=== PATIENT | female | born 1935 | race Caucasian/White ===

== ENCOUNTER 2017-04-21 08:55 | Outpatient (CLI) | payer MEDICARE, SELFPAY ==
[2017-04-21] VITALS (10 sets, daily range): BP systolic 121–143; BP diastolic 57–78; PULSE 90–104; RESP 16–18; TEMP 36.5–37.7; O2SAT 92–100; BMI 34.7
--- NOTE | 2017-04-21 11:13 | NURSING ---
Blood has been tranfusing for 15min at [facility]. pt denies s&s of adverse reactions, this nurse does not see any, will continue to monitor. Increased to 100ml.hr for now.
--- NOTE | 2017-04-21 12:46 | NURSING ---
Pt has been requesting pain medication since approximately 1100, pt has no order for pain medication. According to [facility] papers that were faxed here pt has an order for [place] 5/325 po Q4hrs. No written orders for this came with pt. This nurse paged Dr. Josh Garcia who is patient account liaison for Dr. Zayas to get an order for this.
[2017-04-21] MEDS: 0.9% NaCl Peripheral Flush Adult/Peds IV (13:49)
[2017-04-21] MEDS: Furosemide 20 MG/2 ML VIAL IV (13:49)
[2017-04-21] MEDS: HYDROcodone Bitartrate/Apap 5/325 Tablet PO (14:30)
--- NOTE | 2017-04-21 17:32 | NURSING ---
REPORT CALLED TO IR[facility]IL[facility]
== END 2017-04-21 17:50 ==
LOC: MEDOUTP 08:56 → MS2 08:58
PROVIDERS: Family Provider Family Medicine; PCP Family Medicine; Visit Provider Family Medicine
DX: D64.9 Anemia, unspecified (principal)
CPT/HCPCS: 36415; 36430; 86850; 86900; 86920; 86922; J7040; P9016; A4216; J1940

== ENCOUNTER 2019-08-25 15:50 | Observation (INO) | payer MEDICARE, SELFPAY ==
[2017-04-21 11:08] VITALS: BMI 34.7
[2019-08-25] VITALS (7 sets, daily range): BP systolic 121–147; BP diastolic 66–78; PULSE 68–74; RESP 14–18; TEMP 36.4–37.1; O2SAT 95–97; BMI 32.0; BMI 32.5
--- NOTE | 2019-08-25 16:26 | CT_ITS ---
STUDY: CT BRAIN WITHOUT CONTRAST REASON FOR EXAM: Female, 84 years old. VERTIGO, WEAKNESS RADIATION DOSAGE (If Supplied By Facility): CTDIvol = ( 44.99 ) mGy, DLP = ( 762.36 ) mGycm TECHNIQUE: Transaxial CT imaging of the brain was performed without administration of intravenous contrast material. Individualized dose optimization techniques were used for this CT. COMPARISON: No relevant priors. FINDINGS: Normal soft tissue structures. Normal calvarium. There is mild cerebral atrophy with widening of the extra-axial spaces and ventricular dilatation. There are areas of decreased attenuation within the white matter tracts of the supratentorial brain, consistent with microvascular disease changes. Normal basal ganglia and thalami. Normal brainstem. Normal cerebellum. There is no intracranial hemorrhage. There are no findings of an acute ischemic infarction. There are atherosclerotic calcifications. Normal visualized paranasal sinuses. CT/Brain/Head without Contrast IMPRESSION: Chronic involutional changes of the brain. Electronically Signed: Robert Darnell MD at 17:41 EDT , Service support ,
--- NOTE | 2019-08-25 16:26 | EKG12_ITS ---
Test Reason : DIZZINESS Blood Pressure : / mmHG Vent. Rate : 066 BPM Atrial Rate : 066 BPM P-R Int : 154 ms QRS Dur : 084 ms QT Int : 450 ms P-R-T Axes : 035 030 037 degrees QTc Int : 471 ms Normal sinus rhythm Nonspecific T wave abnormality Prolonged QT Abnormal ECG Confirmed by JOSE LUIS NICHOLS, GABE ([id number]), editor farm journal LESTER MARROQUIN ([id number]) on 08/27/2019 9:14:44 AM Referred By: Confirmed By:GABE AMAYA MD
--- NOTE | 2019-08-25 16:29 | ED.DCSUM_ITS ---
- ER Visit Summary Date of Service: 08/25/19 Chief Complaint: Vertigo History of Present Illness: The patient is a 84 F presenting with vertigo. She states this started yesterday. Her symptoms worsen when she stands or turns her head. She denies nausea or vomiting. She fell 4 days ago. She states she b umped her head but did not lose consciousness. She is not on anticoagulants. She complains of unsteady gait when she tries to ambulate. She denies change in vision or speech. Denies numbness or weakness. She has shortness of breath which is no worse than usual. Denies chest pain. Denies fever or cough. Denies other complaints. Physical Examination: Vitals are stable. Patient is afebrile. Alert no acute distress. HEENT exam is unremarkable. Neck is supple. Lungs are clear and equal bilaterally. Heart is regular rate and rhythm. Abdomen is soft nontender nondistended. Extremities are unremarkable. Skin is warm and dry. No focal neurologic deficit. NIH 0 Remainder of exam is unremarkable. Emergency Department Course and Treatment: EKG is sinus rate of 66 with no acute ischemic changes. CBC, chemistries unremarkable other than sodium 131. Troponin is negative. Urinalysis unremarkable. She was given IV fluids. CT head shows chronic changes. Chest x-ray shows cardiac enlargement. No focal infiltrate. Discussed with hospitalist for observation. Disposition: Observation Impression: Vertigo This note was generated with [employer] dictation software. It may contain incorrect words, spelling, and punctuation that were not noted in review of the chart prior to signing ED Disposition - Plan for ED Patient: Referrals: Chapo Morfin MD [Primary Care Provider] -
--- NOTE | 2019-08-25 16:49 | RAD_ITS ---
STUDY: X-RAY CHEST REASON FOR EXAM: Female, 84 years old. POSITIONAL DIZZINESS TECHNIQUE: Single AP portable view of the chest. COMPARISON: May 23, 2012 FINDINGS: There are monitoring devices. There are interstitial fibrotic changes of the lungs. There is no demonstrated pleural abnormality. There is moderate cardiac enlargement. There is stable right hilar enlargement . There is atherosclerotic calcification of the aortic arch with tortuosity. Normal visualized thoracic spine. Normal visualized ribs, clavicles, and shoulders. There is no demonstrated abnormality of the visualized soft tissue structures of the upper abdomen. RAD/Chest 1 View (Portable) IMPRESSION: Cardiac enlargement. No focal infiltrate. Electronically Signed: Robert Darnell MD at 18:00 EDT , Service support ,
[2019-08-25 16:53] LABS: Absolute Neutrophil Count 5.2 X10^3/uL (2.0-7.7); Basophil# 0.04 X10^3/uL; Basophil% 0.5 % (0-1); Eosinophil# 0.14 X10^3/uL; Eosinophils% 1.9 % (0-5); Hematocrit 39.4 % (37-47); Hemoglobin 12.9 g/dL (12.0-15.0); Lymphocyte % 19.9 % (19-41); Mean Corp Hgb Conc 32.7 g/dL (32-36); Mean Corpuscular Hgb 29.4 pg (27.0-32.0); Mean Corpuscular Volume 89.7 fL (81-99); Mean Platelet Vol. 10.2 fl (6.2-12.0); Monocyte# 0.66 X10^3/uL; Monocyte% 8.8 % (0-10); NRBC Flagged by Analyzer 0 % (0-5); Neutrophil # 5.15 X10^3/uL (2.7-7.7); Neutrophil % 68.5 % (47-70); Platelet Count 328 K/mm3 (150-450); RBC Distribution Width SD 42.8 fl (35.1-43.9); Red Blood Count 4.39 M/mm3 (4.2-5.4); White Blood Count 7.5 K/mm3 (4.4-11.0)
[2019-08-25 16:54] LABS: Anion Gap 7 (5-15); BUN 12 mg/dL (7-18); BUN/Creat Ratio 15.9 RATIO (10-20); Calcium,Total 8.8 mg/dL (8.5-10.1); Chloride 94 mmol/L (98-107); Creatinine, Serum 0.76 mg/dL (0.55-1.02); EST Glomerular Filtration Rate 78 mL/min (>60); Est Glom Filt Rate - Afr Amer 94 mL/min (>60); Glucose 91 mg/dL (74-106); Potassium 3.7 mmol/L (3.5-5.1); Sodium Level 131 mmol/L (136-145)
[2019-08-25 17:29] LABS: Bacteria 0 SEEN /hpf (None Seen); Mucous, Urine 0 SEEN /hpf (<or=2+); Red Blood Cells-Urine 0 SEEN /hpf (0-5); White Blood Cells 0 SEEN /hpf (0-5)
[2019-08-25 17:43] LABS: Color, Urine Yellow (Yellow); Glucose, Dipstick Normal (Normal); Ketone-Dipstick Negative (Negative); Leukocyte Esterase-Dipstick Negative /ul (Negative); Nitrite-Dipstick Negative (Negative); Occult Blood-Urine Negative /ul (Negative); Protein-Dipstick Negative (Negative); Specific Gravity, Urine 1.005 (1.002-1.030); Urine Bilirubin Dipstick Negative (Negative); Urine Clarity Clear (Clear); Urine Urobilinogen Normal (Normal)
[2019-08-25 17:49] LABS: Squamous Epithelial Cells - UA 0-5 SEEN /hpf (5-10)
--- NOTE | 2019-08-25 18:08 | HP.PCM_ITS ---
History of Present Illness Date of Admission: 08/25/19 Chief Complaint: Dizziness and vertigo The patient is a 84 year old F with a past medical history as outlined was admitted through the ED on 08/25/2019 with a complaint of dizziness and vertigo. Symptoms have been going on for 1 day and gradually worsened. She said it was worsened by movement of her head. She denied any headache, blurred vision, any upper respiratory symptoms, any ringing in the ears, any nausea vomiting or diarrhea. She is never had such symptoms before. Review of symptoms otherwise negative. Vitals were essentially unremarkable with temperature being 97.5, blood pressure 124/66, pulse rate of 72 respiratory of 17. She was saturating at 96% on room air. Chemistry showed sodium of 131 and chloride of 94. Initial troponin was negative and creatinine is 0.76. CBC was unremarkable. ET of the brain showed only chronic involutional changes of the brain. Chest x-ray showed cardiac enlargement with no focal infiltrate and no acute cardiopulmonary process. She has been admitted to be managed for acute vertigo likely due to BPPV but rule out a stroke. [] Past Medical History Allergies fenofibrate Allergy (Verified 08/25/19 15:52) Unknown lisinopril Allergy (Verified 08/25/19 15:52) Unknown perfume Allergy (Verified 08/25/19 15:52) Unknown Sulfa (Sulfonamide Antibiotics) Allergy (Verified 08/25/19 15:52) Unknown zolpidem Allergy (Verified 08/25/19 15:52) Unknown cholecalciferol (vitamin D3) Adverse Reaction (Verified 08/25/19 15:52) Upset Stomach meloxicam Adverse Reaction (Verified 08/25/19 15:52) Unknown Home Medications: Ambulatory Orders Medication Instructions Recorded Acetaminophen [Tylenol Extra 500 mg PO Q4H PRN PRN 08/25/19 Strength] Hydrochlorothiazide 12.5 mg PO DAILY 08/25/19 Loperamide [Imodium] 2 mg PO DAILY PRN PRN 08/25/19 Omeprazole 40 mg PO DAILY 08/25/19 Surgical History: - - hip surgery in the past Psychiatric History: No pertinent psych hx INFORMATION SYSTEMS CONSULTANT 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 Denies: Chest Pain, Heaviness, Orthopnea, Palpitations Respiratory: Denies: Cough, Shortness of Breath, Shortness of breath at rest, Shortness of breath upon exertion, Sputum production Gastrointestinal: Denies: Abdominal Pain, Nausea, Vomiting Genitourinary: Denies: Dysuria Musculoskeletal: Denies: Joint Pain, Joint Tenderness Skin: Denies: Rash, Wounds Neurological: Denies: Numbness, Tingling, Focal weakness Psychiatric: Denies: Anxiety, Depression, Homicidal Ideations, Suicidal Ideations Hematologic/ Lymphatic: Denies: Easy Bruising, Easy Bleeding VTE Information - Inpt Only VTE Present on Admission: No VTE Pharm Prophylaxis ordered?: Yes - Physical Exam Vitals/I&O's: Vital Signs Temp Pulse Resp BP Pulse Ox 98.7 F 68 14 121/78 H 96 08/25/19 15:51 08/25/19 17:55 08/25/19 17:55 08/25/19 17:55 08/25/19 17:55 Oxygen Delivery Method Room Air Weight: 175 lb Body Mass Index (BMI) 32.0 General: Alert, Oriented x3, Cooperative, No apparent distress HEENT: Atraumatic, PERRLA, EOMI, Normocephalic Oral: Moist Mucosa Neck: Supple, No JVD, Negative Carotid Bruits Lungs: Clear to auscultation, Normal air movement, No rhonchi, No wheeze, No rales Cardiovascular: Regular rate, Regular Rhythm, Normal S1, Normal S2, No murmurs Abdomen: Bowel Sounds Present, Soft, Non Tender, Non-Distended, No Hepato- splenomegaly Extremities: No clubbing, No cyanosis, No edema, Capillary Refill Less than 3 Seconds Skin: No rashes, No breakdown Musculoskeletal: No Tenderness to Palpation of Joints or Extremities Lymphatic: No Cervical, Supraclavicular, or Inguinal Adenopathy Neurological: Cranial nerves II-XII grossly intact, Neuro grossly intact, Motor Exam 5/5 strength throughout, - - no nystagmus Psych/Mental Status: Normal Affect, Appropriate, Alert and oriented to time, place, person, mood and affect Laboratory Results 08/25/19 16:15: WBC 7.5, RBC 4.39, Hgb 12.9, Hct 39.4, MCV 89.7, MCH 29.4, MCHC 32.7, RDW Std Deviation 42.8, RDW Coeff of Lynsey 13.0, Plt Count 328, MPV 10.2, Immature Gran % (Auto) 0.400, Neut % (Auto) 68.5, Lymph % (Auto) 19.9, [place] % (Auto) 8.8, Eos % (Auto) 1.9, Baso % (Auto) 0.5, Absolute Neuts (auto) 5.2, Absolute Lymphs (auto) 1.50, Nucleated RBC % 0 08/25/19 16:15: Sodium 131 L, Potassium 3.7, Chloride 94 L, Carbon Dioxide 30.0, Anion Gap 7, BUN 12, Creatinine 0.76, Estim Creat Clear Calc 34.30, Est GFR (MDRD) Af Amer 94, Est GFR (MDRD) Non-Af 78, BUN/Creatinine Ratio 15.9, Glucose 91, Calcium 8.8, Troponin I < 0.015 08/25/19 17:20: Urine Color Yellow, Urine Clarity Clear, Urine pH 6.0, Ur Specific [place] 1.005, Urine Protein Negative, Urine Glucose (UA) Normal, Urine Ketones Negative, Urine Occult Blood Negative, Urine Nitrite Negative, Urine Deuce irubin Negative, Urine Urobilinogen Normal, Ur Leukocyte Esterase Negative, Urine RBC 0 SEEN, Urine WBC 0 SEEN, Ur Squamous Epith Cells 0-5 SEEN, Urine Bacteria 0 SEEN, Urine Mucus 0 SEEN Diagnostic Data Brain CT 08/25/19 16:26 IMPRESSION: Chronic involutional changes of the brain. Electronically Signed: Robert Darnell MD at 17:41 EDT , Service support , Chest X-Ray 08/25/19 16:49 IMPRESSION: Cardiac enlargement. No focal infiltrate. Electronically Signed: Robert Darnell MD at 18:00 EDT , Service support , Assessment/Plan 84-year-old admitted with a complaint of dizziness and vertigo. 1. Vertigo * Main differential is BPPV as patient states it gets worse with movement of her head. However in light of her advanced age and no previous history of vertigo, I think it is reasonable to rule out a stroke with an MRI. * Admit to PCU with telemetry. * Fall precautions. * PT/OT consult * hydrate gently with IVF * get MRI of the brain and MRA of the head and neck * if negative, will benefit from vestibular therapy * 2.Hypertension: On hydrochlorothiazide. Controlled. 3.GERD: On omeprazole 40 mg daily. DVT prophylaxis: SCDs CODE STATUS: Full code * Patient counseled extensively about different types of CODE STATUS including full code, DNR CCA and DNR CCA. Patient elects to be full code. Total elgh-ko-mdcn time 16 minutes. OBSV E&M: 45773 Initial observation care L2 Procedures: 79954 Advncd Care Plan 30 Min
[2019-08-26 00:55] VITALS: BP 131/74; PULSE 67; RESP 16; TEMP 36.7; O2SAT 98
[2019-08-26 03:00] VITALS: PULSE 66
[2019-08-26 03:30] VITALS: BP 145/62; PULSE 71; RESP 16; TEMP 36.7; O2SAT 95
[2019-08-26 05:00] VITALS: BMI 32.5
--- NOTE | 2019-08-26 05:55 | MRI_ITS ---
STUDY: MRA NECK WITH AND WITHOUT CONTRAST REASON FOR EXAM: Female, 84 years old. VERTIGO, increasing dizziness worse on Sunday, resolved now TECHNIQUE: 3-D rzbq-vz-mrrabf (TOF) imaging was performed in an 1.5 T MRI scanner. iv doatarem 16cc was administered for the contrast enhanced images. COMPARISON: None. FINDINGS: RIGHT CAROTID ARTERIES: Normal right common carotid artery (CCA). Normal right common carotid bulb. Normal origin of the right internal carotid (ICA) artery without a hemodynamically significant stenosis. Normal visualized cervical portion of the right internal carotid artery. Normal origin of the right external carotid artery (ECA). LEFT CAROTID ARTERIES: Normal left common carotid artery (CCA). Normal left common carotid bulb. Normal origin of the left internal carotid (ICA) artery without a hemodynamically significant stenosis. Normal visualized cervical portion of the left internal carotid artery. Normal origin of the left external carotid artery (ECA). VERTEBRAL ARTERIES: Normal antegrade flow within the bilateral vertebral artery without a hemodynamically significant stenosis. MRI/MRA Neck WITH and W/O Contrast IMPRESSION: Normal bilateral cervical carotid and vertebral arteries. Electronically Signed: Mitchell Juarez, at 12:46 EDT Tel , Service support ,
--- NOTE | 2019-08-26 05:55 | MRI_ITS ---
STUDY: MRI BRAIN WITHOUT CONTRAST REASON FOR EXAM: Female, 84 years old. VERTIGO, increasing dizziness worse on Sunday, resolved now TECHNIQUE: Standardized multiplanar fat and water weighted pulse sequences were obtained. COMPARISON: CT 08/25/2019 FINDINGS: There is moderate cerebral atrophy with widening of the extra-axial spaces and ventricular dilatation. There are a limited number of small white matter hyperintensities, distributed throughout the deep white matter tracts of the cerebral hemispheres, consistent with mild chronic white matter ischemic changes. There is no evidence for recent intracranial ischemia or other cause of cytotoxic edema on diffusion weighted imaging (DWI). Normal T2* images of the brain without demonstrated susceptibility artifact. There is no demonstrated hemosiderin stain. Normal bilateral basal ganglia. Normal thalami. There is no extra-axial fluid accumulation. Normal flow voids within the major intracranial circulation suggesting patency by spin echo criteria. Normal sella turcica, pituitary gland, infundibular stalk, optic chiasm and hypothalamus. Normal tectal plate and pineal gland. Normal midbrain, josephine and medulla. Normal cerebellum. Normal basal cisterns. Normal bilateral temporal bones. Normal bilateral internal auditory canals. There are bilateral ocular lens implants with otherwise normal intraorbital contents. Normal visualized paranasal sinuses. Normal calvarium and skull base. Normal visualized soft tissue structures. Normal visualized upper cervical spine. MRI/Brain without Contrast IMPRESSION: Involutional changes of the brain, as described above. No acute infarct. Electronically Signed: Mendez Garcia MD at 9:34 EDT Tel , Service support ,
--- NOTE | 2019-08-26 05:55 | MRI_ITS ---
STUDY: MRA OF THE HEAD WITHOUT CONTRAST REASON FOR EXAM: Female, 84 years old. VERTIGO, increasing dizziness worse on Sunday, resolved now TECHNIQUE: 3-D oydp-xj-ipcjqf (TOF) imaging was performed with MIPs. The study was performed unenhanced. COMPARISON: None. FINDINGS: Normal bilateral petrous carotid arteries. Normal right cavernous carotid artery with a normal supraclinoid bifurcation. Normal left cavernous carotid artery with a normal supraclinoid bifurcation. Normal right A1 segments of the anterior cerebral artery. There is non-visualization of the left A1 segment of the anterior cerebral arteries consistent with either aplastic development or an occlusion. Normal intact anterior communicating artery (ACOM). Normal bilateral A2 segments of the anterior cerebral arteries. There is moderate focal narrowing of the proximal right M1 segment. Normal right M2 segment of the middle cerebral arteries, with a normal M1 bifurcation. Normal left M1 and M2 segments of the middle cerebral arteries, with a normal M1 bifurcation. There is non-visualization of the right posterior communicating artery (PCOM). Normal left posterior communicating artery (PCOM). Normal bilateral vertebral arteries. Normal basilar artery with a normal basilar bifurcation. The visualized bilateral superior cerebellar (SCA) arteries are normal. Normal bilateral P1, P2 and visualized P3 segments of the posterior cerebral arteries. There is no demonstrated aneurysm of the [place] of [place]. There is no major vessel occlusion or hemodynamically significant stenosis. There is no demonstrated abnormality of the visualized brain. MRI/MRA Head ONLY without Contrast IMPRESSION: Moderate focal narrowing of the proximal right M1 segment. There is nonvisualization of the left A1 segment which may be due to aplastic development or an occlusion. Electronically Signed: Mitchell Juarez, at 13:15 EDT Tel , Service support ,
[2019-08-26 06:05] LABS: Absolute Lymphocyte Count 1.32 X10^3/uL (0.83-4.51); Absolute Neutrophil Count 5.5 X10^3/uL (2.0-7.7); Basophil# 0.04 X10^3/uL; Basophil% 0.5 % (0-1); Eosinophils% 2.6 % (0-5); Hematocrit 37.5 % (37-47); Hemoglobin 12.3 g/dL (12.0-15.0); Lymphocyte # 1.32 X10^3/ul (4.0); Lymphocyte % 16.8 % (19-41); Mean Corp Hgb Conc 32.8 g/dL (32-36); Mean Corpuscular Hgb 29.1 pg (27.0-32.0); Mean Corpuscular Volume 88.7 fL (81-99); Mean Platelet Vol. 9.5 fl (6.2-12.0); Monocyte# 0.75 X10^3/uL; Monocyte% 9.6 % (0-10); NRBC Flagged by Analyzer 0 % (0-5); Neutrophil % 70.1 % (47-70); Platelet Count 290 K/mm3 (150-450); RBC Distribution Width CV 12.9 % (11.6-14.6); RBC Distribution Width SD 41.6 fl (35.1-43.9); Red Blood Count 4.23 M/mm3 (4.2-5.4); White Blood Count 7.8 K/mm3 (4.4-11.0)
[2019-08-26 06:28] LABS: Anion Gap 4 (5-15); BUN 10 mg/dL (7-18); Calcium,Total 8.9 mg/dL (8.5-10.1); Chloride 98 mmol/L (98-107); Creatinine, Serum 0.77 mg/dL (0.55-1.02); EST Glomerular Filtration Rate 76 mL/min (>60); Est Glom Filt Rate - Afr Amer 92 mL/min (>60); Glucose 94 mg/dL (74-106); Potassium 3.5 mmol/L (3.5-5.1); Sodium Level 132 mmol/L (136-145)
[2019-08-26 07:25] VITALS: PULSE 71
[2019-08-26 09:30] VITALS: BP 133/62; PULSE 68; RESP 18; TEMP 37.1; O2SAT 96
[2019-08-26] MEDS: Enoxaparin 40 MG/0.4 ML Syringe SC (10:18)
[2019-08-26] MEDS: hydroCHLOROthiazide 12.5mg 12.5 MG PO (10:18)
[2019-08-26] MEDS: Pantoprazole Sodium 40 MG Tablet PO (10:19)
[2019-08-26 11:35] VITALS: PULSE 68
[2019-08-26 11:53] VITALS: BMI 32.5
--- NOTE | 2019-08-26 13:25 | DCINST_ITS ---
You will use the following diet at home:: No restrictions Your food should be the consistency of: Regular Your liquids should be the consistency of: Regular/Thin Discharge Activity: Return to Normal Activity Weight Bearing Status: Full weight bearing Allergies/Adverse Reactions: Allergies fenofibrate Allergy (Verified 08/25/19 15:52) Unknown lisinopril Allergy (Verified 08/25/19 15:52) Unknown perfume Allergy (Verified 08/25/19 15:52) Unknown Sulfa (Sulfonamide Antibiotics) Allergy (Verified 08/25/19 15:52) Unknown zolpidem Allergy (Verified 08/25/19 15:52) Unknown cholecalciferol (vitamin D3) Adverse Reaction (Verified 08/25/19 15:52) Upset Stomach meloxicam Adverse Reaction (Verified 08/25/19 15:52) Unknown Medications to take at Discharge Acetaminophen [Tylenol] 500 mg PO Q4H PRN PRN 08/25/19 Hydrochlorothiazide 12.5 mg PO DAILY 08/25/19 Loperamide [Imodium] 2 mg PO DAILY PRN PRN 08/25/19 Omeprazole 40 mg PO DAILY 08/25/19 Primary Care Physician: Chapo Morfin MD [Primary Care Provider] - Please follow up with your Primary Care Physician in: in 1-2 weeks Test Results: Test results from this visit will be discussed in further detail at your follow- up appointment, if applicable.
--- NOTE | 2019-08-26 19:56 | PCM.DC.SUM ---
Discharge Date and Diagnosis Date of Admission: 08/25/19 Date of Discharge: 08/26/19 - Primary Discharge Diagnosis Acute Problems: #1 benign vertigo-acute #2 essential hypertension #3 GERD Hospital Course and Treatment Operations: None Procedures: None Summary of Care Provided: The patient is a 84 year old F was seen in the emergency room at [facility] with chief complaint of dizziness x24 hours, she stated it worsened when she turned her head suddenly. Work-up in the emergency room included an EKG which showed no acute ischemic changes, CBC and chemistries were unremarkable other than sodium of 131. Patient was given IV fluids, CT of the brain showed chronic changes, chest x-ray showed cardiac enlargement. Patient was placed in observation status on PCU, she underwent an MRI of the brain which showed no evidence of acute stroke, she had an MRA of the head and neck which showed no evidence of severe occlusion.. Patient symptoms resolved during her hospitalization with no treatment. On 08/26/2019, patient was seen and examined: On examination she appeared in good health and spirits, she does not appear to be in any distress. Vital signs as documented. Skin warm and dry and without overt rashes. Neck without JVD, thyroid appears normal, trachea is midline, neck is supple. Lungs clear, normal air movement was noted. Heart exam notable for regular rhythm, normal sounds and absence of murmurs, rubs or gallops. Abdomen unremarkable and without evidence of organomegaly, masses, or abdominal aortic enlargement, bowel sounds are present in all 4 quadrants, no abdominal tenderness was noted. Extremities nonedematous, no cyanosis was noted, no clubbing was noted. Neuro: Cranial nerves II through XII are grossly intact, no focal motor deficits were noted, sensation to light touch and pinprick is intact, motor exam 5/5 throughout. Psych: Patient is alert and oriented x3, she does not appear anxious or depressed, she does not appear agitated. Patient was discharged in stable condition on 08/26/2019. - Physical Exam Vitals/I&O's: Vital Signs Temp Pulse Resp BP Pulse Ox 98.8 F 68 18 133/62 H 96 08/26/19 09:30 08/26/19 11:35 08/26/19 09:30 08/26/19 09:30 08/26/19 09:30 Oxygen Delivery Method Room Air Weight: 80.6 kg Body Mass Index (BMI) 32.5 Intake and Output for Last 24 Hours 08/24/19 08/25/19 08/26/19 23:59 23:59 23:59 Intake Total 500 / 620 520 / 520 Balance 500 / 620 520 / 520 Laboratory Results 08/26/19 05:55: WBC 7.8, RBC 4.23, Hgb 12.3, Hct 37.5, MCV 88.7, MCH 29.1, MCHC 32.8, RDW Std Deviation 41.6, RDW Coeff of Lynsey 12.9, Plt Count 290, MPV 9.5, Immature Gran % (Auto) 0.400, Neut % (Auto) 70.1 H, Lymph % (Auto) 16.8 L, [place] % (Auto) 9.6, Eos % (Auto) 2.6, Baso % (Auto) 0.5, Absolute Neuts (auto) 5.5, Absolute Lymphs (auto) 1.32, Nucleated RBC % 0 08/26/19 05:55: Sodium 132 L, Potassium 3.5, Chloride 98, Carbon Dioxide 30.0, Anion Gap 4 L, BUN 10, Creatinine 0.77, Estim Creat Clear Calc 34.30, Est GFR (MDRD) Af Amer 92, Est GFR (MDRD) Non-Af 76, BUN/Creatinine Ratio 13.0, Glucose 94, Calcium 8.9 Discharge Activity: Return to Normal Activity Weight Bearing Status: Full weight bearing Home Medications: Medications to take at Discharge Acetaminophen [Tylenol] 500 mg PO Q4H PRN PRN 08/25/19 Hydrochlorothiazide 12.5 mg PO DAILY 08/25/19 Loperamide [Imodium] 2 mg PO DAILY PRN PRN 08/25/19 Omeprazole 40 mg PO DAILY 08/25/19 Diazepam [Valium] 2 mg PO TID PRN PRN #20 tab 08/26/19 Following Prescrptions Were Given to Patient: Diazepam [Valium] 2 mg PO TID PRN PRN #20 tab PRN Reason: Dizziness Prescription Printed Primary Care Physician: Chapo Morfin MD [Primary Care Provider] - Please follow up with your Primary Care Physician in: in 1-2 weeks Disposition: Home Minutes spent on discharge:: 31 Patient Condition:: Stable Medical Necessity - Tobacco Use Smoking Status: Never smoker Tobacco Use: Non-smoker Meaningful Use Info Meaningful Use Diagnoses (Choose all that apply): None applicable OBSV E&M: 38579 Observation care discharge
== END 2019-08-26 13:25 | disposition home or self-care (01) ==
LOC: ED 17:34 → PCU 18:28
PROVIDERS: Admitting Provider Student in an Organized Health Care Education/Training Program; Emergency Provider Emergency Medicine; PCP Family Medicine; Visit Provider Internal Medicine
DX: R42 Dizziness and giddiness (principal); I10 Essential (primary) hypertension; K21.9 Gastro-esophageal reflux disease without esophagitis; Z79.899 Other long term (current) drug therapy; Z91.81 History of falling; R94.31 Abnormal electrocardiogram [ECG] [EKG]
CPT/HCPCS: 36415; 70450; 70544; 70549; 70551; 71045; 80048; 81001; 84484; 85025; 93005; 96360; 96372; 97162; 97166; 99218; 99285; A9575; J7040; A4216; G0378

== ENCOUNTER 2020-04-16 13:02 | Outpatient (RCR) | payer MEDICARE, SELFPAY | END 2020-04-16 23:59 | LOC: IMMUN 13:02 | PROVIDERS: PCP Family Medicine; Visit Provider Family Medicine | DX: Z23 Encounter for immunization (principal) | CPT/HCPCS: 0011A; 0012A; 91301 ==

== ENCOUNTER 2020-06-23 17:07 | Inpatient (IN) | payer MEDICARE, SELFPAY ==
[2020-06-23 17:08] VITALS: BP 154/84; PULSE 63; RESP 18; TEMP 35.8; O2SAT 92; BMI 32.0
--- NOTE | 2020-06-23 17:36 | CT_ITS ---
INDICATION: Diffuse abdominal pain EXAMINATION: CT Abdomen And Pelvis W/ Contrast Injection TECHNIQUE: Helically acquired images were obtained of the abdomen and pelvis after IV contrast. A radiation dose optimization technique was used for this scan. IV Contrast dosage and agent: 100 cc of [id number] Oral contrast: None. COMPARISON: None. FINDINGS: Visualized lung bases: Bibasilar atelectasis. Liver: Unremarkable Gallbladder: Few small intraluminal stones seen. Spleen: Unremarkable Pancreas: Mild fatty atrophic changes. Adrenal Glands: Unremarkable Kidneys: Scattered too small to characterize subcentimeter hypodensities bilaterally. GI Tract: Scattered diverticula throughout the colon without evidence of inflammation. Multiple dilated loops of fluid-filled small bowel measuring up to 3 cm in diameter. There is a potential transition point in the mid to distal ileum (image 80, series 2). Vasculature: Severe aortoiliac atherosclerotic calcifications. Lymphadenopathy: None Peritoneum: No ascites. Bladder: Unremarkable Reproductive organs: Unremarkable Bones/Soft tissues: Mild scattered degenerative changes of the visualized spine. Grade [address] on L5. CT/Abdomen/Pelvis W IV Cont ONLY IMPRESSION: Small bowel obstruction with possible transition point in the mid to distal ileum. Cholelithiasis. Diverticulosis. Electronically Signed: King Lau MD at 19:39 EDT Tel , Service support ,
--- NOTE | 2020-06-23 17:44 | ED.VIS.GEN ---
History of Present Illness Chief Complaint: Abd Pain Informant: Patient Narrative: Patient is an 84-year-old female who presents to the emergency department for diffuse abdominal pain. This has been present over the past 10 days. Has been progressive getting worse. She currently rates the pain as a 10 out of 10. She denies ever experiencing this before in the past. She did get nauseous and vomit a few days apart. She states she is having normal bowel movements without any blood or black tarry stools. She denies any urinary symptoms. No previous abdominal surgeries. She denies any chest pain or shortness of breath. No fevers or chills. She states that eating seems to make her symptoms worse. Whenever she wakes up in the morning her symptoms are not bad. Whenever she vomits this seems to help. Past Medical History - Allergies and Home Meds Allergies/Adverse Reactions: Allergies fenofibrate Allergy (Verified 06/23/20 17:10) Unknown lisinopril Allergy (Verified 06/23/20 17:10) Unknown perfume Allergy (Verified 06/23/20 17:10) Unknown Sulfa (Sulfonamide Antibiotics) Allergy (Verified 06/23/20 17:10) Unknown zolpidem Allergy (Verified 06/23/20 17:10) Unknown cholecalciferol (vitamin D3) Adverse Reaction (Verified 06/23/20 17:10) Upset Stomach meloxicam Adverse Reaction (Verified 06/23/20 17:10) Unknown Prior records reviewed: Yes Past Medical History: - - Hypertension, IBS Surgical History: - - hip surgery in the past Smoking Status: Never smoker - Family History Maternal Family History: Reports: No pertinent history Paternal Family History: Reports: No pertinent history Review of Systems All systems negative except as indicated General: Denies: Chills, Fever, Sweats Eyes: Denies: Visual changes - bilaterally, Diplopia ENT: Denies: Rhinorrhea, Sore throat Cardiovascular: Denies: Chest pain, Palpitations Respiratory: Denies: Dyspnea, Cough, Dyspnea on exertion Gastrointestinal: Reports: Abdominal pain, Nausea, Vomiting. Denies: Diarrhea, Melena, Hematochezia Genitourinary: Denies: Dysuria, Hematuria, Frequency Musculoskeletal: Denies: Back pain, Extremity Pain Skin: Denies: Rash, Wounds Neurological: Denies: Headache, Weakness, Numbness Physical Exam Vital Signs/Narrative: Vital Signs Temp Pulse Resp BP Pulse Ox 06/23/20 17:08 96.5 F L 63 18 154/84 H 92 Inital Vital Signs reviewed: Yes General: Well nourished, Well developed, No Acute Distress Head: Normocephalic, Atraumatic Eyes: Perrl, EOMI ENT: Moist mucous membranes, No rhinorrhea Neck: Supple, Nontender Cardiovascular: Regular rate, Regular rhythm, No murmurs Respiratory: No distress, CTA bilaterally, Chest nontender Abdomen: Soft, Nondistended, Normal bowel sounds, Tender - Diffuse, no one spot hurts worse than another.. Negative for: Guarding, Rebound tenderness, Gutierrez's sign Back: Nontender, Normal Inspection Extremities: Nontender, No edema Skin: Normal color, No rash Neurological: Alert, Oriented x3, Cranial nerves II-XII grossly intact, Normal Strength, Normal Sensation Psychological: Normal affect, Normal Mood Diagnostic/Tx/Re-eval - Medical Decision Making Patient presents to the ED for diffuse abdominal pain for the past 10 days. Upon arrival to the ED vital signs within normal limits. She is diffusely tender. No peritoneal signs on physical exam. Patient given morphine for symptomatic treatment and will check basic lab work and CT scan of the abdomen/pelvis. Patient CT scan does show evidence of small bowel obstruction. She is feeling better after dose of morphine. She does have a mild elevation of her white blood cell count. Patient will require hospitalization for further evaluation and management of this. She is agreeable to staying in the hospital at this time. She has been stable throughout ED stay. ED Disposition - Plan for ED Patient: Disposition: Acute Care Hospital [facility] Diagnosis: Small bowel obstruction, Abdominal pain
[2020-06-23] MEDS: Morphine 4 MG/ML Syringe IV (17:48)
[2020-06-23 18:01] LABS: Absolute Lymphocyte Count 1.09 X10^3/uL (0.83-4.51); Absolute Neutrophil Count 10.2 X10^3/uL (2.0-7.7); Basophil# 0.03 X10^3/uL; Basophil% 0.2 % (0-1); Eosinophil# 0.05 X10^3/uL; Eosinophils% 0.4 % (0-5); Hematocrit 42.5 % (37-47); Hemoglobin 13.9 g/dL (12.0-15.0); Lymphocyte # 1.09 X10^3/ul (4.0); Lymphocyte % 8.9 % (19-41); Mean Corp Hgb Conc 32.7 g/dL (32-36); Mean Corpuscular Hgb 28.4 pg (27.0-32.0); Mean Corpuscular Volume 86.7 fL (81-99); Mean Platelet Vol. 9.9 fl (6.2-12.0); Monocyte# 0.88 X10^3/uL; Monocyte% 7.2 % (0-10); NRBC Flagged by Analyzer 0 % (0-5); Neutrophil # 10.16 X10^3/uL (2.7-7.7); Neutrophil % 82.9 % (47-70); Platelet Count 360 K/mm3 (150-450); RBC Distribution Width CV 13.3 % (11.6-14.6); RBC Distribution Width SD 42.2 fl (35.1-43.9); White Blood Count 12.3 K/mm3 (4.4-11.0)
[2020-06-23 18:24] LABS: ALB/GLOB Ratio 1.1 RATIO (0.9-2.4); AST(SGOT) 13 U/L (15-37); Alanine Aminotransfer ALT/SGPT 11 U/L (13-56); Alkaline Phosphatase 94 U/L (45-117); Anion Gap 5 (5-15); BUN 19 mg/dL (7-18); BUN/Creat Ratio 15.7 RATIO (10-20); Calcium,Total 9.2 mg/dL (8.5-10.1); Chloride 94 mmol/L (98-107); Creatinine, Serum 1.21 mg/dL (0.55-1.02); EST Glomerular Filtration Rate 45 mL/min (>60); Est Glom Filt Rate - Afr Amer 55 mL/min (>60); Estimated Creatinine Clearance 28.35 ml/min; Globulin 3.8 g/dL (2.2-4.2); Glucose 108 mg/dL (74-106); Lipase 82 U/L (73-393); Potassium 3.5 mmol/L (3.5-5.1); Protein, Total 7.8 g/dL (6.4-8.2); Sodium Level 132 mmol/L (136-145)
[2020-06-23 18:31] LABS: Lactic Acid 1.2 mmol/L (0.4-1.9)
[2020-06-23 20:02] LABS: Glucose, Dipstick Normal (Normal); Ketone-Dipstick Negative (Negative); Leukocyte Esterase-Dipstick 25 /ul (Negative); Nitrite-Dipstick Negative (Negative); Occult Blood-Urine 10 /ul (Negative); Protein-Dipstick 15 mg/dl (Negative); Specific Gravity, Urine 1.015 (1.002-1.030); Urine Bilirubin Dipstick Negative (Negative); Urine Urobilinogen Normal (Normal)
[2020-06-23 20:03] LABS: Color, Urine Yellow (Yellow); Urine Clarity Clear (Clear)
[2020-06-23 20:48] VITALS: BP 135/72; PULSE 69; RESP 18; TEMP 36.7; O2SAT 95
[2020-06-23 21:08] VITALS: RESP 18
--- NOTE | 2020-06-23 21:19 | PCM.HP.STD ---
Problem List (1) Acute kidney injury Status: Acute (2) Small bowel obstruction Status: Acute (3) Hypertension Status: Chronic (4) Aortic root enlargement Status: Chronic (5) Irritable bowel syndrome Status: Chronic History of Present Illness Date of Admission: 06/23/20 Chief Complaint: Abdominal pain. The patient is a 84 year old F with past medical history as mentioned above presented to the emergency room because of abdominal pain. Her symptoms started almost 2 weeks ago with gradually onset abdominal pain, vague generalized abdominal pain, initially was intermittent, burning pain, has been progressive and over the last 3 to 5 days, has been more severe and more constant, associated with vomiting and without aggravating or relieving factors. She attributed this pain initially to potassium pills that she was taking for low potassium. She continued to have this pain and it just has been getting worse. She mentioned that she had irritable syndrome and she had normal usual bowel movement today. Currently, she denied nausea or vomiting. She denied fever or chills. She denied urinary symptoms. In the emergency department, her vital signs were stable, afebrile. Routine blood work revealed mild leukocytosis, sodium of 132, BUN is 19, creatinine is 1.21. LFT was unremarkable. Lipase was normal. UA was unremarkable. CT scan abdomen and pelvis with IV contrast revealed small bowel obstruction with possible transition point in the middle to distal ileum. She is being admitted for small bowel obstruction and acute kidney injury. Past Medical History Past Medical History (Chronic Problems): Chronic Problems Hypertension (Chronic) Aortic root enlargement (Chronic) Irritable bowel syndrome (Chronic) Allergies fenofibrate Allergy (Verified 06/23/20 17:10) Unknown lisinopril Allergy (Verified 06/23/20 17:10) Unknown perfume Allergy (Verified 06/23/20 17:10) Unknown Sulfa (Sulfonamide Antibiotics) Allergy (Verified 06/23/20 17:10) Unknown zolpidem Allergy (Verified 06/23/20 17:10) Unknown cholecalciferol (vitamin D3) Adverse Reaction (Verified 06/23/20 17:10) Upset Stomach meloxicam Adverse Reaction (Verified 06/23/20 17:10) Unknown Home Medications: Ambulatory Orders Medication Instructions Recorded Hydrochlorothiazide 12.5 mg PO DAILY 08/25/19 Loperamide [Imodium] 2 mg PO DAILY PRN PRN 08/25/19 Omeprazole 40 mg PO DAILY 08/25/19 [place]-3 Fatty Acids/Fish Oil [Fish 1 each PO DAILY 06/23/20 Oil 1,000 mg Capsule] Surgical History: no surgical history, - Psychiatric History: 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 Denies: Chills, Fever, Weakness, Fatigue Eyes: Denies: Blurred vision, Double vision, Drainage, Redness HEENT: Denies: Difficulty Hearing, Ear Pain, Eye Pain, Nasal Congestion, Sore Throat Cardiovascular: Denies: Chest Pain, Chest Pressure, Edema, Heaviness, Light Headedness, Palpitations, Syncope Respiratory: Denies: Cough, Hemoptysis, Pleuritic Pain, Shortness of Breath, Sputum production, Wheezing Gastrointestinal: Reports: Abdominal Pain, Nausea, Vomiting. Denies: Constipation, Diarrhea Genitourinary: Denies: Dysuria, Frequency, Hematuria Musculoskeletal: Denies: Arm Pain, Back Pain, Foot Pain Skin: Denies: Dryness, Rash Neurological: Denies: Balance problems, Double vision, Change in Speech, Slurred speech, Confusion, Focal weakness, Headaches, Incoordination Psychiatric: Denies: Anxiety, Depression Endocrine: Denies: Change in Body Habitus, Polydipsia, Polyuria VTE Information - Inpt Only VTE Present on Admission: No VTE Mechan Device Prophylaxis: None VTE Pharm Prophylaxis ordered?: Yes - Physical Exam Vitals/I&O's: Vital Signs Temp Pulse Resp BP Pulse Ox 98.1 F 69 18 135/72 H 95 06/23/20 20:48 06/23/20 20:48 06/23/20 21:08 06/23/20 20:48 06/23/20 20:48 Oxygen Delivery Method Room Air Weight: 175 lb Body Mass Index (BMI) 32.0 General: Alert, Oriented x3, Cooperative, No apparent distress HEENT: Atraumatic, PERRLA, EOMI, Normocephalic Oral: Moist Mucosa, No Gingival or Mucosal Lesions/ Ulcerations Neck: Supple, No JVD, Negative Carotid Bruits, Trachea Midline, Thyroid Normal Size and Texture Lungs: Clear to auscultation, Normal air movement, No rhonchi, No wheeze, No rales, Diminished Cardiovascular: Regular rate, Regular Rhythm, Normal S1, Normal S2, PMI Normal Abdomen: Soft, Non-Distended, No Hepato-splenomegaly, Hypoactive Bowel Sounds, Tender Extremities: No clubbing, No cyanosis, Edema Skin: No rashes, No breakdown Lymphatic: No Cervical, Supraclavicular, or Inguinal Adenopathy Neurological: Cranial nerves II-XII grossly intact, Motor Exam 5/5 strength throughout Psych/Mental Status: Normal Affect, Appropriate, Alert and oriented to time, place, person, mood and affect Laboratory Results 06/23/20 17:40: WBC 12.3 H, RBC 4.90, Hgb 13.9, Hct 42.5, MCV 86.7, MCH 28.4, MCHC 32.7, RDW Std Deviation 42.2, RDW Coeff of Lynsey 13.3, Plt Count 360, MPV 9.9, Immature Gran % (Auto) 0.400, Neut % (Auto) 82.9 H, Lymph % (Auto) 8.9 L, [place] % (Auto) 7.2, Eos % (Auto) 0.4, Baso % (Auto) 0.2, Absolute Neuts (auto) 10.2 H, Absolute Lymphs (auto) 1.09, Nucleated RBC % 0 06/23/20 17:40: Sodium 132 L, Potassium 3.5, Chloride 94 L, Carbon Dioxide 33.0 H, Anion Gap 5, BUN 19 H, Creatinine 1.21 H, Estim Creat Clear Calc 28.35, Est GFR (MDRD) Af Amer 55 L, Est GFR (MDRD) Non-Af 45 L, BUN/Creatinine Ratio 15.7, Glucose 108 H, Calcium 9.2, Total Bilirubin 0.60, AST 13 L, ALT 11 L, Alkaline Phosphatase 94, Total Protein 7.8, Albumin 4.0, Globulin 3.8, Albumin/Globulin Ratio 1.1, Lipase 82 06/23/20 17:40: Lactic Acid 1.2 06/23/20 19:10: Urine Color Yellow, Urine Clarity Clear, Urine pH 8.0, Ur Specific [place] 1.015, Urine Protein 15 H, Urine Glucose (UA) Normal, Urine Ketones Negative, Urine Occult Blood 10 H, Urine Nitrite Negative, Urine Bilirubin Negative, Urine Urobilinogen Normal, Ur Leukocyte Esterase 25 H, Urine RBC Cancelled, Urine WBC Cancelled, Ur Squamous Epith Cells Cancelled, Ur Transition Epith Cell Cancelled, Ur Renal Epithelial Cell Cancelled, Calcium Oxalate Crystal Cancelled, Uric Acid Crystals Cancelled, Triple Phos Crystals Cancelled, Other Crystals Cancelled, Amorphous Sediment Cancelled, Urine Bacteria Cancelled, Hyaline Casts Cancelled, Fine Granular Casts Cancelled, Coarse Granular Casts Cancelled, Waxy Casts Cancelled, RBC Casts Cancelled, WBC Casts Cancelled, Urine Mucus Cancelled, Urine Trichomonas Cancelled, Urine Yeast Cancelled Clinical Impression(s) from Imaging Studies Abdomen/Pelvis CT 06/23/20 17:36 IMPRESSION: Small bowel obstruction with possible transition point in the mid to distal ileum. Cholelithiasis. Diverticulosis. Electronically Signed: King Lau MD at 19:39 EDT Tel , Service support , Current Medications Morphine Sulfate (Morphine 2 Mg/Ml Syringe) 2 mg IV X1 ONE Stop: 06/23/20 21:19 Assessment/Plan All Active Problems Acute kidney injury (Acute) Small bowel obstruction (Acute) This is an 84 years old female patient presented to the emergency room because of abdominal pain for 2 weeks duration, found to have findings consistent with small bowel obstruction and also found to have acute kidney injury. #1 acute small bowel obstruction: CT scan abdomen and pelvis reviewed. Patient denied any history of abdominal surgeries. Currently, she has no nausea or vomiting. She had bowel movement today. Plan: Admit to MedSurg floor, keep on clear liquids, IV fluids, IV Zofran as needed, Tylenol as needed, IV morphine as needed, KUB tomorrow morning, general surgery consult, repeat CBC and BMP tomorrow morning, PT OT evaluation and treatment. #2 acute kidney injury/mild hyponatremia: Creatinine was 0.77 mg/dL 9 months ago, admission creatinine is 1.21, BUN is also elevated at 19. Sodium is 132, likely due to hypovolemic hyponatremia. Plan: IV fluids, input output chart, repeat BMP tomorrow morning. #3 hypertension: Blood pressure stable, hold HCTZ, monitor. #4 irritable bowel syndrome: Stable, she has regular bowel movement today. #5 history of aortic root enlargement: This is according to the patient and she is supposed to go for stress test later this month. She denied any chest pain or shortness of breath. #6 DVT prophylaxis: Subcu Lovenox. This note was generated with Sphere 3d dictation software. It may contain incorrect words, spelling, and punctuation that were not noted in checking the note before signing. Inpatient E&M: 16446 Init Hosp L2
[2020-06-23] MEDS: Morphine 2 MG/ML Syringe IV (21:24)
[2020-06-23 21:48] VITALS: BP 117/60; PULSE 67; RESP 18; TEMP 36.8; O2SAT 94
[2020-06-23 21:52] VITALS: BMI 30.5
[2020-06-23 21:56] VITALS: BMI 30.5
[2020-06-23] MEDS: 0.9% Normal Saline 1,000 ML 76 ML IV (22:42)
[2020-06-23] MEDS: Famotidine 200 MG/20 ML MDV 20 MG in 0.9% Normal Saline (Pres. free 8 ML 300 MG IV (23:41)
[2020-06-24] VITALS (16 sets, daily range): BP systolic 124–173; BP diastolic 52–98; PULSE 66–98; RESP 16–20; TEMP 36.2–36.8; O2SAT 91–97; BMI 30.5
[2020-06-24] MEDS: Morphine 2 MG/ML Syringe IV ×3 (04:04→21:01)
[2020-06-24 06:48] LABS: Absolute Lymphocyte Count 1.35 X10^3/uL (0.83-4.51); Absolute Neutrophil Count 4.8 X10^3/uL (2.0-7.7); Basophil# 0.03 X10^3/uL; Basophil% 0.4 % (0-1); Eosinophil# 0.13 X10^3/uL; Eosinophils% 1.8 % (0-5); Hematocrit 39.2 % (37-47); Hemoglobin 12.4 g/dL (12.0-15.0); Lymphocyte # 1.35 X10^3/ul (4.0); Lymphocyte % 18.8 % (19-41); Mean Corp Hgb Conc 31.6 g/dL (32-36); Mean Corpuscular Hgb 28.4 pg (27.0-32.0); Mean Corpuscular Volume 89.9 fL (81-99); Mean Platelet Vol. 9.6 fl (6.2-12.0); Monocyte# 0.87 X10^3/uL; Monocyte% 12.1 % (0-10); NRBC Flagged by Analyzer 0 % (0-5); Neutrophil % 66.6 % (47-70); Platelet Count 327 K/mm3 (150-450); RBC Distribution Width CV 13.6 % (11.6-14.6); Red Blood Count 4.36 M/mm3 (4.2-5.4); White Blood Count 7.2 K/mm3 (4.4-11.0)
[2020-06-24 07:14] LABS: Anion Gap 3 (5-15); BUN 15 mg/dL (7-18); Calcium,Total 8.8 mg/dL (8.5-10.1); Chloride 95 mmol/L (98-107); EST Glomerular Filtration Rate 56 mL/min (>60); Est Glom Filt Rate - Afr Amer 68 mL/min (>60); Estimated Creatinine Clearance 33.71 ml/min; Glucose 94 mg/dL (74-106); Potassium 3.2 mmol/L (3.5-5.1); Sodium Level 133 mmol/L (136-145)
--- NOTE | 2020-06-24 07:21 | EKG12_ITS ---
Test Reason : Blood Pressure : / mmHG Vent. Rate : 070 BPM Atrial Rate : 070 BPM P-R Int : 166 ms QRS Dur : 080 ms QT Int : 436 ms P-R-T Axes : 021 069 073 degrees QTc Int : 470 ms Sinus rhythm with Premature atrial complexes Nonspecific T wave abnormality Prolonged QT Poor R wave progression Abnormal ECG Confirmed by MIKIE NICHOLS, GÓMEZ ([id number]), purchase request editor JANUARY LEMON ([id number]) on 07/01/2020 11:30:38 AM Referred By: BELLA Confirmed By:GÓMEZ DELUNA MD
[2020-06-24] MEDS: 0.9% Saline Lock 10 ML Syringe IV ×2 (07:37→09:12)
--- NOTE | 2020-06-24 08:30 | RAD_ITS ---
STUDY: X-RAY - ABDOMEN/PELVIS REASON FOR EXAM: Female, 85 years old. Small bowel obstruction TECHNIQUE: Single AP view of the abdomen / pelvis. COMPARISON: CT abdomen and pelvis 06/23/2020 FINDINGS: Normal visualized lung bases. There is an NG tube terminating in the distal stomach. Mildly dilated small bowel loops in the left abdomen. There is no demonstrated free abdominal air. The visualized liver, spleen and kidneys are grossly normal in size and morphology. Normal soft tissue structures. Mild dextrocurvature of the lumbar spine. RAD/Abdomen Single View IMPRESSION: Mildly dilated small bowel loops in the left abdomen. Electronically Signed: Mitchell Juarez MD at 12:47 EDT Tel , Service support ,
[2020-06-24] MEDS: Famotidine 200 MG/20 ML MDV 20 MG in 0.9% Normal Saline (Pres. free 8 ML 100 MG IV (09:15)
--- NOTE | 2020-06-24 10:02 | CON.PCM_ITS ---
Problem List (1) Small bowel obstruction Status: Acute Reason for Consult Date of Consultation: 06/24/20 History of Present Illness: The patient is a 85 year old F who presented to the emergency room with a 5-day history of abdominal pain. She reports the pain is been constant for last 5 days. She says that she has had nausea and vomiting and still has abdominal pain this morning. She said she had normal bowel yesterday but before that had not had a bowel movement 5 days. The patient reports never having abdominal surgery. She has never had a bowel obstruction in the past. She denies any fevers or chills. Past Medical History Past Medical History (Chronic Problems): Chronic Problems Hypertension (Chronic) Aortic root enlargement (Chronic) Irritable bowel syndrome (Chronic) Allergies fenofibrate Allergy (Verified 06/23/20 17:10) Unknown lisinopril Allergy (Verified 06/23/20 17:10) Unknown perfume Allergy (Verified 06/23/20 17:10) Unknown Sulfa (Sulfonamide Antibiotics) Allergy (Verified 06/23/20 17:10) Unknown zolpidem Allergy (Verified 06/23/20 17:10) Unknown cholecalciferol (vitamin D3) Adverse Reaction (Verified 06/23/20 17:10) Upset Stomach meloxicam Adverse Reaction (Verified 06/23/20 17:10) Unknown Home Medications: Ambulatory Orders Medication Instructions Recorded Hydrochlorothiazide 12.5 mg PO DAILY 08/25/19 Loperamide [Imodium] 2 mg PO DAILY PRN PRN 08/25/19 Omeprazole 40 mg PO DAILY 08/25/19 [place]-3 Fatty Acids/Fish Oil [Fish 1 each PO DAILY 06/23/20 Oil 1,000 mg Capsule] Potassium Chloride Oral Tablet 20 meq PO DAILY 06/23/20 [K-Dur] Surgical History: no surgical history, - Psychiatric History: No 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 Denies: Hematemesis, Hematochezia Genitourinary: Denies: Dysuria Skin: Denies: Jaundice Psychiatric: Denies: Anxiety, Depression Hematologic/ Lymphatic: Denies: Anemia Patient Problems: Active and Suspected Problems Abdominal pain (Acute) Acute kidney injury (Acute) Small bowel obstruction (Acute) - Physical Exam Vitals/I&O's: Vital Signs Temp Pulse Resp BP Pulse Ox 97.8 F 66 18 127/52 H 96 06/24/20 03:57 06/24/20 03:57 06/24/20 03:57 06/24/20 03:57 06/24/20 07:42 Oxygen Delivery Method Room Air Weight: 169 lb 8.568 oz Body Mass Index (BMI) 30.5 Intake and Output for Last 24 Hours 06/22/20 06/23/20 06/24/20 23:59 23:59 23:59 Intake Total 687.67 / 687.67 Output Total 200 / 200 Balance 487.67 / 487.67 General: Alert, Oriented x3 Neck: No JVD Lungs: Normal air movement Cardiovascular: Regular rate, Regular Rhythm Abdomen: Soft, Distended, Tender - Tender especially in the left side of the abdomen Skin: No rashes Musculoskeletal: No Muscle Wasting Neurological: Cranial nerves II-XII grossly intact Psych/Mental Status: Normal Affect Microbiology Past 72 Hours 06/24/20 08:00 Mucosa - Nose SARS-CoV-2 Antigen (Rapid) - Final Laboratory Results 06/23/20 17:40: WBC 12.3 H, RBC 4.90, Hgb 13.9, Hct 42.5, MCV 86.7, MCH 28.4, MCHC 32.7, RDW Std Deviation 42.2, RDW Coeff of Lynsey 13.3, Plt Count 360, MPV 9.9, Immature Gran % (Auto) 0.400, Neut % (Auto) 82.9 H, Lymph % (Auto) 8.9 L, [place] % (Auto) 7.2, Eos % (Auto) 0.4, Baso % (Auto) 0.2, Absolute Neuts (auto) 10.2 H, Absolute Lymphs (auto) 1.09, Nucleated RBC % 0 06/23/20 17:40: Sodium 132 L, Potassium 3.5, Chloride 94 L, Carbon Dioxide 33.0 H, Anion Gap 5, BUN 19 H, Creatinine 1.21 H, Estim Creat Clear Calc 28.35, Est GFR (MDRD) Af Amer 55 L, Est GFR (MDRD) Non-Af 45 L, BUN/Creatinine Ratio 15.7, Glucose 108 H, Calcium 9.2, Total Bilirubin 0.60, AST 13 L, ALT 11 L, Alkaline Phosphatase 94, Total Protein 7.8, Albumin 4.0, Globulin 3.8, Albumin/Globulin Ratio 1.1, Lipase 82 06/23/20 17:40: Lactic Acid 1.2 06/23/20 19:10: Urine Color Yellow, Urine Clarity Clear, Urine pH 8.0, Ur Specific [place] 1.015, Urine Protein 15 H, Urine Glucose (UA) Normal, Urine Ketones Negative, Urine Occult Blood 10 H, Urine Nitrite Negative, Urine Bilirubin Negative, Urine Urobilinogen Normal, Ur Leukocyte Esterase 25 H, Urine RBC Cancelled, Urine WBC Cancelled, Ur Squamous Epith Cells Cancelled, Ur Transition Epith Cell Cancelled, Ur Renal Epithelial Cell Cancelled, Calcium Oxalate Crystal Cancelled, Uric Acid Crystals Cancelled, Triple Phos Crystals Cancelled, Other Crystals Cancelled, Amorphous Sediment Cancelled, Urine Bacteria Cancelled, Hyaline Casts Cancelled, Fine Granular Casts Cancelled, Coarse Granular Casts Cancelled, Waxy Casts Cancelled, RBC Casts Cancelled, WBC Casts Cancelled, Urine Mucus Cancelled, Urine Trichomonas Cancelled, Urine Yeast Cancelled 06/24/20 06:40: WBC 7.2, RBC 4.36, Hgb 12.4, Hct 39.2, MCV 89.9, MCH 28.4, MCHC 31.6 L, RDW Std Deviation 45.0 H, RDW Coeff of Lynsey 13.6, Plt Count 327, MPV 9.6, Immature Gran % (Auto) 0.300, Neut % (Auto) 66.6, Lymph % (Auto) 18.8 L, [place] % (Auto) 12.1 H, Eos % (Auto) 1.8, Baso % (Auto) 0.4, Absolute Neuts (auto) 4.8, Absolute Lymphs (auto) 1.35, Nucleated RBC % 0 06/24/20 06:40: Sodium 133 L, Potassium 3.2 L, Chloride 95 L, Carbon Dioxide 35.0 H, Anion Gap 3 L, BUN 15, Creatinine 1.00, Estim Creat Clear Calc 33.71, Est GFR (MDRD) Af Amer 68, Est GFR (MDRD) Non-Af 56 L, BUN/Creatinine Ratio 15.0, Glucose 94, Calcium 8.8 Clinical Impression(s) from Imaging Studies Abdomen/Pelvis CT 06/23/20 17:36 IMPRESSION: Small bowel obstruction with possible transition point in the mid to distal ileum. Cholelithiasis. Diverticulosis. Electronically Signed: King Lau MD at 19:39 EDT Tel , Service support , Current Medications Acetaminophen (Acetaminophen 325 Mg Tablet) 650 mg PO Q6H PRN PRN PRN Reason: Pain Score 1-10/Temp > 100.7 F Enoxaparin Sodium (Enoxaparin 30 Mg/0.3 Ml Syringe) 30 mg SC DAILY [facility] Sodium Chloride () 1,000 mls @ 76 mls/hr IV .[id number] AILYN Last Infusion: 06/24/20 09:12 Dose: 76 mls/hr Documented by: Famotidine 20 mg/ Sodium (Chloride) 10 mls @ 300 mls/hr IV Q12 AILYN Last Infusion: 06/24/20 09:18 Dose: Infused Documented by: Morphine Sulfate (Morphine 2 Mg/Ml Syringe) 2 mg IV Q3H PRN PRN PRN Reason: Pain Score 6-10 Last Admin: 06/24/20 07:07 Dose: 2 mg Documented by: Ondansetron HCl (Ondansetron 4 Mg/2 Ml Vial) 4 mg IV Q8H PRN PRN PRN Reason: NAUSEA/VOMITING Sodium Chloride (0.9% Saline Lock 10 Ml Syringe) 10 - 40 ml IV UD PRN PRN Reason: SALINE FLUSH Last Admin: 06/24/20 09:12 Dose: 10 ml Documented by: Assessment/Plan All Active Problems Abdominal pain (Acute) Acute kidney injury (Acute) Small bowel obstruction (Acute) 85-year-old female small bowel obstruction 1. The patient is a 5-day history of abdominal pain which is not getting any better. The patient reports that she did have nausea and vomiting. The patient reports that she is not passing much gas and her normal bowel movement yesterday was the first in 5 days. I reviewed the patient's CT scan and have reveals a dilated small bowel with a transition point in the ileum. The transition point appears to be in the pelvis. I discussed NG placement with the patient as well as laparoscopy. The patient agreed to both. I discussed the risks of laparoscopy including but not limited to bleeding, infection, injury to other bowel or the need for bowel resection. I also discussed the risks of converting to open surgery. The patient understands the risks and is when to proceed. I also discussed the option of conservative treatment but the patient reports no improvement in the last [address] does reveal fecalization of the small bowel just proximal to the obstruction as I believe that surgery is warranted. Romain Huddleston MD Pager: [facility] [address] [place] [address], [address] [place] [address] Office:
--- NOTE | 2020-06-24 11:10 | CASEMGMT ---
YOVANI GARAY Assessment: Face to Face with pt for initial transition planning/care coordination assessment. RN TANISHA introduced self and role at [facility], pt voices understanding and consents to assessment. Pt is A/O x4 and answers all questions appropriately at this time. Pt lying in bed in no distress. Care providers, pharmacy, and demographics verified/updated. Admitting Dx: SBO, EDI PCP: Shelbie Specialists:Pt denies having any specialists Preferred Pharmacy: [facility] Insurance: [place] [facility] [employer] Prescription Benefit: yes LW/HPOA: Pt denies having a LW/POA and denies needing any info regarding. LNOK: Son, Chandana Flood and sister Manisha Drake Living Arrangements: Pt lives in a mobile home with her son at this time with 4 steps to enter with a rail. Pt reports being I in ADL's and denies concerns at home. Transportation: Pt drives self and denies issues with transportation. DME/HHC/SNF: Pt has a cane, walker, grab bars in the bathroom. She has previously had HHC but is unsure of the agency. She has stayed at [facility]. Pt states no concerns with going home at time of dc. She would be open to having therapy at dc if it is recommended. Pt to have surgery today. She states she is not sure what she will need. Pt states no further concerns/needs. CM to follow. Advised pt to ask CM if any further question/concerns/needs arise, voices understanding. Pt Goal: Home Plan: TBD, Home with HHC if recommended.
--- NOTE | 2020-06-24 11:22 | PN_ITS ---
<Brooke Carballo APPEALS AND GENERALIST CLERK - Last Filed: 06/24/20 11:33> Patient Problems: Active and Suspected Problems Abdominal pain (Acute) Acute kidney injury (Acute) Small bowel obstruction (Acute) Subjective: Patient seen and examined. States abdominal pain is improved however has tenderness to palpation. Not passing flatus, no bowel movement. NG placed this morning. No current nausea, vomiting. Plan for laparoscopy this afternoon. - Physical Exam Vitals/I&O's: Vital Signs Temp Pulse Resp BP Pulse Ox 98.1 F 75 18 127/65 H 94 06/24/20 10:01 06/24/20 10:01 06/24/20 10:01 06/24/20 10:01 06/24/20 10:01 Oxygen Flow Rate (L/min) 2 Oxygen Delivery Method Nasal Cannula Weight: 169 lb 8.568 oz Body Mass Index (BMI) 30.5 Intake and Output for Last 24 Hours 06/22/20 06/23/20 06/24/20 23:59 23:59 23:59 Intake Total 687.67 / 687.67 Output Total 200 / 200 Balance 487.67 / 487.67 General: Alert, Oriented x3, Cooperative HEENT: Atraumatic, PERRLA, EOMI, Normocephalic, - - NG in place Oral: Dry Mucosa Neck: Supple, No JVD, Negative Carotid Bruits Lungs: Clear to auscultation, Normal air movement Cardiovascular: Regular rate, No murmurs Abdomen: Soft, Non-Distended, Hypoactive Bowel Sounds, Tender Extremities: No clubbing, No cyanosis, No edema, Capillary Refill Less than 3 Seconds Skin: No rashes, No breakdown Musculoskeletal: No Tenderness to Palpation of Joints or Extremities Neurological: Cranial nerves II-XII grossly intact, Neuro grossly intact Psych/Mental Status: Normal Affect, Appropriate Microbiology Past 72 Hours 06/24/20 08:00 Mucosa - Nose SARS-CoV-2 Antigen (Rapid) - Final Laboratory Results 06/23/20 17:40: WBC 12.3 H, RBC 4.90, Hgb 13.9, Hct 42.5, MCV 86.7, MCH 28.4, MCHC 32.7, RDW Std Deviation 42.2, RDW Coeff of Lynsey 13.3, Plt Count 360, MPV 9.9, Immature Gran % (Auto) 0.400, Neut % (Auto) 82.9 H, Lymph % (Auto) 8.9 L, [place] % (Auto) 7.2, Eos % (Auto) 0.4, Baso % (Auto) 0.2, Absolute Neuts (auto) 10.2 H, Absolute Lymphs (auto) 1.09, Nucleated RBC % 0 06/23/20 17:40: Sodium 132 L, Potassium 3.5, Chloride 94 L, Carbon Dioxide 33.0 H, Anion Gap 5, BUN 19 H, Creatinine 1.21 H, Estim Creat Clear Calc 28.35, Est GFR (MDRD) Af Amer 55 L, Est GFR (MDRD) Non-Af 45 L, BUN/Creatinine Ratio 15.7, Glucose 108 H, Calcium 9.2, Total Bilirubin 0.60, AST 13 L, ALT 11 L, Alkaline Phosphatase 94, Total Protein 7.8, Albumin 4.0, Globulin 3.8, Albumin/Globulin Ratio 1.1, Lipase 82 06/23/20 17:40: Lactic Acid 1.2 06/23/20 19:10: Urine Color Yellow, Urine Clarity Clear, Urine pH 8.0, Ur Specific Dawn 1.015, Urine Protein 15 H, Urine Glucose (UA) Normal, Urine Ketones Negative, Urine Occult Blood 10 H, Urine Nitrite Negative, Urine Bilirubin Negative, Urine Urobilinogen Normal, Ur Leukocyte Esterase 25 H, Urine RBC Cancelled, Urine WBC Cancelled, Ur Squamous Epith Cells Cancelled, Ur Transition Epith Cell Cancelled, Ur Renal Epithelial Cell Cancelled, Calcium Oxalate Crystal Cancelled, Uric Acid Crystals Cancelled, Triple Phos Crystals Cancelled, Other Crystals Cancelled, Amorphous Sediment Cancelled, Urine Bacteria Cancelled, Hyaline Casts Cancelled, Fine Granular Casts Cancelled, Coarse Granular Casts Cancelled, Waxy Casts Cancelled, RBC Casts Cancelled, WBC Casts Cancelled, Urine Mucus Cancelled, Urine Trichomonas Cancelled, Urine Yeast Cancelled 06/24/20 06:40: WBC 7.2, RBC 4.36, Hgb 12.4, Hct 39.2, MCV 89.9, MCH 28.4, MCHC 31.6 L, RDW Std Deviation 45.0 H, RDW Coeff of Lynsey 13.6, Plt Count 327, MPV 9.6, Immature Gran % (Auto) 0.300, Neut % (Auto) 66.6, Lymph % (Auto) 18.8 L, [place] % (Auto) 12.1 H, Eos % (Auto) 1.8, Baso % (Auto) 0.4, Absolute Neuts (auto) 4.8, Absolute Lymphs (auto) 1.35, Nucleated RBC % 0 06/24/20 06:40: Sodium 133 L, Potassium 3.2 L, Chloride 95 L, Carbon Dioxide 35.0 H, Anion Gap 3 L, BUN 15, Creatinine 1.00, Estim Creat Clear Calc 33.71, Est GFR (MDRD) Af Amer 68, Est GFR (MDRD) Non-Af 56 L, BUN/Creatinine Ratio 15.0, Glucose 94, Calcium 8.8 Current Medications Acetaminophen (Acetaminophen 325 Mg Tablet) 650 mg PO Q6H PRN PRN PRN Reason: Pain Score 1-10/Temp > 100.7 F Enoxaparin Sodium (Enoxaparin 30 Mg/0.3 Ml Syringe) 30 mg SC DAILY [facility] Sodium Chloride () 1,000 mls @ 76 mls/hr IV .[id number] [facility] Last Infusion: 06/24/20 09:12 Dose: 76 mls/hr Documented by: Famotidine 20 mg/ Sodium (Chloride) 10 mls @ 300 mls/hr IV Q12 [facility] Last Infusion: 06/24/20 09:18 Dose: Infused Documented by: Morphine Sulfate (Morphine 2 Mg/Ml Syringe) 2 mg IV Q3H PRN PRN PRN Reason: Pain Score 6-10 Last Admin: 06/24/20 07:07 Dose: 2 mg Documented by: Ondansetron HCl (Ondansetron 4 Mg/2 Ml Vial) 4 mg IV Q8H PRN PRN PRN Reason: NAUSEA/VOMITING Sodium Chloride (0.9% Saline Lock 10 Ml Syringe) 10 - 40 ml IV UD PRN PRN Reason: SALINE FLUSH Last Admin: 06/24/20 09:12 Dose: 10 ml Documented by: Medical Necessity - Tobacco Use Smoking Status: Never smoker Assessment/Plan All Active Problems Abdominal pain (Acute) Acute kidney injury (Acute) Small bowel obstruction (Acute) 1. Acute small bowel obstruction- Dr. Huddleston, general surgery following. NG in place. NPO. Plan for laproscopy this afternoon. 2. Acute kidney injury-resolved with IV fluids. 3. Mild hypokalemia-replace per protocol. Trend BMP. 4. Hypertension-stable, HCTZ on hold. 5. IBS-stable. 6. History of aortic root enlargement- following as outpatient. DVT prophylaxis-Lovenox subcu This patient was seen by PHUONG EstevezC under the supervision of Dr. Mcdonough. <Misael Mcdonough - Last Filed: 06/24/20 15:00> Objective: Patient has mild nausea and vomiting mainly gastric content. Admitted with abdominal pain for about 2 weeks. Abdominal pain was progressively getting worse. After admission abdominal pain is better. She states she moved bowels yesterday. CT abdomen showed a small bowel obstruction with possible transition point in the middle of distal ileum. Physical exam General: Alert, Oriented x3, Cooperative HEENT: Atraumatic, PERRLA, EOMI, Normocephalic Oral: No Gingival or Mucosal Lesions/ Ulcerations Neck: Supple, No JVD, Negative Carotid Bruits Lungs: Air entry diminished in bilateral lung bases. No crepitation/rhonchi Cardiovascular: Regular rate, Regular Rhythm, Normal S1, Normal S2, No murmurs Abdomen: Absent bowel sounds. Soft, nontender, nondistended. : No renal angle tenderness. No suprapubic tenderness. Extremities: No edema, Capillary Refill Less than 3 Seconds Skin: No rashes, No breakdown Musculoskeletal: No Tenderness to Palpation of Joints or Extremities Neurological: Cranial nerves II-XII grossly intact, Deep Tendon Reflexes 2+/4 and Symmetrical, Neuro grossly intact Psych/Mental Status: Normal Affect, Appropriate. - Physical Exam Vitals/I&O's: Vital Signs Temp Pulse Resp BP Pulse Ox 98.1 F 75 18 127/65 H 94 06/24/20 10:06/24/20 10:06/24/20 10:06/24/20 10:06/24/20 10:01 Oxygen Flow Rate (L/min) 2 Oxygen Delivery Method Nasal Cannula Weight: 169 lb 8.568 oz Body Mass Index (BMI) 30.5 Intake and Output for Last 24 Hours 06/22/20 06/23/20 06/24/20 23:59 23:59 23:59 Intake Total 10 / 10 1170.00 / 1170.00 Output Total 300 / 300 Balance 870.00 / 870.00 Microbiology Past 72 Hours 06/24/20 08:00 Mucosa - Nose SARS-CoV-2 Antigen (Rapid) - Final Laboratory Results 06/23/20 17:40: WBC 12.3 H, RBC 4.90, Hgb 13.9, Hct 42.5, MCV 86.7, MCH 28.4, MCHC 32.7, RDW Std Deviation 42.2, RDW Coeff of Lynsey 13.3, Plt Count 360, MPV 9.9, Immature Gran % (Auto) 0.400, Neut % (Auto) 82.9 H, Lymph % (Auto) 8.9 L, [place] % (Auto) 7.2, Eos % (Auto) 0.4, Baso % (Auto) 0.2, Absolute Neuts (auto) 10.2 H, Absolute Lymphs (auto) 1.09, Nucleated RBC % 0 06/23/20 17:40: Sodium 132 L, Potassium 3.5, Chloride 94 L, Carbon Dioxide 33.0 H, Anion Gap 5, BUN 19 H, Creatinine 1.21 H, Estim Creat Clear Calc 28.35, Est GFR (MDRD) Af Amer 55 L, Est GFR (MDRD) Non-Af 45 L, BUN/Creatinine Ratio 15.7, Glucose 108 H, Calcium 9.2, Total Bilirubin 0.60, AST 13 L, ALT 11 L, Alkaline Phosphatase 94, Total Protein 7.8, Albumin 4.0, Globulin 3.8, Albumin/Globulin Ratio 1.1, Lipase 82 06/23/20 17:40: Lactic Acid 1.2 06/23/20 19:10: Urine Color Yellow, Urine Clarity Clear, Urine pH 8.0, Ur Specific Dawn 1.015, Urine Protein 15 H, Urine Glucose (UA) Normal, Urine Ketones Negative, Urine Occult Blood 10 H, Urine Nitrite Negative, Urine Bilirubin Negative, Urine Urobilinogen Normal, Ur Leukocyte Esterase 25 H, Urine RBC Cancelled, Urine WBC Cancelled, Ur Squamous Epith Cells Cancelled, Ur Transition Epith Cell Cancelled, Ur Renal Epithelial Cell Cancelled, Calcium Oxalate Crystal Cancelled, Uric Acid Crystals Cancelled, Triple Phos Crystals Cancelled, Other Crystals Cancelled, Amorphous Sediment Cancelled, Urine Bacteria Cancelled, Hyaline Casts Cancelled, Fine Granular Casts Cancelled, Coarse Granular Casts Cancelled, Waxy Casts Cancelled, RBC Casts Cancelled, WBC Casts Cancelled, Urine Mucus Cancelled, Urine Trichomonas Cancelled, Urine Yeast Cancelled 06/24/20 06:40: WBC 7.2, RBC 4.36, Hgb 12.4, Hct 39.2, MCV 89.9, MCH 28.4, MCHC 31.6 L, RDW Std Deviation 45.0 H, RDW Coeff of Lynsey 13.6, Plt Count 327, MPV 9.6, Immature Gran % (Auto) 0.300, Neut % (Auto) 66.6, Lymph % (Auto) 18.8 L, [place] % (Auto) 12.1 H, Eos % (Auto) 1.8, Baso % (Auto) 0.4, Absolute Neuts (auto) 4.8, Absolute Lymphs (auto) 1.35, Nucleated RBC % 0 06/24/20 06:40: Sodium 133 L, Potassium 3.2 L, Chloride 95 L, Carbon Dioxide 35.0 H, Anion Gap 3 L, BUN 15, Creatinine 1.00, Estim Creat Clear Calc 33.71, Est GFR (MDRD) Af Amer 68, Est GFR (MDRD) Non-Af 56 L, BUN/Creatinine Ratio 15.0, Glucose 94, Calcium 8.8 Current Medications Acetaminophen (Acetaminophen 325 Mg Tablet) 650 mg PO Q6H PRN PRN PRN Reason: Pain Score 1-10/Temp > 100.7 F Enoxaparin Sodium (Enoxaparin 30 Mg/0.3 Ml Syringe) 30 mg SC DAILY [facility] Sodium Chloride () 1,000 mls @ 76 mls/hr IV .[id number] [facility] Last Admin: 06/24/20 12:04 Dose: 76 mls/hr Documented by: Famotidine 20 mg/ Sodium (Chloride) 10 mls @ 300 mls/hr IV Q12 [facility] Last Infusion: 06/24/20 09:18 Dose: Infused Documented by: Potassium Chloride () 10 meq in 100 mls @ 100 mls/hr IV BOLUS Q1H [facility] Stop: 06/24/20 14:59 Last Admin: 06/24/20 13:34 Dose: 100 mls/hr Documented by: Morphine Sulfate (Morphine 2 Mg/Ml Syringe) 2 mg IV Q3H PRN PRN PRN Reason: Pain Score 6-10 Last Admin: 06/24/20 07:07 Dose: 2 mg Documented by: Ondansetron HCl (Ondansetron 4 Mg/2 Ml Vial) 4 mg IV Q8H PRN PRN PRN Reason: NAUSEA/VOMITING Sodium Chloride (0.9% Saline Lock 10 Ml Syringe) 10 - 40 ml IV UD PRN PRN Reason: SALINE FLUSH Last Admin: 06/24/20 09:12 Dose: 10 ml Documented by: Assessment/Plan This patient was seen in conjunction with Brooke CHAVES. I have independently interviewed and examined the patient and reviewed pertinent history, examination findings, laboratory and plan of management. I have reviewed the note and agree with the documented findings with the few additional points. In brief, patient is admitted for abdominal pain for 2 weeks secondary to acute small bowel obstruction and bowel movement yesterday after 5 days of constipatio n. Surgeon note reviewed. Scheduled for laparoscopic surgery today. NPO. Acute kidney injury: BUN/creatinine improved with IV fluid. Mild hyponatremia and hypokalemia, IV fluid and potassium replacement. Leukocytosis resolved. No current indication for antibiotic. Other comorbidities as mentioned above I have discussed my assessment with Brooke CHAVES and orders have been reviewed. Inpatient E&M: [id number] [facility] Hosp L2
[2020-06-24] MEDS: 0.9% Normal Saline 1,000 ML 76 ML IV ×2 (12:04→16:46)
[2020-06-24] MEDS: Potassium Chloride 10mEq/100mL 10 MEQ/100 ML IV.SOLN. 100 MEQ IV BOLUS ×3 (12:28→16:34)
--- NOTE | 2020-06-24 14:30 | COL_PTH ---
PATIENT: FANTA TREVIÑO LOC: MS3 U#:[id number] AGE/SX: 85/F ROOM: IN323 RE06/23/[address]: Dr. Misael Mcdonough MD : [id number] BED: 1 DIS: 06/27/2020 SPEC #: [id number] RECD: 06/25/20 07:50 STATUS: DEANNE RM #: [id number] CELESTINO: 06/24/20 14:[address]: Romain Huddleston DEPT: SURGICAL PATHOLOGY RECD BY: Miriam Palacios ENTERED: 06/25/20 08:36 SP TYPE: COLON OTHR DR: MD Dr. Christian Clemons MD Dr. Jeffrey Burkey, MD Dr. Prakash Chand, MD Tissues: Colon, NOS Procedures: Surgery Specimen Level V Comments: @ Ordering doctor for SUV edited from to @ by MARIAM at 06/25/20 1240 @ Submitting doctor edited from to @ by MARIAM at 06/25/20 1240 HEADER OPERATION: Exploratory laparoscopy, converted to open small bowel resection PRE-OP DIAGNOSIS: Small bowel obstruction TISSUE SUBMITTED: Small bowel segment MICROSCOPIC DIAGNOSIS Small bowel, segmental resection: Ulceration with associated acute and chronic inflammation. Serosa with fibrous adhesions, acute and chronic inflammation and vascular ectasia. Mucosal margins of excision with no pathologic change. AM:jacob 06/29/2020 COMMENT An area of ulceration with acute/chronic inflammation and granulation is seen in one loop of this bowel that is associated with adjacent serosal fibrosis to which is adhered the second loop of bowel. There is no evidence of a fistula and no malignancy is identified. Case has been reviewed in consultation with Dr. Becerra who concurs with the above diagnosis. IDC:SJ MICROSCOPIC DESCRIPTION Slides are reviewed. GROSS DESCRIPTION Received in fixative is one container labeled with the patient's name and designated small bowel segment. The specimen consists of a U-shaped segment of small bowel measuring 20.5 cm in length. The attached mesenteric tissue measures 2 cm in width. In the middle of the U-shaped segment, serosal adhesions are noted. Both resection margins are stapled. 8 cm away from one resection margin, there is a focal area of narrowing. This area of narrowing is at the site of serosal adhesions. No lesion is identified at the surface. All present in the container is a donut-shaped piece of tissue measuring 4 x 2 x 0.7 cm. The lumen is filled with fecal material. More dictation will follow later after overnight fixation. / SJ:jacob 06/25/20. After fixation, sections of mesenteric tissue do not reveal any obviously enlarged lymph node. [employer] sections are submitted in six cassettes as follows: 1 - donut, 2 - resection margin, 3 & 4 - area of adhesions, 5??admissions representative section adjacent to the area of adhesions, 6 - uninvolved portion of the small bowel and mesenteric tissue. / ASHLEY:jacob 06/28/20 TC:2 CPT: 40867
[2020-06-24] MEDS: Bupivacaine Mpf 0.5% 30 ML VIAL (15:35)
--- NOTE | 2020-06-24 15:45 | PCM.OPRPT ---
Problem List (1) Small bowel obstruction Status: Acute Report of Operation Date of Procedure: 06/24/20 Pre-Operative Diagnosis: Small bowel obstruction Post-Operative Diagnosis: Small bowel obstruction Surgery/Procedure Performed:: Exploratory laparoscopy with conversion open and small bowel resection with anastomosis Specimen's removed: Small bowel segment Description of Procedure: Patient was brought back to the operating room and general anesthesia was induced. A Velazquez catheter was placed. The abdomen was then prepped and draped in usual sterile fashion. An incision was made superior to the umbilicus and deepened to the fascia which was elevated and incised. A finger sweep was performed and the port was placed into the abdomen and the abdomen was insufflated 15 mmHg. Under direct visualization a left lower quadrant and suprapubic port were placed. The patient was then placed in Trendelenburg position and the ligament of Treitz was identified. The small bowel was run hand overhand until the area of obstruction was met. There were 2 areas of small bowel that appeared to grow into each other causing this partial obstruction. There was a small connection between the 2 loops of small bowel with a firm area which may be a mass. At that time the decision was made to resect this area. The area just below the umbilicus was incised and deepened to the fascia with electrocautery and the electrocautery was used to open the fascia in the peritoneum. A wound protector was placed and the bowel was delivered through the incision. The bowel was run from beginning to end and there were several small yellow areas in the wall of the bowel. The area where the small bowel was growing to another segment of small bowel only contained a small interim loop and there was a firm area between. Just distal and proximal to this windows remain the mesentery and a 75 ERICK stapler was used to divide the small bowel proximal and distal to the obstruction. Impact LigaSure was used to take the mesentery to the resected part of small bowel and it was sent for pathology. There was good hemostasis. A corner of each staple line was taken off sharply and a 75 ERICK stapler was used to create a [id number] functional end-to-end small bowel anastomosis. The staple line was inspected and appeared hemostatic. A TX 60 stapler was used to close the enterostomy. A 3-0 Vicryl crotch suture was placed and a 3-0 Vicryl was used to close the mesenteric defect. There was good hemostasis at the staple line. The small bowel was further inspected and then returned into the abdomen. The abdomen was then irrigated and suctioned dry. The fascia of the lower midline incision was closed with 2 running 0 PDS sutures meeting in the middle. The superior midline incision was closed with a [id number] 0 Vicryl suture. All the incisions were injected with local anesthetic and closed with interrupted 4-0 Monocryl sutures and Steri-Strips and bandages were applied. At the end of the case the Velazquez and the NG were removed and the patient was brought to PACU in stable condition. - Admit VTE Documentation VTE Mechan Device Prophylaxis: SCD's
[2020-06-24] MEDS: Ketorolac 15 MG/ML Vial IV (16:46)
[2020-06-24] MEDS: Famotidine 200 MG/20 ML MDV 20 MG in 0.9% Normal Saline (Pres. free 8 ML 300 MG IV (21:00)
[2020-06-24] MEDS: Acetaminophen 325 MG Tablet 650 MG PO (23:17)
[2020-06-25] VITALS (13 sets, daily range): BP systolic 118–148; BP diastolic 55–79; PULSE 68–97; RESP 16–18; TEMP 36.7–37; O2SAT 94–98; BMI 30.5
[2020-06-25] MEDS: Morphine 2 MG/ML Syringe IV ×3 (03:57→21:15)
[2020-06-25] MEDS: 0.9% Normal Saline 1,000 ML 76 ML IV ×2 (06:19→19:18)
[2020-06-25 06:49] LABS: Hematocrit 38.8 % (37-47); Hemoglobin 12.6 g/dL (12.0-15.0); Mean Corp Hgb Conc 32.5 g/dL (32-36); Mean Corpuscular Hgb 28.9 pg (27.0-32.0); Mean Platelet Vol. 10.3 fl (6.2-12.0); Platelet Count 324 K/mm3 (150-450); RBC Distribution Width CV 13.9 % (11.6-14.6); RBC Distribution Width SD 45.4 fl (35.1-43.9); Red Blood Count 4.36 M/mm3 (4.2-5.4); White Blood Count 11.9 K/mm3 (4.4-11.0)
[2020-06-25 07:14] LABS: Anion Gap 5 (5-15); BUN 16 mg/dL (7-18); BUN/Creat Ratio 15.5 RATIO (10-20); Calcium,Total 8.3 mg/dL (8.5-10.1); Chloride 100 mmol/L (98-107); Creatinine, Serum 1.03 mg/dL (0.55-1.02); EST Glomerular Filtration Rate 54 mL/min (>60); Est Glom Filt Rate - Afr Amer 66 mL/min (>60); Estimated Creatinine Clearance 32.73 ml/min; Glucose 119 mg/dL (74-106); Sodium Level 133 mmol/L (136-145)
--- NOTE | 2020-06-25 07:27 | PN.SURG_ITS ---
Patient Problems: Active and Suspected Problems Abdominal pain (Acute) Acute kidney injury (Acute) Small bowel obstruction (Acute) Subjective: Patient reports she did have some belching overnight but his pain is much more controlled than immediately after surgery. She has not passed any flatus yet. Her abdominal pain is well controlled but she does have some soreness near her incision. - Physical Exam Vitals/I&O's: Vital Signs Temp Pulse Resp BP Pulse Ox 98.5 F 87 16 143/71 H 96 06/25/20 03:41 06/25/20 04:31 06/25/20 03:41 06/25/20 03:41 06/25/20 03:41 Oxygen Flow Rate (L/min) 2 Oxygen Delivery Method Nasal Cannula Weight: 169 lb 8.568 oz Body Mass Index (BMI) 30.5 Intake and Output for Last 24 Hours 06/23/20 06/24/20 06/25/20 23:59 23:59 23:59 Intake Total 2480.00 / 2480.00 1030 / 1030 Output Total 650 / 675 75 / 75 Balance 1830.00 / 1805.00 955 / 955 General: Alert, Oriented x3 Lungs: Normal air movement Cardiovascular: Regular rate, Regular Rhythm Abdomen: Soft, Non-Distended, Tender - Mild tenderness at the incision site Microbiology Past 72 Hours 06/24/20 08:00 Mucosa - Nose SARS-CoV-2 Antigen (Rapid) - Final Laboratory Results 06/25/20 06:20: WBC 11.9 H, RBC 4.36, Hgb 12.6, Hct 38.8, MCV 89.0, MCH 28.9, MCHC 32.5, RDW Std Deviation 45.4 H, RDW Coeff of Lynsey 13.9, Plt Count 324, MPV 10.3 06/25/20 06:20: Sodium 133 L, Potassium 4.0, Chloride 100, Carbon Dioxide 28.0, Anion Gap 5, BUN 16, Creatinine 1.03 H, Estim Creat Clear Calc 32.73, Est GFR (MDRD) Af Amer 66, Est GFR (MDRD) Non-Af 54 L, BUN/Creatinine Ratio 15.5, Glucose 119 H, Calcium 8.3 L Current Medications Acetaminophen (Acetaminophen 325 Mg Tablet) 650 mg PO Q6H PRN PRN PRN Reason: Pain Score 1-10/Temp > 100.7 F Last Admin: 06/24/20 23:17 Dose: 650 mg Documented by: Enoxaparin Sodium (Enoxaparin 30 Mg/0.3 Ml Syringe) 30 mg SC DAILY [facility] Sodium Chloride () 1,000 mls @ 76 mls/hr IV .[id number] [facility] Last Admin: 06/25/20 06:19 Dose: 76 mls/hr Documented by: Famotidine 20 mg/ Sodium (Chloride) 10 mls @ 300 mls/hr IV Q12 [facility] Last Infusion: 06/24/20 21:02 Dose: Infused Documented by: Morphine Sulfate (Morphine 2 Mg/Ml Syringe) 2 mg IV Q3H PRN PRN PRN Reason: Pain Score 6-10 Last Admin: 06/25/20 03:57 Dose: 2 mg Documented by: Ondansetron HCl (Ondansetron 4 Mg/2 Ml Vial) 4 mg IV Q8H PRN PRN PRN Reason: NAUSEA/VOMITING Sodium Chloride (0.9% Saline Lock 10 Ml Syringe) 10 - 40 ml IV UD PRN PRN Reason: SALINE FLUSH Last Admin: 06/24/20 09:12 Dose: 10 ml Documented by: Medical Necessity - Tobacco Use Smoking Status: Never smoker Assessment/Plan All Active Problems Abdominal pain (Acute) Acute kidney injury (Acute) Small bowel obstruction (Acute) 85-year-old female with partial small bowel obstruction status post laparotomy with small bowel resection 1. The patient appears to be doing well this morning. She has her pain well under control with Tylenol and occasional morphine. She is still belching and not passing flatus. When she begins to have bowel function I will start her on clear liquid diet and advance her as tolerated. The patient had adhesion from 1 segment of small bowel to another requiring resection. Pathology will reveal the cause of this. Okay to begin Lovenox today. Encouraged ambulation and incentive spirometer. Romain Huddleston MD Pager: [facility] [address] [place] [address], [address] [place] [address] Office:
--- NOTE | 2020-06-25 07:56 | PN_ITS ---
<HarisBrooke BOILERMAKER FITTER - Last Filed: 06/25/20 09:26> Patient Problems: Active and Suspected Problems Abdominal pain (Acute) Acute kidney injury (Acute) Small bowel obstruction (Acute) Subjective: Patient seen and examined. Not passing flatus, no bowel movement. Abdominal pain improved. Reports soreness involving incision area. - Physical Exam Vitals/I&O's: Vital Signs Temp Pulse Resp BP Pulse Ox 98.5 F 80 16 143/71 H 96 06/25/20 03:41 06/25/20 07:30 06/25/20 03:41 06/25/20 03:41 06/25/20 03:41 Oxygen Flow Rate (L/min) 2 Oxygen Delivery Method Nasal Cannula Weight: 169 lb 8.568 oz Body Mass Index (BMI) 30.5 Intake and Output for Last 24 Hours 06/23/20 06/24/20 06/25/20 23:59 23:59 23:59 Intake Total 2480.00 / 2480.00 1030 / 1030 Output Total 650 / 675 75 / 75 Balance 1830.00 / 1805.00 955 / 955 General: Alert, Oriented x3, Cooperative HEENT: Atraumatic, PERRLA, EOMI, Normocephalic Neck: Supple, No JVD, Negative Carotid Bruits Lungs: Clear to auscultation, Normal air movement Cardiovascular: Regular rate, No murmurs Abdomen: Bowel Sounds Present, Soft, Hypoactive Bowel Sounds, Tender Extremities: No clubbing, No cyanosis, No edema, Capillary Refill Less than 3 Seconds Skin: No rashes, No breakdown Musculoskeletal: No Tenderness to Palpation of Joints or Extremities Neurological: Cranial nerves II-XII grossly intact, Neuro grossly intact Psych/Mental Status: Normal Affect, Appropriate Microbiology Past 72 Hours 06/24/20 08:00 Mucosa - Nose SARS-CoV-2 Antigen (Rapid) - Final Laboratory Results 06/25/20 06:20: WBC 11.9 H, RBC 4.36, Hgb 12.6, Hct 38.8, MCV 89.0, MCH 28.9, MCHC 32.5, RDW Std Deviation 45.4 H, RDW Coeff of Lynsey 13.9, Plt Count 324, MPV 10.3 06/25/20 06:20: Sodium 133 L, Potassium 4.0, Chloride 100, Carbon Dioxide 28.0, Anion Gap 5, BUN 16, Creatinine 1.03 H, Estim Creat Clear Calc 32.73, Est GFR (MDRD) Af Amer 66, Est GFR (MDRD) Non-Af 54 L, BUN/Creatinine Ratio 15.5, Glucose 119 H, Calcium 8.3 L Current Medications Acetaminophen (Acetaminophen 325 Mg Tablet) 650 mg PO Q6H PRN PRN PRN Reason: Pain Score 1-10/Temp > 100.7 F Last Admin: 06/24/20 23:17 Dose: 650 mg Documented by: Enoxaparin Sodium (Enoxaparin 30 Mg/0.3 Ml Syringe) 30 mg SC DAILY [facility] Sodium Chloride () 1,000 mls @ 76 mls/hr IV .[id number] [facility] Last Admin: 06/25/20 06:19 Dose: 76 mls/hr Documented by: Famotidine 20 mg/ Sodium (Chloride) 10 mls @ 300 mls/hr IV Q12 [facility] Last Infusion: 06/24/20 21:02 Dose: Infused Documented by: Morphine Sulfate (Morphine 2 Mg/Ml Syringe) 2 mg IV Q3H PRN PRN PRN Reason: Pain Score 6-10 Last Admin: 06/25/20 03:57 Dose: 2 mg Documented by: Ondansetron HCl (Ondansetron 4 Mg/2 Ml Vial) 4 mg IV Q8H PRN PRN PRN Reason: NAUSEA/VOMITING Sodium Chloride (0.9% Saline Lock 10 Ml Syringe) 10 - 40 ml IV UD PRN PRN Reason: SALINE FLUSH Last Admin: 06/24/20 09:12 Dose: 10 ml Documented by: Medical Necessity - Tobacco Use Smoking Status: Never smoker Assessment/Plan All Active Problems Abdominal pain (Acute) Acute kidney injury (Acute) Small bowel obstruction (Acute) 1. Acute small bowel obstruction- Dr. Huddleston, general surgery following. Laproscopy 06/24/20 with removal of small bowel adhesion. Pathology pending. Advance diet when passing flatus. 2. Acute kidney injury-resolved with IV fluids. 3. Mild hypokalemia-replace per protocol. Trend BMP. 4. Hypertension-stable, HCTZ on hold. 5. IBS-stable. 6. History of aortic root enlargement- following as outpatient. DVT prophylaxis-Lovenox subcu This patient was seen by FELIX Estevez under the supervision of Dr. Mcdonough. <CeasarMisael - Last Filed: 06/25/20 16:00> Subjective: Seen and examined. No fever or chills, Tachycardia, tachypnea. Objective: She did not had flatus or bowel movement after surgery. Physical exam General: Alert, Oriented x3, Cooperative HEENT: Atraumatic, PERRLA, EOMI, Normocephalic Oral: No Gingival or Mucosal Lesions/ Ulcerations Neck: Supple, No JVD, Negative Carotid Bruits Lungs: Air entry diminished in bilateral lung bases. No crepitation/rhonchi Cardiovascular: Regular rate, Regular Rhythm, Normal S1, Normal S2, No murmurs Abdomen: Surgical dressing is dry. Bowel sounds absent. Soft, nontender, nondistended : No renal angle tenderness. No suprapubic tenderness. Extremities: No edema, Capillary Refill Less than 3 Seconds Skin: No rashes, No breakdown Musculoskeletal: No Tenderness to Palpation of Joints or Extremities Neurological: Cranial nerves II-XII grossly intact, Deep Tendon Reflexes 2+/4 and Symmetrical, Neuro grossly intact Psych/Mental Status: Normal Affect, Appropriate. - Physical Exam Vitals/I&O's: Vital Signs Temp Pulse Resp BP Pulse Ox 98.4 F 81 18 122/73 H 96 06/25/20 12:30 06/25/20 14:59 06/25/20 12:30 06/25/20 12:30 06/25/20 13:14 Oxygen Flow Rate (L/min) 2 Oxygen Delivery Method Nasal Cannula Weight: 169 lb 8.568 oz Body Mass Index (BMI) 30.5 Intake and Output for Last 24 Hours 06/23/20 06/24/20 06/25/20 23:59 23:59 23:59 Intake Total 2480.00 / 2480.00 1140 / 1140 Output Total 650 / 675 275 / 275 Balance 1830.00 / 1805.00 865 / 865 Microbiology Past 72 Hours 06/24/20 08:00 Mucosa - Nose SARS-CoV-2 Antigen (Rapid) - Final Laboratory Results 06/25/20 06:20: WBC 11.9 H, RBC 4.36, Hgb 12.6, Hct 38.8, MCV 89.0, MCH 28.9, MCHC 32.5, RDW Std Deviation 45.4 H, RDW Coeff of Lynsey 13.9, Plt Count 324, MPV 10.3 06/25/20 06:20: Sodium 133 L, Potassium 4.0, Chloride 100, Carbon Dioxide 28.0, Anion Gap 5, BUN 16, Creatinine 1.03 H, Estim Creat Clear Calc 32.73, Est GFR (MDRD) Af Amer 66, Est GFR (MDRD) Non-Af 54 L, BUN/Creatinine Ratio 15.5, Glucose 119 H, Calcium 8.3 L Current Medications Acetaminophen (Acetaminophen 325 Mg Tablet) 650 mg PO Q6H PRN PRN PRN Reason: Pain Score 1-10/Temp > 100.7 F Last Admin: 06/25/20 08:29 Dose: 650 mg Documented by: Enoxaparin Sodium (Enoxaparin 30 Mg/0.3 Ml Syringe) 30 mg SC DAILY [facility] Last Admin: 06/25/20 10:46 Dose: 30 mg Documented by: Sodium Chloride () 1,000 mls @ 76 mls/hr IV .[id number] [facility] Last Admin: 06/25/20 06:19 Dose: 76 mls/hr Documented by: Famotidine 20 mg/ Sodium (Chloride) 10 mls @ 300 mls/hr IV Q12 [facility] Last Infusion: 06/25/20 10:48 Dose: Infused Documented by: Morphine Sulfate (Morphine 2 Mg/Ml Syringe) 2 mg IV Q3H PRN PRN PRN Reason: Pain Score 6-10 Last Admin: 06/25/20 12:29 Dose: 2 mg Documented by: Ondansetron HCl (Ondansetron 4 Mg/2 Ml Vial) 4 mg IV Q8H PRN PRN PRN Reason: NAUSEA/VOMITING Sodium Chloride (0.9% Saline Lock 10 Ml Syringe) 10 - 40 ml IV UD PRN PRN Reason: SALINE FLUSH Last Admin: 06/24/20 09:12 Dose: 10 ml Documented by: Assessment/Plan This patient was seen in conjunction with BOILERMAKER FITTER, Brooke. I have independently interviewed and examined the patient and reviewed pertinent history, examination findings, laboratory and plan of management. I have reviewed the note and agree with the documented findings with the few additional points. In brief, patient is admitted for abdominal pain for 2 weeks secondary to acute small bowel obstruction and bowel movement yesterday after 5 days of constipation. Patient had exploratory laparoscopy with conversion open and a small bowel resection with anastomosis. There was suspicion of mass at the area of obstruction. Pathology pending. Patient advised incentive spirometry and physical therapy. Acute kidney injury: BUN/creatinine improved with IV fluid. Mild hyponatremia and hypokalemia, IV fluid and potassium replacement. Mild leukocytosis after interim reevaluation probably reactive from surgery. Other comorbidities as mentioned above I have discussed my assessment with BOILERMAKER FITTERBrooke and orders have been reviewed. Inpatient E&M: 51112 Subs Hosp L2
[2020-06-25] MEDS: Acetaminophen 325 MG Tablet 650 MG PO ×2 (08:29→16:54)
[2020-06-25] MEDS: Famotidine 200 MG/20 ML MDV 20 MG in 0.9% Normal Saline (Pres. free 8 ML 300 MG IV ×2 (10:46→21:09)
[2020-06-25] MEDS: Enoxaparin 30 MG/0.3 ML Syringe SC (10:46)
--- NOTE | 2020-06-25 15:05 | CASEMGMT ---
YOVANI GARAY NOTE: PT/OT evals reviewed. Additional therapy recommended. YOVANI GARAY to room to talk with pt. Pt states she is interested in getting an aide for housework. Pt made aware insurance does not cover for an aide to provide these services, but, if she has HHC for a skilled service such as SN or PT, that an aide could come to assist with bathing/dressing, if needed. Pt states does not need any assistance w/bathing/dressing. She states I just want to heal from surgery and I will f/u with my doctor. She denies need for SN or any therapy at this time, declining both HHC and OP therapy. She states her son lives with her and can help if needed. She again states, The main thing is I just cannot get down on my knees to do the deep cleaning and I need someone to wash my windows and do spring cleaning. She denies any other discharge needs or concerns. Tiffanie MOORE RN [facility]
[2020-06-25] MEDS: 0.9% Saline Lock 10 ML Syringe IV ×2 (21:09→21:15)
[2020-06-26] VITALS (12 sets, daily range): BP systolic 126–155; BP diastolic 58–79; PULSE 74–85; RESP 18–20; TEMP 36.5–37; O2SAT 88–97
[2020-06-26] MEDS: Acetaminophen 325 MG Tablet 650 MG PO ×3 (02:47→17:09)
--- NOTE | 2020-06-26 06:50 | PCM.PN.SRG ---
Patient Problems: Active and Suspected Problems Abdominal pain (Acute) Acute kidney injury (Acute) Small bowel obstruction (Acute) Subjective: Patient reports no flatus. She did not have any nausea or vomiting. Her abdominal pain is well controlled. - Physical Exam Vitals/I&O's: Vital Signs Temp Pulse Resp BP Pulse Ox 98 F 81 18 126/58 H 94 06/26/20 02:58 06/26/20 04:00 06/26/20 02:58 06/26/20 02:58 06/26/20 02:58 Oxygen Flow Rate (L/min) 2 Oxygen Delivery Method Nasal Cannula Weight: 169 lb 8.568 oz Body Mass Index (BMI) 30.5 Intake and Output for Last 24 Hours 06/24/20 06/25/20 06/26/20 23:59 23:59 23:59 Intake Total 2480.00 / 2480.00 2236.73 / 2236.73 50 / 50 Output Total 650 / 675 675 / 675 200 / 200 Balance 1830.00 / 1805.00 1561.73 / 1561.73 -150 / -150 General: Alert, Oriented x3 Lungs: Normal air movement Abdomen: Soft, Non Tender, Non-Distended Microbiology Past 72 Hours 06/24/20 08:00 Mucosa - Nose SARS-CoV-2 Antigen (Rapid) - Final Laboratory Results 06/25/20 06:20: Sodium 133 L, Potassium 4.0, Chloride 100, Carbon Dioxide 28.0, Anion Gap 5, BUN 16, Creatinine 1.03 H, Estim Creat Clear Calc 32.73, Est GFR (MDRD) Af Amer 66, Est GFR (MDRD) Non-Af 54 L, BUN/Creatinine Ratio 15.5, Glucose 119 H, Calcium 8.3 L Current Medications Acetaminophen (Acetaminophen 325 Mg Tablet) 650 mg PO Q6H PRN PRN PRN Reason: Pain Score 1-10/Temp > 100.7 F Last Admin: 06/26/20 02:47 Dose: 650 mg Documented by: Enoxaparin Sodium (Enoxaparin 30 Mg/0.3 Ml Syringe) 30 mg SC DAILY [facility] Last Admin: 06/25/20 10:46 Dose: 30 mg Documented by: Sodium Chloride () 1,000 mls @ 76 mls/hr IV .[id number] [facility] Last Admin: 06/25/20 19:18 Dose: 76 mls/hr Documented by: Famotidine 20 mg/ Sodium (Chloride) 10 mls @ 300 mls/hr IV Q12 [facility] Last Infusion: 06/25/20 21:11 Dose: Infused Documented by: Morphine Sulfate (Morphine 2 Mg/Ml Syringe) 2 mg IV Q3H PRN PRN PRN Reason: Pain Score 6-10 Last Admin: 06/25/20 21:15 Dose: 2 mg Documented by: Ondansetron HCl (Ondansetron 4 Mg/2 Ml Vial) 4 mg IV Q8H PRN PRN PRN Reason: NAUSEA/VOMITING Sodium Chloride (0.9% Saline Lock 10 Ml Syringe) 10 - 40 ml IV UD PRN PRN Reason: SALINE FLUSH Last Admin: 06/25/20 21:15 Dose: 10 ml Documented by: Medical Necessity - Tobacco Use Smoking Status: Never smoker Assessment/Plan All Active Problems Abdominal pain (Acute) Acute kidney injury (Acute) Small bowel obstruction (Acute) 85-year-old female status post small bowel resection 1. The patient still not passing any flatus. Once her bowels start to function I will start her on clear liquid diet and advance her as tolerated. Patient has borderline urine output. Continue to monitor. The patient's pain is well controlled. Continue to encourage ambulation and incentive spirometer. Patient is on Lovenox. Pathology is pending. Romain Huddleston MD Pager: [facility] [address] [place] [address], [address] [place] [address] Office:
[2020-06-26 07:21] LABS: Absolute Lymphocyte Count 0.99 X10^3/uL (0.83-4.51); Absolute Neutrophil Count 7.9 X10^3/uL (2.0-7.7); Basophil# 0.03 X10^3/uL; Basophil% 0.3 % (0-1); Eosinophil# 0.18 X10^3/uL; Eosinophils% 1.8 % (0-5); Hematocrit 36.9 % (37-47); Hemoglobin 11.5 g/dL (12.0-15.0); Lymphocyte # 0.99 X10^3/ul (4.0); Lymphocyte % 9.9 % (19-41); Mean Corp Hgb Conc 31.2 g/dL (32-36); Mean Corpuscular Hgb 28.2 pg (27.0-32.0); Mean Corpuscular Volume 90.4 fL (81-99); Monocyte# 0.88 X10^3/uL; Monocyte% 8.8 % (0-10); NRBC Flagged by Analyzer 0 % (0-5); Neutrophil # 7.93 X10^3/uL (2.7-7.7); Neutrophil % 78.9 % (47-70); Platelet Count 283 K/mm3 (150-450); RBC Distribution Width CV 14.2 % (11.6-14.6); RBC Distribution Width SD 47.6 fl (35.1-43.9); Red Blood Count 4.08 M/mm3 (4.2-5.4)
[2020-06-26] MEDS: 0.9% Normal Saline 1,000 ML 76 ML IV (07:37)
[2020-06-26 07:39] LABS: Anion Gap 6 (5-15); BUN 16 mg/dL (7-18); BUN/Creat Ratio 21.4 RATIO (10-20); Calcium,Total 8.3 mg/dL (8.5-10.1); Chloride 101 mmol/L (98-107); Creatinine, Serum 0.75 mg/dL (0.55-1.02); EST Glomerular Filtration Rate 79 mL/min (>60); Est Glom Filt Rate - Afr Amer 96 mL/min (>60); Estimated Creatinine Clearance 33.71 ml/min; Glucose 87 mg/dL (74-106); Potassium 3.6 mmol/L (3.5-5.1); Sodium Level 134 mmol/L (136-145)
[2020-06-26] MEDS: Enoxaparin 30 MG/0.3 ML Syringe SC (09:25)
[2020-06-26] MEDS: Famotidine 200 MG/20 ML MDV 20 MG in 0.9% Normal Saline (Pres. free 8 ML 300 MG IV ×2 (09:25→21:35)
[2020-06-26] MEDS: 0.9% Saline Lock 10 ML Syringe IV (09:25)
--- NOTE | 2020-06-26 10:39 | PCM.PROGNOTE ---
<HarisBrooke NAILER MACHINE - Last Filed: 06/26/20 10:50> Patient Problems: Active and Suspected Problems Abdominal pain (Acute) Acute kidney injury (Acute) Small bowel obstruction (Acute) Subjective: Patient seen and examined. Denies abdominal pain however reports abdominal tenderness which is worse with movement. Denies nausea, vomiting. Not passing flatus, no bowel movement. - Physical Exam Vitals/I&O's: Vital Signs Temp Pulse Resp BP Pulse Ox 98.4 F 81 18 137/66 H 95 06/26/20 07:35 06/26/20 07:35 06/26/20 07:35 06/26/20 07:35 06/26/20 07:55 Oxygen Flow Rate (L/min) 1 Oxygen Delivery Method Nasal Cannula Weight: 169 lb 8.568 oz Body Mass Index (BMI) 30.5 Intake and Output for Last 24 Hours 06/24/20 06/25/20 06/26/20 23:59 23:59 23:59 Intake Total 2480.00 / 2480.00 2236.73 / 2236.73 996.07 / 996.07 Output Total 650 / 675 675 / 675 600 / 600 Balance 1830.00 / 1805.00 1561.73 / 1561.73 396.07 / 396.07 General: Alert, Oriented x3, Cooperative HEENT: Atraumatic, PERRLA, EOMI, Normocephalic Neck: Supple, No JVD, Negative Carotid Bruits Lungs: Clear to auscultation, Diminished Cardiovascular: Regular rate, No murmurs Abdomen: Soft, Non-Distended, Hypoactive Bowel Sounds, Tender Extremities: No clubbing, No cyanosis, No edema, Capillary Refill Less than 3 Seconds Skin: No rashes, No breakdown Musculoskeletal: No Tenderness to Palpation of Joints or Extremities Neurological: Cranial nerves II-XII grossly intact, Neuro grossly intact Psych/Mental Status: Normal Affect, Appropriate Microbiology Past 72 Hours 06/24/20 08:00 Mucosa - Nose SARS-CoV-2 Antigen (Rapid) - Final Laboratory Results 06/26/20 07:03: WBC 10.0, RBC 4.08 L, Hgb 11.5 L, Hct 36.9 L, MCV 90.4, MCH 28.2, MCHC 31.2 L, RDW Std Deviation 47.6 H, RDW Coeff of Lynsey 14.2, Plt Count 283, MPV 10.0, Immature Gran % (Auto) 0.300, Neut % (Auto) 78.9 H, Lymph % (Auto) 9.9 L, [place] % (Auto) 8.8, Eos % (Auto) 1.8, Baso % (Auto) 0.3, Absolute Neuts (auto) 7.9 H, Absolute Lymphs (auto) 0.99, Nucleated RBC % 0 06/26/20 07:03: Sodium 134 L, Potassium 3.6, Chloride 101, Carbon Dioxide 27.0, Anion Gap 6, BUN 16, Creatinine 0.75, Estim Creat Clear Calc 33.71, Est GFR (MDRD) Af Amer 96, Est GFR (MDRD) Non-Af 79, BUN/Creatinine Ratio 21.4 H, Glucose 87, Calcium 8.3 L Current Medications Acetaminophen (Acetaminophen 325 Mg Tablet) 650 mg PO Q6H PRN PRN PRN Reason: Pain Score 1-10/Temp > 100.7 F Last Admin: 06/26/20 09:24 Dose: 650 mg Documented by: Enoxaparin Sodium (Enoxaparin 30 Mg/0.3 Ml Syringe) 30 mg SC DAILY [facility] Last Admin: 06/26/20 09:25 Dose: 30 mg Documented by: Sodium Chloride () 1,000 mls @ 76 mls/hr IV .[id number] [facility] Last Admin: 06/26/20 07:37 Dose: 76 mls/hr Documented by: Famotidine 20 mg/ Sodium (Chloride) 10 mls @ 300 mls/hr IV Q12 [facility] Last Infusion: 06/26/20 09:28 Dose: Infused Documented by: Morphine Sulfate (Morphine 2 Mg/Ml Syringe) 2 mg IV Q3H PRN PRN PRN Reason: Pain Score 6-10 Last Admin: 06/25/20 21:15 Dose: 2 mg Documented by: Ondansetron HCl (Ondansetron 4 Mg/2 Ml Vial) 4 mg IV Q8H PRN PRN PRN Reason: NAUSEA/VOMITING Sodium Chloride (0.9% Saline Lock 10 Ml Syringe) 10 - 40 ml IV UD PRN PRN Reason: SALINE FLUSH Last Admin: 06/26/20 09:25 Dose: 10 ml Documented by: Medical Necessity - Tobacco Use Smoking Status: Never smoker Assessment/Plan All Active Problems Abdominal pain (Acute) Acute kidney injury (Acute) Small bowel obstruction (Acute) 1. Acute small bowel obstruction- Dr. Huddleston, general surgery following. Laproscopy 06/24/20 with removal of small bowel adhesion. Pathology pending. Advance diet when passing flatus. 2. Acute kidney injury-resolved with IV fluids. 3. Mild hypokalemia-replace per protocol. Trend BMP. 4. Hypertension-stable, HCTZ on hold. 5. IBS-stable. 6. History of aortic root enlargement- following as outpatient. DVT prophylaxis-Lovenox subcu This patient was seen by FELIX Estevez under the supervision of Dr. Mcdonough. <Misael Mcdonough - Last Filed: 06/26/20 15:58> Objective: No fever or chills. Heart rate with blood pressure control. Patient did not have flatus or bowel movement. K3.6. Patient initially had low urine output about 200 mL in the morning then she picked up, total of 1100 mL since midnight today. Physical exam General: Alert, Oriented x3, Cooperative HEENT: Atraumatic, PERRLA, EOMI, Normocephalic Oral: No Gingival or Mucosal Lesions/ Ulcerations Neck: Supple, No JVD, Negative Carotid Bruits Lungs: Air entry diminished in bilateral lung bases. No crepitation/rhonchi Cardiovascular: Regular rate, Regular Rhythm, Normal S1, Normal S2, No murmurs Abdomen: Bowel sounds sluggish, nontender, nondistended. Surgical dressing is dry. : No renal angle tenderness. No suprapubic tenderness. Extremities: No edema, Capillary Refill Less than 3 Seconds Skin: No rashes, No breakdown Musculoskeletal: No Tenderness to Palpation of Joints or Extremities Neurological: Cranial nerves II-XII grossly intact, Deep Tendon Reflexes 2+/4 and Symmetrical, Neuro grossly intact Psych/Mental Status: Normal Affect, Appropriate. - Physical Exam Vitals/I&O's: Vital Signs Temp Pulse Resp BP Pulse Ox 98.4 F 82 18 137/66 H 95 06/26/20 07:35 06/26/20 10:00 06/26/20 07:35 06/26/20 07:35 06/26/20 07:55 Oxygen Flow Rate (L/min) 2 Oxygen Delivery Method Nasal Cannula Weight: 169 lb 8.568 oz Body Mass Index (BMI) 30.5 Intake and Output for Last 24 Hours 06/24/20 06/25/20 06/26/20 23:59 23:59 23:59 Intake Total 2480.00 / 2480.00 2236.73 / 2236.73 996.07 / 996.07 Output Total 650 / 675 675 / 675 1100 / 1100 Balance 1830.00 / 1805.00 1561.73 / 1561.73 -103.93 / -103.93 Microbiology Past 72 Hours 06/24/20 08:00 Mucosa - Nose SARS-CoV-2 Antigen (Rapid) - Final Laboratory Results 06/26/20 07:03: WBC 10.0, RBC 4.08 L, Hgb 11.5 L, Hct 36.9 L, MCV 90.4, MCH 28.2, MCHC 31.2 L, RDW Std Deviation 47.6 H, RDW Coeff of Lynsey 14.2, Plt Count 283, MPV 10.0, Immature Gran % (Auto) 0.300, Neut % (Auto) 78.9 H, Lymph % (Auto) 9.9 L, [place] % (Auto) 8.8, Eos % (Auto) 1.8, Baso % (Auto) 0.3, Absolute Neuts (auto) 7.9 H, Absolute Lymphs (auto) 0.99, Nucleated RBC % 0 06/26/20 07:03: Sodium 134 L, Potassium 3.6, Chloride 101, Carbon Dioxide 27.0, Anion Gap 6, BUN 16, Creatinine 0.75, Estim Creat Clear Calc 33.71, Est GFR (MDRD) Af Amer 96, Est GFR (MDRD) Non-Af 79, BUN/Creatinine Ratio 21.4 H, Glucose 87, Calcium 8.3 L Current Medications Acetaminophen (Acetaminophen 325 Mg Tablet) 650 mg PO Q6H PRN PRN PRN Reason: Pain Score 1-10/Temp > 100.7 F Last Admin: 06/26/20 09:24 Dose: 650 mg Documented by: Enoxaparin Sodium (Enoxaparin 30 Mg/0.3 Ml Syringe) 30 mg SC DAILY [facility] Last Admin: 06/26/20 09:25 Dose: 30 mg Documented by: Famotidine 20 mg/ Sodium (Chloride) 10 mls @ 300 mls/hr IV Q12 [facility] Last Infusion: 06/26/20 09:28 Dose: Infused Documented by: Dextrose/Sodium Chloride (Dextrose 5%/0.9% Nacl) 1,000 mls @ 50 mls/hr IV .Q20H [facility] Last Admin: 06/26/20 12:28 Dose: 50 mls/hr Documented by: Morphine Sulfate (Morphine 2 Mg/Ml Syringe) 2 mg IV Q3H PRN PRN PRN Reason: Pain Score 6-10 Last Admin: 06/25/20 21:15 Dose: 2 mg Documented by: Ondansetron HCl (Ondansetron 4 Mg/2 Ml Vial) 4 mg IV Q8H PRN PRN PRN Reason: NAUSEA/VOMITING Sodium Chloride (0.9% Saline Lock 10 Ml Syringe) 10 - 40 ml IV UD PRN PRN Reason: SALINE FLUSH Last Admin: 06/26/20 09:25 Dose: 10 ml Documented by: Assessment/Plan This patient was seen in conjunction with Brooke CHAVES. I have independently interviewed and examined the patient and reviewed pertinent history, examination findings, laboratory and plan of management. I have reviewed the note and agree with the documented findings with the few additional points. In brief, patient is admitted for abdominal pain for 2 weeks secondary to acute small bowel obstruction and bowel movement yesterday after 5 days of constipation. Patient had exploratory laparoscopy with conversion open and a small bowel resection with anastomosis. There was suspicion of mass at the area of obstruction. Pathology pending. Patient advised incentive spirometry and physical therapy. 06/26: IV fluid changed to D5 NS at 50 mill per hour for nutritional support. Titrate as per hemodynamic parameters, urine output and kidney function. Continue incentive spirometry. 20 M EQ of IV KCl and labs for tomorrow a.m. ordered. Surgeon's note reviewed. Acute kidney injury: BUN/creatinine improved with IV fluid. Mild hyponatremia and hypokalemia, IV fluid and potassium replacement. Mild leukocytosis after interim reevaluation probably reactive from surgery. 06/26: Mild oliguria in the morning but urine output improved, totally 1100 mL since midnight. Still 3.2 L positive fluid balance. Other comorbidities as mentioned above I have discussed my assessment with Brooke CHAVES and orders have been reviewed. Inpatient E&M: [id number] Subs Hosp L2
[2020-06-26] MEDS: Dextrose 5%/0.9% NaCl 1,000 ML 50 ML IV (12:28)
--- NOTE | 2020-06-26 12:51 | NURSING ---
DR CHIU NOTIFIED OF PT +FLATUS. NEW ORDER RECEIVED.
[2020-06-26] MEDS: Potassium Chloride 10mEq/100mL 10 MEQ/100 ML IV.SOLN. 100 MEQ IV BOLUS ×2 (17:06→19:10)
[2020-06-27] VITALS (10 sets, daily range): BP systolic 141–157; BP diastolic 59–82; PULSE 70–81; RESP 18–20; TEMP 36.6–36.7; O2SAT 87–98
[2020-06-27] MEDS: Acetaminophen 325 MG Tablet 650 MG PO ×3 (00:22→14:24)
[2020-06-27 06:25] LABS: Hematocrit 33.7 % (37-47); Hemoglobin 10.8 g/dL (12.0-15.0); Mean Corpuscular Hgb 28.5 pg (27.0-32.0); Mean Corpuscular Volume 88.9 fL (81-99); Mean Platelet Vol. 9.9 fl (6.2-12.0); Platelet Count 266 K/mm3 (150-450); RBC Distribution Width CV 13.9 % (11.6-14.6); RBC Distribution Width SD 45.6 fl (35.1-43.9); Red Blood Count 3.79 M/mm3 (4.2-5.4); White Blood Count 8.8 K/mm3 (4.4-11.0)
[2020-06-27 06:49] LABS: Anion Gap 4 (5-15); BUN 9 mg/dL (7-18); Calcium,Total 8.4 mg/dL (8.5-10.1); Chloride 103 mmol/L (98-107); Creatinine, Serum 0.69 mg/dL (0.55-1.02); EST Glomerular Filtration Rate 86 mL/min (>60); Est Glom Filt Rate - Afr Amer 104 mL/min (>60); Estimated Creatinine Clearance 33.71 ml/min; Glucose 112 mg/dL (74-106); Phosphorus 2.1 mg/dL (2.5-4.9); Potassium 3.5 mmol/L (3.5-5.1); Sodium Level 136 mmol/L (136-145)
--- NOTE | 2020-06-27 07:30 | PN.SURG_ITS ---
Patient Problems: Active and Suspected Problems Abdominal pain (Acute) Acute kidney injury (Acute) Small bowel obstruction (Acute) Subjective: Patient reports no nausea or vomiting. She did tolerate some clears this morning. She is still passing flatus and her pain is well controlled. - Physical Exam Vitals/I&O's: Vital Signs Temp Pulse Resp BP Pulse Ox 97.8 F 77 18 141/59 H 98 06/27/20 02:00 06/27/20 04:39 06/27/20 02:00 06/27/20 02:00 06/27/20 02:00 Oxygen Flow Rate (L/min) 2 Oxygen Delivery Method Nasal Cannula Weight: 169 lb 8.568 oz Body Mass Index (BMI) 30.5 Intake and Output for Last 24 Hours 06/25/20 06/26/20 06/27/20 23:59 23:59 23:59 Intake Total 2236.73 / 2236.73 1694.67 / 1694.67 Output Total 675 / 675 1100 / 1300 200 / 200 Balance 1561.73 / 1561.73 594.67 / 394.67 -200 / -200 General: Alert, Oriented x3 Lungs: Normal air movement Cardiovascular: Regular rate, Regular Rhythm Abdomen: Soft, Non Tender, Non-Distended Microbiology Past 72 Hours 06/24/20 08:00 Mucosa - Nose SARS-CoV-2 Antigen (Rapid) - Final Laboratory Results 06/26/20 07:03: Sodium 134 L, Potassium 3.6, Chloride 101, Carbon Dioxide 27.0, Anion Gap 6, BUN 16, Creatinine 0.75, Estim Creat Clear Calc 33.71, Est GFR (MDRD) Af Amer 96, Est GFR (MDRD) Non-Af 79, BUN/Creatinine Ratio 21.4 H, Glucose 87, Calcium 8.3 L 06/27/20 06:16: WBC 8.8, RBC 3.79 L, Hgb 10.8 L, Hct 33.7 L, MCV 88.9, MCH 28.5, MCHC 32.0, RDW Std Deviation 45.6 H, RDW Coeff of Lynsey 13.9, Plt Count 266, MPV 9.9 06/27/20 06:16: Sodium 136, Potassium 3.5, Chloride 103, Carbon Dioxide 29.0, Anion Gap 4 L, BUN 9, Creatinine 0.69, Estim Creat Clear Calc 33.71, Est GFR (MDRD) Af Amer 104, Est GFR (MDRD) Non-Af 86, BUN/Creatinine Ratio 13.0, Glucose 112 H, Calcium 8.4 L, Phosphorus 2.1 L, Magnesium 2.0 Current Medications Acetaminophen (Acetaminophen 325 Mg Tablet) 650 mg PO Q6H PRN PRN PRN Reason: Pain Score 1-10/Temp > 100.7 F Last Admin: 06/27/20 00:22 Dose: 650 mg Documented by: Enoxaparin Sodium (Enoxaparin 30 Mg/0.3 Ml Syringe) 30 mg SC DAILY [facility] Last Admin: 06/26/20 09:25 Dose: 30 mg Documented by: Famotidine 20 mg/ Sodium (Chloride) 10 mls @ 300 mls/hr IV Q12 [facility] Last Infusion: 06/26/20 21:37 Dose: Infused Documented by: Dextrose/Sodium Chloride (Dextrose 5%/0.9% Nacl) 1,000 mls @ 50 mls/hr IV .Q20H [facility] Last Admin: 06/26/20 12:28 Dose: 50 mls/hr Documented by: Morphine Sulfate (Morphine 2 Mg/Ml Syringe) 2 mg IV Q3H PRN PRN PRN Reason: Pain Score 6-10 Last Admin: 06/25/20 21:15 Dose: 2 mg Documented by: Ondansetron HCl (Ondansetron 4 Mg/2 Ml Vial) 4 mg IV Q8H PRN PRN PRN Reason: NAUSEA/VOMITING Sodium Chloride (0.9% Saline Lock 10 Ml Syringe) 10 - 40 ml IV UD PRN PRN Reason: SALINE FLUSH Last Admin: 06/26/20 09:25 Dose: 10 ml Documented by: Medical Necessity - Tobacco Use Smoking Status: Never smoker Assessment/Plan All Active Problems Abdominal pain (Acute) Acute kidney injury (Acute) Small bowel obstruction (Acute) 85-year-old female status post small bowel resection for partial obstruction 1. Patient seems to be doing well and I will advance her to a regular diet. If she tolerates regular diet she may be discharged home. Follow-up with me in 1 week. Romain Huddleston MD Pager: [facility] [address] [place] [address], [address] [place] [address] Office:
--- NOTE | 2020-06-27 07:31 | DCINST_ITS ---
Discharge Diet: Light diet - advance as tolerated Discharge Activity: May Not Drive - No driving for 1 week or while taking narcotic pain meds., May Shower Lifting Restrictions: 10 pounds for 4 weeks Call your doctor if your incision/area has: Continuous Slow Oozing, Sudden Increased Bleeding, Increased Pain/ Swelling, Increased Redness, Foul Smelling Discharge, Swelling at the incision site Call your doctor if you observe: Fever of 101 or Higher Suture Line Care: Avoid Pulling/Pushing, Avoid Pinching/Bending Remove Dressing in (days):: 1 - Remove clear bandages in 2 weeks Allergies/Adverse Reactions: Allergies fenofibrate Allergy (Verified 06/23/20 17:10) Unknown lisinopril Allergy (Verified 06/23/20 17:10) Unknown perfume Allergy (Verified 06/23/20 17:10) Unknown Sulfa (Sulfonamide Antibiotics) Allergy (Verified 06/23/20 17:10) Unknown zolpidem Allergy (Verified 06/23/20 17:10) Unknown cholecalciferol (vitamin D3) Adverse Reaction (Verified 06/23/20 17:10) Upset Stomach meloxicam Adverse Reaction (Verified 06/23/20 17:10) Unknown Medications to take at Discharge Hydrochlorothiazide 12.5 mg PO DAILY 08/25/19 Loperamide [Imodium] 2 mg PO DAILY PRN PRN 08/25/19 Omeprazole 40 mg PO DAILY 08/25/19 [place]-3 Fatty Acids/Fish Oil [Fish Oil 1,000 mg Capsule] 1 each PO DAILY 06/23/20 Potassium Chloride Oral Tablet [K-Dur] 20 meq PO DAILY 06/23/20 Acetaminophen [Tylenol Tablet] 650 mg PO Q6H PRN PRN tablet 06/27/20 Primary Care Physician: Chapo Morfin MD [Primary Care Provider] - Test Results: Test results from this visit will be discussed in further detail at your follow- up appointment, if applicable. Please Follow Up With: Romain Huddleston MD When: Please call to schedule 1 week follow up appointment. [phone]
[2020-06-27] MEDS: Dextrose 5%/0.9% NaCl 1,000 ML 50 ML IV (07:57)
--- NOTE | 2020-06-27 09:24 | DS.PCM_ITS ---
<Brooke Carballo FANCY NEEDLEWORKER - Last Filed: 06/27/20 09:31> Discharge Date and Diagnosis - Problem List Patient Problems: Active and Suspected Problems Abdominal pain (Acute) Acute kidney injury (Acute) Small bowel obstruction (Acute) Date of Admission: 06/23/20 Date of Discharge: 06/27/20 - Primary Discharge Diagnosis Acute Problems: Active Problems 1. Acute small bowel obstruction 2. Acute kidney injury 3. Mild hypokalemia 4. Hypertension 5. IBS 6. History of aortic root enlargement - Secondary Discharge Diagnosis Chronic Problems: Chronic Problems Hypertension (Chronic) Aortic root enlargement (Chronic) Irritable bowel syndrome (Chronic) Hospital Course and Treatment Imaging Results: Diagnostic Data Abdomen/Pelvis CT 06/23/20 17:36 IMPRESSION: Small bowel obstruction with possible transition point in the mid to distal ileum. Cholelithiasis. Diverticulosis. Electronically Signed: King Lau MD at 19:39 EDT Tel , Service support , [facility] X-Ray 06/24/20 08:30 IMPRESSION: Mildly dilated small bowel loops in the left abdomen. Electronically Signed: Mitchell Juarez MD at 12:47 EDT Tel , Service support , Dr. Huddleston- General surgery Operations: - - Exploratory laparoscopy with small bowel resection with anastomosis Procedures: None Summary of Care Provided: The patient is a 85 year old F admitted 06/23/20 due to abdominal pain. 1. Acute small bowel obstruction- Dr. Huddleston, general surgery consulted during admission. Laproscopy 06/24/20 with removal of small bowel adhesion. Pathology pending. Passing flatus, tolerating diet. Advance diet as tolerated. Follow-up with Dr. Huddleston in one week. Patient declined HH and OP therapies. 2. Acute kidney injury-resolved with IV fluids. 3. Mild hypokalemia-replace per protocol. Resolved. 4. Hypertension-HCTZ held during admission, may resume low dose at discharge. 5. IBS-stable. 6. History of aortic root enlargement- following as outpatient. General: Alert, Oriented x3, Cooperative HEENT: Atraumatic, PERRLA, EOMI, Normocephalic Neck: Supple, No JVD, Negative Carotid Bruits Lungs: Clear to auscultation, Diminished Cardiovascular: Regular rate, No murmurs Abdomen: Soft, Non-Distended, Hypoactive Bowel Sounds, Tender Extremities: No clubbing, No cyanosis, No edema, Capillary Refill Less than 3 Seconds Skin: No rashes, No breakdown Musculoskeletal: No Tenderness to Palpation of Joints or Extremities Neurological: Cranial nerves II-XII grossly intact, Neuro grossly intact Psych/Mental Status: Normal Affect, Appropriate Patient seen and examined prior to discharge. Physical assessment as noted above. Patient is stable for discharge with follow up recommendations as noted above. This patient was seen by FELIX Estevez under the supervision of Dr. Mcdonough. Patient Problems: Active and Suspected Problems Abdominal pain (Acute) Acute kidney injury (Acute) Small bowel obstruction (Acute) - Physical Exam Vitals/I&O's: Vital Signs Temp Pulse Resp BP Pulse Ox 97.8 F 74 18 157/82 H 96 06/27/20 07:48 06/27/20 07:48 06/27/20 07:48 06/27/20 07:48 06/27/20 07:48 Oxygen Flow Rate (L/min) 2 Oxygen Delivery Method Nasal Cannula Weight: 169 lb 8.568 oz Body Mass Index (BMI) 30.5 Intake and Output for Last 24 Hours 06/25/20 06/26/20 06/27/20 23:59 23:59 23:59 Intake Total 2236.73 / 2236.73 1694.67 / 1694.67 974.17 / 974.17 Output Total 675 / 675 1100 / 1300 200 / 200 Balance 1561.73 / 1561.73 594.67 / 394.67 774.17 / 774.17 Microbiology Past 72 Hours 06/24/20 08:00 Mucosa - Nose SARS-CoV-2 Antigen (Rapid) - Final Laboratory Results 06/27/20 06:16: WBC 8.8, RBC 3.79 L, Hgb 10.8 L, Hct 33.7 L, MCV 88.9, MCH 28.5, MCHC 32.0, RDW Std Deviation 45.6 H, RDW Coeff of Lynsey 13.9, Plt Count 266, MPV 9.9 04/11/21 06:16: Sodium 136, Potassium 3.5, Chloride 103, Carbon Dioxide 29.0, Anion Gap 4 L, BUN 9, Creatinine 0.69, Estim Creat Clear Calc 33.71, Est GFR (MDRD) Af Amer 104, Est GFR (MDRD) Non-Af 86, BUN/Creatinine Ratio 13.0, Glucose 112 H, Calcium 8.4 L, Phosphorus 2.1 L, Magnesium 2.0 Current Medications Acetaminophen (Acetaminophen 325 Mg Tablet) 650 mg PO Q6H PRN PRN PRN Reason: Pain Score 1-10/Temp > 100.7 F Last Admin: 06/27/20 07:57 Dose: 650 mg Documented by: Enoxaparin Sodium (Enoxaparin 30 Mg/0.3 Ml Syringe) 30 mg SC DAILY [facility] Last Admin: 06/26/20 09:25 Dose: 30 mg Documented by: Famotidine 20 mg/ Sodium (Chloride) 10 mls @ 300 mls/hr IV Q12 [facility] Last Infusion: 06/26/20 21:37 Dose: Infused Documented by: Dextrose/Sodium Chloride (Dextrose 5%/0.9% Nacl) 1,000 mls @ 50 mls/hr IV .Q20H [facility] Last Admin: 06/27/20 07:57 Dose: 50 mls/hr Documented by: Morphine Sulfate (Morphine 2 Mg/Ml Syringe) 2 mg IV Q3H PRN PRN PRN Reason: Pain Score 6-10 Last Admin: 06/25/20 21:15 Dose: 2 mg Documented by: Ondansetron HCl (Ondansetron 4 Mg/2 Ml Vial) 4 mg IV Q8H PRN PRN PRN Reason: NAUSEA/VOMITING Sodium Chloride (0.9% Saline Lock 10 Ml Syringe) 10 - 40 ml IV UD PRN PRN Reason: SALINE FLUSH Last Admin: 06/26/20 09:25 Dose: 10 ml Documented by: Discharge Diet: Light diet - advance as tolerated Discharge Activity: May Not Drive - No driving for 1 week or while taking narcotic pain meds., May Shower Call your doctor if your incision/area has: Continuous Slow Oozing, Sudden Increased Bleeding, Increased Pain/ Swelling, Increased Redness, Foul Smelling Discharge, Swelling at the incision site Call your doctor if you observe: Fever of 101 or Higher Suture Line Care: Avoid Pulling/Pushing, Avoid Pinching/Bending Remove Dressing in (days):: 1 - Remove clear bandages in 2 weeks Home Medications: Medications to take at Discharge Hydrochlorothiazide 12.5 mg PO DAILY 08/25/19 Loperamide [Imodium] 2 mg PO DAILY PRN PRN 08/25/19 Omeprazole 40 mg PO DAILY 08/25/19 [place]-3 Fatty Acids/Fish Oil [Fish Oil 1,000 mg Capsule] 1 each PO DAILY 06/23/20 Potassium Chloride Oral Tablet [K-Dur] 20 meq PO DAILY 06/23/20 Acetaminophen [Tylenol Tablet] 650 mg PO Q6H PRN PRN tablet 06/27/20 Primary Care Physician: Chapo Morfin MD [Primary Care Provider] - Please Follow Up With: Romain Huddleston MD When: Please call to schedule 1 week follow up appointment. [phone] Disposition: Home Minutes spent on discharge:: 35 Patient Condition:: Stable Medical Necessity - Tobacco Use Smoking Status: Never smoker Meaningful Use Info Meaningful Use Diagnoses (Choose all that apply): None applicable <Misael Mcdonough - Last Filed: 06/27/20 13:59> Discharge Date and Diagnosis - Primary Discharge Diagnosis Acute Problems: Active Problems Abdominal pain (Acute) Acute kidney injury (Acute) Small bowel obstruction (Acute) - Secondary Discharge Diagnosis Chronic Problems: Chronic Problems Hypertension (Chronic) Aortic root enlargement (Chronic) Irritable bowel syndrome (Chronic) Hospital Course and Treatment Summary of Care Provided: This patient was seen in conjunction with FANCY NEEDLEWORKER, Brooke. I have independently interviewed and examined the patient and reviewed pertinent history, examination findings, laboratory and plan of management. I have reviewed the note and agree with the documented findings with the few additional points. In brief, patient is admitted for abdominal pain for 2 weeks secondary to acute small bowel obstruction and bowel movement yesterday after 5 days of constipation. Patient had exploratory laparoscopy with conversion open and a small bowel resection with anastomosis. There was suspicion of mass at the area of obstruction. Pathology pending. Patient advised incentive spirometry and physical therapy. 06/26: IV fluid changed to D5 NS at 50 mill per hour for nutritional support. Titrate as per hemodynamic parameters, urine output and kidney function. Continue incentive spirometry. Mild hypokalemia, potassium was replaced. Patient passed flatus and started on regular diet with soft consistency. Patient discharged home with surgeons recommendation. Acute kidney injury: BUN/creatinine improved with IV fluid. Mild hyponatremia and hypokalemia, IV fluid and potassium replacement. Mild leukocytosis after interim reevaluation probably reactive from surgery. 06/27: Mild oliguria in the morning on 06/26 but urine output improved after that. Had 1100 mL total urine output on 06/26 and 600 mL today after midnight. Other comorbidities as mentioned above Discharge medication reconciliation done. Discharge follow-up instructions completed. Discharge process discussed with the patient and all questions were answered to patient's satisfaction. Total time spent, exact 35 minutes on discharge meds reconciliation, examination, coordination of care with nurses and ancillary staff, review of imaging and blood test and discussion with the patient on follow-up instructions I have discussed my assessment with FANCY NEEDLEWORKERBrooke and orders have been reviewed. Objective: Patient had good flatus last night. No bowel movement yet. Heart rate and blood pressure are in normal range. Diet advanced to regular diet by surgeon. In the morning patient had mild abdominal pain after eating cantu. Advised soft diet like mashed potato, mashed rice and scrambled egg as perioperative site of bowel anastomosis may be edematous/inflamed Physical exam General: Alert, Oriented x3, Cooperative HEENT: Atraumatic, PERRLA, EOMI, Normocephalic Oral: No Gingival or Mucosal Lesions/ Ulcerations Neck: Supple, No JVD, Negative Carotid Bruits Lungs: Air entry diminished in bilateral lung bases. No crepitation/rhonchi Cardiovascular: Regular rate, Regular Rhythm, Normal S1, Normal S2, No murmurs Abdomen: Bowel sounds gurgling/loud, nontender, nondistended. Surgical dressing is dry. : No renal angle tenderness. No suprapubic tenderness. Extremities: No edema, Capillary Refill Less than 3 Seconds Skin: No rashes, No breakdown Musculoskeletal: No Tenderness to Palpation of Joints or Extremities Neurological: Cranial nerves II-XII grossly intact, Deep Tendon Reflexes 2+/4 a nd Symmetrical, Neuro grossly intact Psych/Mental Status: Normal Affect, Appropriate. - Physical Exam Vitals/I&O's: Vital Signs Temp Pulse Resp BP Pulse Ox 98.1 F 70 20 H 149/73 H 92 06/27/20 13:34 06/27/20 13:34 06/27/20 13:34 06/27/20 13:34 06/27/20 13:34 Oxygen Flow Rate (L/min) 1 Oxygen Delivery Method Room Air Weight: 169 lb 8.568 oz Body Mass Index (BMI) 30.5 Intake and Output for Last 24 Hours 06/25/20 06/26/20 06/27/20 23:59 23:59 23:59 Intake Total 2236.73 / 2236.73 1694.67 / 1694.67 984.17 / 984.17 Output Total 675 / 675 1100 / 1300 600 / 600 Balance 1561.73 / 1561.73 594.67 / 394.67 384.17 / 384.17 Laboratory Results 06/27/20 06:16: WBC 8.8, RBC 3.79 L, Hgb 10.8 L, Hct 33.7 L, MCV 88.9, MCH 28.5, MCHC 32.0, RDW Std Deviation 45.6 H, RDW Coeff of Lynsey 13.9, Plt Count 266, MPV 9.9 06/27/20 06:16: Sodium 136, Potassium 3.5, Chloride 103, Carbon Dioxide 29.0, Anion Gap 4 L, BUN 9, Creatinine 0.69, Estim Creat Clear Calc 33.71, Est GFR (MDRD) Af Amer 104, Est GFR (MDRD) Non-Af 86, BUN/Creatinine Ratio 13.0, Glucose 112 H, Calcium 8.4 L, Phosphorus 2.1 L, Magnesium 2.0 Current Medications Acetaminophen (Acetaminophen 325 Mg Tablet) 650 mg PO Q6H PRN PRN PRN Reason: Pain Score 1-10/Temp > 100.7 F Last Admin: 06/27/20 07:57 Dose: 650 mg Documented by: Enoxaparin Sodium (Enoxaparin 30 Mg/0.3 Ml Syringe) 30 mg SC DAILY [facility] Last Admin: 06/27/20 10:59 Dose: 30 mg Documented by: Famotidine 20 mg/ Sodium (Chloride) 10 mls @ 300 mls/hr IV Q12 [facility] Last Infusion: 06/27/20 11:00 Dose: Infused Documented by: Dextrose/Sodium Chloride (Dextrose 5%/0.9% Nacl) 1,000 mls @ 50 mls/hr IV .Q20H [facility] Last Admin: 06/27/20 07:57 Dose: 50 mls/hr Documented by: Morphine Sulfate (Morphine 2 Mg/Ml Syringe) 2 mg IV Q3H PRN PRN PRN Reason: Pain Score 6-10 Last Admin: 06/25/20 21:15 Dose: 2 mg Documented by: Ondansetron HCl (Ondansetron 4 Mg/2 Ml Vial) 4 mg IV Q8H PRN PRN PRN Reason: NAUSEA/VOMITING Sodium Chloride (0.9% Saline Lock 10 Ml Syringe) 10 - 40 ml IV UD PRN PRN Reason: SALINE FLUSH Last Admin: 06/26/20 09:25 Dose: 10 ml Documented by: Inpatient E&M: [id number] [facility]
[2020-06-27] MEDS: Famotidine 200 MG/20 ML MDV 20 MG in 0.9% Normal Saline (Pres. free 8 ML 300 MG IV (10:58)
[2020-06-27] MEDS: Enoxaparin 30 MG/0.3 ML Syringe SC (10:59)
== END 2020-06-27 14:41 | disposition home or self-care (01) | DRG 330 ==
LOC: ED 21:02 → MS3 21:23
PROVIDERS: Nurse Practitioner Family; Surgery; Admitting Provider Hospitalist; Emergency Provider Emergency Medicine; PCP Family Medicine; Visit Provider Internal Medicine
PROC: 0DJD4ZZ Inspection of Lower Intestinal Tract, Percutaneous Endoscopic Approach (ICD-10-PCS; CPT 44202; principal; 2020-06-24 14:10)
DX: K56.600 Partial intestinal obstruction, unspecified as to cause (principal); E87.1 Hypo-osmolality and hyponatremia; N17.9 Acute kidney failure, unspecified; E87.6 Hypokalemia; I10 Essential (primary) hypertension; K58.9 Irritable bowel syndrome, unspecified; E86.1 Hypovolemia; I77.819 Aortic ectasia, unspecified site; Z79.899 Other long term (current) drug therapy
CPT/HCPCS: 36415; 74018; 74177; 80048; 80053; 81002; 83605; 83690; 83735; 84100; 85025; 85027; 87426; 88307; 93005; 97110; 97162; 97166; 97530; 97535; 99284; J7030; Q9967; A4216; J2405; J3475; J3490

== ENCOUNTER 2020-07-03 16:03 | Inpatient (IN) | payer MEDICARE, SELFPAY ==
[2020-07-03] VITALS (12 sets, daily range): BP systolic 108–126; BP diastolic 50–92; PULSE 83–106; RESP 18–27; TEMP 36.8–36.9; O2SAT 84–98; BMI 32.0; BMI 31.4; BMI 31.5
--- NOTE | 2020-07-03 16:20 | EKG12_ITS ---
Test Reason : SOB Blood Pressure : / mmHG Vent. Rate : 091 BPM Atrial Rate : 091 BPM P-R Int : 142 ms QRS Dur : 086 ms QT Int : 412 ms P-R-T Axes : 047 019 151 degrees QTc Int : 506 ms Sinus rhythm with occasional Premature ventricular complexes ST & T wave abnormality, consider lateral ischemia Abnormal ECG Confirmed by BRIANNE NICHOLS, SARAH ([id number]), editor school photograph JANUARY LEMON ([id number]) on 07/06/2020 9:02:01 AM Referred By: NAFISA Confirmed By:AMINTA DECKER MD
--- NOTE | 2020-07-03 16:21 | ED.VIS.GEN ---
History of Present Illness Chief Complaint: Nausea/Vomiting Informant: Patient Onset: - Context: Sudden Onset Timing: Continuous Quality: Nausea with vomiting and abdominal distention with pain Location: Generalized Current Severity: Mild Maximum Severity: Moderate Worsened by: Movement and complains of pleuritic chest pain Relieved by: Nothing Associated Symptoms: Dyspnea and dyspnea on exertion as well as swelling of her legs Narrative: Patient is an elderly woman who had resection of small bowel with primary anastomosis due to small bowel obstruction. She reported diarrhea x1 on . Has not had any bowel movement since. She is had nausea and vomiting since. She states she has had a couple sips of water and half a cup of Jell-O since . She also reports shortness of breath and leg swelling. She does complain of dyspnea on exertion as well. There is a pleuritic component. She has no history of VTE. She states she is still passing gas. Operative note was reviewed. Plan was laparoscopic resection. Converted to open. There was removal of a small portion of small bowel with primary anastomosis. Patient denies fever, chills night sweats. She does report malaise. She denies ocular, visual auditory symptoms. Denies exposure to Covid. She is scheduled for an outpatient stress test on Sunday. She denies chest discomfort with activity. She does report abdominal distention and discomfort. She denies blood or coffee grounds in her emesis. She does admit to decreased urine output. She has not noted any blood in her urine denies discomfort with urination. Prior similar symptoms: Yes Recent Illness/Hospitalization: Yes - Past Medical History (1) Acute kidney injury Status: Acute (2) Small bowel obstruction Status: Acute (3) Aortic root enlargement Status: Chronic (4) Hypertension Status: Chronic (5) Irritable bowel syndrome Status: Chronic Past Medical History - Allergies and Home Meds Allergies/Adverse Reactions: Allergies codeine Allergy (Verified 07/03/20 16:26) Rash fenofibrate Allergy (Verified 07/01/20 09:37) Unknown lisinopril Allergy (Verified 07/01/20 09:37) Unknown perfume Allergy (Verified 07/01/20 09:37) Unknown Sulfa (Sulfonamide Antibiotics) Allergy (Verified 07/01/20 09:37) Unknown zolpidem Allergy (Verified 07/01/20 09:37) Unknown cholecalciferol (vitamin D3) Adverse Reaction (Verified 07/01/20 09:37) Upset Stomach meloxicam Adverse Reaction (Verified 07/01/20 09:37) Unknown Prior records reviewed: Yes Surgical History: - Lives: With Family Smoking Status: Never smoker Alcohol: None Drugs: None - Family History Maternal Family History: Reports: No pertinent history Paternal Family History: Reports: No pertinent history Review of Systems General: Reports: Malaise. Denies: Chills, Fever, Subjective, Sweats Eyes: Denies: Visual changes - bilaterally, Blurred Vision - bilaterally ENT: Denies: Bilateral ear pain, Rhinorrhea, Sore throat Cardiovascular: Reports: Chest pain - Pleuritic component. Denies: Palpitations, Heart racing Respiratory: Reports: Dyspnea, Dyspnea on exertion. Denies: Cough, Sputum, Orthopnea, Paroxysmal nocturnal dyspnea Gastrointestinal: Reports: Abdominal pain, Nausea, Vomiting, Constipation. Denies: Diarrhea, Melena, Hematochezia Genitourinary: Denies: Dysuria, Hematuria, Frequency Musculoskeletal: Reports: Swelling. Denies: Myalgias, Arthralgias, Neck pain, Back pain, Extremity Pain, -, - Skin: Reports: Wounds - Surgical incision wounds are healing. Patient has not noted any redness or drainage.. Denies: Rash Neurological: Denies: Headache, Parasthesia, Numbness Endocrine: Denies: Polyuria, Polydipsia Hematologic: Denies: Easy bruising, Easy bleeding Allergy: Denies: Swelling of the mouth, Swelling of the tongue Physical Exam Vital Signs/Narrative: Vital Signs Temp Pulse Resp BP Pulse Ox 07/03/20 16:05 98.3 F 94 18 108/50 L 90 Patient's blood pressure improved with fluids. Since she is significantly dehydrated will order second liter of normal saline wide open. Inital Vital Signs reviewed: Yes General: Well nourished, Well developed, Obese, Acute Distress Head: Normocephalic, Atraumatic Eyes: Perrl, EOMI, Pale conjunctiva. Negative for: Scleral icterus ENT: No rhinorrhea, TM's clear, Dry mucous membranes Neck: Supple, Nontender, No lymphadenopathy, No JVD, - - There is a nodule that is approximately 1 x 2 cm noted left of the trachea. It is mobile. It is firm. Cardiovascular: Regular rate, Regular rhythm, No murmurs, Normal S1, Normal S2 Respiratory: Chest nontender, Rales - Fine rales at the bases only. Patient is tachypneic breathing much faster than 18 times a minute that is documented.. Negative for: No distress Abdomen: No masses, Tender, Guarding, Hypoactive bowel sounds, - - Abdomen is tympanic throughout.. Negative for: Soft, Nontender, Nondistended, Normal bowel sounds Back: Nontender, Normal Inspection. Negative for: CVA tenderness Extremities: Nontender, Edema - Symmetric and bilateral pitting Skin: No rash, Cyanosis, Pallor. Negative for: Normal color, Diaphoresis, Jaundice Neurological: Alert, Oriented x3, Cranial nerves II-XII grossly intact, Normal Strength, Normal Sensation. Negative for: Normal Gait - Not assessed Psychological: Normal affect Diagnostic/Tx/Re-eval Chest X-Ray - ED: Read by ED Physician 3 view abdominal series was interpreted by me as small bowel obstruction as well as bilateral infiltrates left greater than right. This would explain her hypoxia. Time of interpretation 1705. Impressions Acute Abdomen Series 07/03/20 16:50 IMPRESSION: 1. Developing ileus or partial small bowel obstruction. Removal of enteric tube. Electronically Signed: Eugenio Lou MD ([facility]) at 17:10 EDT , Service support , 07/03/20 16:50 Acute Abdomen Inc Chest [RAD] Stat 07/03/20 17:05 Abdomen Single View (Portable) [RAD] Stat 07/03/20 16:45 Nasal Secretion SARS-CoV-2 Antigen (Rapid) - Final Laboratory Results 07/03/20 07/03/20 07/03/20 16:31 16:31 16:41 WBC 25.3 H RBC 5.05 Hgb 13.9 Hct 43.8 MCV 86.7 MCH 27.5 MCHC 31.7 L RDW Std Deviation 46.5 H RDW Coeff of Lynsey 14.6 Plt Count 435 MPV 10.2 Immature Gran % (Auto) 0.400 Neut % (Auto) 91.0 H Lymph % (Auto) 3.1 L [place] % (Auto) 4.5 Eos % (Auto) 0.7 Baso % (Auto) 0.3 Absolute Neuts (auto) 23.1 H Absolute Lymphs (auto) 0.79 L Nucleated RBC % 0 Differential Comment SCANNED Sodium 136 Potassium 2.9 L Chloride 97 L Carbon Dioxide 28.0 Anion Gap 11 BUN 31 H Creatinine 2.28 H Estim Creat Clear Calc 14.79 Est GFR (MDRD) Af Amer 26 L Est GFR (MDRD) Non-Af 22 L BUN/Creatinine Ratio 13.6 Glucose 145 H Lactic Acid 2.4 H* Calcium 8.6 Troponin I 0.017 - EKG Initial EKG Interpretation: Sinus Rhythm - This rhythm with ventricular rate 91. CO interval is 142 ms. QS duration 86 ms. QT duration 412 ms. [place] is normal. There is a premature ventricular beat noted. There is nonspecific changes noted as well. - Medical Decision Making With recent history of surgery with nausea and vomiting and no bowel movement with passage of gas this may represent an ileus need to rule out obstruction. Since she is hypoxic abdominal series was ordered to evaluate the chest. If there is no obvious infiltrate or abnormality to explain her hypoxia she will need a CTA of the chest to evaluate for pulmonary embolus. She was ordered 1 L of normal saline since she is clinically dehydrated and has had minimal p.o. intake over the past 48+ hours. CBC was obtained to assess white count and H&H. She does appear pale. BMP to assess electrolytes, kidney function and anion gap. Her graph white count is 25.3 thousand. Patient has acute renal failure. Since patient has 2 SIRS criteria evidence of endorgan injury and source of infection blood cultures were ordered she was treated for hospital-acquired pneumonia. Since there is evidence of air-fluid levels and recent admission for small bowel obstruction NG was placed. Dr. Clayton was notified since he is covering for surgery. He will see patient in the emergency department. Will call hospitalist for admission. - Critical Care Time Critical care time (excluding procedures): 30-74 minutes - Care time 33 minutes which includes obtaining history, physical exam, review of recent admission, review of records, x-rays and interpretation as well as interpretation of laboratory results and initiation of therapy., Discussing w/Patient &/or Family/Civil Project Engineer, Discussing w/Consultants, Arranging Admission or Transfer ED Disposition - Plan for ED Patient: Disposition: Acute Care Hospital [facility] Diagnosis: Severe sepsis with acute organ dysfunction, Bilateral pneumonia, Acute respiratory failure with hypoxia, Partial obstruction of small intestine, Hypokalemia, Ventricular premature beats, Hypotension
[2020-07-03] MEDS: 0.9% Normal Saline 1,000 ML 1000 ML IV ×2 (16:38→17:46)
[2020-07-03] MEDS: Ondansetron 4 MG/2 ML Vial IV (16:38)
[2020-07-03 16:39] LABS: Absolute Lymphocyte Count 0.79 X10^3/uL (0.83-4.51); Absolute Neutrophil Count 23.1 X10^3/uL (2.0-7.7); Basophil# 0.08 X10^3/uL; Basophil% 0.3 % (0-1); Eosinophil# 0.17 X10^3/uL; Eosinophils% 0.7 % (0-5); Hematocrit 43.8 % (37-47); Hemoglobin 13.9 g/dL (12.0-15.0); Lymphocyte # 0.79 X10^3/ul (0.83-4.51); Lymphocyte % 3.1 % (19-41); Mean Corp Hgb Conc 31.7 g/dL (32-36); Mean Corpuscular Hgb 27.5 pg (27.0-32.0); Mean Corpuscular Volume 86.7 fL (81-99); Mean Platelet Vol. 10.2 fl (6.2-12.0); Monocyte# 1.15 X10^3/uL; Monocyte% 4.5 % (0-10); NRBC Flagged by Analyzer 0 % (0-5); Neutrophil # 23.05 X10^3/uL (2.7-7.7); POSITIVE DIFFERENTIAL YES; Platelet Count 435 K/mm3 (150-450); RBC Distribution Width CV 14.6 % (11.6-14.6); RBC Distribution Width SD 46.5 fl (35.1-43.9); Red Blood Count 5.05 M/mm3 (4.2-5.4); White Blood Count 25.3 K/mm3 (4.4-11.0)
[2020-07-03 16:48] LABS: Differential Indicated SCAN CRITERIA MET
--- NOTE | 2020-07-03 16:50 | RAD_ITS ---
STUDY: X-RAY - ACUTE ABDOMINAL SERIES REASON FOR EXAM: Female, 85 years old. Hypoxia, abdominal distention with nausea and vomi TECHNIQUE: Single view of the chest. Supine, and erect view(s) of the abdomen were obtained. COMPARISON: 06/24/2020 FINDINGS: The lungs are clear and expanded. Normal size heart. Normal mediastinum and sadie. Normal visualized pulmonary arteries. Normal visualized aortic arch and descending thoracic aorta. Increased air dilation of central bowel loops now measuring up to 4.3 cm. Minimal colonic gas identified. Enteric tube has been removed. The soft tissue structures of the abdomen and pelvis are unremarkable. Normal visualized osseous structures. RAD/Acute Abdomen Inc Chest IMPRESSION: 1. Developing ileus or partial small bowel obstruction. Removal of enteric tube. Electronically Signed: Eugenio Lou MD ([place]) at 17:10 EDT , Service support ,
[2020-07-03 16:57] LABS: Anion Gap 11 (5-15); BUN 31 mg/dL (7-18); BUN/Creat Ratio 13.6 RATIO (10-20); Calcium,Total 8.6 mg/dL (8.5-10.1); Chloride 97 mmol/L (98-107); Creatinine, Serum 2.28 mg/dL (0.55-1.02); EST Glomerular Filtration Rate 22 mL/min (>60); Est Glom Filt Rate - Afr Amer 26 mL/min (>60); Estimated Creatinine Clearance 14.79 ml/min; Glucose 145 mg/dL (74-106); Potassium 2.9 mmol/L (3.5-5.1); Sodium Level 136 mmol/L (136-145)
[2020-07-03 17:09] LABS: Differential Comment SCANNED
--- NOTE | 2020-07-03 17:27 | CON.PCM_ITS ---
Problem List (1) Partial obstruction of small intestine Status: Acute Reason for Consult Date of Consultation: 07/03/20 History of Present Illness: The patient is a 85 year old F who had resection of small bowel with primary anastomosis due to small bowel obstruction. This was done on 06/24/2020. At that time she had had a 5-day history of abdominal discomfort and a CAT scan which showed fecalization of the small bowel she was subsequently taken to surgery where a small bowel was resected pathology report came back as benign. Her postoperative course was uncomplicated and she was discharged home. She was seen in follow-up was doing well. She reported diarrhea x1 on . Has not had any bowel movement since. She is had nausea and vomiting since. She states she has had a couple sips of water and half a cup of Jell-O since . She also reports shortness of breath and leg swelling. She does complain of dyspnea on exertion as well. There is a pleuritic component. She has no history of VTE. She states she is still passing gas. However the abdominal films show partial small bowel obstruction versus ileus. Past Medical History Past Medical History (Chronic Problems): Chronic Problems (Last Reviewed 07/03/20 @ 17:[address] Josh Frost DO) Hypertension (Chronic) Aortic root enlargement (Chronic) Irritable bowel syndrome (Chronic) Medical History: Medical History (Last Reviewed 07/03/20 @ 17:[address] Tu Clayton MD) Abdominal pain (Acute) R10.9 Acute kidney injury (Acute) N17.9 Small bowel obstruction (Acute) K56.609 Hypertension (Chronic) I10 Aortic root enlargement (Chronic) I77.89 Irritable bowel syndrome (Chronic) K58.9 Allergies codeine Allergy (Verified 07/03/20 16:26) Rash fenofibrate Allergy (Verified 07/01/20 09:37) Unknown lisinopril Allergy (Verified 07/01/20 09:37) Unknown perfume Allergy (Verified 07/01/20 09:37) Unknown Sulfa (Sulfonamide Antibiotics) Allergy (Verified 07/01/20 09:37) Unknown zolpidem Allergy (Verified 07/01/20 09:37) Unknown cholecalciferol (vitamin D3) Adverse Reaction (Verified 07/01/20 09:37) Upset Stomach meloxicam Adverse Reaction (Verified 07/01/20 09:37) Unknown Home Medications: Ambulatory Orders Medication Instructions Recorded Hydrochlorothiazide 12.5 mg PO DAILY 08/25/19 Loperamide [Imodium] 2 mg PO DAILY PRN PRN 08/25/19 Omeprazole 40 mg PO DAILY 08/25/19 [place]-3 Fatty Acids/Fish Oil [Fish 1 each PO DAILY 06/23/20 Oil 1,000 mg Capsule] Acetaminophen [Tylenol Tablet] 650 mg PO Q6H PRN PRN tablet 06/27/20 Surgical History: Surgical History (Last Reviewed 07/03/20 @ 17:[address] 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 Josh Frost DO) Partial obstruction of small intestine (Acute) Hypokalemia (Acute) Ventricular premature beats (Acute) SIRS (systemic inflammatory response syndrome) (Acute) EDI (acute kidney injury) (Acute) Severe sepsis with acute organ dysfunction (Acute) Bilateral pneumonia (Acute) Acute respiratory failure with hypoxia (Acute) Hypotension (Acute) Abdominal pain (Acute) Acute kidney injury (Acute) Small bowel obstruction (Acute) - Physical Exam Vitals/I&O's: Vital Signs Temp Pulse Resp BP Pulse Ox 98.4 F 92 23 H 121/62 H 98 07/03/20 17:11 07/03/20 17:11 07/03/20 17:11 07/03/20 17:11 07/03/20 17:11 Oxygen Flow Rate (L/min) 3 Oxygen Delivery Method Nasal Cannula Weight: 175 lb Body Mass Index (BMI) 32.0 General: Alert, Oriented x3 Lungs: Rhonchi Cardiovascular: Regular rate, Regular Rhythm, No murmurs Abdomen: Soft - He has no rebound guarding or peritoneal signs. She is diffusely to tynponetic virtually no bowel sounds are heard. Microbiology Past 72 Hours 07/03/20 16:45 Nasal Secretion SARS-CoV-2 Antigen (Rapid) - Final Laboratory Results 07/03/20 16:31: WBC 25.3 H, RBC 5.05, Hgb 13.9, Hct 43.8, MCV 86.7, MCH 27.5, MCHC 31.7 L, RDW Std Deviation 46.5 H, RDW Coeff of Lynsey 14.6, Plt Count 435, MPV 10.2, Immature Gran % (Auto) 0.400, Neut % (Auto) 91.0 H, Lymph % (Auto) 3.1 L, [place] % (Auto) 4.5, Eos % (Auto) 0.7, Baso % (Auto) 0.3, Absolute Neuts (auto) 23.1 H, Absolute Lymphs (auto) 0.79 L, Nucleated RBC % 0, Differential Comment SCANNED 07/03/20 16:31: Sodium 136, Potassium 2.9 L, Chloride 97 L, Carbon Dioxide 28.0, Anion Gap 11, BUN 31 H, Creatinine 2.28 H, Estim Creat Clear Calc 14.79, Est GFR (MDRD) Af Amer 26 L, Est GFR (MDRD) Non-Af 22 L, BUN/Creatinine Ratio 13.6, Glucose 145 H, Calcium 8.6, Troponin I 0.017 07/03/20 16:41: Lactic Acid Pending Current Medications Piperacillin Sod/Tazobactam (Sod 4.5 gm/ Sodium Chloride) 100 mls @ 200 mls/hr IV X1 ONE Stop: 07/03/20 17:34 Sodium Chloride () 1,000 mls @ 1,000 mls/hr IV .Q1H ONE Stop: 07/03/20 18:14 Vancomycin HCl 2,000 mg/ (Sodium Chloride) 540 mls @ 250 mls/hr IV X1 ONE Stop: 07/03/20 20:09 Assessment/Plan All Active Problems (Last Reviewed 07/03/20 @ 17:[address] Josh Frost, DO) Partial obstruction of small intestine (Acute) Hypokalemia (Acute) Ventricular premature beats (Acute) SIRS (systemic inflammatory response syndrome) (Acute) EDI (acute kidney injury) (Acute) Severe sepsis with acute organ dysfunction (Acute) Bilateral pneumonia (Acute) Acute respiratory failure with hypoxia (Acute) Hypotension (Acute) Abdominal pain (Acute) Acute kidney injury (Acute) Small bowel obstruction (Acute) This point I agree with hydration NG tube decompression I do not think there is a indications for an emergent surgery at this time. We will continue to follow along with her once we see some improvement in her abdominal films and passing flatus we will try to get rid the NG tube removed. With her current sepsis this may take some time.
--- NOTE | 2020-07-03 17:49 | HP.PCM_ITS ---
Problem List (1) SIRS (systemic inflammatory response syndrome) Status: Acute (2) EDI (acute kidney injury) Status: Acute (3) Partial obstruction of small intestine Status: Acute (4) Hypokalemia Status: Acute (5) Ventricular premature beats Status: Acute (6) Abdominal pain Status: Acute (7) Acute kidney injury Status: Acute (8) Small bowel obstruction Status: Acute (9) Hypertension Status: Chronic (10) Aortic root enlargement Status: Chronic (11) Irritable bowel syndrome Status: Chronic History of Present Illness Date of Admission: 07/03/20 Chief Complaint: abdominal pain The patient is a 85 year old F who was just discharged with bowel obstruction that underwent an exploratory laparotomy with small bowel resection with anastomosis. Surgery was performed on the and patient was doing well. On the , patient started having some nausea no desire to eat and on the was vomiting. Patient was having abdominal pain during this time which progressively got worse. Patient has been unable to eat anything over the past couple days so she presented to the emergency room. In the emergency room, patient had an acute abdominal series that showed bowel obstruction versus ileus. Patient had an x-ray was concerning for the emergency room physicians for pneumonia and patient had marked leukocytosis of 25,000 and acute kidney injury with a creatinine of 2.28 where she was 0.69 on the . Patient unsure of abdominal distention though someone at bedside is concerned that patient is more distended than she has been. Patient did also have some increased lower extremity edema during this time since discharge. Patient was hypoxic dropping down to 88% on room air but did improve with 2 L nasal cannula. Patient is short of breath but does endorse that she has abdominal pain when she takes in a deep breath. [] Past Medical History Past Medical History (Chronic Problems): Chronic Problems (Last Reviewed 07/03/20 @ 17:[address] Josh Frost DO) Hypertension (Chronic) Aortic root enlargement (Chronic) Irritable bowel syndrome (Chronic) Medical History: Medical History (Last Reviewed 07/03/20 @ 17:[address] Josh Frost DO) Abdominal pain (Acute) R10.9 Acute kidney injury (Acute) N17.9 Small bowel obstruction (Acute) K56.609 Hypertension (Chronic) I10 Aortic root enlargement (Chronic) I77.89 Irritable bowel syndrome (Chronic) K58.9 Allergies codeine Allergy (Verified 07/03/20 16:26) Rash fenofibrate Allergy (Verified 07/01/20 09:37) Unknown lisinopril Allergy (Verified 07/01/20 09:37) Unknown perfume Allergy (Verified 07/01/20 09:37) Unknown Sulfa (Sulfonamide Antibiotics) Allergy (Verified 07/01/20 09:37) Unknown zolpidem Allergy (Verified 07/01/20 09:37) Unknown cholecalciferol (vitamin D3) Adverse Reaction (Verified 07/01/20 09:37) Upset Stomach meloxicam Adverse Reaction (Verified 07/01/20 09:37) Unknown Home Medications: Ambulatory Orders Medication Instructions Recorded Hydrochlorothiazide 12.5 mg PO DAILY 08/25/19 Loperamide [Imodium] 2 mg PO DAILY PRN PRN 08/25/19 Omeprazole 40 mg PO DAILY 08/25/19 [place]-3 Fatty Acids/Fish Oil [Fish 1 each PO DAILY 06/23/20 Oil 1,000 mg Capsule] Potassium Chloride Oral Tablet 20 meq PO DAILY 06/23/20 [K-Dur] Acetaminophen [Tylenol Tablet] 650 mg PO Q6H PRN PRN tablet 06/27/20 Surgical History: Surgical History (Last Reviewed 07/03/20 @ 17:[address] 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 Denies: Fever Eyes: Denies: Blurred vision, Double vision HEENT: Denies: Head Aches, Sinus Congestion, Sinus Drainage Cardiovascular: Denies: Chest Pain, Palpitations Respiratory: Reports: Shortness of Breath. Denies: Cough Gastrointestinal: Reports: Abdominal Pain, Nausea, Vomiting. Denies: Diarrhea Genitourinary: Reports: - - Decreased urine output. Denies: Dysuria Musculoskeletal: Denies: Joint Pain, Joint Tenderness Skin: Denies: Rash, Wounds Neurological: Denies: Numbness, Tingling, Focal weakness Psychiatric: Denies: Anxiety, Depression Hematologic/ Lymphatic: Denies: Easy Bruising, Easy Bleeding, Hx of blood clot VTE Information - Inpt Only VTE Present on Admission: No VTE Mechan Device Prophylaxis: None VTE Pharm Prophylaxis ordered?: Yes Patient Problems: Active and Suspected Problems (Last Reviewed 07/03/20 @ 17:[address] Josh Frost, DO) Partial obstruction of small intestine (Acute) Hypokalemia (Acute) Ventricular premature beats (Acute) SIRS (systemic inflammatory response syndrome) (Acute) EDI (acute kidney injury) (Acute) Abdominal pain (Acute) Acute kidney injury (Acute) Small bowel obstruction (Acute) - Physical Exam Vitals/I&O's: Vital Signs Temp Pulse Resp BP Pulse Ox 36.9 C 93 27 H 118/55 L 95 07/03/20 17:29 07/03/20 17:29 07/03/20 17:29 07/03/20 17:29 07/03/20 17:29 Oxygen Flow Rate (L/min) 3 Oxygen Delivery Method Nasal Cannula Weight: 79.379 kg Body Mass Index (BMI) 32.0 Intake and Output for Last 24 Hours 07/01/20 07/02/20 07/03/20 23:59 23:59 23:59 Intake Total 1000 / 1000 Balance 1000 / 1000 General: Alert, Oriented x3, Cooperative, - - Uncomfortable. Afebrile. HEENT: Atraumatic, Normocephalic Oral: Moist Mucosa, No Gingival or Mucosal Lesions/ Ulcerations Neck: No Nodes, Thyroid Normal Size and Texture Lungs: Diminished, - - Faint bilateral crackles Cardiovascular: Regular rate, Regular Rhythm, Normal S1, Normal S2 Abdomen: Distended, Tender - Diffusely tender but mostly tender above the umbilicus. Abdominal incision has Steri-Strips and appears to be intact without any evidence of dehiscence. Extremities: No Calf Tenderness, Edema Skin: No rashes, No breakdown Musculoskeletal: No Tenderness to Palpation of Joints or Extremities, No Muscle Wasting Neurological: Sensory exam intact to light touch and pain, - - No clonus Psych/Mental Status: Normal Affect, Appropriate Microbiology Past 72 Hours 07/03/20 16:45 Nasal Secretion SARS-CoV-2 Antigen (Rapid) - Final Laboratory Results 07/03/20 16:31: WBC 25.3 H, RBC 5.05, Hgb 13.9, Hct 43.8, MCV 86.7, MCH 27.5, MCHC 31.7 L, RDW Std Deviation 46.5 H, RDW Coeff of Lynsey 14.6, Plt Count 435, MPV 10.2, Immature Gran % (Auto) 0.400, Neut % (Auto) 91.0 H, Lymph % (Auto) 3.1 L, [place] % (Auto) 4.5, Eos % (Auto) 0.7, Baso % (Auto) 0.3, Absolute Neuts (auto) 23.1 H, Absolute Lymphs (auto) 0.79 L, Nucleated RBC % 0, Differential Comment SCANNED 07/03/20 16:31: Sodium 136, Potassium 2.9 L, Chloride 97 L, Carbon Dioxide 28.0, Anion Gap 11, BUN 31 H, Creatinine 2.28 H, Estim Creat Clear Calc 14.79, Est GFR (MDRD) Af Amer 26 L, Est GFR (MDRD) Non-Af 22 L, BUN/Creatinine Ratio 13.6, Glucose 145 H, Calcium 8.6, Troponin I 0.017 07/03/20 16:41: Lactic Acid Pending Abdominal x-ray reviewed and shows air-fluid levels ileus versus small bowel obstruction. Chest x-ray portion reviewed and shows bilateral linear atelectasis. Current Medications Sodium Chloride () 1,000 mls @ 1,000 mls/hr IV .Q1H ONE Stop: 07/03/20 18:14 Last Admin: 07/03/20 17:46 Dose: 1,000 mls/hr Documented by: Vancomycin HCl 2,000 mg/ (Sodium Chloride) 540 mls @ 250 mls/hr IV X1 ONE Stop: 07/03/20 20:09 Assessment/Plan All Active Problems (Last Reviewed 07/03/20 @ 17:[address] Josh Frost, DO) Partial obstruction of small intestine (Acute) Hypokalemia (Acute) Ventricular premature beats (Acute) SIRS (systemic inflammatory response syndrome) (Acute) EDI (acute kidney injury) (Acute) Abdominal pain (Acute) Acute kidney injury (Acute) Small bowel obstruction (Acute) 1. Small bowel obstruction Versus ileus versus ischemic colitis Ischemic colitis seems less likely given slightly elevated lactic acid Patient is to have an NG tube placed in the emergency room with follow-up x-ray Patient already evaluated by Dr. Clayton, general surgery, where the plan at present is for conservative management Check a CT of the abdomen pelvis without contrast No obvious free air on the abdominal series NPO 2. Systemic inflammatory response syndrome I do not feel the patient has pneumonia and I have reviewed the patient's chest x-ray which appears to be more consistent with atelectasis Mild lactic acidosis I feel is more attributable to her intra-abdominal process rather than severe sepsis Patient had blood cultures we will follow those up and address accordingly We will continue with Pipracil and/tazobactam but consider de-escalation if infectious work-up comes back unremarkable 3. 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 3. Hypokalemia Replace Check magnesium 4. Acute hypoxic respiratory insufficiency Likely due to atelectasis and low inspiratory effort due to her intra-abdominal process Supportive management and wean oxygen as tolerated 5. Leukocytosis suspect that this is reactive given the intra-abdominal process Monitor 6. VTE prophylaxis: Moderate risk. Enoxaparin. 7. Advanced care planning: Discussed with the patient. Patient wishes to be DNR Comfort Care arrest no intubation. Patient aware that if she does require surgery and that those DNR orders would be rescinded for the procedure but be resumed afterwards. Inpatient E&M: [id number] Init Hosp L3
[2020-07-03 17:53] LABS: Lactic Acid 2.4 mmol/L (0.4-1.9)
[2020-07-03] MEDS: Lidocaine 4% 5 ML Ampul 2 ML INHALATION (18:20)
[2020-07-03] MEDS: Oxymetazoline 0.05% 1 SPRAY SPRAY.BTL 2 SPRAY NASAL (18:21)
--- NOTE | 2020-07-03 18:57 | RAD_ITS ---
STUDY: X-RAY - ABDOMEN/PELVIS REASON FOR EXAM: Female, 85 years old. NG Insertion TECHNIQUE: Single AP view of the abdomen / pelvis. COMPARISON: None. FINDINGS: Markedly limited exam with marked suboptimal positioning. The tip of an endotracheal tube is seen just above the level of the nan. It is not clear whether this nasogastric tube is in the upper esophagus or in the trachea. Electronically Signed: Saul Albert MD at 20:15 EDT , Service support , RAD/Abdomen Single View (Portable)
--- NOTE | 2020-07-03 19:04 | RAD_ITS ---
STUDY: X-RAY - ABDOMEN/PELVIS REASON FOR EXAM: Female, 85 years old. NG PLACEMENT -- #2 TECHNIQUE: Single AP view of the abdomen / pelvis. COMPARISON: None. FINDINGS: Nasogastric tube terminates in the proximal stomach. Lungs show probable subsegmental atelectasis and are otherwise clear. Cardiomegaly. There is an unremarkable bowel gas pattern. There is no demonstrated free abdominal air. RAD/Abdomen Single View (Portable) IMPRESSION: Nasogastric tube terminates in the proximal stomach. Electronically Signed: Saul Albert MD at 20:16 EDT , Service support ,
--- NOTE | 2020-07-03 19:07 | ED.RN ---
first attempt at placement of NG was unsuccessful. made aware. he arrives to room to make an attempt. dr was able to pass into oral pharynx without difficulty. ng was placed and found to be in lung by x-ray. third attempt was successful. placement confirmed with occultation, gastric contents, and x-ray. edwin valdivia rn 191
--- NOTE | 2020-07-03 20:00 | CT_ITS ---
EXAM: CT ABDOMEN AND PELVIS WITHOUT INTRAVENOUS CONTRAST CLINICAL INDICATION: SBO TECHNIQUE: Helically acquired images were obtained of the abdomen and pelvis without intravenous contrast. This CT exam was performed using one or more of the following dose reduction techniques: automated exposure control, adjustment of the mA and/or kV according to patient size, and/or use of iterative reconstruction technique. Smart[employer] report generation technology utilized. COMPARISON: 06/23/2020 FINDINGS: LOWER THORAX: Limited views through the lower chest show mild to moderate cardiomegaly and atelectasis or infiltrate in both lung bases. No significant pericardial effusion. ABDOMEN: LIVER: There is fluid over the surface of the liver and spleen. There is marked hepatomegaly. GALLBLADDER AND BILE DUCTS: There is a markedly distended gallbladder with several small stones. No intra- or extrahepatic biliary ductal dilation. PANCREAS: Unremarkable. No focal cystic mass. SPLEEN: See above. ADRENALS: Unremarkable. No nodules. KIDNEYS AND URETERS: Unremarkable. Normal renal size and position. No hydronephrosis. STOMACH AND BOWEL: Since the prior exam patient has had surgery for previous small bowel obstruction. It is currently extremely difficult to evaluate or even follow the GI tract in this postoperative patient, without oral contrast. There is a nasogastric tube that terminates in the proximal stomach. Stomach wall thickening is not excluded. Postsurgical changes of bowel anastomosis seen in the left lower quadrant. Most of the duodenum, and most of the jejunum shows fluid-filled distention beyond normal limits. This could be postoperative ileus or obstruction. Some normal caliber small bowel loops are seen in the right lower quadrant and large bowel appears normal caliber. These findings support small bowel obstruction. PELVIS: APPENDIX: No evidence of acute appendicitis. BLADDER: Unremarkable. REPRODUCTIVE: Unremarkable as visualized. No mass. ABDOMEN and PELVIS: INTRAPERITONEAL SPACE: Unremarkable. No ascites or other fluid collection. No free air. BONES/JOINTS: Unremarkable. No suspicious lytic or blastic abnormality. SOFT TISSUES: There is increased density of the abdominal, pelvic and mesenteric fat which could be simple edema but peritonitis is not excluded. There is a small fat-containing umbilical hernia. VASCULATURE: There is calcified plaque in the aorta with no aneurysm. LYMPH NODES: Unremarkable. No enlarged lymph nodes. OTHER FINDINGS: No definite focal abscess is seen although the exam is hampered by absence of IV and oral contrast. CT/Abdomen/Pelvis without Cont IMPRESSION: 1. Exam is limited by the absence of IV and especially oral contrast. Small bowel loops are fluid-filled and distended down to the right lower quadrant. Findings could represent severe postoperative ileus but obstruction is also considered possible. 2. Markedly distended gallbladder with stones. 3. Small amount of free fluid. 4. Increased density of the abdominal and pelvic fat could represent edema or peritonitis. 5. No definite abscess but the exam is limited by absence of IV and oral contrast. Electronically Signed: Salu Albert MD at 21:53 EDT , Service support ,
[2020-07-03 20:45] LABS: Reflex Lactate? Y
[2020-07-03 20:48] LABS: Magnesium 1.8 mg/dL (1.6-2.6)
[2020-07-03 22:24] LABS: Lactic Acid 1.1 mmol/L (0.4-1.9)
[2020-07-03] MEDS: Potassium Chloride 10mEq/100mL 10 MEQ/100 ML IV.SOLN. 100 MEQ IV BOLUS ×2 (22:28→23:47)
[2020-07-03 23:18] LABS: Mucous, Urine 0 SEEN /hpf (<or=2+); Red Blood Cells-Urine 0 SEEN /hpf (0-5)
[2020-07-03 23:21] LABS: Color, Urine Yellow (Yellow); Glucose, Dipstick Normal (Normal); Ketone-Dipstick Negative (Negative); Leukocyte Esterase-Dipstick 25 /ul (Negative); Nitrite-Dipstick Negative (Negative); Occult Blood-Urine 10 /ul (Negative); Protein-Dipstick 30 mg/dl (Negative); Specific Gravity, Urine 1.025 (1.002-1.030); Urine Bilirubin Dipstick Negative (Negative); Urine Clarity Sl. Cloudy (Clear); Urine Urobilinogen 1 mg/dl (Normal)
[2020-07-03 23:38] LABS: Amorphous Sediment 1+; Bacteria 4+ /hpf (None Seen); Coarse Granular Cast 5-10 SEEN /lpf (0-5 /lpf); Squamous Epithelial Cells - UA 10-25 SEEN /hpf (5-10); Transitional Epithelial - Ur 0-5 SEEN /hpf (0-5); White Blood Cells 0-5 SEEN /hpf (0-5)
[2020-07-03 23:50] LABS: Urea Nitrogen, Urine 480 mg/dL (NO RANGE EST.)
[2020-07-04] VITALS (12 sets, daily range): BP systolic 117–145; BP diastolic 56–71; PULSE 86–105; RESP 16–20; TEMP 36.2–37; O2SAT 92–98
[2020-07-04] MEDS: Potassium Chloride 10mEq/100mL 10 MEQ/100 ML IV.SOLN. 100 MEQ IV BOLUS ×6 (01:00→11:49)
[2020-07-04 05:10] LABS: Absolute Lymphocyte Count 0.82 X10^3/uL (0.83-4.51); Absolute Neutrophil Count 14.7 X10^3/uL (2.0-7.7); Basophil# 0.02 X10^3/uL; Basophil% 0.1 % (0-1); Hematocrit 35.3 % (37-47); Hemoglobin 11.5 g/dL (12.0-15.0); Lymphocyte # 0.82 X10^3/ul (0.83-4.51); Lymphocyte % 4.9 % (19-41); Mean Corp Hgb Conc 32.6 g/dL (32-36); Mean Corpuscular Hgb 28.5 pg (27.0-32.0); Mean Corpuscular Volume 87.4 fL (81-99); Mean Platelet Vol. 10.3 fl (6.2-12.0); Monocyte# 0.99 X10^3/uL; NRBC Flagged by Analyzer 0 % (0-5); Neutrophil # 14.69 X10^3/uL (2.7-7.7); Neutrophil % 88.6 % (47-70); Platelet Count 351 K/mm3 (150-450); RBC Distribution Width CV 14.6 % (11.6-14.6); RBC Distribution Width SD 46.8 fl (35.1-43.9); Red Blood Count 4.04 M/mm3 (4.2-5.4); White Blood Count 16.6 K/mm3 (4.4-11.0)
[2020-07-04 06:24] LABS: ALB/GLOB Ratio 0.7 RATIO (0.9-2.4); AST(SGOT) 12 U/L (15-37); Alanine Aminotransfer ALT/SGPT 7 U/L (13-56); Albumin, Serum 2.3 g/dL (3.2-5.0); Alkaline Phosphatase 77 U/L (45-117); Anion Gap 7 (5-15); BUN 32 mg/dL (7-18); BUN/Creat Ratio 25.8 RATIO (10-20); Calcium,Total 7.8 mg/dL (8.5-10.1); Chloride 103 mmol/L (98-107); Creatinine, Serum 1.24 mg/dL (0.55-1.02); EST Glomerular Filtration Rate 44 mL/min (>60); Est Glom Filt Rate - Afr Amer 53 mL/min (>60); Estimated Creatinine Clearance 27.19 ml/min; Globulin 3.5 g/dL (2.2-4.2); Glucose 120 mg/dL (74-106); Potassium 3.1 mmol/L (3.5-5.1); Protein, Total 5.8 g/dL (6.4-8.2); Sodium Level 137 mmol/L (136-145)
[2020-07-04] MEDS: Morphine 4 MG/ML Syringe IV ×2 (08:46→22:27)
--- NOTE | 2020-07-04 10:23 | PCM.PN.SRG ---
Patient Problems: Active and Suspected Problems (Last Reviewed 07/03/20 @ 17:[address] Josh Frost, DO) Partial obstruction of small intestine (Acute) Hypokalemia (Acute) Ventricular premature beats (Acute) SIRS (systemic inflammatory response syndrome) (Acute) EDI (acute kidney injury) (Acute) Severe sepsis with acute organ dysfunction (Acute) Bilateral pneumonia (Acute) Acute respiratory failure with hypoxia (Acute) Hypotension (Acute) Abdominal pain (Acute) Acute kidney injury (Acute) Small bowel obstruction (Acute) Subjective: Patient states that she does feel somewhat better today. She thinks she may be passing some flatus. Objective: Abdomen remains slightly distended. But she has no real abdominal discomfort with palpation other than minimal incisional discomfort. - Physical Exam Vitals/I&O's: Vital Signs Temp Pulse Resp BP Pulse Ox 97.2 F L 94 16 145/71 H 96 07/04/20 08:40 07/04/20 08:40 07/04/20 08:40 07/04/20 08:40 07/04/20 08:40 Oxygen Flow Rate (L/min) 2 Oxygen Delivery Method Nasal Cannula Weight: 171 lb 15.369 oz Body Mass Index (BMI) 31.4 Intake and Output for Last 24 Hours 07/02/20 07/03/20 07/04/20 23:59 23:59 23:59 Intake Total 2740 / 2740 1400 / 1400 Output Total 630 / 630 Balance 2740 / 2540 770 / 770 Microbiology Past 72 Hours 07/03/20 16:45 Nasal Secretion SARS-CoV-2 Antigen (Rapid) - Final Laboratory Results 07/03/20 16:30: Magnesium 1.8 07/03/20 16:31: WBC 25.3 H, RBC 5.05, Hgb 13.9, Hct 43.8, MCV 86.7, MCH 27.5, MCHC 31.7 L, RDW Std Deviation 46.5 H, RDW Coeff of Lynsey 14.6, Plt Count 435, MPV 10.2, Immature Gran % (Auto) 0.400, Neut % (Auto) 91.0 H, Lymph % (Auto) 3.1 L, [place] % (Auto) 4.5, Eos % (Auto) 0.7, Baso % (Auto) 0.3, Absolute Neuts (auto) 23.1 H, Absolute Lymphs (auto) 0.79 L, Nucleated RBC % 0, Differential Comment SCANNED 07/03/20 16:31: Sodium 136, Potassium 2.9 L, Chloride 97 L, Carbon Dioxide 28.0, Anion Gap 11, BUN 31 H, Creatinine 2.28 H, Estim Creat Clear Calc 14.79, Est GFR (MDRD) Af Amer 26 L, Est GFR (MDRD) Non-Af 22 L, BUN/Creatinine Ratio 13.6, Glucose 145 H, Calcium 8.6, Troponin I 0.017 07/03/20 16:41: Lactic Acid 2.4 H* 07/03/20 21:34: Lactic Acid 1.1 07/03/20 22:55: Urine Creatinine 220.00 07/03/20 22:55: Urine Color Yellow, Urine Clarity Sl. Cloudy, Urine pH 5.0, Ur Specific [place] 1.025, Urine Protein 30 H, Urine Glucose (UA) Normal, Urine Ketones Negative, Urine Occult Blood 10 H, Urine Nitrite Negative, Urine Bilirubin Negative, Urine Urobilinogen 1 H, Ur Leukocyte Esterase 25 H, Urine RBC 0 SEEN, Urine WBC 0-5 SEEN, Ur Squamous Epith Cells 10-25 SEEN, Ur Transition Epith Cell 0-5 SEEN, Amorphous Sediment 1+, Urine Bacteria 4+, Coarse Granular Casts 5-10 SEEN, Urine Mucus 0 SEEN 07/03/20 22:55: Urine Urea Nitrogen 480 07/04/20 04:54: WBC 16.6 H, RBC 4.04 L, Hgb 11.5 L, Hct 35.3 L, MCV 87.4, MCH 28.5, MCHC 32.6, RDW Std Deviation 46.8 H, RDW Coeff of Lynsey 14.6, Plt Count 351, MPV 10.3, Immature Gran % (Auto) 0.400, Neut % (Auto) 88.6 H, Lymph % (Auto) 4.9 L, [place] % (Auto) 6.0, Eos % (Auto) 0.0, Baso % (Auto) 0.1, Absolute Neuts (auto) 14.7 H, Absolute Lymphs (auto) 0.82 L, Nucleated RBC % 0 07/04/20 04:54: Sodium 137, Potassium 3.1 L, Chloride 103, Carbon Dioxide 27.0, Anion Gap 7, BUN 32 H, Creatinine 1.24 H, Estim Creat Clear Calc 27.19, Est GFR (MDRD) Af Amer 53 L, Est GFR (MDRD) Non-Af 44 L, BUN/Creatinine Ratio 25.8 H, Glucose 120 H, Calcium 7.8 L, Total Bilirubin 0.70, AST 12 L, ALT 7 L, Alkaline Phosphatase 77, Total Protein 5.8 L, Albumin 2.3 L, Globulin 3.5, Albumin/Globulin Ratio 0.7 L Current Medications Potassium Chloride/Sodium Chloride (Kcl 20meq In 0.45% Ns 1000ml) 1,000 mls @ 150 mls/hr IV .Q6H40M [facility] Last Admin: 07/04/20 06:06 Dose: 150 mls/hr Documented by: Potassium Chloride () 10 meq in 100 mls @ 100 mls/hr IV BOLUS Q1H [facility] Stop: 07/04/20 11:59 Last Admin: 07/04/20 09:40 Dose: 100 mls/hr Documented by: Morphine Sulfate (Morphine 4 Mg/Ml Syringe) 4 mg IV Q3H PRN PRN PRN Reason: Pain Score 6-10 Last Admin: 07/04/20 08:46 Dose: 4 mg Documented by: Ondansetron HCl (Ondansetron 4 Mg/2 Ml Vial) 4 mg IV Q8H PRN PRN PRN Reason: NAUSEA/VOMITING Sodium Chloride (0.9% Saline Lock 10 Ml Syringe) 10 - 40 ml IV UD PRN PRN Reason: SALINE FLUSH Medical Necessity - Tobacco Use Smoking Status: Never smoker Tobacco Use: Non-smoker Assessment/Plan All Active Problems (Last Reviewed 07/03/20 @ 17:[address] Josh Frost, DO) Partial obstruction of small intestine (Acute) Hypokalemia (Acute) Ventricular premature beats (Acute) SIRS (systemic inflammatory response syndrome) (Acute) EDI (acute kidney injury) (Acute) Severe sepsis with acute organ dysfunction (Acute) Bilateral pneumonia (Acute) Acute respiratory failure with hypoxia (Acute) Hypotension (Acute) Abdominal pain (Acute) Acute kidney injury (Acute) Small bowel obstruction (Acute) Leave the NG tube in although it only drained out 180 cc. Hopefully by getting her up we will stimulate more of GI function at which point the NG tube can be removed. If she has a bowel movement it certainly may be removed.
--- NOTE | 2020-07-04 12:24 | PN_ITS ---
Patient Problems: Active and Suspected Problems (Last Reviewed 07/03/20 @ 17:[address] Josh Frost, DO) Partial obstruction of small intestine (Acute) Hypokalemia (Acute) Ventricular premature beats (Acute) SIRS (systemic inflammatory response syndrome) (Acute) EDI (acute kidney injury) (Acute) Severe sepsis with acute organ dysfunction (Acute) Bilateral pneumonia (Acute) Acute respiratory failure with hypoxia (Acute) Hypotension (Acute) Abdominal pain (Acute) Acute kidney injury (Acute) Small bowel obstruction (Acute) Subjective: NG tube placed and patient is feeling better. Still no flatus or bowel movements at this time. Vitals/I&O's: Vital Signs Temp Pulse Resp BP Pulse Ox 36.2 C L 86 16 145/71 H 96 07/04/20 08:40 07/04/20 11:50 07/04/20 08:40 07/04/20 08:40 07/04/20 08:40 Oxygen Flow Rate (L/min) 2 Oxygen Delivery Method Nasal Cannula Weight: 78 kg Body Mass Index (BMI) 31.4 Intake and Output for Last 24 Hours 07/02/20 07/03/20 07/04/20 23:59 23:59 23:59 Intake Total 2740 / 2740 1600 / 1600 Output Total 730 / 730 Balance 2740 / 2540 870 / 870 General: Alert, No apparent distress HEENT: Atraumatic, Normocephalic Oral: Moist Mucosa, No Gingival or Mucosal Lesions/ Ulcerations Neck: No Nodes, Thyroid Normal Size and Texture Lungs: Clear to auscultation, Normal air movement, No rhonchi, No wheeze, No rales Cardiovascular: Regular rate, Regular Rhythm, Normal S1, Normal S2, No murmurs Abdomen: Hypoactive Bowel Sounds, - - Less distended. hatch tender but less so today Extremities: No Calf Tenderness, Edema Psych/Mental Status: Normal Affect, Appropriate Microbiology Past 72 Hours 07/03/20 22:55 Urine, Random Urine Culture - Preliminary Presumptive E. coli 07/03/20 16:45 Nasal Secretion SARS-CoV-2 Antigen (Rapid) - Final Laboratory Results 07/03/20 16:30: Magnesium 1.8 07/03/20 16:31: WBC 25.3 H, RBC 5.05, Hgb 13.9, Hct 43.8, MCV 86.7, MCH 27.5, MCHC 31.7 L, RDW Std Deviation 46.5 H, RDW Coeff of Lynsey 14.6, Plt Count 435, MPV 10.2, Immature Gran % (Auto) 0.400, Neut % (Auto) 91.0 H, Lymph % (Auto) 3.1 L, Ed[place]on % (Auto) 4.5, Eos % (Auto) 0.7, Baso % (Auto) 0.3, Absolute Neuts (auto) 23.1 H, Absolute Lymphs (auto) 0.79 L, Nucleated RBC % 0, Differential Comment SCANNED 07/03/20 16:31: Sodium 136, Potassium 2.9 L, Chloride 97 L, Carbon Dioxide 28.0, Anion Gap 11, BUN 31 H, Creatinine 2.28 H, Estim Creat Clear Calc 14.79, Est GFR (MDRD) Af Amer 26 L, Est GFR (MDRD) Non-Af 22 L, BUN/Creatinine Ratio 13.6, Glucose 145 H, Calcium 8.6, Troponin I 0.017 07/03/20 16:41: Lactic Acid 2.4 H* 07/03/20 21:34: Lactic Acid 1.1 07/03/20 22:55: Urine Creatinine 220.00 07/03/20 22:55: Urine Color Yellow, Urine Clarity Sl. Cloudy, Urine pH 5.0, Ur Specific Hudson 1.025, Urine Protein 30 H, Urine Glucose (UA) Normal, Urine Ketones Negative, Urine Occult Blood 10 H, Urine Nitrite Negative, Urine Deuce irubin Negative, Urine Urobilinogen 1 H, Ur Leukocyte Esterase 25 H, Urine RBC 0 SEEN, Urine WBC 0-5 SEEN, Ur Squamous Epith Cells 10-25 SEEN, Ur Transition Epith Cell 0-5 SEEN, Amorphous Sediment 1+, Urine Bacteria 4+, Coarse Granular Casts 5-10 SEEN, Urine Mucus 0 SEEN 07/03/20 22:55: Urine Urea Nitrogen 480 07/04/20 04:54: WBC 16.6 H, RBC 4.04 L, Hgb 11.5 L, Hct 35.3 L, MCV 87.4, MCH 28.5, MCHC 32.6, RDW Std Deviation 46.8 H, RDW Coeff of Lynsey 14.6, Plt Count 351, MPV 10.3, Immature Gran % (Auto) 0.400, Neut % (Auto) 88.6 H, Lymph % (Auto) 4.9 L, Ed[place]on % (Auto) 6.0, Eos % (Auto) 0.0, Baso % (Auto) 0.1, Absolute Neuts (auto) 14.7 H, Absolute Lymphs (auto) 0.82 L, Nucleated RBC % 0 07/04/20 04:54: Sodium 137, Potassium 3.1 L, Chloride 103, Carbon Dioxide 27.0, Anion Gap 7, BUN 32 H, Creatinine 1.24 H, Estim Creat Clear Calc 27.19, Est GFR (MDRD) Af Amer 53 L, Est GFR (MDRD) Non-Af 44 L, BUN/Creatinine Ratio 25.8 H, Glucose 120 H, Calcium 7.8 L, Total Bilirubin 0.70, AST 12 L, ALT 7 L, Alkaline Phosphatase 77, Total Protein 5.8 L, Albumin 2.3 L, Globulin 3.5, Albumin/Globulin Ratio 0.7 L Current Medications Potassium Chloride/Sodium Chloride (Kcl 20meq In 0.45% Ns 1000ml) 1,000 mls @ 150 mls/hr IV .Q6H40M [facility] Last Admin: 07/04/20 06:06 Dose: 150 mls/hr Documented by: Morphine Sulfate (Morphine 4 Mg/Ml Syringe) 4 mg IV Q3H PRN PRN PRN Reason: Pain Score 6-10 Last Admin: 07/04/20 08:46 Dose: 4 mg Documented by: Ondansetron HCl (Ondansetron 4 Mg/2 Ml Vial) 4 mg IV Q8H PRN PRN PRN Reason: NAUSEA/VOMITING Sodium Chloride (0.9% Saline Lock 10 Ml Syringe) 10 - 40 ml IV UD PRN PRN Reason: SALINE FLUSH STROKE Vital Signs/Narrative: Vital Signs Temp Pulse Resp BP Pulse Ox 07/04/20 11:50 86 07/04/20 08:40 36.2 C L 94 16 145/71 H 96 Medical Necessity - Tobacco Use Smoking Status: Never smoker Tobacco Use: Non-smoker Assessment/Plan All Active Problems (Last Reviewed 07/03/20 @ 17:[address] Josh Frost, DO) Partial obstruction of small intestine (Acute) Hypokalemia (Acute) Ventricular premature beats (Acute) SIRS (systemic inflammatory response syndrome) (Acute) EDI (acute kidney injury) (Acute) Severe sepsis with acute organ dysfunction (Acute) Bilateral pneumonia (Acute) Acute respiratory failure with hypoxia (Acute) Hypotension (Acute) Abdominal pain (Acute) Acute kidney injury (Acute) Small bowel obstruction (Acute) 85-year-old white female presents with abdominal pain. Found to have a small bowel obstruction and NG tube placed. General surgery following. 1. Small bowel obstruction Ongoing versus ileus o evidence of ischemic colitis NG tube in place Patient already evaluated by Dr. Clayton, general surgery, where the plan at present is for conservative management Check a CT of the abdomen pelvis without contrast No obvious free air on the abdominal series NPO 2. Systemic inflammatory response syndrome Improving secondary to small bowel obstruction I do not feel the patient has pneumonia and I have reviewed the patient's chest x-ray which appears to be more consistent with atelectasis Mild lactic acidosis I feel is more attributable to her intra-abdominal process rather than severe sepsis Patient had blood cultures we will follow those up and address accordingly We will continue with Pipracil and/tazobactam but consider de-escalation if infectious work-up comes back unremarkable 3. Acute kidney injury Improving FE urea 8.45% consistent with prerenal azotemia IV fluids Hold HCTZ no need for [employer] at this time. 3. Hypokalemia Ongoing replace magnesium 1.8 4. Acute hypoxic respiratory insufficiency Likely due to atelectasis and low inspiratory effort due to her intra-abdominal process Supportive management and wean oxygen as tolerated 5. Leukocytosis Improving suspect that this is reactive given the intra-abdominal process Monitor 6. VTE prophylaxis: Moderate risk. Enoxaparin. 7. Advanced care planning: Discussed with the patient. Patient wishes to be DNR Comfort Care arrest no intubation. Patient aware that if she does require surgery and that those DNR orders would be rescinded for the procedure but be resumed afterwards. We will transition the patient over to medical surge telemetry status at this point of time as her condition is overall stable and improved. Inpatient E&M: [id number] [facility] Hosp L2
--- NOTE | 2020-07-04 23:17 | PCM.PN.BLA ---
Progress Note Anaerobic bottle of blood cultures with gram-positive cocci. Likely Staphylococcus epididymis which may be a contaminant but with leukocytosis will resume vancomycin. Pharmacy to dose vancomycin. STROKE Vital Signs/Narrative: Vital Signs Temp Pulse Resp BP Pulse Ox 07/04/20 20:45 98.3 F 93 16 120/56 L 96
--- NOTE | 2020-07-04 23:56 | PCM.RX.CS ---
Consult Pharmacy has been consulted to manage selected antiobiotic: Vancomycin Type of Consult: New start Suspected Infection: Other Prior Doses of Antibiotics Received/Current Regimen: Medications Vancomycin HCl 750 mg/ Sodium (Chloride) 265 mls @ 250 mls/hr IV Q24H [facility] Last Admin: 07/04/20 23:38 Dose: 250 mls/hr Labs: Sodium 137 mmol/L (136-145) 07/04/20 04:54 Potassium 3.1 mmol/L (3.5-5.1) L 07/04/20 04:54 Chloride 103 mmol/L (98-107) 07/04/20 04:54 Carbon Dioxide 27.0 mmol/L (21.0-32.0) 07/04/20 04:54 Anion Gap 7 (5-15) 07/04/20 04:54 BUN 32 mg/dL (7-18) H 07/04/20 04:54 Creatinine 1.24 mg/dL (0.55-1.02) H 07/04/20 04:54 Est GFR (MDRD) Af Amer 53 mL/min (>60) L 07/04/20 04:54 Est GFR (MDRD) Non-Af 44 mL/min (>60) L 07/04/20 04:54 BUN/Creatinine Ratio 25.8 RATIO (10-20) H 07/04/20 04:54 Glucose 120 mg/dL (74-106) H 07/04/20 04:54 Microbiology: Microbiology 07/03/20 17:20 Blood Culture (Wb) - Anticubital Left Blood Culture - Preliminary 07/03/20 22:55 Urine, Random Urine Culture - Preliminary Presumptive E. coli 07/03/20 16:45 Nasal Secretion SARS-CoV-2 Antigen (Rapid) - Final Weight used for dosin kg Estimated Creatinine Clearance: 27 Goal Trough: 15-20 mcg/mL Pharmacy Plan for Drug Dosing: Pt received an initial vancomycin dose of 2g in ED 07/03/20. Will continue at 750mg q24h from that dose, and draw a trough level prior to 3rd total dose. Pharmacy Service will continue to monitor and adjust dosing as required. Follow-Up Labs: Trough Vancomycin Labs to be done on [date and time ordered]: 07/05/20 @2300
[2020-07-05] VITALS (10 sets, daily range): BP systolic 138–150; BP diastolic 68–82; PULSE 91–108; RESP 16–18; TEMP 36.2–37.1; O2SAT 94–97
[2020-07-05 06:04] LABS: Absolute Lymphocyte Count 0.85 X10^3/uL (0.83-4.51); Absolute Neutrophil Count 11.1 X10^3/uL (2.0-7.7); Basophil# 0.02 X10^3/uL; Basophil% 0.2 % (0-1); Eosinophil# 0.05 X10^3/uL; Eosinophils% 0.4 % (0-5); Hematocrit 35.4 % (37-47); Hemoglobin 11.1 g/dL (12.0-15.0); Lymphocyte # 0.85 X10^3/ul (0.83-4.51); Lymphocyte % 6.4 % (19-41); Mean Corp Hgb Conc 31.4 g/dL (32-36); Mean Corpuscular Hgb 28.2 pg (27.0-32.0); Mean Corpuscular Volume 90.1 fL (81-99); Mean Platelet Vol. 10.5 fl (6.2-12.0); Monocyte# 1.08 X10^3/uL; Monocyte% 8.2 % (0-10); NRBC Flagged by Analyzer 0 % (0-5); Neutrophil # 11.11 X10^3/uL (2.7-7.7); Neutrophil % 84.2 % (47-70); Platelet Count 355 K/mm3 (150-450); RBC Distribution Width SD 49.6 fl (35.1-43.9); Red Blood Count 3.93 M/mm3 (4.2-5.4); White Blood Count 13.2 K/mm3 (4.4-11.0)
[2020-07-05 06:30] LABS: ALB/GLOB Ratio 0.6 RATIO (0.9-2.4); AST(SGOT) 10 U/L (15-37); Alanine Aminotransfer ALT/SGPT < 6 U/L (13-56); Albumin, Serum 2.3 g/dL (3.2-5.0); Alkaline Phosphatase 80 U/L (45-117); Anion Gap 8 (5-15); BUN 31 mg/dL (7-18); BUN/Creat Ratio 39.2 RATIO (10-20); Calcium,Total 8.3 mg/dL (8.5-10.1); Chloride 103 mmol/L (98-107); Creatinine, Serum 0.79 mg/dL (0.55-1.02); EST Glomerular Filtration Rate 74 mL/min (>60); Est Glom Filt Rate - Afr Amer 89 mL/min (>60); Estimated Creatinine Clearance 33.71 ml/min; Globulin 3.6 g/dL (2.2-4.2); Glucose 87 mg/dL (74-106); Potassium 4.2 mmol/L (3.5-5.1); Protein, Total 5.9 g/dL (6.4-8.2); Sodium Level 136 mmol/L (136-145)
--- NOTE | 2020-07-05 07:12 | PN.SURG_ITS ---
Patient Problems: Active and Suspected Problems (Last Reviewed 07/03/20 @ 17:[address] Josh Frost, DO) Partial obstruction of small intestine (Acute) Hypokalemia (Acute) Ventricular premature beats (Acute) SIRS (systemic inflammatory response syndrome) (Acute) DEI (acute kidney injury) (Acute) Severe sepsis with acute organ dysfunction (Acute) Bilateral pneumonia (Acute) Acute respiratory failure with hypoxia (Acute) Hypotension (Acute) Abdominal pain (Acute) Acute kidney injury (Acute) Small bowel obstruction (Acute) Subjective: Patient still states that she has some lower abdominal discomfort. She is not having any bowel movements not passing any flatus. Objective: Abdomen is soft no rebound guarding or peritoneal signs - Physical Exam Vitals/I&O's: Vital Signs Temp Pulse Resp BP Pulse Ox 98.8 F 104 H 16 139/72 H 97 07/05/20 02:45 07/05/20 02:59 07/05/20 02:45 07/05/20 02:45 07/05/20 03:06 Oxygen Flow Rate (L/min) 2 Oxygen Delivery Method Nasal Cannula Weight: 171 lb 15.369 oz Body Mass Index (BMI) 31.4 Intake and Output for Last 24 Hours 07/03/20 07/04/20 07/05/20 23:59 23:59 23:59 Intake Total 2740 / 2740 4345.0 / 4385.0 772.5 / 772.5 Output Total 1050 / 1300 650 / 650 Balance 2740 / 2540 3295.0 / 3085.0 122.5 / 122.5 Microbiology Past 72 Hours 07/03/20 17:24 Blood Culture (Wb) - Anticubital Right Blood Culture - Preliminary 07/03/20 17:20 Blood Culture (Wb) - Anticubital Left Blood Culture - Preliminary 07/03/20 22:55 Urine, Random Urine Culture - Preliminary Presumptive E. coli 07/03/20 16:45 Nasal Secretion SARS-CoV-2 Antigen (Rapid) - Final Laboratory Results 07/05/20 05:30: WBC 13.2 H, RBC 3.93 L, Hgb 11.1 L, Hct 35.4 L, MCV 90.1, MCH 28.2, MCHC 31.4 L, RDW Std Deviation 49.6 H, RDW Coeff of Lynsey 15.0 H, Plt Count 355, MPV 10.5, Immature Gran % (Auto) 0.600, Neut % (Auto) 84.2 H, Lymph % (Auto) 6.4 L, Cook % (Auto) 8.2, Eos % (Auto) 0.4, Baso % (Auto) 0.2, Absolute Neuts (auto) 11.1 H, Absolute Lymphs (auto) 0.85, Nucleated RBC % 0 07/05/20 05:30: Sodium 136, Potassium 4.2, Chloride 103, Carbon Dioxide 25.0, An ion Gap 8, BUN 31 H, Creatinine 0.79, Estim Creat Clear Calc 33.71, Est GFR (MDRD) Af Amer 89, Est GFR (MDRD) Non-Af 74, BUN/Creatinine Ratio 39.2 H, Glucose 87, Calcium 8.3 L, Total Bilirubin 0.60, AST 10 L, ALT < 6 L, Alkaline Phosphatase 80, Total Protein 5.9 L, Albumin 2.3 L, Globulin 3.6, Albumin/Globulin Ratio 0.6 L Current Medications Potassium Chloride/Sodium Chloride (Kcl 20meq In 0.45% Ns 1000ml) 1,000 mls @ 150 mls/hr IV .Q6H40M [facility] Last Admin: 07/05/20 04:00 Dose: 150 mls/hr Documented by: Vancomycin IV Pharmacy to Dose (1 each/ Sodium Chloride) 500 mls @ 250 mls/hr IV PRN PRN; Protocol PRN Reason: Rx to Dose Vancomycin HCl 750 mg/ Sodium (Chloride) 265 mls @ 250 mls/hr IV Q24H [facility] Last Infusion: 07/05/20 00:50 Dose: Infused Documented by: Morphine Sulfate (Morphine 4 Mg/Ml Syringe) 4 mg IV Q3H PRN PRN PRN Reason: Pain Score 6-10 Last Admin: 07/04/20 22:27 Dose: 4 mg Documented by: Ondansetron HCl (Ondansetron 4 Mg/2 Ml Vial) 4 mg IV Q8H PRN PRN PRN Reason: NAUSEA/VOMITING Sodium Chloride (0.9% Saline Lock 10 Ml Syringe) 10 - 40 ml IV UD PRN PRN Reason: SALINE FLUSH Medical Necessity - Tobacco Use Smoking Status: Never smoker Tobacco Use: Non-smoker Assessment/Plan All Active Problems (Last Reviewed 07/03/20 @ 17:[address] Josh Frost, DO) Partial obstruction of small intestine (Acute) Hypokalemia (Acute) Ventricular premature beats (Acute) SIRS (systemic inflammatory response syndrome) (Acute) EDI (acute kidney injury) (Acute) Severe sepsis with acute organ dysfunction (Acute) Bilateral pneumonia (Acute) Acute respiratory failure with hypoxia (Acute) Hypotension (Acute) Abdominal pain (Acute) Acute kidney injury (Acute) Small bowel obstruction (Acute) White count is coming down we are making some slow improvement in that standpoint. Still waiting for GI function to return.
--- NOTE | 2020-07-05 08:25 | CT_ITS ---
STUDY: CT ABDOMEN AND PELVIS WITHOUT CONTRAST REASON FOR EXAM: Female, 85 years old. Abdominal pain. Upper abdomen with small bowel resection. RADIATION DOSAGE (If Supplied By Facility): CTDIvol = ( 12.29 ) mGy, DLP = ( 623.12 ) mGycm TECHNIQUE: Transaxial images were obtained from the dome of the diaphragm to the symphysis pubis without oral contrast, and without intravenous contrast. Sagittal and coronal images were reconstructed. Individualized dose optimization techniques were used for this CT. COMPARISON: Comparison is made with prior study dated 07/03/2020. FINDINGS: Stable increased markings at the lung bases suggestive of atelectasis. Coronary artery calcification. A nasogastric tube is seen within the stomach. Stable small amount of the perihepatic and perisplenic fluid. Mildly distended gallbladder. Tiny gallstones are seen along the dependent portion of the gallbladder. Normal spleen. Normal pancreas. Normal bilateral adrenal glands. Normal right kidney. Normal left kidney. Normal visualized stomach. Minimally fluid distended small bowel loops in the mid abdomen. This has improved as compared to prior study. Fluid is seen within the mesentery in the midabdomen and lower abdomen. Increased markings are seen within the peritoneal fat most likely secondary to recent abdominal surgery. There are multiple colonic diverticula consistent with diverticulosis. There is non-visualization of the appendix. There is diffuse atherosclerotic calcification of the abdominal aorta, without a demonstrated aneurysm. Normal inferior vena cava. Normal retroperitoneum. Normal urinary bladder. There is a small umbilical hernia containing fat. Disc space narrowing and degeneration at the L5-S1 level. CT/Abdomen/Pel W ORAL Cont Only IMPRESSION: Stable atelectasis at the lung bases. Distended gallbladder with small gallstones in the dependent portion of the gallbladder lumen. Nasogastric tube is seen within the decompressed stomach. Mild residual central small bowel dilatation with fluid in the root of the mesentery as well as in the perihepatic and perisplenic space and pelvis. The small bowel dilatation has improved as compared to prior study. Electronically Signed: Harpal Felipe MD at 11:59 EDT , Service support ,
--- NOTE | 2020-07-05 08:26 | PCM.PN.SRG ---
Patient Problems: Active and Suspected Problems (Last Reviewed 07/03/20 @ 17:[address] Josh Frost, DO) Partial obstruction of small intestine (Acute) Hypokalemia (Acute) Ventricular premature beats (Acute) SIRS (systemic inflammatory response syndrome) (Acute) EDI (acute kidney injury) (Acute) Severe sepsis with acute organ dysfunction (Acute) Bilateral pneumonia (Acute) Acute respiratory failure with hypoxia (Acute) Hypotension (Acute) Abdominal pain (Acute) Acute kidney injury (Acute) Small bowel obstruction (Acute) Subjective: Patient evaluated resting comfortably in bed. She notes feeling bloated. She notes minimal amount of nausea. She has been up to the chair. Negative flatus and BM. - Physical Exam Vitals/I&O's: Vital Signs Temp Pulse Resp BP Pulse Ox 98.8 F 91 16 139/72 H 96 07/05/20 02:45 07/05/20 07:00 07/05/20 02:45 07/05/20 02:45 07/05/20 07:30 Oxygen Flow Rate (L/min) 2.5 Oxygen Delivery Method Nasal Cannula Weight: 171 lb 15.369 oz Body Mass Index (BMI) 31.4 Intake and Output for Last 24 Hours 07/03/20 07/04/20 07/05/20 23:59 23:59 23:59 Intake Total 2740 / 2740 4345.0 / 4385.0 772.5 / 772.5 Output Total 1050 / 1300 650 / 650 Balance 2740 / 2540 3295.0 / 3085.0 122.5 / 122.5 General: Alert, Oriented x3, Cooperative Abdomen: Hypoactive Bowel Sounds, Distended, Guarding, Tender - generalized Microbiology Past 72 Hours 07/03/20 17:24 Blood Culture (Wb) - Anticubital Right Blood Culture - Preliminary 07/03/20 17:20 Blood Culture (Wb) - Anticubital Left Blood Culture - Preliminary 07/03/20 22:55 Urine, Random Urine Culture - Preliminary Presumptive E. coli 07/03/20 16:45 Nasal Secretion SARS-CoV-2 Antigen (Rapid) - Final Laboratory Results 07/05/20 05:30: WBC 13.2 H, RBC 3.93 L, Hgb 11.1 L, Hct 35.4 L, MCV 90.1, MCH 28.2, MCHC 31.4 L, RDW Std Deviation 49.6 H, RDW Coeff of Lynsey 15.0 H, Plt Count 355, MPV 10.5, Immature Gran % (Auto) 0.600, Neut % (Auto) 84.2 H, Lymph % (Auto) 6.4 L, [place] % (Auto) 8.2, Eos % (Auto) 0.4, Baso % (Auto) 0.2, Absolute Neuts (auto) 11.1 H, Absolute Lymphs (auto) 0.85, Nucleated RBC % 0 07/05/20 05:30: Sodium 136, Potassium 4.2, Chloride 103, Carbon Dioxide 25.0, Anion Gap 8, BUN 31 H, Creatinine 0.79, Estim Creat Clear Calc 33.71, Est GFR (MDRD) Af Amer 89, Est GFR (MDRD) Non-Af 74, BUN/Creatinine Ratio 39.2 H, Glucose 87, Calcium 8.3 L, Total Bilirubin 0.60, AST 10 L, ALT < 6 L, Alkaline Phosphatase 80, Total Protein 5.9 L, Albumin 2.3 L, Globulin 3.6, Albumin/Globulin Ratio 0.6 L Current Medications Potassium Chloride/Sodium Chloride (Kcl 20meq In 0.45% Ns 1000ml) 1,000 mls @ 150 mls/hr IV .Q6H40M [facility] Last Admin: 07/05/20 04:00 Dose: 150 mls/hr Documented by: Vancomycin IV Pharmacy to Dose (1 each/ Sodium Chloride) 500 mls @ 250 mls/hr IV PRN PRN; Protocol PRN Reason: Rx to Dose Vancomycin HCl 750 mg/ Sodium (Chloride) 265 mls @ 250 mls/hr IV Q24H [facility] Last Infusion: 07/05/20 00:50 Dose: Infused Documented by: Iopamidol (Contrast Allergy Safety Check) 0 ml IV X1 [facility] Morphine Sulfate (Morphine 4 Mg/Ml Syringe) 4 mg IV Q3H PRN PRN PRN Reason: Pain Score 6-10 Last Admin: 07/04/20 22:27 Dose: 4 mg Documented by: Ondansetron HCl (Ondansetron 4 Mg/2 Ml Vial) 4 mg IV Q8H PRN PRN PRN Reason: NAUSEA/VOMITING Sodium Chloride (0.9% Saline Lock 10 Ml Syringe) 10 - 40 ml IV UD PRN PRN Reason: SALINE FLUSH Medical Necessity - Tobacco Use Smoking Status: Never smoker Tobacco Use: Non-smoker Assessment/Plan All Active Problems (Last Reviewed 07/03/20 @ 17:[address] Josh Frost, DO) Partial obstruction of small intestine (Acute) Hypokalemia (Acute) Ventricular premature beats (Acute) SIRS (systemic inflammatory response syndrome) (Acute) EDI (acute kidney injury) (Acute) Severe sepsis with acute organ dysfunction (Acute) Bilateral pneumonia (Acute) Acute respiratory failure with hypoxia (Acute) Hypotension (Acute) Abdominal pain (Acute) Acute kidney injury (Acute) Small bowel obstruction (Acute) I am following this patient for Dr. Huddleston who is out of the office today. He will return tomorrow. Impression: Abdominal pain. Ileus versus bowel obstruction Plan: I have discussed this patient with Dr. Huddleston. Recommend obtaining CT scan of the abdomen/pelvis with PO contrast. Continue NG tube. COntinue observation at this time. No surgical intervention planned at this time. Patient has had the opportunity to ask and have questions answered. We will continue to monitor this patient. Inpatient E&M: [id number] [facility] Hosp L1
--- NOTE | 2020-07-05 11:45 | CASEMGMT ---
Readmission chart review: Pt was initially admitted to [facility] for SBO, EDI 06/23-06/27/20. Pt did have exploratory lap w/ converion open and small bowel resection w/ anastamosis. Pt was able to tolerate regular diet and was discharged home declining need for any further therapy and went home with son's support. Pt did f/u with Dr. Huddleston on 07/01/20. Pt returned to [facility] ED on 07/03/20 for inability to move bowels/vomiting, unable to eat. Pt was admitted to PCU for SBO again. Pt currently has NG in place for decompression and CT abd today shows improvement but pt has still not had BM or flatus. Surgery is following pt. CM to follow for any further discharge planning/needs. Roger PINA CM
[2020-07-05] MEDS: Morphine 4 MG/ML Syringe IV ×2 (14:34→22:40)
--- NOTE | 2020-07-05 18:58 | PN_ITS ---
Patient Problems: Active and Suspected Problems (Last Reviewed 07/03/20 @ 17:[address] Josh Frost, DO) Partial obstruction of small intestine (Acute) Hypokalemia (Acute) Ventricular premature beats (Acute) SIRS (systemic inflammatory response syndrome) (Acute) EDI (acute kidney injury) (Acute) Severe sepsis with acute organ dysfunction (Acute) Bilateral pneumonia (Acute) Acute respiratory failure with hypoxia (Acute) Hypotension (Acute) Abdominal pain (Acute) Acute kidney injury (Acute) Small bowel obstruction (Acute) Subjective: Patient was seen and examined today, her NG tube remains in place, I have received word that she will go for an exploratory laparoscopy tomorrow. - Physical Exam Vitals/I&O's: Vital Signs Temp Pulse Resp BP Pulse Ox 98 F 102 H 18 138/70 H 94 07/05/20 14:38 07/05/20 15:35 07/05/20 14:38 07/05/20 14:38 07/05/20 14:38 Oxygen Flow Rate (L/min) 1 Oxygen Delivery Method Nasal Cannula Weight: 78 kg Body Mass Index (BMI) 31.4 Intake and Output for Last 24 Hours 07/03/20 07/04/20 07/05/20 23:59 23:59 23:59 Intake Total 2740 / 2740 4345.0 / 4385.0 2817.5 / 2817.5 Output Total 1050 / 1300 900 / 900 Balance 2740 / 2540 3295.0 / 3085.0 1917.5 / 1917.5 General: Alert, Oriented x3, Cooperative, No apparent distress, Well developed HEENT: Atraumatic, PERRLA, EOMI, Normocephalic Oral: Moist Mucosa Neck: Supple, No JVD, No Nuchal Rigidity, Trachea Midline Lungs: Clear to auscultation, Normal air movement, No rhonchi, No wheeze, No rales Cardiovascular: Regular rate, Regular Rhythm, Normal S1, Normal S2, No murmurs, PMI Normal, No rub noted, No Gallop Abdomen: Soft, Distended, No hernias noted, - - No bowel sounds present Extremities: No clubbing, No cyanosis, No edema, Capillary Refill Less than 3 Seconds Skin: No rashes, No breakdown Musculoskeletal: No Tenderness to Palpation of Joints or Extremities Neurological: Cranial nerves II-XII grossly intact, Neuro grossly intact, Sensory exam intact to light touch and pain Psych/Mental Status: Normal Affect, Appropriate, Alert and oriented to time, place, person, mood and affect Microbiology Past 72 Hours 07/03/20 22:55 Urine, Random Urine Culture - Preliminary Presumptive E. coli 07/03/20 17:24 Blood Culture (Wb) - Anticubital Right Blood Culture - Preliminary 07/03/20 17:20 Blood Culture (Wb) - Anticubital Left Blood Culture - Preliminary 07/03/20 16:45 Nasal Secretion SARS-CoV-2 Antigen (Rapid) - Final Laboratory Results 07/05/20 05:30: WBC 13.2 H, RBC 3.93 L, Hgb 11.1 L, Hct 35.4 L, MCV 90.1, MCH 28.2, MCHC 31.4 L, RDW Std Deviation 49.6 H, RDW Coeff of Lynsey 15.0 H, Plt Count 355, MPV 10.5, Immature Gran % (Auto) 0.600, Neut % (Auto) 84.2 H, Lymph % (Auto) 6.4 L, [place] % (Auto) 8.2, Eos % (Auto) 0.4, Baso % (Auto) 0.2, Absolute Neuts (auto) 11.1 H, Absolute Lymphs (auto) 0.85, Nucleated RBC % 0 07/05/20 05:30: Sodium 136, Potassium 4.2, Chloride 103, Carbon Dioxide 25.0, Anion Gap 8, BUN 31 H, Creatinine 0.79, Estim Creat Clear Calc 33.71, Est GFR ( MDRD) Af Amer 89, Est GFR (MDRD) Non-Af 74, BUN/Creatinine Ratio 39.2 H, Glucose 87, Calcium 8.3 L, Total Bilirubin 0.60, AST 10 L, ALT < 6 L, Alkaline Phosphatase 80, Total Protein 5.9 L, Albumin 2.3 L, Globulin 3.6, Albumin/Globulin Ratio 0.6 L Current Medications Potassium Chloride/Sodium Chloride (Kcl 20meq In 0.45% Ns 1000ml) 1,000 mls @ 150 mls/hr IV .Q6H40M [facility] Last Admin: 07/05/20 17:59 Dose: 150 mls/hr Documented by: Vancomycin IV Pharmacy to Dose (1 each/ Sodium Chloride) 500 mls @ 250 mls/hr IV PRN PRN; Protocol PRN Reason: Rx to Dose Vancomycin HCl 750 mg/ Sodium (Chloride) 265 mls @ 250 mls/hr IV Q24H [facility] Last Infusion: 07/05/20 00:50 Dose: Infused Documented by: Pantoprazole Sodium 40 mg/ (Sodium Chloride) 110 mls @ 330 mls/hr IV Q24 AILYN Last Infusion: 07/05/20 10:49 Dose: Infused Documented by: Piperacillin Sod/Tazobactam (Sod 3.375 gm/ Sodium Chloride) 50 mls @ 12.5 mls/hr IV Q8 AILYN Last Admin: 07/05/20 14:31 Dose: 12.5 mls/hr Documented by: Morphine Sulfate (Morphine 4 Mg/Ml Syringe) 4 mg IV Q3H PRN PRN PRN Reason: Pain Score 6-10 Last Admin: 07/05/20 14:34 Dose: 4 mg Documented by: Ondansetron HCl (Ondansetron 4 Mg/2 Ml Vial) 4 mg IV Q8H PRN PRN PRN Reason: NAUSEA/VOMITING Sodium Chloride (0.9% Saline Lock 10 Ml Syringe) 10 - 40 ml IV UD PRN PRN Reason: SALINE FLUSH Medical Necessity - Tobacco Use Smoking Status: Never smoker Tobacco Use: Non-smoker Assessment/Plan All Active Problems (Last Reviewed 07/03/20 @ 17:[address] Josh Frost, DO) Partial obstruction of small intestine (Acute) Hypokalemia (Acute) Ventricular premature beats (Acute) SIRS (systemic inflammatory response syndrome) (Acute) EDI (acute kidney injury) (Acute) Severe sepsis with acute organ dysfunction (Acute) Bilateral pneumonia (Acute) Acute respiratory failure with hypoxia (Acute) Hypotension (Acute) Abdominal pain (Acute) Acute kidney injury (Acute) Small bowel obstruction (Acute) #1 small bowel obstruction-NG tube remains in place, patient will undergo exploratory laparoscopy tomorrow #2 acute kidney injury-resolved at this time #3 lactic acidosis-probably secondary to small bowel obstruction #4 hypokalemia-resolved at this time #5 urinary tract infection with E. coli-continue IV antibiotics Inpatient E&M: 42928 Subs Hosp L2
[2020-07-06] VITALS (20 sets, daily range): BP systolic 133–161; BP diastolic 64–94; PULSE 94–110; RESP 16–20; TEMP 36.4–36.9; O2SAT 92–98; BMI 31.6; BMI 31.5
[2020-07-06 00:11] LABS: Vancomycin, Trough Level 8.2 ug/mL (5.0-15.0)
--- NOTE | 2020-07-06 00:49 | PCM.RX.CS ---
Consult Pharmacy has been consulted to manage selected antiobiotic: Vancomycin Type of Consult: Follow-up Suspected Infection: Other Prior Doses of Antibiotics Received/Current Regimen: Medications Vancomycin HCl (Vancomycin) 1,000 mg in 200 mls @ 200 mls/hr IV Q24H AILYN Discontinued Medications Vancomycin HCl 750 mg/ Sodium (Chloride) 265 mls @ 250 mls/hr IV Q24H AILYN Last Admin: 07/05/20 22:40 Dose: 250 mls/hr Labs: Sodium 136 mmol/L (136-145) 07/05/20 05:30 Potassium 4.2 mmol/L (3.5-5.1) 07/05/20 05:30 Chloride 103 mmol/L (98-107) 07/05/20 05:30 Carbon Dioxide 25.0 mmol/L (21.0-32.0) 07/05/20 05:30 Anion Gap 8 (5-15) 07/05/20 05:30 BUN 31 mg/dL (7-18) H 07/05/20 05:30 Creatinine 0.79 mg/dL (0.55-1.02) 07/05/20 05:30 Est GFR (MDRD) Af Amer 89 mL/min (>60) 07/05/20 05:30 Est GFR (MDRD) Non-Af 74 mL/min (>60) 07/05/20 05:30 BUN/Creatinine Ratio 39.2 RATIO (10-20) H 07/05/20 05:30 Glucose 87 mg/dL (74-106) 07/05/20 05:30 Vancomycin Trough 8.2 ug/mL (5.0-15.0) 07/05/20 22:55 Microbiology: Microbiology 07/03/20 22:55 Urine, Random Urine Culture - Preliminary Presumptive E. coli 07/03/20 17:24 Blood Culture (Wb) - Anticubital Right Blood Culture - Preliminary 07/03/20 17:20 Blood Culture (Wb) - Anticubital Left Blood Culture - Preliminary 07/03/20 16:45 Nasal Secretion SARS-CoV-2 Antigen (Rapid) - Final Weight used for dosin kg Estimated Creatinine Clearance: 34 Goal Trough: 15-20 mcg/mL Pharmacy Plan for Drug Dosing: Vancomycin trough of 8.2 was below target range of 15-20. Will increase dose to 1000mg q24h and redraw trough 07/07/20. Pharmacy Service will continue to monitor and adjust dosing as required. Follow-Up Labs: Trough Vancomycin Labs to be done on [date and time ordered]: 07/07/20 @2200
[2020-07-06 07:00] LABS: Absolute Lymphocyte Count 0.75 X10^3/uL (0.83-4.51); Absolute Neutrophil Count 8.2 X10^3/uL (2.0-7.7); Basophil# 0.03 X10^3/uL; Basophil% 0.3 % (0-1); Eosinophil# 0.05 X10^3/uL; Eosinophils% 0.5 % (0-5); Hematocrit 34.5 % (37-47); Hemoglobin 10.8 g/dL (12.0-15.0); Lymphocyte # 0.75 X10^3/ul (0.83-4.51); Lymphocyte % 7.5 % (19-41); Mean Corp Hgb Conc 31.3 g/dL (32-36); Mean Corpuscular Hgb 28.2 pg (27.0-32.0); Mean Corpuscular Volume 90.1 fL (81-99); Mean Platelet Vol. 9.8 fl (6.2-12.0); Monocyte# 0.95 X10^3/uL; Monocyte% 9.5 % (0-10); NRBC Flagged by Analyzer 0 % (0-5); Neutrophil # 8.16 X10^3/uL (2.7-7.7); Neutrophil % 81.5 % (47-70); Platelet Count 373 K/mm3 (150-450); RBC Distribution Width CV 15.1 % (11.6-14.6); RBC Distribution Width SD 50.2 fl (35.1-43.9); Red Blood Count 3.83 M/mm3 (4.2-5.4)
[2020-07-06 07:37] LABS: Anion Gap 14 (5-15); BUN 23 mg/dL (7-18); Calcium,Total 8.1 mg/dL (8.5-10.1); Chloride 103 mmol/L (98-107); Creatinine, Serum 0.74 mg/dL (0.55-1.02); EST Glomerular Filtration Rate 79 mL/min (>60); Est Glom Filt Rate - Afr Amer 96 mL/min (>60); Estimated Creatinine Clearance 33.71 ml/min; Glucose 69 mg/dL (74-106); Potassium 4.3 mmol/L (3.5-5.1); Sodium Level 137 mmol/L (136-145)
--- NOTE | 2020-07-06 09:00 | PN.SURG_ITS ---
Patient Problems: Active and Suspected Problems (Last Reviewed 07/03/20 @ 17:[address] Josh Frost, DO) Partial obstruction of small intestine (Acute) Hypokalemia (Acute) Ventricular premature beats (Acute) SIRS (systemic inflammatory response syndrome) (Acute) EDI (acute kidney injury) (Acute) Severe sepsis with acute organ dysfunction (Acute) Bilateral pneumonia (Acute) Acute respiratory failure with hypoxia (Acute) Hypotension (Acute) Abdominal pain (Acute) Acute kidney injury (Acute) Small bowel obstruction (Acute) Subjective: The patient is still having lower abdominal pain. She is not passing any flatus. - Physical Exam Vitals/I&O's: Vital Signs Temp Pulse Resp BP Pulse Ox 97.9 F 96 16 142/64 H 94 07/06/20 04:15 07/06/20 04:15 07/06/20 04:15 07/06/20 04:15 07/06/20 04:15 Oxygen Flow Rate (L/min) 2 Oxygen Delivery Method Nasal Cannula Weight: 171 lb 15.369 oz Body Mass Index (BMI) 31.4 Intake and Output for Last 24 Hours 07/04/20 07/05/20 07/06/20 23:59 23:59 23:59 Intake Total 4345.0 / 4385.0 2867.5 / 2867.5 1922.5 / 1922.5 Output Total 1050 / 1300 900 / 1000 500 / 500 Balance 3295.0 / 3085.0 1967.5 / 1867.5 1422.5 / 1422.5 General: Alert, Oriented x3 Neck: No JVD Lungs: Normal air movement Cardiovascular: Regular rate, Regular Rhythm Abdomen: Soft, Distended, Tender Microbiology Past 72 Hours 07/03/20 22:55 Urine, Random Urine Culture - Final Presumptive E. coli 07/03/20 17:24 Blood Culture (Wb) - Anticubital Right Blood Culture - Preliminary 07/03/20 17:20 Blood Culture (Wb) - Anticubital Left Blood Culture - Preliminary 07/03/20 16:45 Nasal Secretion SARS-CoV-2 Antigen (Rapid) - Final Laboratory Results 07/05/20 22:55: Vancomycin Trough 8.2 07/06/20 06:45: WBC 10.0, RBC 3.83 L, Hgb 10.8 L, Hct 34.5 L, MCV 90.1, MCH 28.2, MCHC 31.3 L, RDW Std Deviation 50.2 H, RDW Coeff of Lynsey 15.1 H, Plt Count 373, MPV 9.8, Immature Gran % (Auto) 0.700, Neut % (Auto) 81.5 H, Lymph % (Auto) 7.5 L, [place] % (Auto) 9.5, Eos % (Auto) 0.5, Baso % (Auto) 0.3, Absolute Neuts (auto) 8.2 H, Absolute Lymphs (auto) 0.75 L, Nucleated RBC % 0 07/06/20 06:45: Sodium 137, Potassium 4.3, Chloride 103, Carbon Dioxide 20.0 L, Anion Gap 14, BUN 23 H, Creatinine 0.74, Estim Creat Clear Calc 33.71, Est GFR (MDRD) Af Amer 96, Est GFR (MDRD) Non-Af 79, BUN/Creatinine Ratio 31.0 H, Glucose 69 L, Calcium 8.1 L Current Medications Potassium Chloride/Sodium Chloride (Kcl 20meq In 0.45% Ns 1000ml) 1,000 mls @ 150 mls/hr IV .Q6H40M AILYN Last Infusion: 07/06/20 07:56 Dose: 150 mls/hr Documented by: Vancomycin IV Pharmacy to Dose (1 each/ Sodium Chloride) 500 mls @ 250 mls/hr IV PRN PRN; Protocol PRN Reason: Rx to Dose Pantoprazole Sodium 40 mg/ (Sodium Chloride) 110 mls @ 330 mls/hr IV Q24 AILYN Last Infusion: 07/05/20 10:49 Dose: Infused Documented by: Piperacillin Sod/Tazobactam (Sod 3.375 gm/ Sodium Chloride) 50 mls @ 12.5 mls/hr IV Q8 AILYN Last Admin: 07/06/20 05:32 Dose: 12.5 mls/hr Documented by: Vancomycin HCl (Vancomycin) 1,000 mg in 200 mls @ 200 mls/hr IV Q24H AILYN Morphine Sulfate (Morphine 4 Mg/Ml Syringe) 4 mg IV Q3H PRN PRN PRN Reason: Pain Score 6-10 Last Admin: 07/05/20 22:40 Dose: 4 mg Documented by: Ondansetron HCl (Ondansetron 4 Mg/2 Ml Vial) 4 mg IV Q8H PRN PRN PRN Reason: NAUSEA/VOMITING Sodium Chloride (0.9% Saline Lock 10 Ml Syringe) 10 - 40 ml IV UD PRN PRN Reason: SALINE FLUSH Medical Necessity - Tobacco Use Smoking Status: Never smoker Tobacco Use: Non-smoker Assessment/Plan All Active Problems (Last Reviewed 07/03/20 @ 17:[address] Josh Frost, DO) Partial obstruction of small intestine (Acute) Hypokalemia (Acute) Ventricular premature beats (Acute) SIRS (systemic inflammatory response syndrome) (Acute) EDI (acute kidney injury) (Acute) Severe sepsis with acute organ dysfunction (Acute) Bilateral pneumonia (Acute) Acute respiratory failure with hypoxia (Acute) Hypotension (Acute) Abdominal pain (Acute) Acute kidney injury (Acute) Small bowel obstruction (Acute) 85-year-old female with small bowel obstruction status post small bowel resection 1. The patient underwent laparotomy with resection of a piece of small bowel that came back as inflammation causing a partial small bowel obstruction. She presented back to the hospital 3 days ago with a white count of 25 and abdominal pain. I reviewed her CT scan and reordered a CT scan with oral contrast that did not show any obvious extravasation but there was a moderate amount of fluid in her pelvis and around her liver and spleen as well as in the mesentery. I am concerned for possibility of a small bowel leak from the anastomosis. At this point her white count has returned to normal but she is still having lower abdominal pain and her NG tube still has dark green output. I believe she is having an ileus due to a possible anastomotic leak. I discussed return to the o perating room today with her. I discussed laparoscopy with the possibility of conversion to laparotomy and possible bowel resection. If the anastomosis is leaking I would recommend resection of the anastomosis with repeat anastomosis to healthy bowel. I also discussed the possibility of a ileostomy but I believe the likelihood of this is low. I did discuss the possibility of having to perform a laparotomy for washout and resection of this and she is agreeable. I will discuss this with her daughter as well. Plan for surgery this afternoon. Romain Huddleston MD Pager: [facility] [address] [place] [address], [address] [place] [address] Office:
--- NOTE | 2020-07-06 10:51 | EKG12_ITS ---
Test Reason : PRE OP Blood Pressure : / mmHG Vent. Rate : 102 BPM Atrial Rate : 102 BPM P-R Int : 130 ms QRS Dur : 082 ms QT Int : 354 ms P-R-T Axes : 040 085 060 degrees QTc Int : 461 ms Sinus tachycardia with Premature supraventricular complexes Otherwise normal ECG When compared with ECG of 03-JUL-2020 16:29, Premature ventricular complexes are no longer Present Premature supraventricular complexes are now Present Questionable change in QRS axis T wave inversion no longer evident in Lateral leads Confirmed by BRIANNE NICHOLS, SARAH ([id number]), scientific editor JANUARY LEMON ([id number]) on 07/12/2020 10:16:06 A M Referred By: HERNESTO Confirmed By:AMINTA DECKER MD
--- NOTE | 2020-07-06 11:00 | COL_PTH ---
PATIENT: FANTA TREVIÑO LOC: MS3 U#:[id number] AGE/SX: 85/F ROOM: [facility] [place] RE07/03/[address]: Dr. Mike Mirza DO : 1935 BED: 1 DIS: 07/11/2020 SPEC #: [id number] RECD: 07/07/20 07:30 STATUS: DEANNE REOra #: [id number] CELESTINO: 07/06/20 11:[address]: Romain Huddleston DEPT: SURGICAL PATHOLOGY RECD BY: Miriam Palacios ENTERED: 07/07/20 11:02 SP TYPE: COLON OTHR DR: MD Dr. Josh England DO Dr. Jeffrey Burkey, MD Dr. Mark Tereletsky, DO Tissues: Colon, NOS Procedures: Surgery Specimen Level V Comments: @ Ordering doctor for SUV edited from to @ by MARIAM at 07/07/20 144 @ Submitting doctor edited from to @ by RGOOD at 07/07/20 1448 HEADER OPERATION: Exploratory laparoscopy, laparotomy PRE-OP DIAGNOSIS: Peritonitis, abdominal free fluid TISSUE SUBMITTED: Small bowel MICROSCOPIC DIAGNOSIS Small bowel, segmental resection: Small bowel mucosa with benign lymphoid hyperplasia. Acute serositis with serosal adhesions and fibrinoid material. Mucosal margins with no pathologic change. No evidence of perforation identified. See comment. AM:jacob 07/08/2020 COMMENT The area of anastomosis is intact. No perforation is seen. Clinical correlation is suggested. Reference is made to the patient's previous small bowel resection ([id number]) in which ulceration with associated acute and chronic inflammation is identified. MICROSCOPIC DESCRIPTION Slides are reviewed. GROSS DESCRIPTION Received in fixative is one container labeled with the patient's name and designated small bowel. The specimen consists of a 22 cm segment of bowel surrounded by fibrofatty tissue that focally displays grayish-kang adherent serosal material. Both ends of the bowel are stapled. No orientation is provided. Also present free in the container are multiple irregular fragments of mucosa and fatty tissue aggregating to 6 x 5 x 0.8 cm. A possible area of dtnu-ey-gahk anastomosis is identified 10 cm from one mucosal margin. The serosal surface in this area is inked. Metallic alice in the serosa are identified in this region. No mucosal mass lesions are identified and consistent with anastomosis. The attached fibrofatty tissue does not contain lymph nodes. [employer] [place] [employer] sections are submitted in six cassettes as follows: 1 - fragment of bowel and fibrofatty tissue free in the container, 2 - mucosal margins (one inked in black), 3-6 - insurance healthcare representative sections of presumed area of anastomosis with surrounding fatty tissue. / AM:jacob 07/07/20 TC:2 CPT: 74452
[2020-07-06] MEDS: Bupivacaine Mpf 0.5% 30 ML VIAL (12:52)
--- NOTE | 2020-07-06 13:34 | PCM.OPRPT ---
Problem List (1) Perforated small intestine Status: Acute (2) Peritonitis Status: Acute Report of Operation Date of Procedure: 07/06/20 Pre-Operative Diagnosis: Peritonitis Post-Operative Diagnosis: Peritonitis with perforation of small bowel anastomosis Surgery/Procedure Performed:: Exploratory laparoscopy converted to laparotomy with small bowel resection Description of Surgical Findings:: The patient had diffuse peritonitis with fluid in the abdomen. There was a necrotic area just proximal to the anastomosis with apparent perforation. Specimen's removed: Small bowel segment Estimated Blood Loss (mL): 20 Description of Procedure: The patient was taken back to the operating room and general anesthesia was induced. The abdomen was prepped and draped in usual sterile fashion. The prior superior umbilical midline port site was incised and the suture was removed. A finger was placed into the abdomen and a sweep was performed. A 12 mm port was placed into the abdomen and it was insufflated to 15 mmHg. There were dense adhesions and I was unable to evaluate the abdomen. A 5 mm port was placed in the right lower quadrant and direct visualization. Next Using blunt dissection of the adhesions to the abdominal wall were lysed. There appeared to be fluid around the liver and in the pelvis was purulence. Next the prior laparotomy incision was incised with a scalpel and deepened to the fascia. The suture was removed and the incision was opened. The port site superior to umbilicus was then incised to meet the laparotomy scar and the fascia was taken down with cautery between the two incisions. A wound retractor was placed. The purulent material was suctioned and using blunt dissection the small bowel was inspected and the inflammation was lysed until the small bowel was able to be delivered through the incision. The small bowel adhesions were fully divided and the small bowel was run from ligament of Treitz to the terminal ileum and right colon. There did not appear to be any injuries or perforations to the proximal or distal small bowel. There was dense inflammatory material adherent to the small bowel. The area of the prior anastomosis was inflamed and had dense adhesions to other loops of small bowel. The mesentery was very inflamed and thickened. There is a small area of necrosis on the mesenteric side just proximal to the anastomosis which appeared to have some bile staining. I believe that this was likely the source of perforation. The rest of the bowel appeared viable although inflamed. The right colon appeared normal as well as the sigmoid colon. An area proximal and distal to the anastomosis was chosen and using hemostats windows were made in the mesentery. Using ERICK staplers each of the small bowel segments was divided. Next using the impact LigaSure the mesentery was divided from the bowel and the bowel was sent for pathology. There was good hemostasis of the mesentery. Next the small bowel staple edges were removed and a stapler was placed into each of the proximal and distal small bowel segments. A jefr-ge-arra functional end-to-end anastomosis was then created using a 75 ERICK stapler. There is good hemostasis of the staple line.A 60 TX stapler was used to close the enterotomy. A 3-0 silk suture was used to create a crotch stitch at the end of the staple line. There is good hemostasis of the staple line. The mesentery was reapproximated using a running 3-0 Vicryl suture. The bowel was returned to the abdomen and the abdomen was irrigated and suctioned dry with over 3 L of irrigation. At the end of the case there was no further succus in the abdomen and no obvious sign of perforation or remaining abscess. The wound protector was removed. The fascia was closed with a running 0 PDS suture from top and bottom meeting in the middle. The subcutaneous tissue was irrigated and suctioned dry. The skin incisions were injected with local anesthetic. The port site was closed with interrupted 4-0 Monocryl suture. Steri-Strips were applied. The laparotomy incision was closed with alice leaving the room every 2 inches for a Betadine soaked Telfa wick. 3 ev were utilized. Bandages and dressings were applied. Patient was then awoken and taken to PACU in stable condition. - Admit VTE Documentation VTE Mechan Device Prophylaxis: SCD's
--- NOTE | 2020-07-06 14:45 | PN_ITS ---
Patient Problems: Active and Suspected Problems (Last Reviewed 07/03/20 @ 17:[address] Josh Frost, DO) Partial obstruction of small intestine (Acute) Hypokalemia (Acute) Ventricular premature beats (Acute) SIRS (systemic inflammatory response syndrome) (Acute) EDI (acute kidney injury) (Acute) Severe sepsis with acute organ dysfunction (Acute) Bilateral pneumonia (Acute) Acute respiratory failure with hypoxia (Acute) Hypotension (Acute) Perforated small intestine (Acute) Peritonitis (Acute) Abdominal pain (Acute) Acute kidney injury (Acute) Small bowel obstruction (Acute) Subjective: Patient was seen and examined this morning, she was taken to surgery later on this afternoon and I received a call from general surgery stating that she had kalina peritonitis and evidence of small bowel perforation. Patient underwent a partial small bowel obstruction, I have stopped her IV vancomycin and kept her on Zosyn at this time. - Physical Exam Vitals/I&O's: Vital Signs Temp Pulse Resp BP Pulse Ox 98.4 F 108 H 16 161/94 H 94 07/06/20 13:14 07/06/20 14:31 07/06/20 14:31 07/06/20 14:31 07/06/20 14:31 Oxygen Flow Rate (L/min) 2 Oxygen Delivery Method Nasal Cannula Weight: 78 kg Body Mass Index (BMI) 31.6 Intake and Output for Last 24 Hours 07/04/20 07/05/20 07/06/20 23:59 23:59 23:59 Intake Total 4345.0 / 4385.0 2867.5 / 2867.5 2230.0 / 2230.0 Output Total 1050 / 1300 900 / 1000 500 / 500 Balance 3295.0 / 3085.0 1967.5 / 1867.5 1730.0 / 1730.0 General: Alert, Oriented x3, Cooperative, Well developed HEENT: Atraumatic, PERRLA, EOMI, Normocephalic Oral: Moist Mucosa Neck: Supple, Trachea Midline, Thyroid Normal Size and Texture Lungs: Clear to auscultation, Normal air movement, No rhonchi, No wheeze Cardiovascular: Regular rate, Regular Rhythm, Normal S1, Normal S2, No murmurs, PMI Normal, No rub noted, No Gallop Abdomen: - - Patient's abdomen is moderately distended, there are no bowel sounds Extremities: No clubbing, No cyanosis, No edema, Capillary Refill Less than 3 Seconds Skin: No rashes, No breakdown Musculoskeletal: No Tenderness to Palpation of Joints or Extremities Neurological: Cranial nerves II-XII grossly intact, Neuro grossly intact, Sensory exam intact to light touch and pain Psych/Mental Status: Normal Affect, Appropriate, Alert and oriented to time, place, person, mood and affect Microbiology Past 72 Hours 07/03/20 17:24 Blood Culture (Wb) - Anticubital Right Blood Culture - Preliminary 07/03/20 17:20 Blood Culture (Wb) - Anticubital Left Blood Culture - Preliminary Alpha Hemolytic Streptococcus 07/03/20 22:55 Urine, Random Urine Culture - Final Presumptive E. coli 07/03/20 16:45 Nasal Secretion SARS-CoV-2 Antigen (Rapid) - Final Laboratory Results 07/05/20 22:55: Vancomycin Trough 8.2 07/06/20 06:45: WBC 10.0, RBC 3.83 L, Hgb 10.8 L, Hct 34.5 L, MCV 90.1, MCH 28.2, MCHC 31.3 L, RDW Std Deviation 50.2 H, RDW Coeff of Lynsey 15.1 H, Plt Count 373, MPV 9.8, Immature Gran % (Auto) 0.700, Neut % (Auto) 81.5 H, Lymph % (Auto) 7.5 L, [place] % (Auto) 9.5, Eos % (Auto) 0.5, Baso % (Auto) 0.3, Absolute Neuts (auto) 8.2 H, Absolute Lymphs (auto) 0.75 L, Nucleated RBC % 0 07/06/20 06:45: Sodium 137, Potassium 4.3, Chloride 103, Carbon Dioxide 20.0 L, Anion Gap 14, BUN 23 H, Creatinine 0.74, Estim Creat Clear Calc 33.71, Est GFR (MDRD) Af Amer 96, Est GFR (MDRD) Non-Af 79, BUN/Creatinine Ratio 31.0 H, Glucose 69 L, Calcium 8.1 L Current Medications Potassium Chloride/Sodium Chloride (Kcl 20meq In 0.45% Ns 1000ml) 1,000 mls @ 150 mls/hr IV .Q6H40M [facility] Last Admin: 07/06/20 09:54 Dose: Not Given Documented by: Pantoprazole Sodium 40 mg/ (Sodium Chloride) 110 mls @ 330 mls/hr IV Q24 [facility] Last Admin: 07/06/20 09:52 Dose: 330 mls/hr Documented by: Piperacillin Sod/Tazobactam (Sod 3.375 gm/ Sodium Chloride) 50 mls @ 12.5 mls/hr IV Q8 [facility] Last Infusion: 07/06/20 09:32 Dose: Infused Documented by: Morphine Sulfate (Morphine 4 Mg/Ml Syringe) 4 mg IV Q2H PRN PRN PRN Reason: Pain Score 6-10 Ondansetron HCl (Ondansetron 4 Mg/2 Ml Vial) 4 mg IV Q8H PRN PRN PRN Reason: NAUSEA/VOMITING Sodium Chloride (0.9% Saline Lock 10 Ml Syringe) 10 - 40 ml IV UD PRN PRN Reason: SALINE FLUSH Medical Necessity - Tobacco Use Smoking Status: Never smoker Tobacco Use: Non-smoker Assessment/Plan All Active Problems (Last Reviewed 07/03/20 @ 17:[address] Josh Frost, DO) Partial obstruction of small intestine (Acute) Hypokalemia (Acute) Ventricular premature beats (Acute) SIRS (systemic inflammatory response syndrome) (Acute) EDI (acute kidney injury) (Acute) Severe sepsis with acute organ dysfunction (Acute) Bilateral pneumonia (Acute) Acute respiratory failure with hypoxia (Acute) Hypotension (Acute) Perforated small intestine (Acute) Peritonitis (Acute) Abdominal pain (Acute) Acute kidney injury (Acute) Small bowel obstruction (Acute) #1 small bowel perforation with peritonitis-patient will remain on IV Zosyn, patient's blood culture was positive for alpha hemolytic strep #2 acute kidney injury-resolved at this time, continue IV fluids #3 Severe sepsis present on admission secondary to alphahemolytic strep- continue current antibiotic coverage with Zosyn #4 hypokalemia-resolved at this time #5 urinary tract infection with E. coli-continue IV antibiotics Inpatient E&M: [id number] [facility] L2
[2020-07-06] MEDS: 0.9% Saline Lock 10 ML Syringe IV ×2 (16:13→17:53)
[2020-07-06] MEDS: Morphine 4 MG/ML Syringe IV (17:52)
[2020-07-07] VITALS (11 sets, daily range): BP systolic 148–159; BP diastolic 62–81; PULSE 84–147; RESP 16–20; TEMP 36.4–36.8; O2SAT 94–97; BMI 31.5
[2020-07-07 06:59] LABS: Anion Gap 10 (5-15); BUN 28 mg/dL (7-18); BUN/Creat Ratio 26.4 RATIO (10-20); Calcium,Total 8.1 mg/dL (8.5-10.1); Chloride 108 mmol/L (98-107); Creatinine, Serum 1.06 mg/dL (0.55-1.02); EST Glomerular Filtration Rate 53 mL/min (>60); Est Glom Filt Rate - Afr Amer 64 mL/min (>60); Estimated Creatinine Clearance 30.34 ml/min; Glucose 94 mg/dL (74-106); Potassium 6.1 mmol/L (3.5-5.1); Sodium Level 129 mmol/L (136-145)
--- NOTE | 2020-07-07 07:13 | PN.SURG_ITS ---
Patient Problems: Active and Suspected Problems (Last Reviewed 07/03/20 @ 17:[address] Josh Frost, DO) Partial obstruction of small intestine (Acute) Hypokalemia (Acute) Ventricular premature beats (Acute) SIRS (systemic inflammatory response syndrome) (Acute) EDI (acute kidney injury) (Acute) Severe sepsis with acute organ dysfunction (Acute) Bilateral pneumonia (Acute) Acute respiratory failure with hypoxia (Acute) Hypotension (Acute) Perforated small intestine (Acute) Peritonitis (Acute) Abdominal pain (Acute) Acute kidney injury (Acute) Small bowel obstruction (Acute) Subjective: The patient reports no flatus, patient reports she feels better than she did before surgery - Physical Exam Vitals/I&O's: Vital Signs Temp Pulse Resp BP Pulse Ox 97.6 F L 95 20 H 148/78 H 97 07/07/20 04:10 07/07/20 04:10 07/07/20 04:10 07/07/20 04:10 07/07/20 04:10 Oxygen Flow Rate (L/min) 2 Oxygen Delivery Method Nasal Cannula Weight: 171 lb 15.369 oz Body Mass Index (BMI) 31.6 Intake and Output for Last 24 Hours 07/05/20 07/06/20 07/07/20 23:59 23:59 23:59 Intake Total 2867.5 / 2867.5 2430.0 / 2430.0 1999 / 1999 Output Total 900 / 1000 850 / 850 270 / 270 Balance 1967.5 / 1867.5 1580.0 / 1580.0 1730 / 1730 General: Alert, Oriented x3 Neck: No JVD Abdomen: Soft, Non-Distended, Tender Microbiology Past 72 Hours 07/03/20 17:24 Blood Culture (Wb) - Anticubital Right Blood Culture - Preliminary 07/03/20 17:20 Blood Culture (Wb) - Anticubital Left Blood Culture - Preliminary Alpha Hemolytic Streptococcus 07/03/20 22:55 Urine, Random Urine Culture - Final Presumptive E. coli Laboratory Results 07/06/20 06:45: Sodium 137, Potassium 4.3, Chloride 103, Carbon Dioxide 20.0 L, Anion Gap 14, BUN 23 H, Creatinine 0.74, Estim Creat Clear Calc 33.71, Est GFR (MDRD) Af Amer 96, Est GFR (MDRD) Non-Af 79, BUN/Creatinine Ratio 31.0 H, Glucose 69 L, Calcium 8.1 L 07/07/20 05:00: Sodium 129 L, Potassium 6.1 H*, Chloride 108 H, Carbon Dioxide 11.0 L, Anion Gap 10, BUN 28 H, Creatinine 1.06 H, Estim Creat Clear Calc 30.34, Est GFR (MDRD) Af Amer 64, Est GFR (MDRD) Non-Af 53 L, BUN/Creatinine Ratio 26.4 H, Glucose 94, Calcium 8.1 L Current Medications Potassium Chloride/Sodium Chloride (Kcl 20meq In 0.45% Ns 1000ml) 1,000 mls @ 150 mls/hr IV .Q6H40M [facility] Last Admin: 07/07/20 06:57 Dose: 150 mls/hr Documented by: Pantoprazole Sodium 40 mg/ (Sodium Chloride) 110 mls @ 330 mls/hr IV Q24 [facility] Last Infusion: 07/06/20 10:12 Dose: Infused Documented by: Piperacillin Sod/Tazobactam (Sod 3.375 gm/ Sodium Chloride) 50 mls @ 12.5 mls/hr IV Q8 [facility] Last Admin: 07/07/20 05:28 Dose: 12.5 mls/hr Documented by: Morphine Sulfate (Morphine 4 Mg/Ml Syringe) 4 mg IV Q2H PRN PRN PRN Reason: Pain Score 6-10 Last Admin: 07/06/20 17:52 Dose: 4 mg Documented by: Ondansetron HCl (Ondansetron 4 Mg/2 Ml Vial) 4 mg IV Q8H PRN PRN PRN Reason: NAUSEA/VOMITING Sodium Chloride (0.9% Saline Lock 10 Ml Syringe) 10 - 40 ml IV UD PRN PRN Reason: SALINE FLUSH Last Admin: 07/06/20 17:53 Dose: 10 ml Documented by: Medical Necessity - Tobacco Use Smoking Status: Never smoker Tobacco Use: Non-smoker Assessment/Plan All Active Problems (Last Reviewed 07/03/20 @ 17:[address] Josh Frost, ) Partial obstruction of small intestine (Acute) Hypokalemia (Acute) Ventricular premature beats (Acute) SIRS (systemic inflammatory response syndrome) (Acute) EDI (acute kidney injury) (Acute) Severe sepsis with acute organ dysfunction (Acute) Bilateral pneumonia (Acute) Acute respiratory failure with hypoxia (Acute) Hypotension (Acute) Perforated small intestine (Acute) Peritonitis (Acute) Abdominal pain (Acute) Acute kidney injury (Acute) Small bowel obstruction (Acute) 85-year-old female status post laparotomy with small bowel resection 1. Patient had peritonitis and ileus. Patient continues to have postoperative ileus due to the peritonitis. Continue n.p.o. and NG suction until bowel function. Continue antibiotics. Monitor urine output. Romain Huddleston MD Pager: [facility] [address] [place] [address] Office:
[2020-07-07 08:14] LABS: Absolute Lymphocyte Count 0.86 X10^3/uL (0.83-4.51); Absolute Neutrophil Count 8.7 X10^3/uL (2.0-7.7); Basophil# 0.02 X10^3/uL; Basophil% 0.2 % (0-1); Eosinophil# 0.05 X10^3/uL; Eosinophils% 0.5 % (0-5); Hemoglobin 10.7 g/dL (12.0-15.0); Lymphocyte # 0.86 X10^3/ul (0.83-4.51); Mean Corp Hgb Conc 30.6 g/dL (32-36); Mean Corpuscular Hgb 27.4 pg (27.0-32.0); Mean Corpuscular Volume 89.7 fL (81-99); Mean Platelet Vol. 10.8 fl (6.2-12.0); Monocyte# 1.03 X10^3/uL; Monocyte% 9.6 % (0-10); NRBC Flagged by Analyzer 0 % (0-5); Neutrophil # 8.68 X10^3/uL (2.7-7.7); Neutrophil % 80.7 % (47-70); Platelet Count 372 K/mm3 (150-450); RBC Distribution Width CV 15.1 % (11.6-14.6); White Blood Count 10.8 K/mm3 (4.4-11.0)
[2020-07-07] MEDS: 0.9% Normal Saline 1,000 ML 125 ML IV ×2 (09:30→18:31)
[2020-07-07] MEDS: Morphine 4 MG/ML Syringe IV ×3 (11:45→23:13)
[2020-07-07] MEDS: 0.9% Saline Lock 10 ML Syringe IV ×2 (15:27→19:24)
[2020-07-07 15:51] LABS: Anion Gap 11 (5-15); BUN 29 mg/dL (7-18); BUN/Creat Ratio 24.8 RATIO (10-20); Calcium,Total 8.3 mg/dL (8.5-10.1); Chloride 107 mmol/L (98-107); Creatinine, Serum 1.17 mg/dL (0.55-1.02); EST Glomerular Filtration Rate 47 mL/min (>60); Est Glom Filt Rate - Afr Amer 57 mL/min (>60); Estimated Creatinine Clearance 27.49 ml/min; Glucose 109 mg/dL (74-106); Potassium 5.3 mmol/L (3.5-5.1); Sodium Level 138 mmol/L (136-145)
--- NOTE | 2020-07-07 17:54 | PN_ITS ---
Patient Problems: Active and Suspected Problems (Last Reviewed 07/03/20 @ 17:[address] Josh Frost, DO) Partial obstruction of small intestine (Acute) Hypokalemia (Acute) Ventricular premature beats (Acute) SIRS (systemic inflammatory response syndrome) (Acute) EDI (acute kidney injury) (Acute) Severe sepsis with acute organ dysfunction (Acute) Bilateral pneumonia (Acute) Acute respiratory failure with hypoxia (Acute) Hypotension (Acute) Perforated small intestine (Acute) Peritonitis (Acute) Abdominal pain (Acute) Acute kidney injury (Acute) Small bowel obstruction (Acute) Subjective: Patient was seen and examined today, I talked to her briefly about possibly going into a senior care facility for short-term rehab services at the time of discharge from the hospital, she was not against this if it was needed. Patient's potassium was elevated at 6.1 this morning, I changed her IV fluids to normal saline and repeated her potassium this afternoon and it was 5.3. Objective: General: Alert, Oriented x3, Cooperative, Well developed HEENT: Atraumatic, PERRLA, EOMI, Normocephalic Oral: Moist Mucosa Neck: Supple, Trachea Midline, Thyroid Normal Size and Texture Lungs: Clear to auscultation, Normal air movement, No rhonchi, No wheeze Cardiovascular: Regular rate, Regular Rhythm, Normal S1, Normal S2, No murmurs, PMI Normal, No rub noted, No Gallop Abdomen: - -Abdomen appears nondistended, no bowel sounds were noted Extremities: No clubbing, No cyanosis, No edema, Capillary Refill Less than 3 Seconds Skin: No rashes, No breakdown Musculoskeletal: No Tenderness to Palpation of Joints or Extremities Neurological: Cranial nerves II-XII grossly intact, Neuro grossly intact, Sensory exam intact to light touch and pain Psych/Mental Status: Normal Affect, Appropriate, Alert and oriented to time, place, person, mood and affect - Physical Exam Vitals/I&O's: Vital Signs Temp Pulse Resp BP Pulse Ox 98.0 F 90 18 150/76 H 95 07/07/20 16:00 07/07/20 16:00 07/07/20 16:00 07/07/20 16:00 07/07/20 16:00 Oxygen Flow Rate (L/min) 1 Oxygen Delivery Method Room Air Weight: 78 kg Body Mass Index (BMI) 31.6 Intake and Output for Last 24 Hours 07/05/20 07/06/20 07/07/20 23:59 23:59 23:59 Intake Total 2867.5 / 2867.5 2430.0 / 2430.0 2655 / 2655 Output Total 900 / 1000 850 / 850 820 / 820 Balance 1967.5 / 1867.5 1580.0 / 1580.0 1835 / 1835 Microbiology Past 72 Hours 07/03/20 17:20 Blood Culture (Wb) - Anticubital Left Blood Culture - Preliminary Streptococcus intermedius 07/03/20 17:24 Blood Culture (Wb) - Anticubital Right Blood Culture - Preliminary 07/03/20 22:55 Urine, Random Urine Culture - Final Presumptive E. coli Laboratory Results 07/07/20 05:00: Sodium 129 L, Potassium 6.1 H*, Chloride 108 H, Carbon Dioxide 11.0 L, Anion Gap 10, BUN 28 H, Creatinine 1.06 H, Estim Creat Clear Calc 30.34, Est GFR (MDRD) Af Amer 64, Est GFR (MDRD) Non-Af 53 L, BUN/Creatinine Ratio 26.4 H, Glucose 94, Calcium 8.1 L 07/07/20 07:38: WBC 10.8, RBC 3.90 L, Hgb 10.7 L, Hct 35.0 L, MCV 89.7, MCH 27.4, MCHC 30.6 L, RDW Std Deviation 50.0 H, RDW Coeff of Lynsey 15.1 H, Plt Count 372, MPV 10.8, Immature Gran % (Auto) 1.000 H, Neut % (Auto) 80.7 H, Lymph % (Auto) 8.0 L, [place] % (Auto) 9.6, Eos % (Auto) 0.5, Baso % (Auto) 0.2, Absolute Neuts (auto) 8.7 H, Absolute Lymphs (auto) 0.86, Nucleated RBC % 0 07/07/20 15:07: Sodium 138, Potassium 5.3 H, Chloride 107, Carbon Dioxide 20.0 L , Anion Gap 11, BUN 29 H, Creatinine 1.17 H, Estim Creat Clear Calc 27.49, Est GFR (MDRD) Af Amer 57 L, Est GFR (MDRD) Non-Af 47 L, BUN/Creatinine Ratio 24.8 H , Glucose 109 H, Calcium 8.3 L Current Medications Pantoprazole Sodium 40 mg/ (Sodium Chloride) 110 mls @ 330 mls/hr IV Q24 [facility] Last Infusion: 07/07/20 12:14 Dose: Infused Documented by: Piperacillin Sod/Tazobactam (Sod 3.375 gm/ Sodium Chloride) 50 mls @ 12.5 mls/hr IV Q8 [facility] Last Admin: 07/07/20 15:26 Dose: 12.5 mls/hr Documented by: Sodium Chloride () 1,000 mls @ 125 mls/hr IV .Q8H [facility] Last Admin: 07/07/20 09:30 Dose: 125 mls/hr Documented by: Morphine Sulfate (Morphine 4 Mg/Ml Syringe) 4 mg IV Q2H PRN PRN PRN Reason: Pain Score 6-10 Last Admin: 07/07/20 11:45 Dose: 4 mg Documented by: Ondansetron HCl (Ondansetron 4 Mg/2 Ml Vial) 4 mg IV Q8H PRN PRN PRN Reason: NAUSEA/VOMITING Sodium Chloride (0.9% Saline Lock 10 Ml Syringe) 10 - 40 ml IV UD PRN PRN Reason: SALINE FLUSH Last Admin: 07/07/20 15:27 Dose: 20 ml Documented by: Medical Necessity - Tobacco Use Smoking Status: Never smoker Tobacco Use: Non-smoker Assessment/Plan All Active Problems (Last Reviewed 07/03/20 @ 17:[address] Josh Frost, DO) Partial obstruction of small intestine (Acute) Hypokalemia (Acute) Ventricular premature beats (Acute) SIRS (systemic inflammatory response syndrome) (Acute) EDI (acute kidney injury) (Acute) Severe sepsis with acute organ dysfunction (Acute) Bilateral pneumonia (Acute) Acute respiratory failure with hypoxia (Acute) Hypotension (Acute) Perforated small intestine (Acute) Peritonitis (Acute) Abdominal pain (Acute) Acute kidney injury (Acute) Small bowel obstruction (Acute) #1 small bowel perforation with peritonitis-patient will remain on IV Zosyn, patient's blood culture was positive for alpha hemolytic strep-strep intermedius #2 acute kidney injury-resolved at this time, continue IV fluids #3 Severe sepsis present on admission secondary to alphahemolytic strep- continue current antibiotic coverage with Zosyn #4 Hyperkalemia-improved on normal saline at this time, recheck labs tomorrow #5 urinary tract infection with E. coli-continue IV antibiotics Inpatient E&M: 13238 [facility] L2
[2020-07-08] VITALS (9 sets, daily range): BP systolic 138–159; BP diastolic 54–84; PULSE 76–105; RESP 16–18; TEMP 36.6–36.9; O2SAT 89–98; BMI 31.6
[2020-07-08] MEDS: 0.9% Normal Saline 1,000 ML 125 ML IV ×2 (02:52→11:23)
[2020-07-08] MEDS: Morphine 4 MG/ML Syringe IV ×3 (03:15→22:57)
[2020-07-08 06:56] LABS: Absolute Lymphocyte Count 0.88 X10^3/uL (0.83-4.51); Absolute Neutrophil Count 14.3 X10^3/uL (2.0-7.7); Basophil# 0.02 X10^3/uL; Basophil% 0.1 % (0-1); Eosinophil# 0.01 X10^3/uL; Eosinophils% 0.1 % (0-5); Hematocrit 35.8 % (37-47); Hemoglobin 11.3 g/dL (12.0-15.0); Lymphocyte # 0.88 X10^3/ul (0.83-4.51); Lymphocyte % 5.2 % (19-41); Mean Corp Hgb Conc 31.6 g/dL (32-36); Mean Corpuscular Volume 88.8 fL (81-99); Mean Platelet Vol. 10.1 fl (6.2-12.0); Monocyte# 1.44 X10^3/uL; Monocyte% 8.6 % (0-10); NRBC Flagged by Analyzer 0 % (0-5); Neutrophil # 14.31 X10^3/uL (2.7-7.7); Neutrophil % 85.2 % (47-70); Platelet Count 403 K/mm3 (150-450); RBC Distribution Width CV 15.6 % (11.6-14.6); RBC Distribution Width SD 51.3 fl (35.1-43.9); Red Blood Count 4.03 M/mm3 (4.2-5.4); White Blood Count 16.8 K/mm3 (4.4-11.0)
[2020-07-08 07:33] LABS: Anion Gap 11 (5-15); BUN 24 mg/dL (7-18); BUN/Creat Ratio 23.1 RATIO (10-20); Calcium,Total 8.2 mg/dL (8.5-10.1); Chloride 109 mmol/L (98-107); Creatinine, Serum 1.04 mg/dL (0.55-1.02); EST Glomerular Filtration Rate 54 mL/min (>60); Est Glom Filt Rate - Afr Amer 65 mL/min (>60); Estimated Creatinine Clearance 30.93 ml/min; Glucose 96 mg/dL (74-106); Potassium 4.8 mmol/L (3.5-5.1); Sodium Level 138 mmol/L (136-145)
--- NOTE | 2020-07-08 09:57 | CASEMGMT ---
Addendum entered by Karla Todd 07/08/20 14:59: SW updated pt that [facility] is able to accept pt and [facility] stated they have no active cases. Pt states understanding. Addendum entered by Karla Todd 07/08/20 12:57: SW received message from Kaity at [facility] stating they are able to accept pt, asked if she needed to submit for pre-cert. JERRY updated that pt will be at [facility] for a day or two more. JERRY placed a call to Kaity at [facility] and asked her to submit for pre-cert. English to submit for pre-cert. Plan: [facility] pending pre-cert Original Note: Social Work Note SW in to speak with pt to discuss discharge plans. JERRY introduced self and role at [facility]. Pt agreeable to SNF as long as the SNF doesn't have COVID. Patient was provided a list of SNF providers including quality and resource use data and consistent with the patient?s preferred geographic region, medical needs, and insurance network. Pt's preferred provider is [facility]. JERRY placed a call to Kaity at [facility] and provided referral. Kaity states they have no active COVID cases at this time. JERRY faxed referral. Plan: [facility] pending acceptance and pre-cert Karla Todd RESPIRATORY THERAPY MANAGER, [employer]
--- NOTE | 2020-07-08 09:59 | PN.SURG_ITS ---
Patient Problems: Active and Suspected Problems (Last Reviewed 07/03/20 @ 17:[address] Josh Frost, DO) Partial obstruction of small intestine (Acute) Hypokalemia (Acute) Ventricular premature beats (Acute) SIRS (systemic inflammatory response syndrome) (Acute) EDI (acute kidney injury) (Acute) Severe sepsis with acute organ dysfunction (Acute) Bilateral pneumonia (Acute) Acute respiratory failure with hypoxia (Acute) Hypotension (Acute) Perforated small intestine (Acute) Peritonitis (Acute) Abdominal pain (Acute) Acute kidney injury (Acute) Small bowel obstruction (Acute) Subjective: Patient does have ongoing abdominal pain as well as no flatus. - Physical Exam Vitals/I&O's: Vital Signs Temp Pulse Resp BP Pulse Ox 97.9 F 105 H 16 138/84 H 89 07/08/20 02:55 07/08/20 07:30 07/08/20 02:55 07/08/20 02:55 07/08/20 07:32 Oxygen Flow Rate (L/min) 1 Oxygen Delivery Method Room Air Weight: 171 lb 15.369 oz Body Mass Index (BMI) 31.6 Intake and Output for Last 24 Hours 07/06/20 07/07/20 07/08/20 23:59 23:59 23:59 Intake Total 2430.0 / 2430.0 3705 / 3705 1180 / 1180 Output Total 850 / 850 820 / 1270 1000 / 1000 Balance 1580.0 / 1580.0 2885 / 2435 180 / 180 General: Alert, Oriented x3 Cardiovascular: Regular rate, Regular Rhythm Abdomen: Soft, Non-Distended, Tender Microbiology Past 72 Hours 07/03/20 17:20 Blood Culture (Wb) - Anticubital Left Blood Culture - Preliminary Streptococcus intermedius 07/03/20 17:24 Blood Culture (Wb) - Anticubital Right Blood Culture - Preliminary 07/03/20 22:55 Urine, Random Urine Culture - Final Presumptive E. coli Laboratory Results 07/07/20 15:07: Sodium 138, Potassium 5.3 H, Chloride 107, Carbon Dioxide 20.0 L , Anion Gap 11, BUN 29 H, Creatinine 1.17 H, Estim Creat Clear Calc 27.49, Est GFR (MDRD) Af Amer 57 L, Est GFR (MDRD) Non-Af 47 L, BUN/Creatinine Ratio 24.8 H , Glucose 109 H, Calcium 8.3 L 07/08/20 06:46: WBC 16.8 H, RBC 4.03 L, Hgb 11.3 L, Hct 35.8 L, MCV 88.8, MCH 28.0, MCHC 31.6 L, RDW Std Deviation 51.3 H, RDW Coeff of Lynsey 15.6 H, Plt Count 403, MPV 10.1, Immature Gran % (Auto) 0.800, Neut % (Auto) 85.2 H, Lymph % (Auto) 5.2 L, [place] % (Auto) 8.6, Eos % (Auto) 0.1, Baso % (Auto) 0.1, Absolute Neuts (auto) 14.3 H, Absolute Lymphs (auto) 0.88, Nucleated RBC % 0 07/08/20 06:46: Sodium 138, Potassium 4.8, Chloride 109 H, Carbon Dioxide 18.0 L , Anion Gap 11, BUN 24 H, Creatinine 1.04 H, Estim Creat Clear Calc 30.93, Est GFR (MDRD) Af Amer 65, Est GFR (MDRD) Non-Af 54 L, BUN/Creatinine Ratio 23.1 H, Glucose 96, Calcium 8.2 L Current Medications Enoxaparin Sodium (Enoxaparin 30 Mg/0.3 Ml Syringe) 30 mg SC DAILY [facility] Pantoprazole Sodium 40 mg/ (Sodium Chloride) 110 mls @ 330 mls/hr IV Q24 [facility] Last Infusion: 07/07/20 12:14 Dose: Infused Documented by: Piperacillin Sod/Tazobactam (Sod 3.375 gm/ Sodium Chloride) 50 mls @ 12.5 mls/hr IV Q8 [facility] Last Admin: 07/08/20 05:12 Dose: 12.5 mls/hr Documented by: Sodium Chloride () 1,000 mls @ 125 mls/hr IV .Q8H [facility] Last Admin: 07/08/20 02:52 Dose: 125 mls/hr Documented by: Morphine Sulfate (Morphine 4 Mg/Ml Syringe) 4 mg IV Q2H PRN PRN PRN Reason: Pain Score 6-10 Last Admin: 07/08/20 03:15 Dose: 4 mg Documented by: Ondansetron HCl (Ondansetron 4 Mg/2 Ml Vial) 4 mg IV Q8H PRN PRN PRN Reason: NAUSEA/VOMITING Sodium Chloride (0.9% Saline Lock 10 Ml Syringe) 10 - 40 ml IV UD PRN PRN Reason: SALINE FLUSH Last Admin: 07/07/20 19:24 Dose: 10 ml Documented by: Medical Necessity - Tobacco Use Smoking Status: Never smoker Tobacco Use: Non-smoker Assessment/Plan All Active Problems (Last Reviewed 07/03/20 @ 17:[address] Josh Frost, DO) Partial obstruction of small intestine (Acute) Hypokalemia (Acute) Ventricular premature beats (Acute) SIRS (systemic inflammatory response syndrome) (Acute) EDI (acute kidney injury) (Acute) Severe sepsis with acute organ dysfunction (Acute) Bilateral pneumonia (Acute) Acute respiratory failure with hypoxia (Acute) Hypotension (Acute) Perforated small intestine (Acute) Peritonitis (Acute) Abdominal pain (Acute) Acute kidney injury (Acute) Small bowel obstruction (Acute) 85-year-old female status post repeat small bowel resection for peritonitis and anastomotic leak 1. The patient has elevated white count today from yesterday. She does describe abdominal pain which is ongoing. She has no guarding or rebound. Her vitals appear stable. Continue antibiotics for 24 more hours as well as NG suctioning and IV fluids. I have started Lovenox. If her white count has not started decreasing by tomorrow we will order CT scan to check for intra- abdominal abscess. I will order a chest x-ray today to check if she is having pneumonia or reactive atelectasis. Romain Huddleston MD Pager: [facility] [address] [place] [address], [address] [place] [address] Office:
--- NOTE | 2020-07-08 10:40 | RAD_ITS ---
STUDY: X-RAY CHEST REASON FOR EXAM: Female, 85 years old. Hypoxia, increased wbc TECHNIQUE: AP and lateral views of the chest. COMPARISON: Comparison is made with prior examination dated 07/03/2020. FINDINGS: EKG electrodes are seen. An oral gastric tube is seen with the tip below the left hemidiaphragm. Increased markings at the lung bases with areas of confluence worse in the left lower lobe suggestive of atelectasis and/or infiltrates. There is no demonstrated pleural abnormality. There is mild cardiac enlargement. Normal mediastinum and sadie. There is prominence of the pulmonary hilar arteries without peripheral pulmonary vascular congestion, suggesting pulmonary hypertension. There is atherosclerotic calcification of the aortic arch with tortuosity. Normal visualized thoracic spine. Normal visualized ribs, clavicles, and shoulders. There is no demonstrated abnormality of the visualized soft tissue structures of the upper abdomen. RAD/Chest PA and Lateral IMPRESSION: Increased markings at the lung bases with areas of confluence worse in the left lung base. Cardiomegaly. Electronically Signed: Harpal Felipe MD at 13:34 EDT , Service support ,
[2020-07-08] MEDS: 0.9% Saline Lock 10 ML Syringe IV ×3 (11:23→22:57)
--- NOTE | 2020-07-08 13:11 | PCM.NTREPORT ---
Nutrition Therapy Report - History Nutrition Services has been consulted to:: Manage nutrient details of diet order Current diet / nutrition support order:: NPO- sips & chips; NG in place for suction - Anthropometric Measurements Height:: 5 ft 1.81 in Weight:: 78 kg Body Mass Index (BMI):: 31.6 - Relevant Labs Relevant Labs:: WBC 16.8 K/mm3 (4.4-11.0) H 07/08/20 06:46 RBC 4.03 M/mm3 (4.2-5.4) L 07/08/20 06:46 Hgb 11.3 g/dL (12.0-15.0) L 07/08/20 06:46 Hct 35.8 % (37-47) L 07/08/20 06:46 MCHC 31.6 g/dL (32-36) L 07/08/20 06:46 RDW Std Deviation 51.3 fl (35.1-43.9) H 07/08/20 06:46 RDW Coeff of Lynsey 15.6 % (11.6-14.6) H 07/08/20 06:46 Immature Gran % (Auto) 1.000 % (0.0-0.9) H 07/07/20 07:38 Neut % (Auto) 85.2 % (47-70) H 07/08/20 06:46 Lymph % (Auto) 5.2 % (19-41) L 07/08/20 06:46 Absolute Neuts (auto) 14.3 X10^3/uL (2.0-7.7) H 07/08/20 06:46 Absolute Lymphs (auto) 0.75 X10^3/uL (0.83-4.51) L 07/06/20 06:45 Sodium 129 mmol/L (136-145) L 07/07/20 05:00 Potassium 5.3 mmol/L (3.5-5.1) H 07/07/20 15:07 Chloride 109 mmol/L (98-107) H 07/08/20 06:46 Carbon Dioxide 18.0 mmol/L (21.0-32.0) L 07/08/20 06:46 BUN 24 mg/dL (7-18) H 07/08/20 06:46 Creatinine 1.04 mg/dL (0.55-1.02) H 07/08/20 06:46 Est GFR (MDRD) Af Amer 57 mL/min (>60) L 07/07/20 15:07 Est GFR (MDRD) Non-Af 54 mL/min (>60) L 07/08/20 06:46 BUN/Creatinine Ratio 23.1 RATIO (10-20) H 07/08/20 06:46 Glucose 109 mg/dL (74-106) H 07/07/20 15:07 Lactic Acid 2.4 mmol/L (0.4-1.9) H* 07/03/20 16:41 Calcium 8.2 mg/dL (8.5-10.1) L 07/08/20 06:46 AST 10 U/L (15-37) L 07/05/20 05:30 ALT < 6 U/L (13-56) L 07/05/20 05:30 Total Protein 5.9 g/dL (6.4-8.2) L 07/05/20 05:30 Albumin 2.3 g/dL (3.2-5.0) L 07/05/20 05:30 Albumin/Globulin Ratio 0.6 RATIO (0.9-2.4) L 07/05/20 05:30 - Assessment Food / Nutrition-Related History:: S/P small bowel resection- pt w/ peritonitis & ileus, continues to have post op ileus d/t peritonitis. NPO day #6 allowed sips & chips; NG in place to suction plans for NG suction for another 24 hrs per MD w/ IV fluids- continues antibiotics. Abd distended w/ hypoactive BS. Pt reports no passing of flatus & no BM. States no N/V. Pt denied any recent wt loss with reported UBW~170-175 lbs. 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 No new wt to assess- wt has remained stable ~172# since admin. - Nutrition Diagnosis Problem / Etiology / Signs & Symptoms (PES):: Altered GI Function related to inflammation and SBO as evidenced by NPO status and NG to suction. Evidence of Malnutrition Exists:: No - Food / Nutrient Delivery Interventions Summary of nutrition intervention:: NPO day #6; pt unable to recieve enteral nutrition support RT bowel obstruction. Rec consideration of parenteral nutrition support if anticipated that pt will be unable to recieve >50% of estimated nutrition requirements orally or enterally in the next 48 hours. Nutrition education provided?: No - MNT Monitoring Further MNT monitoring and evaluation required?: Yes MNT Follow-up in:: 1-2 days
[2020-07-08] MEDS: 0.9% Normal Saline 1,000 ML 60 ML IV (15:20)
--- NOTE | 2020-07-08 15:47 | NURSING ---
pt agreeable to get in chair. Sitting in chair at this time. This nurse encouraged pt to use I.S at this time. Pt used I.S, 10 reps.
[2020-07-08] MEDS: Enoxaparin 30 MG/0.3 ML Syringe SC (18:50)
--- NOTE | 2020-07-08 19:11 | PCM.PROGNOTE ---
Patient Problems: Active and Suspected Problems (Last Reviewed 07/03/20 @ 17:[address] Josh Frost, DO) Partial obstruction of small intestine (Acute) Hypokalemia (Acute) Ventricular premature beats (Acute) SIRS (systemic inflammatory response syndrome) (Acute) EDI (acute kidney injury) (Acute) Severe sepsis with acute organ dysfunction (Acute) Bilateral pneumonia (Acute) Acute respiratory failure with hypoxia (Acute) Hypotension (Acute) Perforated small intestine (Acute) Peritonitis (Acute) Abdominal pain (Acute) Acute kidney injury (Acute) Small bowel obstruction (Acute) Subjective: Patient was seen and examined today, her white count was more elevated than yesterday, she had a chest x-ray today that did not show any evidence of focal pneumonia-I believe that she has some atelectasis at the lung bases. I talked with general surgery about her care. - Physical Exam Vitals/I&O's: Vital Signs Temp Pulse Resp BP Pulse Ox 98.5 F 85 16 153/54 H 92 07/08/20 18:51 07/08/20 18:51 07/08/20 18:51 07/08/20 18:51 07/08/20 18:51 Oxygen Flow Rate (L/min) 1 Oxygen Delivery Method Room Air Weight: 78 kg Body Mass Index (BMI) 31.6 Intake and Output for Last 24 Hours 07/06/20 07/07/20 07/08/20 23:59 23:59 23:59 Intake Total 2430.0 / 2430.0 3705 / 3705 3053.75 / 3053.75 Output Total 850 / 850 820 / 1270 1400 / 1400 Balance 1580.0 / 1580.0 2885 / 2435 1653.75 / 1653.75 General: Alert, Oriented x3, Cooperative, No apparent distress, Well developed HEENT: Atraumatic, PERRLA, EOMI, Normocephalic Oral: Moist Mucosa Neck: Supple, No JVD, Trachea Midline, Thyroid Normal Size and Texture Lungs: Clear to auscultation, Normal air movement, No rhonchi, No wheeze, No rales Cardiovascular: Regular rate, Regular Rhythm, Normal S1, Normal S2, No murmurs, PMI Normal, No rub noted Abdomen: Bowel Sounds Present, Soft, Hypoactive Bowel Sounds Extremities: No clubbing, No cyanosis, No edema, Capillary Refill Less than 3 Seconds Skin: No rashes, No breakdown Musculoskeletal: No Tenderness to Palpation of Joints or Extremities Neurological: Cranial nerves II-XII grossly intact, Neuro grossly intact, Sensory exam intact to light touch and pain Psych/Mental Status: Normal Affect, Appropriate, Alert and oriented to time, place, person, mood and affect Microbiology Past 72 Hours 07/03/20 17:20 Blood Culture (Wb) - Anticubital Left Blood Culture - Preliminary Streptococcus intermedius 07/03/20 17:24 Blood Culture (Wb) - Anticubital Right Blood Culture - Preliminary 07/03/20 22:55 Urine, Random Urine Culture - Final Presumptive E. coli Laboratory Results 07/08/20 06:46: WBC 16.8 H, RBC 4.03 L, Hgb 11.3 L, Hct 35.8 L, MCV 88.8, MCH 28.0, MCHC 31.6 L, RDW Std Deviation 51.3 H, RDW Coeff of Lynsey 15.6 H, Plt Count 403, MPV 10.1, Immature Gran % (Auto) 0.800, Neut % (Auto) 85.2 H, Lymph % (Auto) 5.2 L, [place] % (Auto) 8.6, Eos % (Auto) 0.1, Baso % (Auto) 0.1, Absolute Neuts (auto) 14.3 H, Absolute Lymphs (auto) 0.88, Nucleated RBC % 0 07/08/20 06:46: Sodium 138, Potassium 4.8, Chloride 109 H, Carbon Dioxide 18.0 L, Anion Gap 11, BUN 24 H, Creatinine 1.04 H, Estim Creat Clear Calc 30.93, Est GFR (MDRD) Af Amer 65, Est GFR (MDRD) Non-Af 54 L, BUN/Creatinine Ratio 23.1 H, Glucose 96, Calcium 8.2 L Current Medications Enoxaparin Sodium (Enoxaparin 30 Mg/0.3 Ml Syringe) 30 mg SC DAILY [facility] Last Admin: 07/08/20 18:50 Dose: 30 mg Documented by: Pantoprazole Sodium 40 mg/ (Sodium Chloride) 110 mls @ 330 mls/hr IV Q24 [facility] Last Infusion: 07/08/20 12:05 Dose: Infused Documented by: Piperacillin Sod/Tazobactam (Sod 3.375 gm/ Sodium Chloride) 50 mls @ 12.5 mls/hr IV Q8 [facility] Last Admin: 07/08/20 15:03 Dose: 12.5 mls/hr Documented by: Sodium Chloride () 1,000 mls @ 60 mls/hr IV .[id number] [facility] Last Admin: 07/08/20 15:20 Dose: 60 mls/hr Documented by: Morphine Sulfate (Morphine 4 Mg/Ml Syringe) 4 mg IV Q2H PRN PRN PRN Reason: Pain Score 6-10 Last Admin: 07/08/20 15:07 Dose: 4 mg Documented by: Ondansetron HCl (Ondansetron 4 Mg/2 Ml Vial) 4 mg IV Q8H PRN PRN PRN Reason: NAUSEA/VOMITING Sodium Chloride (0.9% Saline Lock 10 Ml Syringe) 10 - 40 ml IV UD PRN PRN Reason: SALINE FLUSH Last Admin: 07/08/20 15:09 Dose: 10 ml Documented by: Medical Necessity - Tobacco Use Smoking Status: Never smoker Tobacco Use: Non-smoker Assessment/Plan All Active Problems (Last Reviewed 07/03/20 @ 17:[address] Josh Frost, DO) Partial obstruction of small intestine (Acute) Hypokalemia (Acute) Ventricular premature beats (Acute) SIRS (systemic inflammatory response syndrome) (Acute) EDI (acute kidney injury) (Acute) Severe sepsis with acute organ dysfunction (Acute) Bilateral pneumonia (Acute) Acute respiratory failure with hypoxia (Acute) Hypotension (Acute) Perforated small intestine (Acute) Peritonitis (Acute) Abdominal pain (Acute) Acute kidney injury (Acute) Small bowel obstruction (Acute) #1 small bowel perforation with peritonitis-patient will remain on IV Zosyn, patient's blood culture was positive for alpha hemolytic strep-strep intermedius, patient CBC will be repeated tomorrow #2 acute kidney injury-resolved at this time, continue IV fluids #3 Severe sepsis present on admission secondary to alphahemolytic strep-continue current antibiotic coverage with Zosyn #4 Hyperkalemia-resolved #5 urinary tract infection with E. coli-continue IV antibiotics Inpatient E&M: 98509 Subs Hosp L2
[2020-07-09] VITALS (7 sets, daily range): BP systolic 128–158; BP diastolic 56–80; PULSE 83–108; RESP 16–18; TEMP 36.6–36.9; O2SAT 88–100
[2020-07-09] MEDS: 0.9% Normal Saline 1,000 ML 60 ML IV ×2 (03:53→10:05)
[2020-07-09 06:37] LABS: Basophil# 0.01 X10^3/uL; Basophil% 0.1 % (0-1); Eosinophil# 0.03 X10^3/uL; Eosinophils% 0.3 % (0-5); Hematocrit 35.4 % (37-47); Hemoglobin 10.9 g/dL (12.0-15.0); Lymphocyte % 5.8 % (19-41); Mean Corp Hgb Conc 30.8 g/dL (32-36); Mean Corpuscular Hgb 27.7 pg (27.0-32.0); Mean Corpuscular Volume 89.8 fL (81-99); Mean Platelet Vol. 9.6 fl (6.2-12.0); Monocyte# 1.14 X10^3/uL; Monocyte% 9.5 % (0-10); NRBC Flagged by Analyzer 0 % (0-5); Neutrophil % 83.3 % (47-70); Platelet Count 423 K/mm3 (150-450); RBC Distribution Width CV 15.6 % (11.6-14.6); RBC Distribution Width SD 51.5 fl (35.1-43.9); Red Blood Count 3.94 M/mm3 (4.2-5.4)
[2020-07-09] MEDS: Ondansetron 4 MG/2 ML Vial IV (06:43)
[2020-07-09] MEDS: 0.9% Saline Lock 10 ML Syringe IV ×3 (06:43→15:46)
[2020-07-09 07:08] LABS: Anion Gap 11 (5-15); BUN 23 mg/dL (7-18); BUN/Creat Ratio 24.1 RATIO (10-20); Calcium,Total 8.1 mg/dL (8.5-10.1); Chloride 110 mmol/L (98-107); Creatinine, Serum 0.96 mg/dL (0.55-1.02); EST Glomerular Filtration Rate 59 mL/min (>60); Est Glom Filt Rate - Afr Amer 72 mL/min (>60); Estimated Creatinine Clearance 33.51 ml/min; Glucose 84 mg/dL (74-106); Potassium 4.1 mmol/L (3.5-5.1); Sodium Level 141 mmol/L (136-145)
--- NOTE | 2020-07-09 07:19 | PN.SURG_ITS ---
Patient Problems: Active and Suspected Problems (Last Reviewed 07/03/20 @ 17:[address] Josh Frost, DO) Partial obstruction of small intestine (Acute) Hypokalemia (Acute) Ventricular premature beats (Acute) SIRS (systemic inflammatory response syndrome) (Acute) EDI (acute kidney injury) (Acute) Severe sepsis with acute organ dysfunction (Acute) Bilateral pneumonia (Acute) Acute respiratory failure with hypoxia (Acute) Hypotension (Acute) Perforated small intestine (Acute) Peritonitis (Acute) Abdominal pain (Acute) Acute kidney injury (Acute) Small bowel obstruction (Acute) Subjective: The patient had a bowel movement this morning. It was described as large but soft. She says she is passing some flatus. - Physical Exam Vitals/I&O's: Vital Signs Temp Pulse Resp BP Pulse Ox 98.2 F 91 18 158/80 H 95 07/09/20 03:41 07/09/20 03:41 07/09/20 03:41 07/09/20 03:41 07/09/20 03:41 Oxygen Flow Rate (L/min) 1 Oxygen Delivery Method Room Air Weight: 171 lb 15.369 oz Body Mass Index (BMI) 31.6 Intake and Output for Last 24 Hours 07/07/20 07/08/20 07/09/20 23:59 23:59 23:59 Intake Total 3705 / 3705 3483.75 / 3483.75 1043 / 1043 Output Total 820 / 1270 2200 / 2200 800 / 800 Balance 2885 / 2435 1283.75 / 1283.75 243 / 243 General: Alert, Oriented x3 Neck: No JVD Lungs: Normal air movement Abdomen: Soft, Tender - Mild tenderness at the incision but the remainder the abdomen is soft and nontender Microbiology Past 72 Hours 07/03/20 17:24 Blood Culture (Wb) - Anticubital Right Blood Culture - Final 07/03/20 17:20 Blood Culture (Wb) - Anticubital Left Blood Culture - Preliminary Streptococcus intermedius 07/03/20 22:55 Urine, Random Urine Culture - Final Presumptive E. coli Laboratory Results 07/08/20 06:46: Sodium 138, Potassium 4.8, Chloride 109 H, Carbon Dioxide 18.0 L , Anion Gap 11, BUN 24 H, Creatinine 1.04 H, Estim Creat Clear Calc 30.93, Est GFR (MDRD) Af Amer 65, Est GFR (MDRD) Non-Af 54 L, BUN/Creatinine Ratio 23.1 H, Glucose 96, Calcium 8.2 L 07/09/20 06:25: WBC 12.0 H, RBC 3.94 L, Hgb 10.9 L, Hct 35.4 L, MCV 89.8, MCH 27.7, MCHC 30.8 L, RDW Std Deviation 51.5 H, RDW Coeff of [place] 15.6 H, Plt Count 423, MPV 9.6, Immature Gran % (Auto) 1.000 H, Neut % (Auto) 83.3 H, Lymph % (Auto) 5.8 L, [place] % (Auto) 9.5, Eos % (Auto) 0.3, Baso % (Auto) 0.1, Absolute Neuts (auto) 10.0 H, Absolute Lymphs (auto) 0.70 L, Nucleated RBC % 0 07/09/20 06:25: Sodium 141, Potassium 4.1, Chloride 110 H, Carbon Dioxide 20.0 L , Anion Gap 11, BUN 23 H, Creatinine 0.96, Estim Creat Clear Calc 33.51, Est GFR (MDRD) Af Amer 72, Est GFR (MDRD) Non-Af 59 L, BUN/Creatinine Ratio 24.1 H, Glucose 84, Calcium 8.1 L Current Medications Enoxaparin Sodium (Enoxaparin 30 Mg/0.3 Ml Syringe) 30 mg SC DAILY [facility] Last Admin: 07/08/20 18:50 Dose: 30 mg Documented by: Pantoprazole Sodium 40 mg/ (Sodium Chloride) 110 mls @ 330 mls/hr IV Q24 [facility] Last Infusion: 07/08/20 12:05 Dose: Infused Documented by: Piperacillin Sod/Tazobactam (Sod 3.375 gm/ Sodium Chloride) 50 mls @ 12.5 mls/hr IV Q8 [facility] Last Admin: 07/09/20 05:30 Dose: 12.5 mls/hr Documented by: Sodium Chloride () 1,000 mls @ 60 mls/hr IV .[id number] [facility] Last Admin: 07/09/20 03:53 Dose: 60 mls/hr Documented by: Morphine Sulfate (Morphine 4 Mg/Ml Syringe) 4 mg IV Q2H PRN PRN PRN Reason: Pain Score 6-10 Last Admin: 07/08/20 22:57 Dose: 4 mg Documented by: Ondansetron HCl (Ondansetron 4 Mg/2 Ml Vial) 4 mg IV Q8H PRN PRN PRN Reason: NAUSEA/VOMITING Last Admin: 07/09/20 06:43 Dose: 4 mg Documented by: Sodium Chloride (0.9% Saline Lock 10 Ml Syringe) 10 - 40 ml IV UD PRN PRN Reason: SALINE FLUSH Last Admin: 07/09/20 06:43 Dose: 10 ml Documented by: Medical Necessity - Tobacco Use Smoking Status: Never smoker Tobacco Use: Non-smoker Assessment/Plan All Active Problems (Last Reviewed 07/03/20 @ 17:[address] Josh Frost, DO) Partial obstruction of small intestine (Acute) Hypokalemia (Acute) Ventricular premature beats (Acute) SIRS (systemic inflammatory response syndrome) (Acute) EDI (acute kidney injury) (Acute) Severe sepsis with acute organ dysfunction (Acute) Bilateral pneumonia (Acute) Acute respiratory failure with hypoxia (Acute) Hypotension (Acute) Perforated small intestine (Acute) Peritonitis (Acute) Abdominal pain (Acute) Acute kidney injury (Acute) Small bowel obstruction (Acute) 85-year-old female status post small bowel resection for peritonitis and possible anastomotic leak 1. The patient's white count has decreased this morning to 12 from 16. The patient is having bowel function. Her pathology did not show an obvious perforation. If there was no perforation and was still unsure as to the reason for her peritonitis. 2. The patient's ice chip intake matches her NG output and she is having flatus. I will remove her NG tube but continue sips and ice chips. Once she is having more significant bowel function and less distention I will start clear liquid diet. Continue antibiotics and if the white count does not return to normal by tomorrow I will order a CT with oral and IV contrast to check for intra-abdominal abscess. Romain Huddleston MD Pager: [facility] [address] [place] [address], [address] [place] [address] Office:
[2020-07-09] MEDS: Morphine 4 MG/ML Syringe IV ×2 (07:31→15:46)
--- NOTE | 2020-07-09 07:31 | NURSING ---
NG tube removed at this time per Dr Menendez orders during this AMs rounds
--- NOTE | 2020-07-09 09:47 | NURSING ---
Up to bathroom and walked back to bed. Pt encouraged to sit up in chair or walk halls, pt wanted to get back in bed right now but will later
[2020-07-09] MEDS: Enoxaparin 40 MG/0.4 ML Syringe SC (10:08)
--- NOTE | 2020-07-09 12:58 | CASEMGMT ---
Addendum entered by Karla Todd 07/09/20 14:54: JERRY received message from Kaity at [facility], pre-cert has been obtained. Pt is not medically ready for discharge today. JERRY placed a call to Kaity at [facility] and updated her pt is not medically ready for discharge today. Kaity states pt's pre-cert is good through the weekend, pt can admit either Sunday or Sunday. Pt will need a COVID test on day of discharge. JERRY completed convalescent [facility] in [facility]. JERRY placed Green sheet, transport form, HENS, and COVID tool on pt's chart. Plan: W when medically cleared. Pt can discharge Sunday or Sunday. Karla COLES, CAMILLE Original Note: Social Work Note JERRY faxed updated clinicals to [facility]. Plan: [facility] pending pre-cert Karla COELS, [employer] OPERATOR
--- NOTE | 2020-07-09 15:01 | PCM.TXEXTCAR ---
- Diet 07/03/20 20:00 Diet: Nothing Per Oral - Wound(s) surgical incisions x2 abdominal Wound Type: Surgical Incision RLQ Wound Type: Surgical Incision Rt quad Wound Type: Surgical Incision - Allergies/Procedures Done in Hospital Allergies/Adverse Reactions: Allergies codeine Allergy (Verified 07/03/20 16:26) Rash fenofibrate Allergy (Verified 07/01/20 09:37) Unknown lisinopril Allergy (Verified 07/01/20 09:37) Unknown perfume Allergy (Verified 07/01/20 09:37) Unknown Sulfa (Sulfonamide Antibiotics) Allergy (Verified 07/01/20 09:37) Unknown zolpidem Allergy (Verified 07/01/20 09:37) Unknown cholecalciferol (vitamin D3) Adverse Reaction (Verified 07/01/20 09:37) Upset Stomach meloxicam Adverse Reaction (Verified 07/01/20 09:37) Unknown - Dietary and Speech Recommendations Dietitian Recommendations/Changes: Parenteral nutrition support if remains contraindicated for PO and enteral nutrition over the next 24 hours. Suggest advance diet as tolerated to Transitional when ready for PO nutrition. ONS as needed once diet advanced from NPO. - Follow Up Care Primary Care Physician: Chapo Morfin MD [Primary Care Provider] -
--- NOTE | 2020-07-09 16:55 | PN_ITS ---
Patient Problems: Active and Suspected Problems (Last Reviewed 07/03/20 @ 17:[address] Josh Frost, DO) Partial obstruction of small intestine (Acute) Hypokalemia (Acute) Ventricular premature beats (Acute) SIRS (systemic inflammatory response syndrome) (Acute) EDI (acute kidney injury) (Acute) Severe sepsis with acute organ dysfunction (Acute) Bilateral pneumonia (Acute) Acute respiratory failure with hypoxia (Acute) Hypotension (Acute) Perforated small intestine (Acute) Peritonitis (Acute) Abdominal pain (Acute) Acute kidney injury (Acute) Small bowel obstruction (Acute) Subjective: Patient was seen and examined today, her white blood cell count has decreased, NG was removed today, abdomen still appears to be bloated, bowel sounds are diminished Objective: General: Alert, Oriented x3, Cooperative, No apparent distress, Well developed, Well nourished HEENT: Atraumatic, PERRLA, EOMI, Normocephalic Oral: Moist Mucosa Neck: Supple, No JVD, Trachea Midline, Thyroid Normal Size and Texture Lungs: Clear to auscultation, Normal air movement, No rhonchi, No wheeze, No rales Cardiovascular: Regular rate, Regular Rhythm, Normal S1, Normal S2, No murmurs, PMI Normal, No rub noted, No Gallop Abdomen: Bowel Sounds Present, Soft, Non-Distended Extremities: No clubbing, No cyanosis, No edema, Capillary Refill Less than 3 Seconds Skin: No rashes, No breakdown Musculoskeletal: No Tenderness to Palpation of Joints or Extremities Neurological: Cranial nerves II-XII grossly intact, Neuro grossly intact, Sensory exam intact to light touch and pain, Coordination normal Psych/Mental Status: Normal Affect, Appropriate, Alert and oriented to time, place, person, mood and affect - Physical Exam Vitals/I&O's: Vital Signs Temp Pulse Resp BP Pulse Ox 97.8 F 85 18 128/56 H 93 07/09/20 16:00 07/09/20 16:00 07/09/20 16:00 07/09/20 16:00 07/09/20 16:00 Oxygen Flow Rate (L/min) 2 Oxygen Delivery Method Nasal Cannula Weight: 78 kg Body Mass Index (BMI) 31.6 Intake and Output for Last 24 Hours 07/07/20 07/08/20 07/09/20 23:59 23:59 23:59 Intake Total 3705 / 3705 3483.75 / 3483.75 1587.29 / 1587.29 Output Total 820 / 1270 2200 / 2200 800 / 800 Balance 2885 / 2435 1283.75 / 1283.75 787.29 / 787.29 Microbiology Past 72 Hours 07/03/20 17:24 Blood Culture (Wb) - Anticubital Right Blood Culture - Final Alpha Hemolytic Streptococcus 07/03/20 17:20 Blood Culture (Wb) - Anticubital Left Blood Culture - Final Streptococcus intermedius Laboratory Results 07/09/20 06:25: WBC 12.0 H, RBC 3.94 L, Hgb 10.9 L, Hct 35.4 L, MCV 89.8, MCH 27.7, MCHC 30.8 L, RDW Std Deviation 51.5 H, RDW Coeff of Lynsey 15.6 H, Plt Count 423, MPV 9.6, Immature Gran % (Auto) 1.000 H, Neut % (Auto) 83.3 H, Lymph % (Auto) 5.8 L, [place] % (Auto) 9.5, Eos % (Auto) 0.3, Baso % (Auto) 0.1, Absolute Neuts (auto) 10.0 H, Absolute Lymphs (auto) 0.70 L, Nucleated RBC % 0 07/09/20 06:25: Sodium 141, Potassium 4.1, Chloride 110 H, Carbon Dioxide 20.0 L , Anion Gap 11, BUN 23 H, Creatinine 0.96, Estim Creat Clear Calc 33.51, Est GFR (MDRD) Af Amer 72, Est GFR (MDRD) Non-Af 59 L, BUN/Creatinine Ratio 24.1 H, Glucose 84, Calcium 8.1 L Current Medications Enoxaparin Sodium (Enoxaparin 40 Mg/0.4 Ml Syringe) 40 mg SC DAILY [facility] Last Admin: 07/09/20 10:08 Dose: 40 mg Documented by: Pantoprazole Sodium 40 mg/ (Sodium Chloride) 110 mls @ 330 mls/hr IV Q24 [facility] Last Infusion: 07/09/20 10:35 Dose: Infused Documented by: Sodium Chloride () 1,000 mls @ 60 mls/hr IV .[id number] [facility] Last Admin: 07/09/20 10:05 Dose: 60 mls/hr Documented by: Morphine Sulfate (Morphine 4 Mg/Ml Syringe) 4 mg IV Q2H PRN PRN PRN Reason: Pain Score 6-10 Last Admin: 07/09/20 15:46 Dose: 4 mg Documented by: Ondansetron HCl (Ondansetron 4 Mg/2 Ml Vial) 4 mg IV Q8H PRN PRN PRN Reason: NAUSEA/VOMITING Last Admin: 07/09/20 06:43 Dose: 4 mg Documented by: Sodium Chloride (0.9% Saline Lock 10 Ml Syringe) 10 - 40 ml IV UD PRN PRN Reason: SALINE FLUSH Last Admin: 07/09/20 15:46 Dose: 10 ml Documented by: Medical Necessity - Tobacco Use Smoking Status: Never smoker Tobacco Use: Non-smoker Assessment/Plan All Active Problems (Last Reviewed 07/03/20 @ 17:[address] Josh Frost, DO) Partial obstruction of small intestine (Acute) Hypokalemia (Acute) Ventricular premature beats (Acute) SIRS (systemic inflammatory response syndrome) (Acute) EDI (acute kidney injury) (Acute) Severe sepsis with acute organ dysfunction (Acute) Bilateral pneumonia (Acute) Acute respiratory failure with hypoxia (Acute) Hypotension (Acute) Perforated small intestine (Acute) Peritonitis (Acute) Abdominal pain (Acute) Acute kidney injury (Acute) Small bowel obstruction (Acute) #1 small bowel perforation with peritonitis-patient will remain on IV Zosyn, patient's blood culture was positive for alpha hemolytic strep-strep intermedius #2 acute kidney injury-resolved at this time, continue IV fluids #3 Severe sepsis present on admission secondary to alphahemolytic strep- continue current antibiotic coverage with Zosyn #4 Hyperkalemia-resolved #5 urinary tract infection with E. coli-continue IV antibiotics #6 generalized debility-patient well be discharged to nursing home facility for short-term rehab services when stable Inpatient E&M: 22540 Subs Hosp L2
[2020-07-10] MEDS: 0.9% Normal Saline 1,000 ML 60 ML IV (01:57)
[2020-07-10 02:00] VITALS: BP 142/71; PULSE 87; RESP 16; TEMP 37; O2SAT 96
[2020-07-10 06:54] LABS: Absolute Lymphocyte Count 0.63 X10^3/uL (0.83-4.51); Absolute Neutrophil Count 7.4 X10^3/uL (2.0-7.7); Basophil# 0.01 X10^3/uL; Basophil% 0.1 % (0-1); Eosinophil# 0.07 X10^3/uL; Eosinophils% 0.8 % (0-5); Hematocrit 33.2 % (37-47); Lymphocyte # 0.63 X10^3/ul (0.83-4.51); Mean Corp Hgb Conc 30.1 g/dL (32-36); Mean Corpuscular Hgb 27.9 pg (27.0-32.0); Mean Corpuscular Volume 92.5 fL (81-99); Mean Platelet Vol. 9.9 fl (6.2-12.0); Monocyte# 0.82 X10^3/uL; Monocyte% 9.1 % (0-10); NRBC Flagged by Analyzer 0 % (0-5); Neutrophil % 82.1 % (47-70); Platelet Count 388 K/mm3 (150-450); RBC Distribution Width CV 15.7 % (11.6-14.6); RBC Distribution Width SD 53.3 fl (35.1-43.9); Red Blood Count 3.59 M/mm3 (4.2-5.4)
--- NOTE | 2020-07-10 07:37 | PCM.PN.SRG ---
Patient Problems: Active and Suspected Problems (Last Reviewed 07/03/20 @ 17:[address] Josh Frost, DO) Partial obstruction of small intestine (Acute) Hypokalemia (Acute) Ventricular premature beats (Acute) SIRS (systemic inflammatory response syndrome) (Acute) EDI (acute kidney injury) (Acute) Severe sepsis with acute organ dysfunction (Acute) Bilateral pneumonia (Acute) Acute respiratory failure with hypoxia (Acute) Hypotension (Acute) Perforated small intestine (Acute) Peritonitis (Acute) Abdominal pain (Acute) Acute kidney injury (Acute) Small bowel obstruction (Acute) Subjective: Patient has had several diarrhea bowel movements. Her abdominal distention is less. - Physical Exam Vitals/I&O's: Vital Signs Temp Pulse Resp BP Pulse Ox 98.6 F 87 16 142/71 H 96 07/10/20 02:00 07/10/20 02:00 07/10/20 02:00 07/10/20 02:00 07/10/20 02:00 Oxygen Flow Rate (L/min) 2 Oxygen Delivery Method Nasal Cannula Weight: 171 lb 15.369 oz Body Mass Index (BMI) 31.6 Intake and Output for Last 24 Hours 07/08/20 07/09/20 07/10/20 23:59 23:59 23:59 Intake Total 3483.75 / 3483.75 1687.29 / 1787.29 1252 / 1252 Output Total 2200 / 2200 900 / 900 Balance 1283.75 / 1283.75 787.29 / 887.29 1252 / 1252 General: Alert, Oriented x3 Lungs: Normal air movement Abdomen: Soft, Non Tender, Non-Distended Microbiology Past 72 Hours 07/03/20 17:24 Blood Culture (Wb) - Anticubital Right Blood Culture - Final Alpha Hemolytic Streptococcus 07/03/20 17:20 Blood Culture (Wb) - Anticubital Left Blood Culture - Final Streptococcus intermedius Laboratory Results 07/10/20 06:12: WBC 9.0, RBC 3.59 L, Hgb 10.0 L, Hct 33.2 L, MCV 92.5, MCH 27.9, MCHC 30.1 L, RDW Std Deviation 53.3 H, RDW Coeff of Lynsey 15.7 H, Plt Count 388, MPV 9.9, Immature Gran % (Auto) 0.900, Neut % (Auto) 82.1 H, Lymph % (Auto) 7.0 L, [place] % (Auto) 9.1, Eos % (Auto) 0.8, Baso % (Auto) 0.1, Absolute Neuts (auto) 7.4, Absolute Lymphs (auto) 0.63 L, Nucleated RBC % 0 Current Medications Enoxaparin Sodium (Enoxaparin 40 Mg/0.4 Ml Syringe) 40 mg SC DAILY [facility] Last Admin: 07/09/20 10:08 Dose: 40 mg Documented by: Furosemide (Furosemide 40 Mg Tablet) 40 mg PO BID@1000,1800 [facility] Stop: 07/10/20 18:01 Loperamide HCl (Loperamide 2 Mg Capsule) 4 mg PO X1 ONE Stop: 07/10/20 07:36 Morphine Sulfate (Morphine 4 Mg/Ml Syringe) 4 mg IV Q2H PRN PRN PRN Reason: Pain Score 6-10 Last Admin: 07/09/20 15:46 Dose: 4 mg Documented by: Nystatin (Nystatin Powder 15gm Bottle) 1 applic TOPICAL BID [facility]; Protocol Ondansetron HCl (Ondansetron 4 Mg/2 Ml Vial) 4 mg IV Q8H PRN PRN PRN Reason: NAUSEA/VOMITING Last Admin: 07/09/20 06:43 Dose: 4 mg Documented by: Pantoprazole Sodium (Pantoprazole Sodium 40 Mg Tablet) 40 mg PO DAILY [facility] Potassium Chloride (Potassium Chloride Oral Tablet 20 Meq) 40 meq PO X1 ONE Stop: 07/10/20 14:37 Sodium Chloride (0.9% Saline Lock 10 Ml Syringe) 10 - 40 ml IV UD PRN PRN Reason: SALINE FLUSH Last Admin: 07/09/20 15:46 Dose: 10 ml Documented by: Medical Necessity - Tobacco Use Smoking Status: Never smoker Tobacco Use: Non-smoker Assessment/Plan All Active Problems (Last Reviewed 07/03/20 @ 17:[address] Josh Frost, DO) Partial obstruction of small intestine (Acute) Hypokalemia (Acute) Ventricular premature beats (Acute) SIRS (systemic inflammatory response syndrome) (Acute) EDI (acute kidney injury) (Acute) Severe sepsis with acute organ dysfunction (Acute) Bilateral pneumonia (Acute) Acute respiratory failure with hypoxia (Acute) Hypotension (Acute) Perforated small intestine (Acute) Peritonitis (Acute) Abdominal pain (Acute) Acute kidney injury (Acute) Small bowel obstruction (Acute) 85-year-old female status post small bowel resection 1. Patient is doing well after NG removed. The patient has had several bowel movements. She reports that she has IBS with diarrhea at home and normally takes loperamide. I will order her 1 dose of loperamide. I will also start her on clear liquid diet and stop her IV fluids. 2. The patient has edema of upper and lower extremities. I will give her 2 doses of oral Lasix today with a dose of K-Dur in the middle. Recheck labs in the morning. Romain Huddleston MD Pager: [phone] [address] [place] [address], [address] [place] [address] Office:
[2020-07-10 09:00] VITALS: BP 158/71; PULSE 89; RESP 18; TEMP 36.7; O2SAT 94
[2020-07-10] MEDS: Loperamide 2 MG Capsule 4 MG PO (09:10)
[2020-07-10] MEDS: 0.9% Saline Lock 10 ML Syringe IV (09:11)
[2020-07-10] MEDS: Enoxaparin 40 MG/0.4 ML Syringe SC (09:12)
[2020-07-10] MEDS: Nystatin Powder 15gm Bottle 1 APPLIC TOPICAL ×2 (09:14→23:41)
[2020-07-10] MEDS: Pantoprazole Sodium 40 MG Tablet PO (09:17)
[2020-07-10] MEDS: Furosemide 40 MG Tablet PO ×2 (09:17→17:17)
--- NOTE | 2020-07-10 10:24 | NURSING ---
TALKED WITH BRAD DE GUZMAN AND HE SAID THAT ALLERGY TO CODEINE IS A RASH WHICH IS NOT UNCOMMON AND CONSIDERED A REACTION NOT A TRUE ALLERGY-
[2020-07-10] MEDS: Acetaminophen 325 MG Tablet 650 MG PO ×2 (11:14→18:34)
--- NOTE | 2020-07-10 14:15 | PN_ITS ---
Patient Problems: Active and Suspected Problems (Last Reviewed 07/03/20 @ 17:[address] Josh Frost, DO) Partial obstruction of small intestine (Acute) Hypokalemia (Acute) Ventricular premature beats (Acute) SIRS (systemic inflammatory response syndrome) (Acute) EDI (acute kidney injury) (Acute) Severe sepsis with acute organ dysfunction (Acute) Bilateral pneumonia (Acute) Acute respiratory failure with hypoxia (Acute) Hypotension (Acute) Perforated small intestine (Acute) Peritonitis (Acute) Abdominal pain (Acute) Acute kidney injury (Acute) Small bowel obstruction (Acute) Subjective: Patient was seen and examined today, her white blood cell count today is normal, she appears edematous but has no respiratory distress, she is on room air. I talked with general surgery this morning, they gave her some Lasix today which shows not opposed to, patient's diet was advanced to clear liquids. Objective: Objective: General: Alert, Oriented x3, Cooperative, No apparent distress, Well developed, Well nourished HEENT: Atraumatic, PERRLA, EOMI, Normocephalic Oral: Moist Mucosa Neck: Supple, No JVD, Trachea Midline, Thyroid Normal Size and Texture Lungs: Clear to auscultation, Normal air movement, No rhonchi, No wheeze, No rales Cardiovascular: Regular rate, Regular Rhythm, Normal S1, Normal S2, No murmurs, PMI Normal, No rub noted, No Gallop Abdomen: Bowel Sounds Present, Soft, Non-Distended Extremities: No clubbing, No cyanosis, No edema, Capillary Refill Less than 3 Seconds Skin: No rashes, No breakdown, generalized edema is noted Musculoskeletal: No Tenderness to Palpation of Joints or Extremities Neurological: Cranial nerves II-XII grossly intact, Neuro grossly intact, Sensory exam intact to light touch and pain, Coordination normal Psych/Mental Status: Normal Affect, Appropriate, Alert and oriented to time, place, person, mood and affect - Physical Exam Vitals/I&O's: Vital Signs Temp Pulse Resp BP Pulse Ox 98.0 F 89 18 158/71 H 94 07/10/20 09:00 07/10/20 09:00 07/10/20 09:00 07/10/20 09:00 07/10/20 09:00 Oxygen Flow Rate (L/min) 2 Oxygen Delivery Method Room Air Weight: 78 kg Body Mass Index (BMI) 31.6 Intake and Output for Last 24 Hours 07/08/20 07/09/20 07/10/20 23:59 23:59 23:59 Intake Total 3483.75 / 3483.75 1687.29 / 1787.29 1686 / 1686 Output Total 2200 / 2200 900 / 900 Balance 1283.75 / 1283.75 787.29 / 887.29 1686 / 1686 Microbiology Past 72 Hours 07/03/20 17:24 Blood Culture (Wb) - Anticubital Right Blood Culture - Final Alpha Hemolytic Streptococcus 07/03/20 17:20 Blood Culture (Wb) - Anticubital Left Blood Culture - Final Streptococcus intermedius Laboratory Results 07/10/20 06:12: WBC 9.0, RBC 3.59 L, Hgb 10.0 L, Hct 33.2 L, MCV 92.5, MCH 27.9, MCHC 30.1 L, RDW Std Deviation 53.3 H, RDW Coeff of Lynsey 15.7 H, Plt Count 388, MPV 9.9, Immature Gran % (Auto) 0.900, Neut % (Auto) 82.1 H, Lymph % (Auto) 7.0 L, [place] % (Auto) 9.1, Eos % (Auto) 0.8, Baso % (Auto) 0.1, Absolute Neuts (auto) 7.4, Absolute Lymphs (auto) 0.63 L, Nucleated RBC % 0 Current Medications Acetaminophen (Acetaminophen 325 Mg Tablet) 650 mg PO Q6H PRN PRN PRN Reason: pain 1-6 Last Admin: 07/10/20 11:14 Dose: 650 mg Documented by: Enoxaparin Sodium (Enoxaparin 40 Mg/0.4 Ml Syringe) 40 mg SC DAILY [facility] Last Admin: 07/10/20 09:12 Dose: 40 mg Documented by: Furosemide (Furosemide 40 Mg Tablet) 40 mg PO BID@1000,1800 [facility] Stop: 07/10/20 18:01 Last Admin: 07/10/20 09:17 Dose: 40 mg Documented by: Morphine Sulfate (Morphine 4 Mg/Ml Syringe) 4 mg IV Q2H PRN PRN PRN Reason: Pain Score 6-10 Last Admin: 07/09/20 15:46 Dose: 4 mg Documented by: Nystatin (Nystatin Powder 15gm Bottle) 1 applic TOPICAL BID [facility]; Protocol Last Admin: 07/10/20 09:14 Dose: 1 dose Documented by: Ondansetron HCl (Ondansetron 4 Mg/2 Ml Vial) 4 mg IV Q8H PRN PRN PRN Reason: NAUSEA/VOMITING Last Admin: 07/09/20 06:43 Dose: 4 mg Documented by: Oxycodone HCl (Oxycodone 5 Mg Tablet) 5 mg PO Q4H PRN PRN PRN Reason: Pain Score 6-10 Pantoprazole Sodium (Pantoprazole Sodium 40 Mg Tablet) 40 mg PO DAILY [facility] Last Admin: 07/10/20 09:17 Dose: 40 mg Documented by: Potassium Chloride (Potassium Chloride Oral Tablet 20 Meq) 40 meq PO X1 ONE Stop: 07/10/20 14:37 Sodium Chloride (0.9% Saline Lock 10 Ml Syringe) 10 - 40 ml IV UD PRN PRN Reason: SALINE FLUSH Last Admin: 07/10/20 09:11 Dose: 10 ml Documented by: Medical Necessity - Tobacco Use Smoking Status: Never smoker Tobacco Use: Non-smoker Assessment/Plan All Active Problems (Last Reviewed 07/03/20 @ 17:[address] Josh Frost, DO) Partial obstruction of small intestine (Acute) Hypokalemia (Acute) Ventricular premature beats (Acute) SIRS (systemic inflammatory response syndrome) (Acute) EDI (acute kidney injury) (Acute) Severe sepsis with acute organ dysfunction (Acute) Bilateral pneumonia (Acute) Acute respiratory failure with hypoxia (Acute) Hypotension (Acute) Perforated small intestine (Acute) Peritonitis (Acute) Abdominal pain (Acute) Acute kidney injury (Acute) Small bowel obstruction (Acute) #1 small bowel perforation with peritonitis-patient will remain on IV Zosyn, patient's blood culture was positive for alpha hemolytic strep-strep intermedius, patient's white blood cell count today is normal, her overall medical condition appears to be improving #2 acute kidney injury-resolved at this time, #3 Severe sepsis present on admission secondary to alphahemolytic strep- continue current antibiotic coverage with Zosyn #4 Hyperkalemia-resolved #5 urinary tract infection with E. coli-continue IV antibiotics #6 generalized debility-patient well be discharged to [facility] for short-term rehab services when stable Inpatient E&M: [id number] [facility] Hosp L2
[2020-07-10 14:51] VITALS: BP 138/58; PULSE 88; RESP 18; TEMP 36.6; O2SAT 92
[2020-07-10] MEDS: Potassium Chloride Oral Tablet 20 MEQ 40 MEQ PO (15:02)
[2020-07-10 15:31] VITALS: O2SAT 98
[2020-07-10 22:00] VITALS: RESP 18
[2020-07-10 23:12] VITALS: BP 142/69; PULSE 86; RESP 18; TEMP 36.8; O2SAT 93
[2020-07-10] MEDS: oxyCODONE 5 MG Tablet PO (23:39)
[2020-07-11 02:56] VITALS: BP 141/67; PULSE 91; RESP 18; TEMP 36.9; O2SAT 93
[2020-07-11 05:38] LABS: Absolute Lymphocyte Count 0.66 X10^3/uL (0.83-4.51); Absolute Neutrophil Count 7.2 X10^3/uL (2.0-7.7); Basophil# 0.01 X10^3/uL; Basophil% 0.1 % (0-1); Eosinophil# 0.14 X10^3/uL; Eosinophils% 1.6 % (0-5); Hemoglobin 9.4 g/dL (12.0-15.0); Lymphocyte # 0.66 X10^3/ul (0.83-4.51); Lymphocyte % 7.4 % (19-41); Mean Corp Hgb Conc 31.3 g/dL (32-36); Mean Corpuscular Hgb 27.1 pg (27.0-32.0); Mean Corpuscular Volume 86.5 fL (81-99); Mean Platelet Vol. 10.2 fl (6.2-12.0); Monocyte# 0.91 X10^3/uL; Monocyte% 10.2 % (0-10); NRBC Flagged by Analyzer 0 % (0-5); Neutrophil # 7.19 X10^3/uL (2.7-7.7); Neutrophil % 80.1 % (47-70); Platelet Count 325 K/mm3 (150-450); RBC Distribution Width SD 47.8 fl (35.1-43.9); Red Blood Count 3.47 M/mm3 (4.2-5.4)
[2020-07-11 05:51] LABS: Anion Gap 7 (5-15); BUN 14 mg/dL (7-18); BUN/Creat Ratio 15.6 RATIO (10-20); Calcium,Total 7.6 mg/dL (8.5-10.1); Chloride 106 mmol/L (98-107); EST Glomerular Filtration Rate 64 mL/min (>60); Est Glom Filt Rate - Afr Amer 77 mL/min (>60); Estimated Creatinine Clearance 37.46 ml/min; Glucose 103 mg/dL (74-106); Potassium 3.1 mmol/L (3.5-5.1); Sodium Level 140 mmol/L (136-145)
[2020-07-11] MEDS: Acetaminophen 325 MG Tablet 650 MG PO ×2 (06:12→12:45)
[2020-07-11] MEDS: 0.9% Saline Lock 10 ML Syringe IV (06:14)
[2020-07-11 06:33] VITALS: O2SAT 92
--- NOTE | 2020-07-11 07:49 | PCM.PN.SRG ---
Patient Problems: Active and Suspected Problems (Last Reviewed 07/03/20 @ 17:[address] Josh Frost, DO) Partial obstruction of small intestine (Acute) Hypokalemia (Acute) Ventricular premature beats (Acute) SIRS (systemic inflammatory response syndrome) (Acute) EDI (acute kidney injury) (Acute) Severe sepsis with acute organ dysfunction (Acute) Bilateral pneumonia (Acute) Acute respiratory failure with hypoxia (Acute) Hypotension (Acute) Perforated small intestine (Acute) Peritonitis (Acute) Abdominal pain (Acute) Acute kidney injury (Acute) Small bowel obstruction (Acute) Subjective: Patient had no issues overnight. She did have several bowel movements yesterday. She is passing some flatus with no nausea or vomiting with clears. - Physical Exam Vitals/I&O's: Vital Signs Temp Pulse Resp BP Pulse Ox 98.5 F 91 18 141/67 H 92 07/11/20 02:56 07/11/20 02:56 07/11/20 02:56 07/11/20 02:56 07/11/20 06:33 Oxygen Flow Rate (L/min) 2 Oxygen Delivery Method Room Air Weight: 171 lb 15.369 oz Body Mass Index (BMI) 31.6 Intake and Output for Last 24 Hours 07/09/20 07/10/20 07/11/20 23:59 23:59 23:59 Intake Total 1687.29 / 1787.29 2716 / 2716 Output Total 900 / 900 400 / 400 Balance 787.29 / 887.29 2316 / 2316 General: Alert, Oriented x3 Neck: No JVD Lungs: Normal air movement Abdomen: Soft, Non-Distended Extremities: Edema Microbiology Past 72 Hours 07/03/20 17:24 Blood Culture (Wb) - Anticubital Right Blood Culture - Final Alpha Hemolytic Streptococcus 07/03/20 17:20 Blood Culture (Wb) - Anticubital Left Blood Culture - Final Streptococcus intermedius Laboratory Results 07/11/20 05:14: WBC 9.0, RBC 3.47 L, Hgb 9.4 L, Hct 30.0 L, MCV 86.5 D, MCH 27.1, MCHC 31.3 L, RDW Std Deviation 47.8 H, RDW Coeff of Lynsey 15.0 H, Plt Count 325, MPV 10.2, Immature Gran % (Auto) 0.600, Neut % (Auto) 80.1 H, Lymph % (Auto) 7.4 L, [place] % (Auto) 10.2 H, Eos % (Auto) 1.6, Baso % (Auto) 0.1, Absolute Neuts (auto) 7.2, Absolute Lymphs (auto) 0.66 L, Nucleated RBC % 0 07/11/20 05:14: Sodium 140, Potassium 3.1 L, Chloride 106, Carbon Dioxide 27.0, Anion Gap 7, BUN 14, Creatinine 0.90, Estim Creat Clear Calc 37.46, Est GFR (MDRD) Af Amer 77, Est GFR (MDRD) Non-Af 64, BUN/Creatinine Ratio 15.6, Glucose 103, Calcium 7.6 L Current Medications Acetaminophen (Acetaminophen 325 Mg Tablet) 650 mg PO Q6H PRN PRN PRN Reason: pain 1-6 Last Admin: 07/11/20 06:12 Dose: 650 mg Documented by: Enoxaparin Sodium (Enoxaparin 40 Mg/0.4 Ml Syringe) 40 mg SC DAILY [facility] Last Admin: 07/10/20 09:12 Dose: 40 mg Documented by: Furosemide (Furosemide 40 Mg Tablet) 40 mg PO BID@1000,1800 [facility] Stop: 07/11/20 18:01 Nystatin (Nystatin Powder 15gm Bottle) 1 applic TOPICAL BID [facility]; Protocol Last Admin: 07/10/20 23:41 Dose: 1 dose Documented by: Ondansetron HCl (Ondansetron 4 Mg/2 Ml Vial) 4 mg IV Q8H PRN PRN PRN Reason: NAUSEA/VOMITING Last Admin: 07/09/20 06:43 Dose: 4 mg Documented by: Oxycodone HCl (Oxycodone 5 Mg Tablet) 5 mg PO Q4H PRN PRN PRN Reason: Pain Score 6-10 Last Admin: 07/10/20 23:39 Dose: 5 mg Documented by: Pantoprazole Sodium (Pantoprazole Sodium 40 Mg Tablet) 40 mg PO DAILY [facility] Last Admin: 07/10/20 09:17 Dose: 40 mg Documented by: Potassium Chloride (Potassium Chloride Oral Tablet 20 Meq) 40 meq PO BIDCM [facility] Stop: 07/11/20 17:01 Sodium Chloride (0.9% Saline Lock 10 Ml Syringe) 10 - 40 ml IV UD PRN PRN Reason: SALINE FLUSH Last Admin: 07/11/20 06:14 Dose: 10 ml Documented by: Medical Necessity - Tobacco Use Smoking Status: Never smoker Tobacco Use: Non-smoker Assessment/Plan All Active Problems (Last Reviewed 07/03/20 @ 17:[address] Josh Frost, DO) Partial obstruction of small intestine (Acute) Hypokalemia (Acute) Ventricular premature beats (Acute) SIRS (systemic inflammatory response syndrome) (Acute) EDI (acute kidney injury) (Acute) Severe sepsis with acute organ dysfunction (Acute) Bilateral pneumonia (Acute) Acute respiratory failure with hypoxia (Acute) Hypotension (Acute) Perforated small intestine (Acute) Peritonitis (Acute) Abdominal pain (Acute) Acute kidney injury (Acute) Small bowel obstruction (Acute) 85-year-old female status post small bowel resection 1. The patient seems to be doing well. Zosyn has been stopped and her white count remains normal. She tolerated 1300 cc of clears yesterday with no nausea or vomiting. She did get 2 doses of p.o. Lasix yesterday for diuresis for her edema. She still has significant edema so I will order 2 more p.o. doses of Lasix today as well as 2 doses of K-Dur. She is hypokalemic this morning. I will advance her diet to transitional. Romain Huddleston MD Pager: [facility] [address] [place] [address], [address] [place] [address] Office:
[2020-07-11 07:53] VITALS: BP 142/69; PULSE 93; RESP 18; TEMP 36.4; O2SAT 95
[2020-07-11] MEDS: Nystatin Powder 15gm Bottle 1 APPLIC TOPICAL (07:56)
[2020-07-11] MEDS: Pantoprazole Sodium 40 MG Tablet PO (07:57)
[2020-07-11] MEDS: Enoxaparin 40 MG/0.4 ML Syringe SC (07:57)
[2020-07-11] MEDS: Potassium Chloride Oral Tablet 20 MEQ 40 MEQ PO (10:01)
[2020-07-11] MEDS: Furosemide 40 MG Tablet PO (10:01)
--- NOTE | 2020-07-11 11:42 | PCM.TXEXTCAR ---
- Diet 07/11/20 07:47 Diet: Transitional Type of Dietary Supplement:: Ensure Clear Is pt able to select menu?: Yes - Routine Orders/Code Status Routine Lab Work: BMP - in 48 hrs [facility] no [facility] - Wound(s) surgical incisions x2 abdominal Wound Type: Surgical Incision RLQ Wound Type: Surgical Incision Rt quad Wound Type: Surgical Incision - Therapies Weight Bearing: Full weight bearing Physical Therapy: Eval and Treat Occupational Therapy: Eval and Treat - Problem/Diagnosis (1) Cystitis Status: Acute Comment: E. coli (2) Partial obstruction of small intestine Status: Acute (3) Severe sepsis with acute organ dysfunction Status: Acute (4) Perforated small intestine Status: Acute (5) Acute kidney injury Status: Acute (6) Hypertension Status: Chronic - Allergies/Procedures Done in Hospital Allergies/Adverse Reactions: Allergies codeine Allergy (Verified 07/03/20 16:26) Rash fenofibrate Allergy (Verified 07/01/20 09:37) Unknown lisinopril Allergy (Verified 07/01/20 09:37) Unknown perfume Allergy (Verified 07/01/20 09:37) Unknown Sulfa (Sulfonamide Antibiotics) Allergy (Verified 07/01/20 09:37) Unknown zolpidem Allergy (Verified 07/01/20 09:37) Unknown cholecalciferol (vitamin D3) Adverse Reaction (Verified 07/01/20 09:37) Upset Stomach meloxicam Adverse Reaction (Verified 07/01/20 09:37) Unknown Procedures: - - exploratory laparoscopy converted to laparotomy with small bowel resection 07/06/20 - Type of Care/Length of Stay Estimated LOS: Convalescent Care Less Than 30 days Type of Care Needed: Skilled Rehab Potential: Good Prognosis: Good - Additional Orders/Day of Discharge Additional Orders: remove alice on 07/15/20 H&P will serve as current which was dated: 07/03/20 Day of Discharge: 07/11/20 - Dietary and Speech Recommendations Dietitian Recommendations/Changes: Continue ensure clear w/ pt meals for additional brittani/protein if consumed- will adjust ONS as diet progresses. - Follow Up Care Primary Care Physician: Chapo Morfin MD [Primary Care Provider] - Please Follow Up With: Romain Huddleston MD When: the week of Jul 19 2020
[2020-07-11] MEDS: Potassium Chloride Oral Tablet 20 MEQ PO (12:46)
[2020-07-11] MEDS: Loperamide 2 MG Capsule PO (12:47)
[2020-07-11 13:19] VITALS: BP 134/89; PULSE 90; RESP 18; TEMP 36.8; O2SAT 95
--- NOTE | 2020-07-11 13:29 | NURSING ---
REPORT GIVEN TO NEELA AT [facility]- SISTER WILL TRANSPORT
--- NOTE | 2020-07-11 18:25 | PCM.DC.SUM ---
Discharge Date and Diagnosis - Problem List Patient Problems: Active and Suspected Problems (Last Reviewed 07/03/20 @ 17:[address] Josh Frost DO) Partial obstruction of small intestine (Acute) Hypokalemia (Acute) Ventricular premature beats (Acute) SIRS (systemic inflammatory response syndrome) (Acute) EDI (acute kidney injury) (Acute) Severe sepsis with acute organ dysfunction (Acute) Bilateral pneumonia (Acute) Acute respiratory failure with hypoxia (Acute) Hypotension (Acute) Perforated small intestine (Acute) Peritonitis (Acute) Cystitis (Acute) E. coli Abdominal pain (Acute) Acute kidney injury (Acute) Small bowel obstruction (Acute) Date of Admission: 07/03/20 Date of Discharge: 07/11/20 - Primary Discharge Diagnosis Acute Problems: Active Problems (Last Reviewed 07/03/20 @ 17:[address] Josh Frost DO) #1 small bowel perforation with peritonitis #2 acute kidney injury #3 Severe sepsis present on admission secondary to alpha hemolytic strep (Streptococcus intermedius) #4 Hyperkalemia #5 urinary tract infection with E. coli #6 generalized debility - Secondary Discharge Diagnosis Chronic Problems: Chronic Problems (Last Reviewed 07/03/20 @ 17:[address] Josh Frost DO) Hypertension (Chronic) Aortic root enlargement (Chronic) Irritable bowel syndrome (Chronic) Hospital Course and Treatment Operations: - - Exploratory laparoscopy converted to an open laparotomy with small bowel resection with anastomosis Procedures: None Summary of Care Provided: The patient is a 85 year old F who was seen in the emergency room at [facility] with chief complaint nausea and vomiting with abdominal distention and pain, work-up in the emergency room included a CBC which revealed an elevated white blood cell count at 25,000, lactic acid was elevated at 2.4, creatinine was elevated at 2.28, potassium was low at 2.9, UA was abnormal for 4+ bacteria, 0-5 WBCs, and a CT of the abdomen pelvis without contrast showed increased density of the abdominal and pelvic fat, no definite abscess was noted, small bowel loops were fluid-filled and distended down to the right lower quadrant. It was felt that the patient had a small bowel obstruction and she was admitted to [place] [address] and seen in consultation by surgery. An NG tube was inserted and the patient was given IV fluids and over the next several days the patient's status did not improve. She finally was taken to surgery on 07/06/2020 and there was noted to be peritonitis and a perforated bowel. Patient did well overall after surgery but due to generalized debility, it was recommended that she go into short-term long-term for rehab services. Patient remained on IV antibiotics, urine culture grew out E. coli, blood culture grew out strep intermedius. On 07/11/2020, patient was seen and examined: On examination she appeared in good health and spirits, she does not appear to be in any distress. Vital signs as documented. Skin warm and dry and without overt rashes. Neck without JVD, thyroid appears normal, trachea is midline, neck is supple. Lungs clear, normal air movement was noted. Heart exam notable for regular rhythm, normal sounds and absence of murmurs, rubs or gallops. Abdomen unremarkable and without evidence of organomegaly, masses, or abdominal aortic enlargement, bowel sounds are present in all 4 quadrants, no abdominal tenderness was noted. Extremities nonedematous, no cyanosis was noted, no clubbing was noted. Neuro: Cranial nerves II through XII are grossly intact, no focal motor deficits were noted, sensation to light touch and pinprick is intact, motor exam 5/5 throughout. Psych: Patient is alert and oriented x3, she does not appear anxious or depressed, she does not appear agitated. On 07/11/2020, patient was seen and examined and felt to be stable for transfer to an extended care facility for short-term rehab services. Patient Problems: Active and Suspected Problems (Last Reviewed 07/03/20 @ 17:[address] Josh Frost, DO) Partial obstruction of small intestine (Acute) Hypokalemia (Acute) Ventricular premature beats (Acute) SIRS (systemic inflammatory response syndrome) (Acute) EDI (acute kidney injury) (Acute) Severe sepsis with acute organ dysfunction (Acute) Bilateral pneumonia (Acute) Acute respiratory failure with hypoxia (Acute) Hypotension (Acute) Perforated small intestine (Acute) Peritonitis (Acute) Cystitis (Acute) E. coli Abdominal pain (Acute) Acute kidney injury (Acute) Small bowel obstruction (Acute) - Physical Exam Vitals/I&O's: Vital Signs Temp Pulse Resp BP Pulse Ox 98.3 F 90 18 134/89 H 95 07/11/20 13:19 07/11/20 13:19 07/11/20 13:19 07/11/20 13:19 07/11/20 13:19 Oxygen Flow Rate (L/min) 2 Oxygen Delivery Method Room Air Weight: 78 kg Body Mass Index (BMI) 31.6 Intake and Output for Last 24 Hours 07/09/20 07/10/20 07/11/20 23:59 23:59 23:59 Intake Total 1687.29 / 1787.29 2716 / 2716 450 / 450 Output Total 900 / 900 400 / 400 Balance 787.29 / 887.29 2316 / 2316 450 / 450 Microbiology Past 72 Hours 07/11/20 12:25 Mucosa - Nose SARS-CoV-2 Antigen (Rapid) - Final 07/03/20 17:24 Blood Culture (Wb) - Anticubital Right Blood Culture - Final Alpha Hemolytic Streptococcus 07/03/20 17:20 Blood Culture (Wb) - Anticubital Left Blood Culture - Final Streptococcus intermedius Laboratory Results 07/11/20 05:14: WBC 9.0, RBC 3.47 L, Hgb 9.4 L, Hct 30.0 L, MCV 86.5 D, MCH 27.1, MCHC 31.3 L, RDW Std Deviation 47.8 H, RDW Coeff of Lynsey 15.0 H, Plt Count 325, MPV 10.2, Immature Gran % (Auto) 0.600, Neut % (Auto) 80.1 H, Lymph % (Auto) 7.4 L, [place] % (Auto) 10.2 H, Eos % (Auto) 1.6, Baso % (Auto) 0.1, Absolute Neuts (auto) 7.2, Absolute Lymphs (auto) 0.66 L, Nucleated RBC % 0 07/11/20 05:14: Sodium 140, Potassium 3.1 L, Chloride 106, Carbon Dioxide 27.0, Anion Gap 7, BUN 14, Creatinine 0.90, Estim Creat Clear Calc 37.46, Est GFR (MDRD) Af Amer 77, Est GFR (MDRD) Non-Af 64, BUN/Creatinine Ratio 15.6, Glucose 103, Calcium 7.6 L Home Medications: Medications to take at Discharge Hydrochlorothiazide 12.5 mg PO DAILY 08/25/19 Loperamide [Imodium] 2 mg PO DAILY PRN PRN 08/25/19 Omeprazole 40 mg PO DAILY 08/25/19 Acetaminophen [Tylenol Tablet] 650 mg PO Q6H PRN PRN tablet 06/27/20 Amox/Clavulanate Tablet [Augmentin Tablet] 875 mg PO BID #10 tab 07/11/20 Enoxaparin [Lovenox] 40 mg SC DAILY syringe 07/11/20 Nystatin Powder [Mycostatin Powder] 1 applic TOPICAL BID bottle 07/11/20 Oxycodone [Oxyir] 5 mg PO Q4H PRN PRN 7 Days #20 tablet 07/11/20 Potassium Chloride Oral Tablet [K-Dur] 40 meq PO DAILY #1 tablet 07/11/20 Following Prescriptions Were Given to Patient: Amox/Clavulanate Tablet [Augmentin Tablet] 875 mg PO BID #10 tab Potassium Chloride Oral Tablet [K-Dur] 40 meq PO DAILY #1 tablet Oxycodone [Oxyir] 5 mg PO Q4H PRN PRN 7 Days #20 tablet PRN Reason: Pain Score 6-10 Prescription Printed Primary Care Physician: Chapo Morfin MD [Primary Care Provider] - Please Follow Up With: Romain Huddleston MD When: the week of Jul 19 2020 Disposition: Assisted facility Minutes spent on discharge:: 32 Patient Condition:: Stable Medical Necessity - Tobacco Use Smoking Status: Never smoker Tobacco Use: Non-smoker Meaningful Use Info Meaningful Use Diagnoses (Choose all that apply): None applicable Inpatient E&M: 27656 Disch Hosp
== END 2020-07-11 14:08 | disposition skilled nursing facility (03) | DRG 853 ==
LOC: ED 17:39 → PCU 18:18 → MS3 07-06 12:08
PROVIDERS: Hospitalist; Physician Assistant; Surgery; Emergency Provider Emergency Medicine; PCP Family Medicine; Visit Provider Internal Medicine
PROC: 0DT80ZZ Resection of Small Intestine, Open Approach (ICD-10-PCS; CPT 49320; principal; 2020-07-06 10:45)
DX: A40.8 Other streptococcal sepsis (principal); J96.01 Acute respiratory failure with hypoxia; K65.0 Generalized (acute) peritonitis; K63.1 Perforation of intestine (nontraumatic); K56.600 Partial intestinal obstruction, unspecified as to cause; N17.9 Acute kidney failure, unspecified; J98.11 Atelectasis; K91.89 Other postprocedural complications and disorders of digestive system; K56.7 Ileus, unspecified; N39.0 Urinary tract infection, site not specified; R65.20 Severe sepsis without septic shock; B96.20 Unspecified Escherichia coli [E. coli] as the cause of diseases classified elsewhere; Z53.31 Laparoscopic surgical procedure converted to open procedure; E87.6 Hypokalemia; E87.5 Hyperkalemia; I10 Essential (primary) hypertension; I49.3 Ventricular premature depolarization; K58.0 Irritable bowel syndrome with diarrhea; I77.89 Other specified disorders of arteries and arterioles; E78.00 Pure hypercholesterolemia, unspecified; K21.9 Gastro-esophageal reflux disease without esophagitis; E66.9 Obesity, unspecified; Z68.32 Body mass index [BMI] 32.0-32.9, adult; Z78.0 Asymptomatic menopausal state; Z66 Do not resuscitate; Z79.899 Other long term (current) drug therapy
CPT/HCPCS: 36415; 71046; 74018; 74022; 74176; 80048; 80053; 80202; 81001; 82570; 83605; 83735; 84484; 84540; 85025; 87040; 87077; 87086; 87088; 87186; 87426; 88307; 93005; 94640; 97110; 97162; 97166; 97530; 97535; 97802; 99251; 99285; J7030; J7040; J7050; A4216; G0463; J2405

== ENCOUNTER 2021-03-06 16:12 | Inpatient (IN) | payer MEDICARE, SELFPAY ==
[2021-03-06] VITALS (8 sets, daily range): BP systolic 103–136; BP diastolic 71–84; PULSE 81–88; RESP 18–22; TEMP 36.2–37.1; O2SAT 87–96; BMI 30.7
--- NOTE | 2021-03-06 16:31 | EKG12_ITS ---
Test Reason : SOB Blood Pressure : / mmHG Vent. Rate : 083 BPM Atrial Rate : 083 BPM P-R Int : 118 ms QRS Dur : 088 ms QT Int : 408 ms P-R-T Axes : 065 096 161 degrees QTc Int : 479 ms Sinus rhythm with Premature atrial complexes T wave abnormality, consider anterolateral ischemia Prolonged QT Abnormal ECG Confirmed by JOSE LUIS NICHOLS, GABE ([id number]), social media editor JANUARY LEMON ([id number]) on 03/07/2021 11:32:54 AM Referred By: Confirmed By:GABE AMAYA MD
--- NOTE | 2021-03-06 16:32 | EDS_ITS ---
HPI History of Present Illness Chief Complaint: Shortness of Breath Detail of Chief Complaint: Shortness of breath that started 2 or 3 days ago Informant: patient Narrative Narrative: Patient presents to the emergency department complaint shortness of breath started 2 or 3 days ago. Patient states she wants to find out if she has Covid or pneumonia. Patient normally on 2 L of O2 at home. She complains of exertional dyspnea. He has had a cough with some srivastava sputum at times. Patient had subjective fever at home. She had some body aches and headaches. She has been vaccinated against Covid but has not had her booster yet. Patient states she was exposed to her sister and nephew who have Covid and that was about 14 days ago. [facility] Medical History Abdominal pain Acute kidney injury Aortic root enlargement Hypertension Irritable bowel syndrome Small bowel obstruction Home Medications loperamide 2 mg PO DAILY PRN PRN 08/25/19 [History Last Taken 06/23/20] acetaminophen 650 mg PO Q6H PRN PRN tablet 06/27/20 [Rx Last Taken Unknown] calcium carbonate 600 mg calcium (1,500 mg) tablet 600 mg PO BID tab 07/23/20 [History Last Taken Unknown] ferrous sulfate 325 mg (65 mg iron) tablet 325 mg PO DAILY 07/23/20 [History Last Taken Unknown] pantoprazole 40 mg tablet,delayed release 40 mg PO DAILY 07/23/20 [History Last Taken Unknown] biotin 1 mg PO DAILY 03/06/21 [History Last Taken Unknown] cholecalciferol (vitamin D3) [Vitamin D3] 125 mcg PO DAILY 03/06/21 [History Last Taken Unknown] hydrochlorothiazide 12.5 mg PO DAILY 03/06/21 [History Last Taken Unknown] omega-3 fatty acids [Fish Oil] 1,000 mg PO DAILY 03/06/21 [History Last Taken Unknown] potassium chloride 20 meq PO DAILY 03/06/21 [History Last Taken Unknown] prednisone 10 mg PO DAILY 03/06/21 [History Last Taken Unknown] Allergy/AdvReac Type Severity Reaction Status Date / Time codeine Allergy Rash Verified 03/06/21 16:14 fenofibrate Allergy Unknown Verified 03/06/21 16:14 lisinopril Allergy Unknown Verified 03/06/21 16:14 perfume Allergy Unknown Verified 03/06/21 16:14 Sulfa (Sulfonamide Allergy Unknown Verified 03/06/21 16:14 Antibiotics) zolpidem Allergy Unknown Verified 03/06/21 16:14 cholecalciferol (vitamin D3) AdvReac Upset Verified 03/06/21 16:14 Stomach meloxicam AdvReac Unknown Verified 03/06/21 16:14 Surgical History S/P laparoscopy Social History Smoking Status: Never smoker ROS ROS ED Constitutional Constitutional ED: Reports systems reviewed and no addt'l complaints, except as documented, chills, fever(s) and sweats; Denies body ache(s) or change in weight Eyes Eyes: Denies acute decrease in peripheral vision, change in vision, double vision or loss of vision ENT ENT ED: Reports none; Denies ear pain, lip swelling, loss taste/smell, neck pain, otalgia or sore throat Cardiovascular Cardiovascular: Reports none; Denies abdominal pain, chest pain with activity, leg edema, lightheadedness, palpitations, rapid heart rate or syncope Respiratory/Chest Respiratory/Chest: Reports none, cough, dyspnea and sputum; Denies change in mental status, dry cough, hemoptysis, shortness of breath at rest or shortness of breath with exertion Gastrointestinal Gastrointestinal: Reports none; Denies abdominal pain, change in stool character, diarrhea, hematemesis, hematochezia, melena, rectal bleeding or vomiting Genitourinary Genitourinary ED: Reports none; Denies abdominal discomfort, anuria, dysuria, genital pain or polyuria Musculoskeletal Musculoskeletal: Reports none and myalgias; Denies arthralgias, back pain, difficulty walking, extremity pain or muscle weakness Integumentary Reports none; Denies abscess or rash Neurologic Neurologic: Reports none; Denies abnormal gait, confusion, focal weakness, frequent falls, headache(s), loss of vision, numbness, paresthesias, radicular pain, vertigo or weakness Psychiatric Psychiatric: Reports systems reviewed and no addt'l complaints, except as documented and none; Denies behavioral changes, confusion, difficulty concentrating, hallucinations, suicidal ideation, tactile hallucinations or visual hallucinations Endocrine Endocrinology: Denies none, cold intolerance, excessive sweating, fatigue or heat intolerance Hematologic/Lymphatic Hematologic/Lymphatic: Reports none; Denies anemia, easy bleeding or easy bruising Allergic/Immunologic Allergic/Immunologic ED: Denies as per HPI, none, lip swelling, mouth swelling, throat swelling, tongue swelling or hives EXAM Physical Exam Const Vital Signs: 03/06/21 16:12 03/06/21 16:55 03/06/21 16:56 Temperature 97.1 F L Temperature Source Temporal Pulse Rate 81 88 Respiratory Rate 22 H 22 H Respiratory Effort Normal Respiratory Depth Normal Respiratory Pattern Normal Blood Pressure 103/78 Blood Pressure Mean 86 Pulse Ox 87 95 Oxygen Delivery Method Nasal Cannula Nasal Cannula Nasal Cannula Oxygen Flow Rate (L/min) 2 2 2 03/06/21 18:24 Temperature Temperature Source Pulse Rate 83 Respiratory Rate 18 Respiratory Effort Respiratory Depth Respiratory Pattern Blood Pressure 119/84 H Blood Pressure Mean 95 Pulse Ox 94 Oxygen Delivery Method Nasal Cannula Oxygen Flow Rate (L/min) 2 Positive well nourished and well developed General Appearance ED: well developed and NAD HEENT Reports TM's clear and moist mucous membranes normocephalic and atraumatic; Negative for trauma or tenderness Tympanic Membrane ED: Yes TM's clear Eyes PERRL and EOMs intact bilaterally General Eye ED: Negative for pale conjunctiva or scleral icterus Neck no lymphadenopathy, supple and no JVD General: Negative for tenderness Chest Wall inspection of chest normal and palpation of chest normal Chest: Negative for tenderness Resp normal respiratory effort and clear to auscultation bilaterally Effort and Inspection: Negative for respiratory distress or pain with movement Auscultation: Negative for rhonchi, wheezes or diminished lung sounds Cardio regular rate, regular rhythm, S1 normal heart sound, S2 normal heart sound and no murmurs Peripheral Pulses: pulses 2+ throughout GI normal to inspection, nondistended, normoactive bowel sounds, soft to palpation, non-tender, non-distended and no masses Back/Spine no CVA tenderness and no thoracic nor lumbar tenderness Extremity normal to inspection General Extremety ED: Negative for edema General Extremity: Negative for edema Neuro oriented x3, CN's II-XII intact bilaterally, no sensory deficits noted and gait normal Sensorium / Orientation: awake, alert, oriented to person, oriented to place and oriented to time Motor Exam: strength 5/5 throughout and strength abnormal Psych mental status grossly normal Skin no rashes or lesions noted and no wounds MDM MDM MDM Narrative Medical decision making narrative: IV line established on arrival. Patient work-up consistent with Covid. She had a CTA which was negative for PE. She had bilateral infiltrates on x-ray. Patient has evidence of cardiomegaly and pulmonary edema versus to masslike consolidations in the left lingula on CT. with ambulation on arrival on 2 L her O2 sat was 87%. Patient was quite dyspneic. Case will be discussed with hospitalist to evaluate for admission. Lab Data Attestation: I reviewed the patient's lab results. Labs: Laboratory Results - last 24 hr 03/06/21 03/06/21 03/06/21 16:45 16:45 16:45 WBC 9.9 RBC 3.64 L Hgb 10.5 L Hct 32.5 L MCV 89.3 MCH 28.8 MCHC 32.3 RDW Std Deviation 49.4 H RDW Coeff of Lynsey 15.1 H Plt Count 236 MPV 10.2 Immature Gran % (Auto) 0.400 Neut % (Auto) 87.1 H Lymph % (Auto) 3.3 L [place] % (Auto) 8.4 Eos % (Auto) 0.6 Baso % (Auto) 0.2 Absolute Neuts (auto) 8.6 H Absolute Lymphs (auto) 0.33 L Nucleated RBC % 0 Differential Comment Platelet Estimate ADEQUATE RBC Morphology NORM C+C D-Dimer Quant (PE/DVT) 2.94 H* Sodium 135 L Potassium 3.5 Chloride 99 Carbon Dioxide 29.0 Anion Gap 7 BUN 28 H Creatinine 1.30 H Estim Creat Clear Calc 25.93 Est GFR (MDRD) Af Amer 50 L Est GFR (MDRD) Non-Af 42 L BUN/Creatinine Ratio 21.5 H Glucose 113 H Lactic Acid Calcium 8.9 Troponin I High Sens 34 B-Natriuretic Peptide 03/06/21 03/06/21 16:45 16:45 WBC RBC Hgb Hct MCV MCH MCHC RDW Std Deviation RDW Coeff of Lynsey Plt Count MPV Immature Gran % (Auto) Neut % (Auto) Lymph % (Auto) [place] % (Auto) Eos % (Auto) Baso % (Auto) Absolute Neuts (auto) Absolute Lymphs (auto) Nucleated RBC % Differential Comment Platelet Estimate RBC Morphology D-Dimer Quant (PE/DVT) Sodium Potassium Chloride Carbon Dioxide Anion Gap BUN Creatinine Estim Creat Clear Calc Est GFR (MDRD) Af Amer Est GFR (MDRD) Non-Af BUN/Creatinine Ratio Glucose Lactic Acid 1.4 Calcium Troponin I High Sens B-Natriuretic Peptide 876.5 H Radiography Diagnostic Testing: Clinical Impression(s) from Imaging Studies Chest X-Ray 03/06/21 17:00 IMPRESSION: Nodular airspace opacities in the left mid and lower lung concerning for infection versus malignancy. Interval increase in right hilar adenopathy. Recommend chest CT with contrast. Electronically Signed: King Lau MD at 18:02 EST Tel , Service support , EKG Initial EKG: Attestation: I personally reviewed and interpreted this EKG as follows: Comments: Sinus rhythm with a ventricular rate of [address] changes Discharge Plan Triage Chief Complaint: Shortness of Breath ED Provider: Collin Rodriguez Dx/Rx/DC Orders Clinical Impression: COVID-19, Hypoxemia, Acute dyspnea Prescriptions: No Action pantoprazole 40 mg tablet,delayed release (DR/EC) 40 mg PO DAILY RF: 0 calcium carbonate [Calcium 600] 600 mg calcium (1,500 mg) tablet 600 mg PO BID RF: 0 ferrous sulfate 325 mg (65 mg iron) tablet 325 mg PO DAILY RF: 0 loperamide 2 MG capsule 2 mg PO DAILY PRN PRN (Reason: Diarrhea) RF: 0 acetaminophen 325 MG tablet 650 mg PO Q6H PRN PRN (Reason: Pain Score 1-10/Temp > 100.7 F) RF: 0 prednisone 10 mg Tablet 10 mg PO DAILY RF: 0 hydrochlorothiazide 12.5 mg capsule 12.5 mg PO DAILY RF: 0 Fish Oil Capsule 1,000 mg PO DAILY RF: 0 cholecalciferol (vitamin D3) [Vitamin D3] 125 mcg (5,000 unit) Tablet 125 mcg PO DAILY RF: 0 potassium chloride 20 MEQ tablet,ER particles/crystals 20 meq PO DAILY RF: 0 biotin 500 mcg Capsule 1 mg PO DAILY RF: 0 Primary Care Provider: Chapo Morfin Referrals: Chapo Morfin MD [Primary Care Provider] -
--- NOTE | 2021-03-06 17:00 | RAD_ITS ---
INDICATION: cough EXAMINATION/TECHNIQUE: X-RAY - XR Chest 1 View COMPARISON: 07/08/2020. FINDINGS: Nodular airspace opacities in the left mid and lower lung. Tortuous and calcified thoracic aorta. The heart is mildly enlarged. Interval increase in right hilar adenopathy. No pleural effusion or pneumothorax. No acute osseous abnormalities. RAD/Chest 1 View (Portable) IMPRESSION: Nodular airspace opacities in the left mid and lower lung concerning for infection versus malignancy. Interval increase in right hilar adenopathy. Recommend chest CT with contrast. Electronically Signed: King Lau MD at 18:02 EST Tel , Service support ,
[2021-03-06 17:10] LABS: Absolute Lymphocyte Count 0.33 X10^3/uL (0.83-4.51); Absolute Neutrophil Count 8.6 X10^3/uL (2.0-7.7); Basophil# 0.02 X10^3/uL; Basophil% 0.2 % (0-1); Eosinophil# 0.06 X10^3/uL; Eosinophils% 0.6 % (0-5); Hematocrit 32.5 % (37-47); Hemoglobin 10.5 g/dL (12.0-15.0); Lymphocyte # 0.33 X10^3/ul (0.83-4.51); Lymphocyte % 3.3 % (19-41); Mean Corp Hgb Conc 32.3 g/dL (32-36); Mean Corpuscular Hgb 28.8 pg (27.0-32.0); Mean Corpuscular Volume 89.3 fL (81-99); Mean Platelet Vol. 10.2 fl (6.2-12.0); Monocyte# 0.83 X10^3/uL; Monocyte% 8.4 % (0-10); NRBC Flagged by Analyzer 0 % (0-5); Neutrophil # 8.59 X10^3/uL (2.7-7.7); Neutrophil % 87.1 % (47-70); POSITIVE DIFFERENTIAL YES; Platelet Count 236 K/mm3 (150-450); RBC Distribution Width CV 15.1 % (11.6-14.6); RBC Distribution Width SD 49.4 fl (35.1-43.9); Red Blood Count 3.64 M/mm3 (4.2-5.4); White Blood Count 9.9 K/mm3 (4.4-11.0)
[2021-03-06 17:24] LABS: Anion Gap 7 (5-15); BUN 28 mg/dL (7-18); BUN/Creat Ratio 21.5 RATIO (10-20); Calcium,Total 8.9 mg/dL (8.5-10.1); Chloride 99 mmol/L (98-107); EST Glomerular Filtration Rate 42 mL/min (>60); Est Glom Filt Rate - Afr Amer 50 mL/min (>60); Estimated Creatinine Clearance 25.93 ml/min; Glucose 113 mg/dL (74-106); Lactic Acid 1.4 mmol/L (0.4-1.9); Potassium 3.5 mmol/L (3.5-5.1); Sodium Level 135 mmol/L (136-145); Troponin-I HS 34 pg/mL (3.0-54.0)
[2021-03-06 17:31] LABS: Differential Indicated SCAN CRITERIA MET
[2021-03-06 17:42] LABS: BNP,B-Type NATRIURETIC PEPTIDE 876.5 pg/mL (0-100)
[2021-03-06 18:12] LABS: Platelet Estimate ADEQUATE (ADEQ); Red Cell Morphology NORM C+C NORMAL (NORM C&C)
[2021-03-06 18:15] LABS: D-Dimer Quantitative (DVT/PE) 2.94 FEU/ug/m (0.27-0.49)
--- NOTE | 2021-03-06 18:19 | CT_ITS ---
HISTORY: Cough and dyspnea, elevated d-dimer EXAMINATION: CTA Chest WO/W Contrast Injection TECHNIQUE: Helically acquired images were obtained of the chest following IV contrast as per pulmonary angiogram protocol with 3D reconstructions. A radiation dose optimization technique was used for this scan. IV Contrast dosage and agent: 100mL [id number] COMPARISON: None FINDINGS: LUNGS, PLEURA AND LARGE AIRWAYS: 5 cm masslike consolidation in the inferior lingula extending to the pleural surface. 4 mm masslike consolidation left lower lobe medially extending into the pleural surface of the hemidiaphragm. Small left pleural effusion. Bilateral hazy groundglass opacities with peripheral septal thickening. THYROID: No thyroid lesions. PULMONARY ARTERIES: Normal in caliber. No pulmonary embolism. AORTA AND GREAT VESSELS: No aneurysm or dissection. HEART AND PERICARDIUM: Cardiomegaly. No pericardial effusion. RV to LV ratio measures greater than 1. MEDIASTINUM AND BRYAN: Mediastinal and right hilar adenopathy. Esophagus is unremarkable. No hiatal hernia. UPPER ABDOMEN: Reflux of contrast into the hepatic veins. BONES: No acute or aggressive abnormality. CT/CTA Chest W/WO Contrast IMPRESSION: Negative CTA Chest. Cardiomegaly with findings of pulmonary edema versus infection with 2 masslike consolidations on the left, lingula and left lower lobe. Short-term follow-up for resolution and to exclude neoplasia is recommended. Associated small left pleural effusion with mediastinal and right hilar adenopathy. Evidence of right heart strain. Individualized dose optimization techniques were used for this CT. at 1918 Reported and signed by: Doug Love MD Electronically Signed: Doug Love MD at 19:16 EST Tel , Service support ,
[2021-03-06] MEDS: dexAMETHasone 4 MG Tablet 6 MG PO (19:45)
--- NOTE | 2021-03-06 20:03 | PCM.HP.STD ---
HPI - General General Date of Admission: 03/06/21 Date of Service: 03/06/21 Chief Complaint: Shortness of breath HPI Narrative FANTA TREVIÑO, is a 85 F who presents to the emergency room at [facility] with a chief complaint of increased shortness of breath of the last 2 days, she is on home O2 chronically at 2 L, at the time of triage on 2 L her pulse ox was 87%. Work-up in the ER was carried out, CBC was unremarkable except for hemoglobin of 10.5, D-dimer was elevated at 2.94, sodium was 135, creatinine was 1.3, BUN was 28. Patient's beta natruretic peptide was 876. CTA of the chest was negative for embolus, there was cardiomegaly with findings of pulmonary edema with 2 masslike consolidations on the left lingular and left lower lobe. Rapid COVID-19 test was positive. Patient states she has been vaccinated. Patient will be admitted to [place] [id number] for COVID-19 pneumonia, I will give the patient IV diuretics at a low dose for presumed CHF, I will also perform a PCR to confirm that the patient does have COVID-19. [facility] Medical History Abdominal pain Acute kidney injury Aortic root enlargement Hypertension Irritable bowel syndrome Small bowel obstruction Home Medications loperamide 2 mg PO DAILY PRN PRN 08/25/19 [History Last Taken 06/23/20] acetaminophen 650 mg PO Q6H PRN PRN tablet 06/27/20 [Rx Last Taken Unknown] calcium carbonate 600 mg calcium (1,500 mg) tablet 600 mg PO BID tab 07/23/20 [History Last Taken Unknown] ferrous sulfate 325 mg (65 mg iron) tablet 325 mg PO DAILY 07/23/20 [History Last Taken Unknown] pantoprazole 40 mg tablet,delayed release 40 mg PO DAILY 07/23/20 [History Last Taken Unknown] biotin 1 mg PO DAILY 03/06/21 [History Last Taken Unknown] cholecalciferol (vitamin D3) [Vitamin D3] 125 mcg PO DAILY 03/06/21 [History Last Taken Unknown] hydrochlorothiazide 12.5 mg PO DAILY 03/06/21 [History Last Taken Unknown] omega-3 fatty acids [Fish Oil] 1,000 mg PO DAILY 03/06/21 [History Last Taken Unknown] potassium chloride 20 meq PO DAILY 03/06/21 [History Last Taken Unknown] prednisone 10 mg PO DAILY 03/06/21 [History Last Taken Unknown] Allergy/AdvReac Type Severity Reaction Status Date / Time codeine Allergy Rash Verified 03/06/21 16:14 fenofibrate Allergy Unknown Verified 03/06/21 16:14 lisinopril Allergy Unknown Verified 03/06/21 16:14 perfume Allergy Unknown Verified 03/06/21 16:14 Sulfa (Sulfonamide Allergy Unknown Verified 03/06/21 16:14 Antibiotics) zolpidem Allergy Unknown Verified 03/06/21 16:14 cholecalciferol (vitamin D3) AdvReac Upset Verified 03/06/21 16:14 Stomach meloxicam AdvReac Unknown Verified 03/06/21 16:14 Surgical History S/P laparoscopy Social History Smoking Status: Never smoker ROS Constitutional Constitutional: Denies anorexia, change in weight, fever(s), night sweats or weakness Eyes Eyes: Denies blurry vision, change in vision, discharge from eye(s) or eye pain ENT HEENT: Denies abnormal hearing, dysphagia, ear pain or headache(s) Cardiovascular Cardiovascular: Reports dyspnea on exertion; Denies chest pain, claudication, edema or palpitations Respiratory/Chest Respiratory/Chest: Reports dyspnea and shortness of breath with exertion; Denies cough, hemoptysis or shortness of breath at rest Gastrointestinal Gastrointestinal: Denies abdominal pain, constipation, diarrhea, hematemesis, hematochezia, melena, nausea or vomiting Genitourinary Genitourinary: Denies dysuria, hematuria, urinary frequency, urinary hesitancy, urinary incontinence or urinary urgency Musculoskeletal Musculoskeletal: Denies back pain, joint pain, joint stiffness, joint swelling, myalgias or neck pain Neurologic Neurologic: Denies abnormal gait, abnormal speech, dizziness, focal weakness, headache(s), loss of vision, numbness, other visual disturbances, paresthesias, syncope or tingling Psychiatric Psychiatric: Denies anxiety, cognitive impairment, depression, irritability, mood swings or suicidal ideation Endocrine Endocrinology: Denies change in body appearance, cold intolerance, excessive sweating, heat intolerance, polydipsia or polyuria Hematologic/Lymphatic Hematologic/Lymphatic: Denies none, anemia, easy bleeding, easy bruising or lymphadenopathy Allergic/Immunologic Allergic/Immunologic: Denies rhinitis, urticaria, eczemia or asthma Vital Signs Vital Signs Vital Signs: 03/06/21 16:12 03/06/21 16:55 03/06/21 16:56 Temperature 97.1 F L Temperature Source Temporal Pulse Rate 81 88 Respiratory Rate 22 H 22 H Respiratory Effort Normal Respiratory Depth Normal Respiratory Pattern Normal Blood Pressure 103/78 Blood Pressure Mean 86 Pulse Ox 87 95 Oxygen Delivery Method Nasal Cannula Nasal Cannula Nasal Cannula Oxygen Flow Rate (L/min) 2 2 2 03/06/21 18:24 03/06/21 19:50 Temperature 97.1 F L Temperature Source Temporal Pulse Rate 83 83 Respiratory Rate 18 18 Respiratory Effort Respiratory Depth Respiratory Pattern Blood Pressure 119/84 H 119/84 H Blood Pressure Mean 95 95 Pulse Ox 94 94 Oxygen Delivery Method Nasal Cannula Nasal Cannula Oxygen Flow Rate (L/min) 2 2 Weight Weight: 76.204 kg Body Mass Index (BMI) 30.7 Physical Exam Const alert, oriented x3, no apparent distress and healthy appearing General Appearance: cooperative, well kempt and well developed Orientation / Consciousness: awake, oriented to person, oriented to place and oriented to time HEENT normocephalic and moist oral mucous membranes Eyes PERRL, EOMs intact bilaterally and conjunctivae normal Neck nuchal rigidity, supple, no JVD, thyroid normal and no carotid bruits General: trachea midline Resp normal respiratory effort Resp Narrative: Patient has scattered inspiratory rales at the bases bilaterally Auscultation: Negative for rales, rhonchi or wheezes Cardio regular rate, regular rhythm, S1 normal heart sound, S2 normal heart sound, no murmurs, no rub and no gallops GI normal to inspection, nondistended, normoactive bowel sounds, soft to palpation, non-tender and non-distended Extremity no clubbing, cyanosis or edema Skin no rashes or lesions noted General Skin Exam: no breakdown Neuro oriented x3, CN's II-XII intact bilaterally, no focal motor deficits and no sensory deficits noted Sensorium / Orientation: awake and alert Speech: speech normal Psych thought process normal and affect normal Results Lab / Micro Data Result Diagrams: 03/06/21 16:45 03/06/21 16:45 Labs: Laboratory Results - last 24 hr 12/19/21 16:45: WBC 9.9, RBC 3.64 L, Hgb 10.5 L, Hct 32.5 L, MCV 89.3, MCH 28.8, MCHC 32.3, RDW Std Deviation 49.4 H, RDW Coeff of Lynsey 15.1 H, Plt Count 236, MPV 10.2, Immature Gran % (Auto) 0.400, Neut % (Auto) 87.1 H, Lymph % (Auto) 3.3 L, Wagoner % (Auto) 8.4, Eos % (Auto) 0.6, Baso % (Auto) 0.2, Absolute Neuts (auto) 8.6 H, Absolute Lymphs (auto) 0.33 L, Nucleated RBC % 0, Differential Comment , Platelet Estimate ADEQUATE, RBC Morphology NORM C+C 03/06/21 16:45: D-Dimer Quant (PE/DVT) 2.94 H* 03/06/21 16:45: Sodium 135 L, Potassium 3.5, Chloride 99, Carbon Dioxide 29.0, Anion Gap 7, BUN 28 H, Creatinine 1.30 H, Estim Creat Clear Calc 25.93, Est GFR (MDRD) Af Amer 50 L, Est GFR (MDRD) Non-Af 42 L, BUN/Creatinine Ratio 21.5 H, Glucose 113 H, Calcium 8.9, Troponin I High Sens 34 03/06/21 16:45: Lactic Acid 1.4 03/06/21 16:45: B-Natriuretic Peptide 876.5 H Micro: Microbiology 03/06/21 16:50 Mucosa - Nose Influenza Types A,B Direct FA (ELIEL) - Final 03/06/21 16:46 Nasal Secretion SARS-CoV-2 Antigen (Rapid) - Final SARS-CoV-2 (COVID 19) Radiology Impression Chest X-Ray 03/06/21 17:00 IMPRESSION: Nodular airspace opacities in the left mid and lower lung concerning for infection versus malignancy. Interval increase in right hilar adenopathy. Recommend chest CT with contrast. Electronically Signed: King Lau MD at 18:02 EST Tel , Service support , Chest CTA 03/06/21 18:19 IMPRESSION: Negative CTA Chest. Cardiomegaly with findings of pulmonary edema versus infection with 2 masslike consolidations on the left, lingula and left lower lobe. Short-term follow-up for resolution and to exclude neoplasia is recommended. Associated small left pleural effusion with mediastinal and right hilar adenopathy. Evidence of right heart strain. Individualized dose optimization techniques were used for this CT. at 1918 Reported and signed by: Doug Love MD Electronically Signed: Doug Love MD at 19:16 EST Tel , Service support , Assessment & Plan Assessment/Plan (1) COVID-19: PLAN: 1. COVID-19 pneumonia-patient will be admitted to [facility], she will be given IV remdesivir and dexamethasone, I have elected to perform a PCR on her to confirm that she has Covid. #2 congestive heart failure-patient has had no documented history in her medical record of congestive heart failure, her beta natruretic peptide is elevated, her CTA shows findings in keeping with pulmonary edema. I have elected to place her on IV Lasix, I have not going to order an echocardiogram at this point. #3 abnormal CTA of the chest showing possible masses in the left lung-patient's CAT scan will need to be repeated, she may need to see pulmonary medicine in consultation regarding this finding. #4 acute on chronic hypoxic respiratory failure-patient states this is secondary to pulmonary hypertension-according to the ER physician, patient requires more than 2 L of oxygen to maintain her pulse ox on ambulation. #5 essential hypertension #6 prednisone usage-patient takes prednisone because her PCP gave her this to build her up according to the patient Charges/Coding Visit Charges Inpatient E&M: 40373 Init Hosp L3
[2021-03-06] MEDS: Heparin Injection (Vial) 5,000 UNIT/ML VIAL 5000 UNIT SC (21:49)
[2021-03-06] MEDS: Furosemide 20 MG/2 ML VIAL IV (21:50)
[2021-03-06] MEDS: Remdesivir 200 MG IV x1 (Inital Dose)-All Patients 125 MG IV (22:15)
--- NOTE | 2021-03-06 22:20 | NURSING ---
Pt daughter Dania called and stated she does not want patient to have Vanco or Remedesivir treatment. She wants her to have Budosemide inhaler. Pt informed that daughter called. Pt stated she does not talk to her daughter much and knew she just had Covid but was given a treatment that did not require her to be hospitalized. Pt also stated her sister and nephew had Covid and were hospitalized but did not know what course of treatment they received either. Pt was informed we do not do the Budosemide treatment here, that she is of sound and mind and was able to make this decision on her own. Pt stated I need to be treated with something and I hate to go against her wishes but I want to go ahead with the Remdesivir treatment.
[2021-03-07] VITALS (7 sets, daily range): BP systolic 124–147; BP diastolic 65–71; PULSE 88–94; RESP 18–20; TEMP 36.6–37.1; O2SAT 85–94
[2021-03-07] MEDS: Heparin Injection (Vial) 5,000 UNIT/ML VIAL 5000 UNIT SC (06:14)
[2021-03-07 06:50] LABS: Absolute Lymphocyte Count 0.21 X10^3/uL (0.83-4.51); Absolute Neutrophil Count 6.5 X10^3/uL (2.0-7.7); Basophil# 0.01 X10^3/uL; Basophil% 0.1 % (0-1); Hematocrit 33.4 % (37-47); Hemoglobin 10.8 g/dL (12.0-15.0); Lymphocyte # 0.21 X10^3/ul (0.83-4.51); Mean Corp Hgb Conc 32.3 g/dL (32-36); Mean Corpuscular Hgb 28.6 pg (27.0-32.0); Mean Corpuscular Volume 88.4 fL (81-99); Mean Platelet Vol. 10.7 fl (6.2-12.0); Monocyte# 0.18 X10^3/uL; Monocyte% 2.6 % (0-10); NRBC Flagged by Analyzer 0 % (0-5); Neutrophil # 6.49 X10^3/uL (2.7-7.7); Neutrophil % 93.7 % (47-70); POSITIVE DIFFERENTIAL YES; Platelet Count 255 K/mm3 (150-450); RBC Distribution Width CV 15.1 % (11.6-14.6); RBC Distribution Width SD 48.9 fl (35.1-43.9); Red Blood Count 3.78 M/mm3 (4.2-5.4); White Blood Count 6.9 K/mm3 (4.4-11.0)
[2021-03-07 07:16] LABS: ALB/GLOB Ratio 0.7 RATIO (0.9-2.4); AST(SGOT) 19 U/L (15-37); Alanine Aminotransfer ALT/SGPT 13 U/L (13-56); Albumin, Serum 2.9 g/dL (3.2-5.0); Alkaline Phosphatase 95 U/L (45-117); Anion Gap 8 (5-15); BUN 27 mg/dL (7-18); BUN/Creat Ratio 24.3 RATIO (10-20); Calcium,Total 9.1 mg/dL (8.5-10.1); Chloride 99 mmol/L (98-107); Creatinine, Serum 1.11 mg/dL (0.55-1.02); EST Glomerular Filtration Rate 50 mL/min (>60); Est Glom Filt Rate - Afr Amer 60 mL/min (>60); Estimated Creatinine Clearance 28.98 ml/min; Globulin 4.4 g/dL (2.2-4.2); Glucose 144 mg/dL (74-106); Potassium 3.4 mmol/L (3.5-5.1); Protein, Total 7.3 g/dL (6.4-8.2); Sodium Level 137 mmol/L (136-145)
[2021-03-07 07:18] LABS: Differential Indicated SCAN CRITERIA MET
[2021-03-07] MEDS: 0.9% Saline Lock 10 ML Syringe IV (08:55)
[2021-03-07] MEDS: Pantoprazole Sodium 40 MG Tablet PO (08:56)
[2021-03-07] MEDS: Potassium Chloride Oral Tablet 20 MEQ PO (08:56)
[2021-03-07] MEDS: Furosemide 20 MG/2 ML VIAL IV (08:56)
[2021-03-07] MEDS: dexAMETHasone 4 MG/ML Vial 6 MG IV (08:56)
--- NOTE | 2021-03-07 12:00 | CASEMGMT ---
Addendum entered by Alyssa Garay 03/08/21 10:41: Pt qualified for change in O2 rx. Faxed updated script to [facility] at this time. Original Note: YOVANI GARAY Assessment: Face to Face with pt for initial transition planning/care coordination assessment. YOVANI GARAY introduced self and role at [facility], pt voices understanding and consents to assessment. Pt is A/O x4 and answers all questions appropriately at this time. Pt sitting up in chair with O2 on in no distress. Care providers, pharmacy, and demographics verified/updated. Admitting Dx: COVID 19 PNA PCP: Shelbie Specialists:Davey cardio; ryan Thompson Preferred Pharmacy: [facility] Chris Insurance: [employer] [facility] Prescription Benefit: yes LW/HPOA: Pt denies having a LW/DPOA and denies need for info regarding AD. LNOK: Chandana Flood, son; Manisha Roland, sister Living Arrangements: Pt lives with son in a mobile home with 4 steps to enter with rail. Pt reports she is I in ADL's and denies concerns at home. Transportation: Pt drives self and denies concerns with transportation. DME/HHC/SNF: Pt has O2 at home through [facility] at 2L cont, a walker that is used for long distances and a cane used for short distances. Pt also has a rollator, bath chair and hand rails in the bathroom. Pt has her portable O2 here at the hospital to go home on. Pt has had HHC in the past but is unsure who the provider was. Pt has been to [facility] this past year. Pt states she was first tested for COVID at [facility]. She is able to quarantine from her son by using separate bedrooms but not bathrooms as they only have one. Pt has family who can provide her with groceries and supplies. Pt states no concerns with going home at time of dc. She does not anticipate any need for therapy. Pt states no further concerns/needs. CM to follow. Advised pt to ask CM if any further question/concerns/needs arise, voices understanding. Pt Goal: Home Plan: Home
--- NOTE | 2021-03-07 14:04 | PCM.DC ---
Discharge Instructions Diet Discharge Diet: No restrictions Activity Discharge Activity: Return to Normal Activity Additional Activity Instructions:: Self isolate for at least 20 days since symptoms began 03/04/2021-03/24/2021. AND at least one day (24 hours) have passed since resolution of fever without the use of fever-reducing agents AND improvement of symptoms (e.g., cough, shortness of breath) When around people in the same room, wear a face mask. Individuals also in the room should wear a mask. If possible, use a different bathroom and bedroom. Perform adequate hand hygiene. Avoid sharing dishes, glasses, etc. Follow Up Care Test Results: Test results from this visit will be discussed in further detail at your follow-up appointment, if applicable. Discharge Plan Admission Admit Date/Time: 03/06/21 20:25 Primary Reason for Your Visit: COVID 19 Attending Provider: Josh Frost Primary Care Provider: Chapo Morfin Discharge Orders/Prescriptions Prescriptions: New dexamethasone 6 mg tablet 6 mg PO DAILY Qty: 8 RF: 0 Continued pantoprazole 40 mg tablet,delayed release (DR/EC) 40 mg PO DAILY RF: 0 calcium carbonate [Calcium 600] 600 mg calcium (1,500 mg) tablet 600 mg PO BID RF: 0 ferrous sulfate 325 mg (65 mg iron) tablet 325 mg PO DAILY RF: 0 loperamide 2 MG capsule 2 mg PO DAILY PRN PRN (Reason: Diarrhea) RF: 0 acetaminophen 325 MG tablet 650 mg PO Q6H PRN PRN (Reason: Pain Score 1-10/Temp > 100.7 F) RF: 0 hydrochlorothiazide 12.5 mg capsule 12.5 mg PO DAILY RF: 0 omega-3 fatty acids Capsule 1,000 mg PO MO RF: 0 cholecalciferol (vitamin D3) [Vitamin D3] 125 mcg (5,000 unit) Tablet 125 mcg PO DAILY RF: 0 potassium chloride 20 MEQ tablet,ER particles/crystals 20 meq PO DAILY RF: 0 biotin 500 mcg Capsule 1 mg PO DAILY RF: 0 Held prednisone 10 mg Tablet 10 mg PO DAILY RF: 0 Hold Instructions: Resume on 03/15/21. Referrals / Follow Up: Chapo Morfin MD [Primary Care Provider] - Within 2 Weeks Disposition Disposition (needs filled in before D/C Order can be placed): Home, Self Care
--- NOTE | 2021-03-07 14:10 | DS.PCM_ITS ---
Providers Date of Admission: 03/06/21 Primary Care Physician: Dr. Chapo Morfin MD Reason For Visit: COVID-19 PNEUMONIA Diagnosis Discharge Diagnosis (1) COVID-19: Status: Acute Code(s): U07.1 - COVID-19 Medications at Discharge Home Medications loperamide 2 mg PO DAILY PRN PRN 08/25/19 acetaminophen 650 mg PO Q6H PRN PRN tablet 06/27/20 calcium carbonate 600 mg calcium (1,500 mg) tablet 600 mg PO BID tab 07/23/20 ferrous sulfate 325 mg (65 mg iron) tablet 325 mg PO DAILY 07/23/20 pantoprazole 40 mg tablet,delayed release 40 mg PO DAILY 07/23/20 biotin 1 mg PO DAILY 03/06/21 cholecalciferol (vitamin D3) [Vitamin D3] 125 mcg PO DAILY 03/06/21 hydrochlorothiazide 12.5 mg PO DAILY 03/06/21 omega-3 fatty acids 1,000 mg PO MO 03/06/21 potassium chloride 20 meq PO DAILY 03/06/21 prednisone 10 mg PO DAILY 03/06/21 dexamethasone 6 mg PO DAILY #8 tab 03/07/21 Hospital Course Operations None Procedures None Summary of Care Provided Minutes Spent on Discharge: 32 Hospital Course: A 5-year-old female presents with shortness of breath. Patient is on home O2 chronically 2 L. Patient was found to have COVID-19. Patient was sick about 2 days prior to admission. Patient was treated with dexamethasone as well as remdesivir. Patient is currently stable. Ambulated patient required 4 L but still requiring 2 L at rest. Patient be discharged with oxygen as well dexamethasone to complete a day course. Patient will need to quarantine 25 March 2021. Patient has been vaccinated for COVID-19. Physical Exam Const alert Resp normal respiratory effort Cardio regular rate, regular rhythm, S1 normal heart sound and S2 normal heart sound GI normal to inspection, nondistended, normoactive bowel sounds, soft to palpation, non-tender, non-distended and hepatosplenomegaly Extremity normal to inspection Weight / BMI Weight Weight: 74 kg Body Mass Index (BMI) 30.0 ABG / Lab / Microbiology Data Result Diagrams: 03/07/21 05:31 03/07/21 05:31 Laboratory: Laboratory Results - last 24 hr 03/06/21 16:45: WBC 9.9, RBC 3.64 L, Hgb 10.5 L, Hct 32.5 L, MCV 89.3, MCH 28.8, MCHC 32.3, RDW Std Deviation 49.4 H, RDW Coeff of Lynsey 15.1 H, Plt Count 236, MPV 10.2, Immature Gran % (Auto) 0.400, Neut % (Auto) 87.1 H, Lymph % (Auto) 3.3 L, [place]illingham % (Auto) 8.4, Eos % (Auto) 0.6, Baso % (Auto) 0.2, Absolute Neuts (auto) 8 .6 H, Absolute Lymphs (auto) 0.33 L, Nucleated RBC % 0, Differential Comment , Platelet Estimate ADEQUATE, RBC Morphology NORM C+C 03/06/21 16:45: D-Dimer Quant (PE/DVT) 2.94 H* 03/06/21 16:45: Sodium 135 L, Potassium 3.5, Chloride 99, Carbon Dioxide 29.0, Anion Gap 7, BUN 28 H, Creatinine 1.30 H, Estim Creat Clear Calc 25.93, Est GFR (MDRD) Af Amer 50 L, Est GFR (MDRD) Non-Af 42 L, BUN/Creatinine Ratio 21.5 H, Glucose 113 H, Calcium 8.9, Troponin I High Sens 34 03/06/21 16:45: Lactic Acid 1.4 03/06/21 16:45: B-Natriuretic Peptide 876.5 H 03/06/21 21:13: COVID-19 (JUAN CARLOS) Detected 03/07/21 05:31: WBC 6.9, RBC 3.78 L, Hgb 10.8 L, Hct 33.4 L, MCV 88.4, MCH 28.6, MCHC 32.3, RDW Std Deviation 48.9 H, RDW Coeff of Lynsey 15.1 H, Plt Count 255, MPV 10.7, Immature Gran % (Auto) 0.600, Neut % (Auto) 93.7 H, Lymph % (Auto) 3.0 L, Dillingham % (Auto) 2.6, Eos % (Auto) 0.0, Baso % (Auto) 0.1, Absolute Neuts (auto) 6.5, Absolute Lymphs (auto) 0.21 L, Nucleated RBC % 0, Differential Comment COMMENT 03/07/21 05:31: Sodium 137, Potassium 3.4 L, Chloride 99, Carbon Dioxide 30.0, Anion Gap 8, BUN 27 H, Creatinine 1.11 H, Estim Creat Clear Calc 28.98, Est GFR (MDRD) Af Amer 60, Est GFR (MDRD) Non-Af 50 L, BUN/Creatinine Ratio 24.3 H, Glucose 144 H, Calcium 9.1, Total Bilirubin 0.70, AST 19, ALT 13, Alkaline Phosphatase 95, Total Protein 7.3, Albumin 2.9 L, Globulin 4.4 H, Albumin/Globulin Ratio 0.7 L Microbiology: Microbiology 03/06/21 16:50 Mucosa - Nose Influenza Types A,B Direct FA (ELIEL) - Final 03/06/21 16:46 Nasal Secretion SARS-CoV-2 Antigen (Rapid) - Final SARS-CoV-2 (COVID 19) Radiography Diagnostic Testing: Radiology Impression Chest X-Ray 03/06/21 17:00 IMPRESSION: Nodular airspace opacities in the left mid and lower lung concerning for infection versus malignancy. Interval increase in right hilar adenopathy. Recommend chest CT with contrast. Electronically Signed: King Lau MD at 18:02 EST Tel , Service support , Chest CTA 03/06/21 18:19 IMPRESSION: Negative CTA Chest. Cardiomegaly with findings of pulmonary edema versus infection with 2 masslike consolidations on the left, lingula and left lower lobe. Short-term follow-up for resolution and to exclude neoplasia is recommended. Associated small left pleural effusion with mediastinal and right hilar adenopathy. Evidence of right heart strain. Individualized dose optimization techniques were used for this CT. at 1918 Reported and signed by: Doug Love MD Electronically Signed: Doug Love MD at 19:16 EST Tel , Service support , D/C Instructions Discharge Diet: No restrictions Additional Activity Instructions: Self isolate for at least 20 days since symptoms began 03/04/2021-03/24/2021. AND at least one day (24 hours) have passed since resolution of fever without the use of fever-reducing agents AND improvement of symptoms (e.g., cough, shortness of breath) When around people in the same room, wear a face mask. Individuals also in the room should wear a mask. If possible, use a different bathroom and bedroom. Perform adequate hand hygiene. Avoid sharing dishes, glasses, etc. Meaningful Use Info Meaningful Use Diagnoses (Choose all that apply): None applicable Discharge Plan Admission Admit Date/Time: 03/06/21 20:25 Primary Reason for Your Visit: COVID 19 Attending Provider: Josh Frost Primary Care Provider: Chapo Morfin Discharge Orders/Prescriptions Prescriptions: New dexamethasone 6 mg tablet 6 mg PO DAILY Qty: 8 RF: 0 Continued pantoprazole 40 mg tablet,delayed release (DR/EC) 40 mg PO DAILY RF: 0 calcium carbonate [Calcium 600] 600 mg calcium (1,500 mg) tablet 600 mg PO BID RF: 0 ferrous sulfate 325 mg (65 mg iron) tablet 325 mg PO DAILY RF: 0 loperamide 2 MG capsule 2 mg PO DAILY PRN PRN (Reason: Diarrhea) RF: 0 acetaminophen 325 MG tablet 650 mg PO Q6H PRN PRN (Reason: Pain Score 1-10/Temp > 100.7 F) RF: 0 hydrochlorothiazide 12.5 mg capsule 12.5 mg PO DAILY RF: 0 omega-3 fatty acids Capsule 1,000 mg PO MO RF: 0 cholecalciferol (vitamin D3) [Vitamin D3] 125 mcg (5,000 unit) Tablet 125 mcg PO DAILY RF: 0 potassium chloride 20 MEQ tablet,ER particles/crystals 20 meq PO DAILY RF: 0 biotin 500 mcg Capsule 1 mg PO DAILY RF: 0 Held prednisone 10 mg Tablet 10 mg PO DAILY RF: 0 Hold Instructions: Resume on 03/15/21. Referrals / Follow Up: Chapo Morfin MD [Primary Care Provider] - Within 2 Weeks Disposition Disposition (needs filled in before D/C Order can be placed): Home, Self Care Charges/Coding Visit Charges Inpatient E&M: 45310 Disch Hosp
== END 2021-03-07 15:50 | disposition home or self-care (01) | DRG 177 ==
LOC: ED 19:19 → MS3 20:33
PROVIDERS: Admitting Provider Internal Medicine; Emergency Provider Emergency Medicine; PCP Family Medicine
DX: U07.1 COVID-19 (principal); J12.82 Pneumonia due to coronavirus disease 2019; J96.21 Acute and chronic respiratory failure with hypoxia; I11.0 Hypertensive heart disease with heart failure; I50.9 Heart failure, unspecified; R91.8 Other nonspecific abnormal finding of lung field; K58.9 Irritable bowel syndrome, unspecified; Z87.19 Personal history of other diseases of the digestive system; Z79.52 Long term (current) use of systemic steroids; Z79.899 Other long term (current) drug therapy; Z99.81 Dependence on supplemental oxygen
CPT/HCPCS: 36415; 71045; 71275; 80048; 80053; 83605; 83880; 84484; 85025; 85379; 87040; 87426; 87635; 87804; 93005; 99251; 99285; J7040; J7050; Q9967; U0005; A4216; G0463; J1940; U0003

== ENCOUNTER 2021-04-04 11:33 | Inpatient (IN) | payer MEDICARE, SELFPAY ==
[2021-04-04] VITALS (18 sets, daily range): BP systolic 111–133; BP diastolic 66–79; PULSE 71–114; RESP 16–28; TEMP 35.8–36.9; O2SAT 73–100; BMI 31.7
--- NOTE | 2021-04-04 11:43 | EKG12_ITS ---
Test Reason : SOB Blood Pressure : / mmHG Vent. Rate : 078 BPM Atrial Rate : 078 BPM P-R Int : 130 ms QRS Dur : 084 ms QT Int : 412 ms P-R-T Axes : 022 098 -67 degrees QTc Int : 469 ms Normal sinus rhythm ST & T wave abnormality, consider inferior ischemia ST & T wave abnormality, consider anterolateral ischemia Abnormal ECG Confirmed by MIKIE NICHOLS, GÓMEZ ([id number]), photographic editor JANUARY LEMON ([id number]) on 04/06/2021 9:08:51 AM Referred By: ZACH Confirmed By:GÓMEZ DELUNA MD
--- NOTE | 2021-04-04 11:43 | RAD_ITS ---
STUDY: X-RAY CHEST REASON FOR EXAM: Female, 85 years old. Sob TECHNIQUE: Single AP portable view of the chest. COMPARISON: Comparison is made with prior study dated 03/06/2021. FINDINGS: EKG electrodes are seen. Persistent mild increased markings in the left midlung as well as in the lateral aspect of the right midlung. There has been improved aeration of the left lung as compared to the prior examination. Normal size heart. Normal mediastinum and sadie. Normal visualized pulmonary arteries. There is atherosclerotic calcification of the aortic arch with tortuosity. Normal visualized thoracic spine. There is degenerative osteoarthritis of the bilateral shoulders. There is no demonstrated abnormality of the visualized soft tissue structures of the upper abdomen. RAD/Chest 1 View (Portable) IMPRESSION: Mild residual infiltrates in the left mid lung and left lung base. Mild increased markings in the right midlung. Electronically Signed: Harpal Felipe MD at 12:36 EST , Service support ,
--- NOTE | 2021-04-04 11:44 | EDS_ITS ---
HPI History of Present Illness Chief Complaint: Shortness of Breath Informant: patient Onset/Context/Timing Onset: Weeks Context: Gradual Onset Narrative Narrative: Patient presents from pulmonary office secondary to increased shortness of breath. Patient had previously been on 2 L of oxygen at all times. She got COVID in mid February. After discharge from the hospital she has been on 4 L nasal cannula at home. 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 O2 sats were reportedly in the 80s on 4 L in the office. On arrival to the emergency room sat is 73% on 4 L nasal cannula. Patient denies chest pain. She reports no significant cough. 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 Small bowel obstruction Ventricular premature beats Home Medications loperamide 2 mg PO DAILY PRN PRN 08/25/19 [History Last Taken 06/23/20] acetaminophen 650 mg PO Q6H PRN PRN tablet 06/27/20 [Rx Last Taken Unknown] calcium carbonate 600 mg calcium (1,500 mg) tablet 600 mg PO BID tab 07/23/20 [History Last Taken Unknown] ferrous sulfate 325 mg (65 mg iron) tablet 325 mg PO DAILY 07/23/20 [History Last Taken Unknown] pantoprazole 40 mg tablet,delayed release 40 mg PO DAILY 07/23/20 [History Last Taken Unknown] biotin 1 mg PO DAILY 03/06/21 [History Last Taken Unknown] cholecalciferol (vitamin D3) [Vitamin D3] 125 mcg PO DAILY 03/06/21 [History Last Taken Unknown] hydrochlorothiazide 12.5 mg PO DAILY 03/06/21 [History Last Taken Unknown] omega-3 fatty acids 1,000 mg PO MO 03/06/21 [History Last Taken Unknown] potassium chloride 20 meq PO DAILY 03/06/21 [History Last Taken Unknown] prednisone 10 mg PO DAILY 03/06/21 [History Last Taken Unknown] Allergy/AdvReac Type Severity Reaction Status Date / Time codeine Allergy Rash Verified 04/04/21 11:36 fenofibrate Allergy Unknown Verified 04/04/21 11:36 lisinopril Allergy Unknown Verified 04/04/21 11:36 perfume Allergy Unknown Verified 04/04/21 11:36 Sulfa (Sulfonamide Allergy Unknown Verified 04/04/21 11:36 Antibiotics) zolpidem Allergy Unknown Verified 04/04/21 11:36 cholecalciferol (vitamin D3) AdvReac Upset Verified 04/04/21 11:36 Stomach meloxicam AdvReac Unknown Verified 04/04/21 11:36 Surgical History History of colectomy S/P laparoscopy Social History Smoking Status: Never smoker ROS ROS ED Constitutional Constitutional ED: Denies chills or fever(s) Eyes Eyes: Denies blurry vision or change in vision ENT ENT ED: Denies ear pain or rhinorrhea Cardiovascular Cardiovascular: Denies chest pain or palpitations Respiratory/Chest Respiratory/Chest: Reports dyspnea Gastrointestinal Gastrointestinal: Denies abdominal pain, diarrhea or vomiting Musculoskeletal Musculoskeletal: Denies arthralgias or myalgias Integumentary Denies rash Neurologic Neurologic: Denies headache(s) Psychiatric Psychiatric: Denies anxiety or depression Allergic/Immunologic Allergic/Immunologic ED: Denies urticaria EXAM Physical Exam Const Vital Signs: 04/04/21 11:34 04/04/21 11:41 04/04/21 12:07 Temperature 96.5 F L 98.3 F Temperature Source Temporal Temporal Pulse Rate 114 H 85 Respiratory Rate 28 H 20 H Respiratory Effort Short of Breath Accessory Muscle Use Nasal Flaring Respiratory Depth Normal Respiratory Pattern Tachypnea Blood Pressure 133/79 H 120/71 Blood Pressure Mean 97 87 Pulse Ox 73 95 Oxygen Delivery Method Nasal Cannula Nasal Cannula High Flow Oxygen Flow Rate (L/min) 4 6 04/04/21 12:09 04/04/21 12:17 04/04/21 12:18 Temperature Temperature Source Pulse Rate 80 Respiratory Rate 26 H Respiratory Effort Labored Respiratory Depth Shallow Respiratory Pattern Tachypnea Blood Pressure Blood Pressure Mean Pulse Ox 93 Oxygen Delivery Method High Flow High Flow Oxygen Flow Rate (L/min) 8 04/04/21 12:35 04/04/21 13:22 04/04/21 13:44 Temperature 98.4 F Temperature Source Oral Pulse Rate 78 71 Respiratory Rate 24 H 23 H Respiratory Effort Respiratory Depth Respiratory Pattern Blood Pressure 122/78 H 114/66 Blood Pressure Mean 92 82 Pulse Ox 93 93 Oxygen Delivery Method High Flow High Flow Oxygen Flow Rate (L/min) 6 6 Positive well nourished and well developed General Appearance ED: well developed HEENT Reports moist mucous membranes Eyes PERRL and EOMs intact bilaterally Neck no lymphadenopathy and supple Chest Wall inspection of chest normal and palpation of chest normal Resp Resp Narrative: Tachypnea Auscultation: diminished lung sounds Cardio regular rhythm Rate: tachycardic GI non-tender Palpation: soft Extremity normal to inspection Neuro oriented x3 Sensorium / Orientation: alert Psych mental status grossly normal Skin no rashes or lesions noted MDM MDM MDM Narrative Medical decision making narrative: Patient placed on 6 L nasal cannula on arrival. O2 sat in the low 90s. Lab work, chest x-ray, EKG obtained. DuoNeb treatment given. Lab Data Attestation: I reviewed the patient's lab results. Labs: Laboratory Results - last 24 hr 04/04/21 04/04/21 04/04/21 11:50 11:50 11:50 WBC 6.6 RBC 4.05 L Hgb 11.4 L Hct 36.6 L MCV 90.4 MCH 28.1 MCHC 31.1 L RDW Std Deviation 51.6 H RDW Coeff of Lynsey 15.8 H Plt Count 290 MPV 10.4 Immature Gran % (Auto) 0.500 Neut % (Auto) 75.8 H Lymph % (Auto) 11.0 L [place] % (Auto) 9.2 Eos % (Auto) 2.7 Baso % (Auto) 0.8 Absolute Neuts (auto) 5.0 Absolute Lymphs (auto) 0.73 L Nucleated RBC % 0 D-Dimer Quant (PE/DVT) 3.23 H* Sodium 141 Potassium 3.7 Chloride 105 Carbon Dioxide 31.0 Anion Gap 5 BUN 17 Creatinine 1.04 H Estim Creat Clear Calc 30.93 Est GFR (MDRD) Af Amer 65 Est GFR (MDRD) Non-Af 54 L BUN/Creatinine Ratio 16.3 Glucose 104 Lactic Acid Calcium 9.1 Troponin I High Sens 25 B-Natriuretic Peptide 04/04/21 04/04/21 11:50 11:50 WBC RBC Hgb Hct MCV MCH MCHC RDW Std Deviation RDW Coeff of Lynsey Plt Count MPV Immature Gran % (Auto) Neut % (Auto) Lymph % (Auto) [place] % (Auto) Eos % (Auto) Baso % (Auto) Absolute Neuts (auto) Absolute Lymphs (auto) Nucleated RBC % D-Dimer Quant (PE/DVT) Sodium Potassium Chloride Carbon Dioxide Anion Gap BUN Creatinine Estim Creat Clear Calc Est GFR (MDRD) Af Amer Est GFR (MDRD) Non-Af BUN/Creatinine Ratio Glucose Lactic Acid 1.9 Calcium Troponin I High Sens B-Natriuretic Peptide 1044.6 H Radiography Chest X-Ray - ED: 1 View, Read by ED Physician, Chronic Changes and Cardiomegaly Diagnostic Testing: Clinical Impression(s) from Imaging Studies Chest X-Ray 04/04/21 11:43 IMPRESSION: Mild residual infiltrates in the left mid lung and left lung base. Mild increased markings in the right midlung. Electronically Signed: Harpal Felipe MD at 12:36 EST , Service support , Chest CTA 04/04/21 12:27 IMPRESSION: Pulmonary emboli in the right upper and lower right lower lobe pulmonary arteries. Bilateral pulmonary infiltrates with mosaic groundglass appearance worse in the upper lobes. Electronically Signed: Harpal Felipe MD at 13:30 EST , Service support , EKG Initial EKG: Attestation: I personally reviewed and interpreted this EKG as follows: Interpretation: Sinus Rhythm (Sinus at 78. Anterior lateral as well as inferior T wave inversions noted. This is similar to prior study.) Treatment and Re-Evaluation Comments:: On repeat evaluation patient sat 93 to 95% on 6 L nasal cannula. Test results discussed with her. Patient does have evidence of multiple pulmonary emboli in the right lung. Heparin bolus and drip will be started. Patient be discussed with hospitalist for admission. Discharge Plan Triage Chief Complaint: Shortness of Breath ED Provider: Jigna Weeks Dx/Rx/DC Orders Clinical Impression: Pulmonary emboli Prescriptions: No Action pantoprazole 40 mg tablet,delayed release (DR/EC) 40 mg PO DAILY RF: 0 calcium carbonate [Calcium 600] 600 mg calcium (1,500 mg) tablet 600 mg PO BID RF: 0 ferrous sulfate 325 mg (65 mg iron) tablet 325 mg PO DAILY RF: 0 loperamide 2 MG capsule 2 mg PO DAILY PRN PRN (Reason: Diarrhea) RF: 0 acetaminophen 325 MG tablet 650 mg PO Q6H PRN PRN (Reason: Pain Score 1-10/Temp > 100.7 F) RF: 0 prednisone 10 mg Tablet 10 mg PO DAILY RF: 0 Hold Instructions: Resume on 03/15/21. hydrochlorothiazide 12.5 mg capsule 12.5 mg PO DAILY RF: 0 omega-3 fatty acids Capsule 1,000 mg PO MO RF: 0 cholecalciferol (vitamin D3) [Vitamin D3] 125 mcg (5,000 unit) Tablet 125 mcg PO DAILY RF: 0 potassium chloride 20 MEQ tablet,ER particles/crystals 20 meq PO DAILY RF: 0 biotin 500 mcg Capsule 1 mg PO DAILY RF: 0 Primary Care Provider: Chapo Morfin Referrals: Chapo Morfin MD [Primary Care Provider] - Disposition Disposition: Acute Care Hospital [facility]
[2021-04-04 11:59] LABS: Absolute Lymphocyte Count 0.73 X10^3/uL (0.83-4.51); Basophil# 0.05 X10^3/uL; Basophil% 0.8 % (0-1); Eosinophil# 0.18 X10^3/uL; Eosinophils% 2.7 % (0-5); Hematocrit 36.6 % (37-47); Hemoglobin 11.4 g/dL (12.0-15.0); Lymphocyte # 0.73 X10^3/ul (0.83-4.51); Mean Corp Hgb Conc 31.1 g/dL (32-36); Mean Corpuscular Hgb 28.1 pg (27.0-32.0); Mean Corpuscular Volume 90.4 fL (81-99); Mean Platelet Vol. 10.4 fl (6.2-12.0); Monocyte# 0.61 X10^3/uL; Monocyte% 9.2 % (0-10); NRBC Flagged by Analyzer 0 % (0-5); Neutrophil # 5.02 X10^3/uL (2.7-7.7); Neutrophil % 75.8 % (47-70); Platelet Count 290 K/mm3 (150-450); RBC Distribution Width CV 15.8 % (11.6-14.6); RBC Distribution Width SD 51.6 fl (35.1-43.9); Red Blood Count 4.05 M/mm3 (4.2-5.4); White Blood Count 6.6 K/mm3 (4.4-11.0)
[2021-04-04] MEDS: Ipratropium/Albuterol Sulfate 3 ML AMPUL.NEB INHALATION (12:16)
[2021-04-04 12:20] LABS: D-Dimer Quantitative (DVT/PE) 3.23 FEU/ug/m (0.27-0.49)
[2021-04-04 12:21] LABS: Anion Gap 5 (5-15); BNP,B-Type NATRIURETIC PEPTIDE 1044.6 pg/mL (0-100); BUN 17 mg/dL (7-18); BUN/Creat Ratio 16.3 RATIO (10-20); Calcium,Total 9.1 mg/dL (8.5-10.1); Chloride 105 mmol/L (98-107); Creatinine, Serum 1.04 mg/dL (0.55-1.02); EST Glomerular Filtration Rate 54 mL/min (>60); Est Glom Filt Rate - Afr Amer 65 mL/min (>60); Estimated Creatinine Clearance 30.93 ml/min; Glucose 104 mg/dL (74-106); Potassium 3.7 mmol/L (3.5-5.1); Sodium Level 141 mmol/L (136-145); Troponin-I HS 25 pg/mL (3.0-54.0)
[2021-04-04 12:22] LABS: Lactic Acid 1.9 mmol/L (0.4-1.9)
--- NOTE | 2021-04-04 12:27 | CT_ITS ---
STUDY: CTA CHEST REASON FOR EXAM: Female, 85 years old. Hypoxia RADIATION DOSAGE (If Supplied By Facility): CTDIvol = ( 16.30 ) mGy, DLP = ( 322.62 ) mGycm TECHNIQUE: The examination was performed with the intravenous administration of IV 100mL Isovue-370. Post-processing of the angiographic images was performed, with multiplanar reformation and 3D reconstruction. Individualized dose optimization techniques were used for this CT. COMPARISON: Comparison is made with prior examination dated 03/06/2021. FINDINGS: There is evidence of filling defects in branches of the right upper lobe and lower lobe pulmonary arteries in keeping with pulmonary emboli.. Normal thoracic aorta and visualized great vessels. There is no demonstrated aortic dissection. There are calcifications of the coronary arteries. Normal mediastinum. Normal hilar regions. Normal visualized trachea and bronchi. The lungs are well expanded. Patchy bilateral pulmonary infiltrates. Mosaic groundglass appearance in both lungs worse in the upper lobes. Normal pleura. Normal chest wall structures. There are degenerative changes of thoracic spine. Bilateral adrenal hyperplasia. CT/CTA Chest W/WO Contrast IMPRESSION: Pulmonary emboli in the right upper and lower right lower lobe pulmonary arteries. Bilateral pulmonary infiltrates with mosaic groundglass appearance worse in the upper lobes. Electronically Signed: Harpal Felipe MD at 13:30 EST , Service support ,
[2021-04-04 13:52] LABS: International Normalized Ratio 1.1; Prothrombin Time (Protime)PT. 13.5 SECONDS (11.7-14.9)
[2021-04-04 13:53] LABS: Partial Thromboplast Time 35.6 Seconds (24.1-36.2)
[2021-04-04] MEDS: Heparin Injection (Vial) 5,000 UNIT/ML VIAL 5000 UNIT IV (14:01)
[2021-04-04] MEDS: HEPARIN/D5w 25,000 UNITS 25,000 UNITS/250 ML IV.SOLN. 11 UNITS IV (14:01)
--- NOTE | 2021-04-04 14:20 | CASEMGMT ---
YOVANI CM to room to meet with patient for initial transition planning/care coordination assessment. YOVANI GARAY introduced self and role at [facility]. Patient voices understanding and consents to assessment at this time. Patient is alert and oriented, sitting up on ER cart in no apparent distress and answers all questions appropriately. Care providers, pharmacy, and demographics verified/updated at this time. PCP: Chapo Morfin Specialists: Dr. Eugenia Sidhu- pulmonology, Davey- cardiology [facility] Preferred Pharmacy: [facility] Insurance: [employer] Medicare Prescription Benefit: yes Living Will/HPOA: Patient denies having a living will or HPOA. LNOK: Son Chandana Flood and daughter Dania Merida Living Arrangements: Patient lives with son in mobile home with 4 steps to enter with a handrail present. Patient states independent with ADLs prior to hospitalization but admits that she fatigues easily due to breathing difficulties and weakness. Smoking/ETOH: never smoker, denies ETOH use Transportation: Patient drives self and daughter available for transport needs. Patient denies transportation concerns. DME/HHC/SNF: Patient typically ambulates with the use of a cane. Also available in the home: shower chair, raised toilet seat, grab bars, walker and home oxygen. Patient states she has worn home oxygen for some time and liter flow increased following COVID infection in mid-February 2021. Oxygen 2-4 LPM continuous supplied through [employer], patient has oxygen concentrator as well as portable tanks. Patient reports previous HHC but unsure of agency name. Previous SNF stay at [facility]. Patient has no concerns with going home at time of discharge and would be agreeable to HHC, if indicated. CM to follow for any discharge planning/needs. Patient voices no concerns/needs at this time. Advised patient to ask for CM if any questions/concerns/needs arise. Voices understanding. Plan: home with HHC
--- NOTE | 2021-04-04 14:38 | ECHOD_ITS ---
Reason For Study: PE Procedure This was a 2D Doppler, Color Flow transthoracic echocardiogram. Echo done with patient sitting upright due to SOB. Exam performed portable in patient room. Left Ventricle Normal LV size. Left ventricular systolic function is normal. The estimated ejection fraction is 55 %. No regional wall motion abnormalities noted. Right Ventricle Moderately dilated right ventricle. Abnormal right ventricular diastolic function. Apical sparing noted. Atria Normal left atrium. The right atrium is severely enlarged. Mitral Valve Mild diffuse mitral valve thickening. Mild (1+) eccentric mitral valve insufficiency. Tricuspid Valve Normal tricuspid valve. Moderately severe (3+) tricuspid valve insufficiency. Pulmonary artery systolic pressure is 84 mmHg. Aortic Valve Normal aortic valve. Trisinus/trileaflet aortic valve. Mild (1+) aortic valve insufficiency. Pulmonic Valve Normal pulmonic valve. Great Vessels Normal aortic root. The pulmonary artery is normal size. and does not collapse. Pericardium/Pleural No pericardial effusion. MMode/2D Measurements & Calculations LVIDd: 4.3 cm IVSd: 1.2 cm LA dimension: 3.6 cm LVIDs: 2.9 cm LVPWd: 1.1 cm RVDd: 4.3 cm FS: 32.5 % LAV(MOD-bp): 54.1 ml LA A4 area: 21.7 cm2 RA A4 area: 31.8 cm2 LAV(MOD-bp) Indexed: 30.8 ml/m2 LAV(MOD-sp2): 45.3 ml LAV(MOD-sp4): 59.9 ml Time Measurements MV dec time: 0.24 sec Doppler Measurements & Calculations MV E max yefri: 79.8 cm/sec Lat Peak E' Yefri: 5.5 cm/sec Med Peak E' Yefri: 4.4 cm/sec MV A max yefri: 121.5 cm/sec E/E' lat: 14.6 E/E' med: 18.2 MV E/A: 0.66 MV V2 max: 123.6 cm/sec MV P1/2t max yefri: 99.0 cm/sec Ao V2 max: 151.0 cm/sec MV max P.1 mmHg MV P1/2t: 94.4 msec Ao max P.1 mmHg MV V2 mean: 64.3 cm/sec MV dec slope: 307.2 cm/sec2 MV mean P.9 mmHg MVA(P1/2t): 2.3 cm2 MV V2 VTI: 34.8 cm AI max yefri: 441.6 cm/sec LV V1 max: 89.0 cm/sec PA V2 max: 107.9 cm/sec AI max P.0 mmHg LV V1 max P.2 mmHg AI dec slope: 244.8 cm/sec2 AI P1/2t: 528.4 msec PI end-d yefri: 220.2 cm/sec TR max yefri: 435.2 cm/sec TR max P.8 mmHg ECHO/Echo Complete Interpretation Summary Normal LV size. Left ventricular systolic function is normal. The estimated ejection fraction is 55 %. Moderately dilated right ventricle. Apical sparing noted Abnormal right ventricular diastolic function The right atrium is severely enlarged. Pulmonary artery systolic pressure is 84 mmHg. Ordering Physician: Misael Mcdonough Referring Physician: Chapo Morfin Performed By: Joshua Blair RCS
[2021-04-04] MEDS: Potassium Chloride Oral Tablet 20 MEQ PO (16:04)
[2021-04-04] MEDS: Enoxaparin 80 MG/0.8 ML Syringe SC (16:05)
[2021-04-04] MEDS: Calcium Carb/Vitamin D 1 TABLET Tablet PO (17:11)
--- NOTE | 2021-04-04 18:10 | HP.PCM.HOS_ITS ---
HPI - General General Date of Admission: 04/04/21 Chief Complaint: Hypoxia, shortness of breath and leg swelling for 2 to 3 weeks HPI Narrative FANTA TREVIÑO, is a 85 F with recent hospitalization for COVID-19 with hypoxia on February 2021 where she completed dexamethasone. Patient is vaccinated with COVID-19 and had flu shot in 2020. The patient has been chronically on 2 L of oxygen after her bowel surgery about 8 months ago in 2020. She denies history of smoking or chronic lung disease. After COVID she required 4 L of oxygen. She had her it infrastructure engineer visit today and was found to be hypoxic pulse ox 80% on 4 L of oxygen in ED 73% on 4 L of oxygen. Patient denies any chest pain. Patient does not have any significant cough but gets intermittently f ever/chills. She has low energy/fatigue after COVID. Complain of bilateral leg edema and is on HCTZ. Denies history of chronic heart disease/heart failure/coronary artery disease. In ED, she was found tachycardic and tachypneic With labored breathing. She had chest x-ray and CTA done which showed pulmonary emboli in right upper and lower lobe. I individually reviewed chest x-ray and CTA, Which shows bilateral pulmonary infiltrate with mosaic groundglass appearance. Twelve-lead EKG done in the ER shows normal sinus rhythm at 78 bpm, nonspecific ST-T abnormality in inferior and anterolateral leads. QTC 469 ms. 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 Small bowel obstruction Ventricular premature beats Home Medications loperamide 2 mg PO DAILY PRN PRN 08/25/19 [History Last Taken 06/23/20] acetaminophen 650 mg PO Q6H PRN PRN tablet 06/27/20 [Rx Last Taken Unknown] calcium carbonate 600 mg calcium (1,500 mg) tablet 600 mg PO BID tab 07/23/20 [History Last Taken Unknown] ferrous sulfate 325 mg (65 mg iron) tablet 325 mg PO DAILY 07/23/20 [History Last Taken Unknown] pantoprazole 40 mg tablet,delayed release 40 mg PO DAILY 07/23/20 [History Last Taken Unknown] biotin 1 mg PO DAILY 03/06/21 [History Last Taken Unknown] cholecalciferol (vitamin D3) [Vitamin D3] 125 mcg PO DAILY 03/06/21 [History Last Taken Unknown] hydrochlorothiazide 12.5 mg PO DAILY 03/06/21 [History Last Taken Unknown] omega-3 fatty acids 1,000 mg PO MO 03/06/21 [History Last Taken Unknown] potassium chloride 20 meq PO DAILY 03/06/21 [History Last Taken Unknown] prednisone 10 mg PO DAILY 03/06/21 [History Last Taken Unknown] Allergy/AdvReac Type Severity Reaction Status Date / Time codeine Allergy Rash Verified 04/04/21 11:36 fenofibrate Allergy Unknown Verified 04/04/21 11:36 lisinopril Allergy Unknown Verified 04/04/21 11:36 perfume Allergy Unknown Verified 04/04/21 11:36 Sulfa (Sulfonamide Allergy Unknown Verified 04/04/21 11:36 Antibiotics) zolpidem Allergy Unknown Verified 04/04/21 11:36 cholecalciferol (vitamin D3) AdvReac Upset Verified 04/04/21 11:36 Stomach meloxicam AdvReac Unknown Verified 04/04/21 11:36 Surgical History History of colectomy S/P laparoscopy Social History Smoking Status: Never smoker ROS ROS Narrative Constitutional: Reports fatigue and weakness. Intermittent fever chills HEENT: Reports systems reviewed and no addt'l complaints, except as documented Respiratory/Chest: Denies chest pain. SOB on mild exertion. Bilateral leg swelling Gastrointestinal: Denies coffee ground emesis, hematemesis or vomiting Genitourinary: Denies burning urination or new urinary tract symptoms Musculoskeletal: Reports joint pain and limited range of motion Neurologic: Denies seizure-like activity skin: No ulcer. No rash Endocrinology: Reports systems reviewed and no addt'l complaints, except as documented Hematologic/Lymphatic: Reports systems reviewed and no addt'l complaints, except as documented Rest 14 ROS are negative except as mentioned in HPI Vital Signs Vital Signs Vital Signs: 04/04/21 11:34 04/04/21 11:41 04/04/21 12:07 Temperature 96.5 F L 98.3 F Temperature Source Temporal Temporal Pulse Rate 114 H 85 Respiratory Rate 28 H 20 H Respiratory Effort Short of Breath Accessory Muscle Use Nasal Flaring Respiratory Depth Normal Respiratory Pattern Tachypnea Blood Pressure 133/79 H 120/71 Blood Pressure [BP] Blood Pressure Mean 97 87 Blood Pressure Mean [BP] Blood Pressure Source Blood Pressure Source [BP] Blood Pressure Position [BP] Blood Pressure Location [BP] Pulse Ox 73 95 Oxygen Delivery Method Nasal Cannula Nasal Cannula High Flow Oxygen Flow Rate (L/min) 4 6 04/04/21 12:09 04/04/21 12:17 04/04/21 12:18 Temperature Temperature Source Pulse Rate 80 Respiratory Rate 26 H Respiratory Effort Labored Respiratory Depth Shallow Respiratory Pattern Tachypnea Blood Pressure Blood Pressure [BP] Blood Pressure Mean Blood Pressure Mean [BP] Blood Pressure Source Blood Pressure Source [BP] Blood Pressure Position [BP] Blood Pressure Location [BP] Pulse Ox 93 Oxygen Delivery Method High Flow High Flow Oxygen Flow Rate (L/min) 8 04/04/21 12:35 04/04/21 13:22 04/04/21 13:44 Temperature 98.4 F Temperature Source Oral Pulse Rate 78 71 Respiratory Rate 24 H 23 H Respiratory Effort Respiratory Depth Respiratory Pattern Blood Pressure 122/78 H 114/66 Blood Pressure [BP] Blood Pressure Mean 92 82 Blood Pressure Mean [BP] Blood Pressure Source Blood Pressure Source [BP] Blood Pressure Position [BP] Blood Pressure Location [BP] Pulse Ox 93 93 Oxygen Delivery Method High Flow High Flow Oxygen Flow Rate (L/min) 6 6 04/04/21 14:07 04/04/21 14:22 04/04/21 14:54 Temperature 98.4 F 98.4 F 98.5 F Temperature Source Oral Temporal Oral Pulse Rate 78 77 79 Respiratory Rate 16 20 H 16 Respiratory Effort Respiratory Depth Respiratory Pattern Blood Pressure 119/67 122/74 H 128/78 H Blood Pressure [BP] 128/78 H Blood Pressure Mean 84 90 94 Blood Pressure Mean [BP] 94 Blood Pressure Source Monitor Blood Pressure Source [BP] Monitor Blood Pressure Position [BP] Semi-Fowlers Blood Pressure Location [BP] Left Arm Pulse Ox 92 90 100 Oxygen Delivery Method High Flow Nasal Cannula Nasal Cannula Oxygen Flow Rate (L/min) 6 6 8 04/04/21 15:22 04/04/21 15:35 04/04/21 15:55 Temperature Temperature Source Pulse Rate 78 Respiratory Rate Respiratory Effort Accessory Muscle Use Normal Non-Labored Respiratory Depth Normal Normal Respiratory Pattern Normal Normal Blood Pressure Blood Pressure [BP] Blood Pressure Mean Blood Pressure Mean [BP] Blood Pressure Source Blood Pressure Source [BP] Blood Pressure Position [BP] Blood Pressure Location [BP] Pulse Ox 98 Oxygen Delivery Method Nasal Cannula Nasal Cannula Oxygen Flow Rate (L/min) 6 8 04/04/21 16:54 Temperature Temperature Source Pulse Rate Respiratory Rate Respiratory Effort Respiratory Depth Respiratory Pattern Blood Pressure Blood Pressure [BP] Blood Pressure Mean Blood Pressure Mean [BP] Blood Pressure Source Blood Pressure Source [BP] Blood Pressure Position [BP] Blood Pressure Location [BP] Pulse Ox 98 Oxygen Delivery Method High Flow Oxygen Flow Rate (L/min) 8 Weight Weight: 168 lb Body Mass Index (BMI) 31.7 Physical Exam Narrative General: Alert, Oriented x3, Cooperative HEENT: Atraumatic, PERRLA, EOMI, Normocephalic Oral: No Gingival or Mucosal Lesions/ Ulcerations Neck: Supple, No JVD, Negative Carotid Bruits Lungs: Air entry diminished in bilateral lung bases. No crepitation/rhonchi. Severe hypoxia on high flow oxygen 8 L. Cardiovascular: Regular rate, Regular Rhythm, Normal S1, Normal S2, No murmurs Abdomen: Bowel Sounds Present, Soft, Non Tender, Non-Distended : No renal angle tenderness. No suprapubic tenderness. Extremities: Bilateral pitting lower leg 2+ edema, Capillary Refill Less than 3 Seconds Skin: No rashes, No breakdown Musculoskeletal: No Tenderness to Palpation of Joints or Extremities. ROM restricted at hip and knee joints Neurological: Cranial nerves II-XII grossly intact, DTR 2+/4 and Symmetrical, Neuro grossly intact Psych/Mental Status: Normal Affect, Appropriate. Results Lab / Micro Data Result Diagrams: 04/04/21 11:50 04/04/21 11:50 Labs: Laboratory Results - last 24 hr 04/04/21 11:50: WBC 6.6, RBC 4.05 L, Hgb 11.4 L, Hct 36.6 L, MCV 90.4, MCH 28.1, MCHC 31.1 L, RDW Std Deviation 51.6 H, RDW Coeff of Lynsey 15.8 H, Plt Count 290, MPV 10.4, Immature Gran % (Auto) 0.500, Neut % (Auto) 75.8 H, Lymph % (Auto) 11.0 L, [place] % (Auto) 9.2, Eos % (Auto) 2.7, Baso % (Auto) 0.8, Absolute Neuts (auto) 5.0, Absolute Lymphs (auto) 0.73 L, Nucleated RBC % 0 04/04/21 11:50: D-Dimer Quant (PE/DVT) 3.23 H* 04/04/21 11:50: Sodium 141, Potassium 3.7, Chloride 105, Carbon Dioxide 31.0, Anion Gap 5, BUN 17, Creatinine 1.04 H, Estim Creat Clear Calc 30.93, Est GFR (MDRD) Af Amer 65, Est GFR (MDRD) Non-Af 54 L, BUN/Creatinine Ratio 16.3, Glucose 104, Calcium 9.1, Troponin I High Sens 25 04/04/21 11:50: Lactic Acid 1.9 04/04/21 11:50: B-Natriuretic Peptide 1044.6 H 04/04/21 11:50: PT 13.5, INR 1.1, APTT 35.6 Radiology Impression Chest X-Ray 04/04/21 11:43 IMPRESSION: Mild residual infiltrates in the left mid lung and left lung base. Mild increased markings in the right midlung. Electronically Signed: Harpal Felipe MD at 12:36 EST , Service support , Chest CTA 04/04/21 12:27 IMPRESSION: Pulmonary emboli in the right upper and lower right lower lobe pulmonary arteries. Bilateral pulmonary infiltrates with mosaic groundglass appearance worse in the upper lobes. Electronically Signed: Harpal Felipe MD at 13:30 EST , Service support , Echocardiogram 04/04/21 14:38 Interpretation Summary Normal LV size. Left ventricular systolic function is normal. The estimated ejection fraction is 55 %. Moderately dilated right ventricle. Apical sparing noted Abnormal right ventricular diastolic function The right atrium is severely enlarged. Pulmonary artery systolic pressure is 84 mmHg. _ Ordering Physician: Misael Mcdonough Referring Physician: Chapo Morfin Performed By: Joshua Blair RCS Assessment & Plan Assessment/Plan (1) Pulmonary emboli: PLAN: 1. Acute on chronic hypoxic respiratory failure, probably due to right-sided PE: Patient is on high flow oxygen, being admitted in PCU. Patient has been on chronically 2 L of oxygen since bowel surgery in 2019 but got exacerbated for liter since COVID in February 2021. 2. Acute multilobar right-sided pulmonary embolism with acute cor pulmonale, right systolic and diastolic ventricular failure: Patient was started on IV heparin drip in ED, changed to Lovenox 1 mg/kg body weight. Discussed with the pharmacist. BNP elevated. Troponin normal. 2D echo done, reported EF 55%, moderately dilated RV with normal RV diastolic dysfunction, right atrium severely enlarged, RVSP 84 mg. consult it infrastructure engineer for further opinion regarding pulmonary hypertension and acute cor pulmonale. Patient follows outside it infrastructure engineer, Dr. Eugenia Sidhu 3. Recent COVID-19 infection in in February 2021 status post COVID vaccination, 2 dosages and flu vaccine: Respiratory panel ordered. CT chest shows bilateral groundglass appearance. Does not seem bacterial superinfection. Advised patient to get COVID booster dose after 5 months of second dose. 4. Essential hypertension: Blood pressure is normal. 5. VTE prophylaxis: Patient had PE therefore on therapeutic dose of Lovenox. Discontinue if platelet count drops less than 50,000 or hemoglobin less than 8 g% Living will/advanced directive/end of life care: Patient does have living will or advanced directive. Her daughter is power of saw handle assembler for health. After discussion of benefits/risks procedures involved with full code, DNR CC arrest and DNR CC, the patient opted for DNR CC arrest with no intubation Patient doesn't want artificial life support including intubation, tube feed, ventilator and/chest compression, central venous catheter, vasopressor and DC shock if needed Total time spent in [id number] encounter in discussion of advanced directive 16 minutes. Total time of the visit including total time spent in counseling or coordination of care, (more than 50% of the total time, spent in obtaining medical information from nurses and other ancillary care providers,explaining to the patient about labs, imaging, diagnosis and management), , review of labs and imaging is 50 minutes. Charges/Coding Visit Charges Inpatient E&M: 73533 Init Hosp L2 Procedures Hospitalists Procedures: 04940 Advncd Care Plan 30 Min
[2021-04-04 18:29] LABS: Magnesium 2.2 mg/dL (1.6-2.6)
[2021-04-04] MEDS: Furosemide 40 MG/4 ML Vial IV (18:51)
[2021-04-04] MEDS: guaiFENesin/D-Methorphan TAB.SR.12H 1 TABLET PO (21:46)
[2021-04-05] VITALS (13 sets, daily range): BP systolic 106–113; BP diastolic 60–78; PULSE 75–104; RESP 16–18; TEMP 36.7–37.1; O2SAT 90–96
[2021-04-05] MEDS: Enoxaparin 80 MG/0.8 ML Syringe SC (05:17)
[2021-04-05 05:25] LABS: Hematocrit 33.1 % (37-47); Hemoglobin 10.1 g/dL (12.0-15.0); Mean Corp Hgb Conc 30.5 g/dL (32-36); Mean Corpuscular Hgb 28.1 pg (27.0-32.0); Mean Corpuscular Volume 92.2 fL (81-99); Mean Platelet Vol. 9.9 fl (6.2-12.0); Platelet Count 261 K/mm3 (150-450); RBC Distribution Width CV 15.9 % (11.6-14.6); RBC Distribution Width SD 53.4 fl (35.1-43.9); Red Blood Count 3.59 M/mm3 (4.2-5.4); White Blood Count 6.2 K/mm3 (4.4-11.0)
[2021-04-05 05:52] LABS: Phosphorus 3.6 mg/dL (2.5-4.9)
[2021-04-05 06:02] LABS: Anion Gap 5 (5-15); BUN 16 mg/dL (7-18); BUN/Creat Ratio 15.8 RATIO (10-20); Calcium,Total 8.6 mg/dL (8.5-10.1); Chloride 103 mmol/L (98-107); Creatinine, Serum 1.01 mg/dL (0.55-1.02); EST Glomerular Filtration Rate 56 mL/min (>60); Est Glom Filt Rate - Afr Amer 67 mL/min (>60); Estimated Creatinine Clearance 31.85 ml/min; Glucose 92 mg/dL (74-106); Potassium 3.6 mmol/L (3.5-5.1); Sodium Level 141 mmol/L (136-145); Thyroid Stim Hormone (TSH) 1.22 uIU/mL (0.358-3.74)
--- NOTE | 2021-04-05 09:45 | CON.PCM.CC_ITS ---
Assessment & Plan Assessment/Plan (1) Pulmonary emboli: (2) Hypoxemia: (3) Pulmonary hypertension: PLAN: RECOMMENDATIONS: 1. Hold on additional diuresis for now 2. Agree with anticoagulation. Transition to 10 a inhibitor prior to discharge. Monitor for clinical bleeding 3. Wean supplemental oxygen as tolerated 4. Walking oximetry prior to discharge 5. We will need outpatient PFT and a repeat echocardiogram in 6 to 8 weeks IMPRESSIONS: 1. Acute on chronic hypoxic respiratory failure secondary to pulmonary emboli Patient appears to have a baseline of 2 L nasal cannula since COVID-19, but has required up to 8 L nasal cannula to maintain saturations while in the hospital. Patient has had some improvement after initiation of anticoagulation and Lasix therapy. Clinical suspicion for hypercoagulable state secondary to COVID-19, but family history is somewhat concerning. We will have to discuss as an outpatient, but patient will require at least 3 to 6 months of anticoagulation. Patient does have elevated pulmonary artery pressures, but it is unlikely that all of this is acute. Patient does not show any signs of infarction. Clinical suspicion for elevated BNP secondary to right heart strain and may resolve with anticoagulation alone. Right heart will be very volume sensitive, so we will hold on anticoagulation for now. Low clinical suspicion for secondary bacterial infection following COVID-19. Patient does not require acute retrieval therapy or transfer to the intensive care unit from my [facility]. 2. Acute on chronic pulmonary hypertension/cor pulmonale Patient obviously had an elevation in pulmonary artery pressures following acute pulmonary embolism. However, pulmonary artery pressures in the 80s would be suggestive of an underlying elevated pulmonary artery pressure. Patient did recently have COVID-19 with hypoxia and this may contribute. Patient does not appear to have a secondary polycythemia on laboratory work-up. Patient should have a complete pulmonary function test as an outpatient. We will also need to have a walking oximetry. 3. Advanced age/hypertension/obesity/GERD Complicates care, management, recovery and prognosis. Hospitalist has already verified DNR Comfort Care arrest without intubation and CODE STATUS. I believe this is appropriate. Okay to continue with baseline medications from my perspective. HPI Consult Data Date of Consult: 04/05/21 HPI Narrative HPI Narrative: FANTA TREVIÑO is an 85 F, with past medical history listed below, who presents to [facility] on 04/04/2021 secondary to progressive shortness of breath. Patient reportedly had gone to her PCP for an evaluation and was sent to the ER for hypoxia. Patient states that she had COVID in mid February and had been discharged on supplemental oxygen at that time. Patient was requiring 2 L nasal cannula, but had recently increased her oxygen to 4 L secondary to some shortness of breath. On presentation to her PCP office, patient saturations were in the 80s, so she was sent to the ER for possible admission. On arrival to the ER, patient was noted to be 73% on 4 L nasal cannula. Patient did not report any chest pain or cough at that time. Patient was afebrile, but tachycardic at 114 bpm and tachypneic at 28 breaths/min. Patient's blood pressure was appropriate, but ultimately she had to be placed on high flow nasal cannula to maintain saturations. Laboratory work-up showed a white blood cell count of 6.6, hemoglobin of 11.4 and a D-dimer of 3.23. Creatinine was 1.04 and lactate was normal at 1.9. BNP was elevated at 1044. Chest x-ray showed some mild increased markings in the right midlung field and a subsequent CTA showed right-sided pulmonary emboli with mosaic groundglass opacities. EKG showed sinus rhythm with no changes compared to previous. The patient was started on a heparin drip and admitted to the hospital for further evaluation. Since being admitted to the hospital, patient's oxygenation has significantly improved. Patient is now tolerating 6 L/min and feels subjectively less short of breath compared to admission. Patient denies any history of previous pulmonary emboli. Patient does report she has had a history of 2 miscarriages in the past. Patient has noted some increased lower extremity edema, but had a ttributed this to COVID-19. Patient was just placed on supplemental oxygen following her COVID-19 diagnosis. Patient denies any smoking, environmental exposures or trauma at baseline. Patient has never been diagnosed with a hypercoagulable state. Patient does report that she has 5 sisters with multiple miscarriages between them and her mother. She is not aware of any of her family being diagnosed with a hypercoagulable state. Patient is not reporting any bleeding complications after initiation of anticoagulation. Review of systems otherwise negative from a constitutional, HEENT, respiratory, cardiovascular, GI, genitourinary, musculoskeletal, skin, neurologic, psychiatric and hematologic system unless stated above. 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 Small bowel obstruction Ventricular premature beats Home Medications loperamide 2 mg PO DAILY PRN PRN 08/25/19 [History Last Taken 06/23/20] acetaminophen 650 mg PO Q6H PRN PRN tablet 06/27/20 [Rx Last Taken Unknown] calcium carbonate 600 mg calcium (1,500 mg) tablet 600 mg PO BID tab 07/23/20 [History Last Taken Unknown] ferrous sulfate 325 mg (65 mg iron) tablet 325 mg PO DAILY 07/23/20 [History Last Taken Unknown] pantoprazole 40 mg tablet,delayed release 40 mg PO DAILY 07/23/20 [History Last Taken Unknown] biotin 1 mg PO DAILY 03/06/21 [History Last Taken Unknown] cholecalciferol (vitamin D3) [Vitamin D3] 125 mcg PO DAILY 03/06/21 [History Last Taken Unknown] hydrochlorothiazide 12.5 mg PO DAILY 03/06/21 [History Last Taken Unknown] omega-3 fatty acids 1,000 mg PO MO 03/06/21 [History Last Taken Unknown] potassium chloride 20 meq PO DAILY 03/06/21 [History Last Taken Unknown] prednisone 10 mg PO DAILY 03/06/21 [History Last Taken Unknown] Allergy/AdvReac Type Severity Reaction Status Date / Time codeine Allergy Rash Verified 04/04/21 11:36 fenofibrate Allergy Unknown Verified 04/04/21 11:36 lisinopril Allergy Unknown Verified 04/04/21 11:36 perfume Allergy Unknown Verified 04/04/21 11:36 Sulfa (Sulfonamide Allergy Unknown Verified 04/04/21 11:36 Antibiotics) zolpidem Allergy Unknown Verified 04/04/21 11:36 cholecalciferol (vitamin D3) AdvReac Upset Verified 04/04/21 11:36 Stomach meloxicam AdvReac Unknown Verified 04/04/21 11:36 Surgical History History of colectomy S/P laparoscopy Social History Smoking Status: Never smoker ROS ROS Narrative See HPI Physical Exam Const alert, oriented x3, no apparent distress and healthy appearing Constitutional Narrative: On nasal cannula oxygen General Appearance: cooperative, well kempt and well developed Orientation / Consciousness: awake, oriented to person, oriented to place and oriented to time Nutritional Appearance: obese HEENT normocephalic and moist oral mucous membranes Eyes PERRL, EOMs intact bilaterally and conjunctivae normal Neck nuchal rigidity, supple, no JVD, thyroid normal and no carotid bruits General: trachea midline Chest inspection of chest normal Chest: symmetrical chest wall rise; Negative for crepitus Resp normal respiratory effort Auscultation: Negative for rales, rhonchi or wheezes Cardio regular rate, regular rhythm, S1 normal heart sound, S2 normal heart sound, no murmurs, no rub and no gallops GI normal to inspection, nondistended, normoactive bowel sounds, soft to palpation, non-tender and non-distended Extremity General Extremity: edema bilateral (Trace to 1+ bilateral lower extremities); Negative for clubbing or cyanosis Skin no rashes or lesions noted General Skin Exam: no breakdown Neuro oriented x3, CN's II-XII intact bilaterally, no focal motor deficits and no sensory deficits noted Sensorium / Orientation: awake and alert Speech: speech normal Psych thought process normal and affect normal Lab / Micro Data Result Diagrams: 04/05/21 04:58 04/05/21 04:58 Labs: Laboratory Results - last 24 hr 04/04/21 11:50: WBC 6.6, RBC 4.05 L, Hgb 11.4 L, Hct 36.6 L, MCV 90.4, MCH 28.1, MCHC 31.1 L, RDW Std Deviation 51.6 H, RDW Coeff of Lynsey 15.8 H, Plt Count 290, MPV 10.4, Immature Gran % (Auto) 0.500, Neut % (Auto) 75.8 H, Lymph % (Auto) 11.0 L, [place] % (Auto) 9.2, Eos % (Auto) 2.7, Baso % (Auto) 0.8, Absolute Neuts (auto) 5.0, Absolute Lymphs (auto) 0.73 L, Nucleated RBC % 0 04/04/21 11:50: D-Dimer Quant (PE/DVT) 3.23 H* 04/04/21 11:50: Sodium 141, Potassium 3.7, Chloride 105, Carbon Dioxide 31.0, Anion Gap 5, BUN 17, Creatinine 1.04 H, Estim Creat Clear Calc 30.93, Est GFR (MDRD) Af Amer 65, Est GFR (MDRD) Non-Af 54 L, BUN/Creatinine Ratio 16.3, Glucose 104, Calcium 9.1, Troponin I High Sens 25 04/04/21 11:50: Lactic Acid 1.9 04/04/21 11:50: B-Natriuretic Peptide 1044.6 H 04/04/21 11:50: PT 13.5, INR 1.1, APTT 35.6 04/04/21 11:50: Magnesium 2.2 04/05/21 04:58: WBC 6.2, RBC 3.59 L, Hgb 10.1 L, Hct 33.1 L, MCV 92.2, MCH 28.1, MCHC 30.5 L, RDW Std Deviation 53.4 H, RDW Coeff of Lynsey 15.9 H, Plt Count 261, MPV 9.9 04/05/21 04:58: Sodium 141, Potassium 3.6, Chloride 103, Carbon Dioxide 33.0 H, Anion Gap 5, BUN 16, Creatinine 1.01, Estim Creat Clear Calc 31.85, Est GFR (MDRD) Af Amer 67, Est GFR (MDRD) Non-Af 56 L, BUN/Creatinine Ratio 15.8, Glucose 92, Calcium 8.6, TSH 1.22 04/05/21 04:58: Phosphorus 3.6 Micro: Microbiology 04/05/21 00:30 Urine, Clean Catch Legionella Antigen - Final 04/05/21 00:30 Urine, Clean Catch Streptococcus pneumoniae Antigen (M - Final Radiology Impression Chest X-Ray 04/04/21 11:43 IMPRESSION: Mild residual infiltrates in the left mid lung and left lung base. Mild increased markings in the right midlung. Electronically Signed: Harpal Felipe MD at 12:36 EST , Service support , Chest CTA 04/04/21 12:27 IMPRESSION: Pulmonary emboli in the right upper and lower right lower lobe pulmonary arteries. Bilateral pulmonary infiltrates with mosaic groundglass appearance worse in the upper lobes. Electronically Signed: Harpal Felipe MD at 13:30 EST , Service support , Echocardiogram 04/04/21 14:38 Interpretation Summary Normal LV size. Left ventricular systolic function is normal. The estimated ejection fraction is 55 %. Moderately dilated right ventricle. Apical sparing noted Abnormal right ventricular diastolic function The right atrium is severely enlarged. Pulmonary artery systolic pressure is 84 mmHg. Ordering Physician: Misael Mcdonough Referring Physician: Chapo Morfin Performed By: Joshua Blair RCS Charges/Coding Visit Charges Inpatient E&M: 76425 Init Hosp L3
--- NOTE | 2021-04-05 09:49 | PN.HOSP_ITS ---
Subjective Subjective Well, no issues overnight. She does have significant right heart strain and is requiring significant amount of oxygen, she was recently discharged with COVID and was on 4 L at that time now she is closer to 7 or 8 L nasal cannula. Echo demonstrated an RVSP of 84 mmHg, this is likely combination of baseline pulmon arlet hypertension compounded by the PE. Objective Data Objective Data Vital Signs: Vital Signs Temp Pulse Resp BP Pulse Ox 98.1 F 84 18 110/66 91 04/05/21 08:55 04/05/21 08:55 04/05/21 08:55 04/05/21 08:55 04/05/21 08:55 Oxygen Flow Rate (L/min) 6 Oxygen Delivery Method Nasal Cannula Weight: 160 lb 7.944 oz Body Mass Index (BMI) 31.7 Intake & Output: Intake and Output for Last 24 Hours 04/04/21 04/05/21 04/06/21 03:59 03:59 03:59 Intake Total 380.35 / 380.35 Output Total 400 / 400 Balance -19.65 / -19.65 Lab / Micro Data Result Diagrams: 04/05/21 04:58 04/05/21 04:58 Labs: Laboratory Results - last 24 hr 04/04/21 11:50: WBC 6.6, RBC 4.05 L, Hgb 11.4 L, Hct 36.6 L, MCV 90.4, MCH 28.1, MCHC 31.1 L, RDW Std Deviation 51.6 H, RDW Coeff of Lynsey 15.8 H, Plt Count 290, MPV 10.4, Immature Gran % (Auto) 0.500, Neut % (Auto) 75.8 H, Lymph % (Auto) 11.0 L, [place] % (Auto) 9.2, Eos % (Auto) 2.7, Baso % (Auto) 0.8, Absolute Neuts (auto) 5.0, Absolute Lymphs (auto) 0.73 L, Nucleated RBC % 0 04/04/21 11:50: D-Dimer Quant (PE/DVT) 3.23 H* 04/04/21 11:50: Sodium 141, Potassium 3.7, Chloride 105, Carbon Dioxide 31.0, Anion Gap 5, BUN 17, Creatinine 1.04 H, Estim Creat Clear Calc 30.93, Est GFR (MDRD) Af Amer 65, Est GFR (MDRD) Non-Af 54 L, BUN/Creatinine Ratio 16.3, Glucose 104, Calcium 9.1, Troponin I High Sens 25 04/04/21 11:50: Lactic Acid 1.9 04/04/21 11:50: B-Natriuretic Peptide 1044.6 H 04/04/21 11:50: PT 13.5, INR 1.1, APTT 35.6 04/04/21 11:50: Magnesium 2.2 04/05/21 04:58: WBC 6.2, RBC 3.59 L, Hgb 10.1 L, Hct 33.1 L, MCV 92.2, MCH 28.1, MCHC 30.5 L, RDW Std Deviation 53.4 H, RDW Coeff of Lynsey 15.9 H, Plt Count 261, MPV 9.9 04/05/21 04:58: Sodium 141, Potassium 3.6, Chloride 103, Carbon Dioxide 33.0 H, Anion Gap 5, BUN 16, Creatinine 1.01, Estim Creat Clear Calc 31.85, Est GFR (MDRD) Af Amer 67, Est GFR (MDRD) Non-Af 56 L, BUN/Creatinine Ratio 15.8, Glucose 92, Calcium 8.6, TSH 1.22 04/05/21 04:58: Phosphorus 3.6 Micro: Microbiology 04/05/21 00:30 Urine, Clean Catch Legionella Antigen - Final 04/05/21 00:30 Urine, Clean Catch Streptococcus pneumoniae Antigen (M - Final Radiography Diagnostic Testing: Radiology Impression Chest X-Ray 04/04/21 11:43 IMPRESSION: Mild residual infiltrates in the left mid lung and left lung base. Mild increased markings in the right midlung. Electronically Signed: Harpal Felipe MD at 12:36 EST , Service support , Chest CTA 04/04/21 12:27 IMPRESSION: Pulmonary emboli in the right upper and lower right lower lobe pulmonary arteries. Bilateral pulmonary infiltrates with mosaic groundglass appearance worse in the upper lobes. Electronically Signed: Harpal Felipe MD at 13:30 EST , Service support , Echocardiogram 04/04/21 14:38 Interpretation Summary Normal LV size. Left ventricular systolic function is normal. The estimated ejection fraction is 55 %. Moderately dilated right ventricle. Apical sparing noted Abnormal right ventricular diastolic function The right atrium is severely enlarged. Pulmonary artery systolic pressure is 84 mmHg. Ordering Physician: Misael Mcdonough Referring Physician: Chapo Morfin Performed By: Joshua Blair RCS Physical Exam Const alert, oriented x3 and no apparent distress General Appearance: cooperative HEENT normocephalic and moist oral mucous membranes Eyes PERRL, EOMs intact bilaterally and conjunctivae normal Neck supple and no JVD Resp normal respiratory effort, no retractions and no use of accessory muscles Auscultation: diminished lung sounds; Negative for crackles, rales, rhonchi or wheezes Cardio regular rate, regular rhythm, S1 normal heart sound, S2 normal heart sound and no murmurs GI soft to palpation, non-tender and non-distended; Negative for hepatosplenomegaly Extremity General Extremity: edema; Negative for clubbing or cyanosis Skin no rashes or lesions noted Neuro no focal motor deficits and no sensory deficits noted Psych affect normal Appearance: appropriate Assessment & Plan Assessment/Plan (1) Pulmonary emboli: PLAN: 1. Acute on chronic hypoxic respiratory failure secondary to right-sided PE with severe pulmonary hypertension likely secondary to recent COVID infection February 2021 ? She was normally on 2 to 4 L of oxygen post COVID discharge now she is up to 8 L while here. ? Echo with normal EF, moderately dilated right ventricle as well as a severely enlarged right atrium. Pulmonary artery systolic pressure is 84 mmHg ? We will hold Lasix at this time and continue with anticoagulation ? Can transition to p.o. Eliquis ? Wean oxygen as able 2. HTN ? Blood pressure is stable ? We will hold hold hydrochlorothiazide 3. Iron deficiency anemia ? Stable ? Continue with iron replacement 4. GERD ? Stable ? Continue with PPI DVT: Elikb Charges/Coding Visit Charges Inpatient E&M: 77248 Subs Hosp L2
[2021-04-05] MEDS: Calcium Carb/Vitamin D 1 TABLET Tablet PO ×2 (10:27→19:00)
[2021-04-05] MEDS: Ferrous Sulfate 325 MG Tablet PO (10:27)
[2021-04-05] MEDS: Potassium Chloride Oral Tablet 20 MEQ PO (10:28)
[2021-04-05] MEDS: Pantoprazole Sodium 40 MG Tablet PO (10:28)
--- NOTE | 2021-04-05 11:25 | CASEMGMT ---
Readmission chart review: 03/06-03/07/21 COVID pna 04/04/21-current Right sided PE s/p COVID Pt presented to [facility] ED on 03/06/21 for cough/SOB x3 days and was dx'd with COVID. Pt is vaccinated for COVID and wears 2L continuous at home thru [employer]. Pt qualified for increased home oxygen at discharge, 2L at rest and 4L w/ exertion. Pt states has had fatigue at home and has not been as active as normal. Pt returned to [facility] ED for increased SOB on 04/04/21 and was dx'd with right sided PE. Pt is currently on 6L nc and plan is for her to be started on Eliquis. Pt states plans to go home and this RN CM to follow therapy evals and need for increased home oxygen. SStaten RN CM
--- NOTE | 2021-04-05 15:54 | CHAPLAIN ---
Type of Pastoral Visit _x__ Initial Visit ___ Follow-up Visit ___ On-call Visit ___ General Patient Visit ___ Spiritual Assessment ___ Family Conference ___ Bereavement ___ Rapid Response ___ Code Blue ___ Other (describe below) Pastoral Care Referral From _x__ Patient ___ Family ___ Nurse ___ Physician ___ Rn Physician Office ___ Form Maker ___ Other (describe below) Sacrament/Intervention _x__ Active listening ___ Anointing ___ Religion ___ Bereavement ___ Communion ___ Rakel exploration ___ ___ Life review _x__ Prayer ___ Reconciliation ___ Sacrament of Sick ___ Supportive presence ___ Wedding ___ Other (describe below) Pastoral Comments
[2021-04-05] MEDS: APIXABAN 5 MG TABLET 10 MG PO (19:00)
[2021-04-06] VITALS (11 sets, daily range): BP systolic 111–125; BP diastolic 56–68; PULSE 78–89; RESP 16–18; TEMP 36.6–36.9; O2SAT 92–94
[2021-04-06 06:01] LABS: Hematocrit 33.1 % (37-47); Hemoglobin 9.9 g/dL (12.0-15.0); Mean Corp Hgb Conc 29.9 g/dL (32-36); Mean Corpuscular Volume 93.5 fL (81-99); Mean Platelet Vol. 10.6 fl (6.2-12.0); Platelet Count 271 K/mm3 (150-450); RBC Distribution Width CV 15.9 % (11.6-14.6); RBC Distribution Width SD 53.9 fl (35.1-43.9); Red Blood Count 3.54 M/mm3 (4.2-5.4); White Blood Count 5.9 K/mm3 (4.4-11.0)
[2021-04-06 06:36] LABS: Anion Gap 6 (5-15); BUN 14 mg/dL (7-18); BUN/Creat Ratio 14.8 RATIO (10-20); Calcium,Total 8.5 mg/dL (8.5-10.1); Chloride 102 mmol/L (98-107); Creatinine, Serum 0.94 mg/dL (0.55-1.02); EST Glomerular Filtration Rate 60 mL/min (>60); Est Glom Filt Rate - Afr Amer 73 mL/min (>60); Estimated Creatinine Clearance 34.22 ml/min; Glucose 101 mg/dL (74-106); Potassium 3.8 mmol/L (3.5-5.1); Sodium Level 141 mmol/L (136-145)
--- NOTE | 2021-04-06 06:38 | PCS.PANDOC ---
PANDEMIC DOCUMENTATION INITIATED: Date: 11/01/2020 Time: 190
[2021-04-06] MEDS: Calcium Carb/Vitamin D 1 TABLET Tablet PO ×2 (08:08→17:57)
[2021-04-06] MEDS: APIXABAN 5 MG TABLET 10 MG PO ×2 (08:08→20:12)
[2021-04-06] MEDS: Ferrous Sulfate 325 MG Tablet PO (08:15)
[2021-04-06] MEDS: Potassium Chloride Oral Tablet 20 MEQ PO (08:15)
[2021-04-06] MEDS: Pantoprazole Sodium 40 MG Tablet PO (08:15)
--- NOTE | 2021-04-06 08:36 | PN.CC_ITS ---
Assessment & Plan Assessment/Plan (1) Pulmonary emboli: (2) Hypoxemia: (3) Pulmonary hypertension: PLAN: RECOMMENDATIONS: 1. Hold on additional diuresis for now. Possibly challenge tomorrow 2. Agree with anticoagulation. Transition to 10 a inhibitor prior to discharge. Monitor for clinical bleeding 3. Wean supplemental oxygen as tolerated 4. Walking oximetry prior to discharge 5. We will need outpatient PFT and a repeat echocardiogram in 6 to 8 weeks IMPRESSIONS: 1. Acute on chronic hypoxic respiratory failure secondary to pulmonary emboli/cor pulmonale Patient appears to have a baseline of 2 L nasal cannula since COVID-19, but has required up to 8 L nasal cannula to maintain saturations while in the hospital. Patient has had some improvement after initiation of anticoagulation and Lasix therapy. Clinical suspicion for hypercoagulable state secondary to COVID-19, but family history is somewhat concerning. We will have to discuss as an outpatient, but patient will require at least 3 to 6 months of antic oagulation. Patient does have elevated pulmonary artery pressures, but it is unlikely that all of this is acute. Patient does not show any signs of infarction. Clinical suspicion for elevated BNP secondary to right heart strain and may resolve with anticoagulation alone. Right heart will be very volume sensitive, so we will hold on anticoagulation for now. Anticipate further improvement with continued anticoagulation. May challenge with diuretics tomorrow if still on supplemental oxygen after having some time for clot burden to improve 2. Acute on chronic pulmonary hypertension/cor pulmonale Patient obviously had an elevation in pulmonary artery pressures following acute pulmonary embolism. However, pulmonary artery pressures in the 80s would be suggestive of an underlying elevated pulmonary artery pressure. Patient did recently have COVID-19 with hypoxia and this may contribute. Patient does not appear to have a secondary polycythemia on laboratory work-up. Patient should have a complete pulmonary function test as an outpatient. We will also need to have a walking oximetry. 3. Advanced age/hypertension/obesity/GERD Complicates care, management, recovery and prognosis. Hospitalist has already verified DNR Comfort Care arrest without intubation and CODE STATUS. I believe this is appropriate. Okay to continue with baseline medications from my perspective. Subjective Subjective Patient feels subjectively improved compared to yesterday. Patient was able to make it to the chair this morning and tolerated well. Patient is not reporting any clinical bleeding. Patient's oxygen demands have improved. Objective Data Objective Data Vital Signs: Vital Signs Temp Pulse Resp BP Pulse Ox 36.6 C 78 18 115/56 L 94 04/06/21 08:01 04/06/21 08:01 04/06/21 08:01 04/06/21 08:01 04/06/21 08:31 Oxygen Flow Rate (L/min) 6 Oxygen Delivery Method Nasal Cannula Weight: 72.9 kg Body Mass Index (BMI) 31.7 Intake & Output: Intake and Output for Last 24 Hours 04/04/21 04/05/21 04/06/21 23:59 23:59 23:59 Intake Total 380.35 / 380.35 840 / 840 Output Total 400 / 400 Balance -19.65 / -19.65 840 / 840 Lab / Micro Data Result Diagrams: 04/06/21 04:59 04/06/21 04:59 Labs: Laboratory Results - last 24 hr 04/06/21 04:59: WBC 5.9, RBC 3.54 L, Hgb 9.9 L, Hct 33.1 L, MCV 93.5, MCH 28.0, MCHC 29.9 L, RDW Std Deviation 53.9 H, RDW Coeff of Lynsey 15.9 H, Plt Count 271, MPV 10.6 04/06/21 04:59: Sodium 141, Potassium 3.8, Chloride 102, Carbon Dioxide 33.0 H, Anion Gap 6, BUN 14, Creatinine 0.94, Estim Creat Clear Calc 34.22, Est GFR (M DRD) Af Amer 73, Est GFR (MDRD) Non-Af 60, BUN/Creatinine Ratio 14.8, Glucose 101, Calcium 8.5 Micro: Microbiology 04/05/21 00:30 Urine, Clean Catch Legionella Antigen - Final 04/05/21 00:30 Urine, Clean Catch Streptococcus pneumoniae Antigen (M - Final Physical Exam Const alert, oriented x3, no apparent distress and healthy appearing Constitutional Narrative: On nasal cannula oxygen, sitting in the bedside chair General Appearance: cooperative, well kempt and well developed Orientation / Consciousness: awake, oriented to person, oriented to place and oriented to time Nutritional Appearance: obese HEENT normocephalic and moist oral mucous membranes Eyes PERRL, EOMs intact bilaterally and conjunctivae normal Neck nuchal rigidity, supple, no JVD, thyroid normal and no carotid bruits General: trachea midline Chest inspection of chest normal Chest: symmetrical chest wall rise; Negative for crepitus Resp normal respiratory effort Auscultation: Negative for rales, rhonchi or wheezes Cardio regular rate, regular rhythm, S1 normal heart sound, S2 normal heart sound, no murmurs, no rub and no gallops GI normal to inspection, nondistended, normoactive bowel sounds, soft to palpation, non-tender and non-distended Extremity General Extremity: edema bilateral (Trace to 1+ bilateral lower extremities); Negative for clubbing or cyanosis Skin no rashes or lesions noted General Skin Exam: no breakdown Neuro oriented x3, CN's II-XII intact bilaterally, no focal motor deficits and no sensory deficits noted Sensorium / Orientation: awake and alert Speech: speech normal Psych thought process normal and affect normal Charges/Coding Visit Charges Inpatient E&M: 91578 Subs Hosp L2
--- NOTE | 2021-04-06 09:44 | PCM.PN.HOSP ---
Subjective Subjective Feels better today than yesterday though not back to normal. She still requiring about 6 L nasal cannula Objective Data Objective Data Vital Signs: Vital Signs Temp Pulse Resp BP Pulse Ox 97.8 F 78 18 115/56 L 94 04/06/21 08:01 04/06/21 08:01 04/06/21 08:01 04/06/21 08:01 04/06/21 08:31 Oxygen Flow Rate (L/min) 6 Oxygen Delivery Method Nasal Cannula Weight: 160 lb 11.472 oz Body Mass Index (BMI) 31.7 Intake & Output: Intake and Output for Last 24 Hours 04/05/21 04/06/21 04/07/21 03:59 03:59 03:59 Intake Total 380.35 / 380.35 840 / 840 Output Total 400 / 400 Balance -19.65 / -19.65 840 / 840 Lab / Micro Data Result Diagrams: 04/06/21 04:59 04/06/21 04:59 Labs: Laboratory Results - last 24 hr 04/06/21 04:59: WBC 5.9, RBC 3.54 L, Hgb 9.9 L, Hct 33.1 L, MCV 93.5, MCH 28.0, MCHC 29.9 L, RDW Std Deviation 53.9 H, RDW Coeff of Lynsey 15.9 H, Plt Count 271, MPV 10.6 04/06/21 04:59: Sodium 141, Potassium 3.8, Chloride 102, Carbon Dioxide 33.0 H, Anion Gap 6, BUN 14, Creatinine 0.94, Estim Creat Clear Calc 34.22, Est GFR (MDRD) Af Amer 73, Est GFR (MDRD) Non-Af 60, BUN/Creatinine Ratio 14.8, Glucose 101, Calcium 8.5 Micro: Microbiology 04/05/21 00:30 Urine, Clean Catch Legionella Antigen - Final 04/05/21 00:30 Urine, Clean Catch Streptococcus pneumoniae Antigen (M - Final Physical Exam Narrative Const alert, oriented x3 and no apparent distress General Appearance: cooperative HEENT normocephalic and moist oral mucous membranes Eyes PERRL, EOMs intact bilaterally and conjunctivae normal Neck supple and no JVD Resp normal respiratory effort, no retractions and no use of accessory muscles Auscultation: diminished lung sounds; Negative for crackles, rales, rhonchi or wheezes Cardio regular rate, regular rhythm, S1 normal heart sound, S2 normal heart sound and no murmurs GI soft to palpation, non-tender and non-distended; Negative for hepatosplenomegaly Extremity General Extremity: edema; Negative for clubbing or cyanosis Skin no rashes or lesions noted Neuro no focal motor deficits and no sensory deficits noted Psych affect normal Appearance: appropriate Assessment & Plan Assessment/Plan (1) Pulmonary emboli: PLAN: 1. Acute on chronic hypoxic respiratory failure secondary to right-sided PE with severe pulmonary hypertension likely secondary to recent COVID infection February 2021 ? She was normally on 2 to 4 L of oxygen post COVID discharge now she was up to 8 L while here. ? Echo with normal EF, moderately dilated right ventricle as well as a severely enlarged right atrium. Pulmonary artery systolic pressure is 84 mmHg ? We will hold Lasix at this time and continue with anticoagulation ? Wean oxygen as able, will do an ambulatory pulse ox when she is requiring less than 6 L nasal cannula 2. HTN ? Blood pressure is stable ? We will hold hold hydrochlorothiazide 3. Iron deficiency anemia ? Stable ? Continue with iron replacement 4. GERD ? Stable ? Continue with PPI DVT: Eliquis Charges/Coding Visit Charges Inpatient E&M: 83932 Subs Hosp L2
[2021-04-07] VITALS (10 sets, daily range): BP systolic 112–125; BP diastolic 61–69; PULSE 79–91; RESP 15–18; TEMP 36.6–37; O2SAT 86–94
[2021-04-07 06:23] LABS: Absolute Lymphocyte Count 1.15 X10^3/uL (0.83-4.51); Absolute Neutrophil Count 4.8 X10^3/uL (2.0-7.7); Basophil# 0.04 X10^3/uL; Basophil% 0.5 % (0-1); Eosinophil# 0.36 X10^3/uL; Eosinophils% 4.9 % (0-5); Hematocrit 33.7 % (37-47); Hemoglobin 10.2 g/dL (12.0-15.0); Lymphocyte # 1.15 X10^3/ul (0.83-4.51); Lymphocyte % 15.5 % (19-41); Mean Corp Hgb Conc 30.3 g/dL (32-36); Mean Corpuscular Hgb 28.1 pg (27.0-32.0); Mean Corpuscular Volume 92.8 fL (81-99); Mean Platelet Vol. 10.2 fl (6.2-12.0); Monocyte# 1.02 X10^3/uL; Monocyte% 13.8 % (0-10); NRBC Flagged by Analyzer 0 % (0-5); Neutrophil % 64.9 % (47-70); Platelet Count 290 K/mm3 (150-450); RBC Distribution Width CV 15.8 % (11.6-14.6); RBC Distribution Width SD 53.6 fl (35.1-43.9); Red Blood Count 3.63 M/mm3 (4.2-5.4); White Blood Count 7.4 K/mm3 (4.4-11.0)
[2021-04-07 06:48] LABS: Anion Gap 3 (5-15); BUN 14 mg/dL (7-18); BUN/Creat Ratio 16.4 RATIO (10-20); Calcium,Total 8.4 mg/dL (8.5-10.1); Chloride 103 mmol/L (98-107); Creatinine, Serum 0.85 mg/dL (0.55-1.02); EST Glomerular Filtration Rate 68 mL/min (>60); Est Glom Filt Rate - Afr Amer 82 mL/min (>60); Estimated Creatinine Clearance 37.84 ml/min; Glucose 95 mg/dL (74-106); Sodium Level 138 mmol/L (136-145)
[2021-04-07] MEDS: Pantoprazole Sodium 40 MG Tablet PO (08:18)
[2021-04-07] MEDS: Calcium Carb/Vitamin D 1 TABLET Tablet PO ×2 (08:18→16:44)
[2021-04-07] MEDS: Ferrous Sulfate 325 MG Tablet PO (08:18)
[2021-04-07] MEDS: APIXABAN 5 MG TABLET 10 MG PO ×2 (08:18→20:10)
[2021-04-07] MEDS: Potassium Chloride Oral Tablet 20 MEQ PO (08:18)
[2021-04-07] MEDS: Furosemide 20 MG/2 ML VIAL IV (08:19)
[2021-04-07] MEDS: 0.9% Saline Lock 10 ML Syringe IV (08:26)
--- NOTE | 2021-04-07 09:51 | CASEMGMT ---
Pt's home oxygen order is for 2L at rest and 4L w/ exertion. [place] PINA aware to test pt on these settings for amb pulse ox. CM to follow. Roger PINA CM
--- NOTE | 2021-04-07 10:37 | PN.CC_ITS ---
Assessment & Plan Assessment/Plan (1) Pulmonary emboli: (2) Hypoxemia: (3) Pulmonary hypertension: PLAN: RECOMMENDATIONS: 1. Okay to challenge with diuretics from my perspective 2. Agree with anticoagulation. Transition to 10 a inhibitor prior to discharge. Monitor for clinical bleeding 3. Wean supplemental oxygen as tolerated 4. Walking oximetry prior to discharge 5. We will need outpatient PFT and a repeat echocardiogram in 6 to 8 weeks IMPRESSIONS: 1. Acute on chronic hypoxic respiratory failure secondary to pulmonary emboli/cor pulmonale Patient appears to have a baseline of 2 L nasal cannula since COVID-19, b ut has required up to 8 L nasal cannula to maintain saturations while in the hospital. Patient has had some improvement after initiation of anticoagulation and Lasix therapy. Clinical suspicion for hypercoagulable state secondary to COVID-19, but family history is somewhat concerning. We will have to discuss as an outpatient, but patient will require at least 3 to 6 months of anticoagulation. Patient does have elevated pulmonary artery pressures, but it is unlikely that all of this is acute. Patient does not show any signs of infarction. Clinical suspicion for elevated BNP secondary to right heart strain and may resolve with anticoagulation alone. Patient has had 48 hours of anticoagulation and he is 2 L positive from a fluid balance standpoint. Okay to diurese from my perspective. 2. Acute on chronic pulmonary hypertension/cor pulmonale Patient obviously had an elevation in pulmonary artery pressures following acute pulmonary embolism. However, pulmonary artery pressures in the 80s would be suggestive of an underlying elevated pulmonary artery pressure. Patient did recently have COVID-19 with hypoxia and this may contribute. Patient does not appear to have a secondary polycythemia on laboratory work-up. Patient should have a complete pulmonary function test as an outpatient. We will also need to have a walking oximetry as she will be at risk for significant increase in FiO2 demands with ambulation given cor pulmonale. 3. Advanced age/hypertension/obesity/GERD Complicates care, management, recovery and prognosis. Hospitalist has already verified DNR Comfort Care arrest without intubation and CODE STATUS. I believe this is appropriate. Okay to continue with baseline medications from my perspective. Subjective Subjective Patient did okay overnight from a hemodynamic standpoint. However, patient reports poor sleep and feels tired today. Patient is not reporting any bleeding complication such as hemoptysis, melena or hematochezia. No bruising has been reported by the patient. Patient is still requiring supplemental oxygen to maintain saturations. Objective Data Objective Data Vital Signs: Vital Signs Temp Pulse Resp BP Pulse Ox 37.0 C 80 15 113/61 94 04/07/21 08:10 04/07/21 08:10 04/07/21 08:10 04/07/21 08:10 04/07/21 08:10 Oxygen Flow Rate (L/min) 5 Oxygen Delivery Method Nasal Cannula Weight: 72.9 kg Body Mass Index (BMI) 31.7 Intake & Output: Intake and Output for Last 24 Hours 04/05/21 04/06/21 04/07/21 23:59 23:59 23:59 Intake Total 840 / 840 1020 / 1260 240 / 240 Balance 840 / 840 1020 / 1260 240 / 240 Lab / Micro Data Result Diagrams: 04/07/21 05:45 04/07/21 05:45 Labs: Laboratory Results - last 24 hr 04/07/21 05:45: WBC 7.4, RBC 3.63 L, Hgb 10.2 L, Hct 33.7 L, MCV 92.8, MCH 28.1, MCHC 30.3 L, RDW Std Deviation 53.6 H, RDW Coeff of Lynsey 15.8 H, Plt Count 290, MPV 10.2, Immature Gran % (Auto) 0.400, Neut % (Auto) 64.9, Lymph % (Auto) 15.5 L, [place] % (Auto) 13.8 H, Eos % (Auto) 4.9, Baso % (Auto) 0.5, Absolute Neuts (auto) 4.8, Absolute Lymphs (auto) 1.15, Nucleated RBC % 0 04/07/21 05:45: Sodium 138, Potassium 4.0, Chloride 103, Carbon Dioxide 32.0, Anion Gap 3 L, BUN 14, Creatinine 0.85, Estim Creat Clear Calc 37.84, Est GFR (MDRD) Af Amer 82, Est GFR (MDRD) Non-Af 68, BUN/Creatinine Ratio 16.4, Glucose 95, Calcium 8.4 L Micro: Microbiology 04/04/21 11:55 Blood Culture (Wb) - Anticubital Left Blood Culture - Preliminary No growth in 48 hours. 04/04/21 11:50 Blood Culture (Wb) - Anticubital Right Blood Culture - Preliminary No growth in 48 hours. 04/05/21 00:30 Urine, Clean Catch Legionella Antigen - Final 04/05/21 00:30 Urine, Clean Catch Streptococcus pneumoniae Antigen (M - Final Physical Exam Const alert, oriented x3, no apparent distress and healthy appearing Constitutional Narrative: On nasal cannula oxygen, sitting in the bedside chair General Appearance: cooperative, well kempt and well developed Orientation / Consciousness: awake, oriented to person, oriented to place and oriented to time Nutritional Appearance: obese HEENT normocephalic and moist oral mucous membranes Eyes PERRL, EOMs intact bilaterally and conjunctivae normal Neck nuchal rigidity, supple, no JVD, thyroid normal and no carotid bruits General: trachea midline Chest inspection of chest normal Chest: symmetrical chest wall rise; Negative for crepitus Resp normal respiratory effort Auscultation: Negative for rales, rhonchi or wheezes Cardio regular rate, regular rhythm, S1 normal heart sound, S2 normal heart sound, no murmurs, no rub and no gallops GI normal to inspection, nondistended, normoactive bowel sounds, soft to palpation, non-tender and non-distended Extremity General Extremity: edema bilateral (Trace to 1+ bilateral lower extremities); Negative for clubbing or cyanosis Skin no rashes or lesions noted General Skin Exam: no breakdown Neuro oriented x3, CN's II-XII intact bilaterally, no focal motor deficits and no sensory deficits noted Sensorium / Orientation: awake and alert Speech: speech normal Psych thought process normal and affect normal Charges/Coding Visit Charges Inpatient E&M: 52011 Subs Hosp L2
--- NOTE | 2021-04-07 11:58 | PN.HOSP_ITS ---
Subjective Subjective Doing well, no issues overnight. Feels little bit better than yesterday. Objective Data Objective Data Vital Signs: Vital Signs Temp Pulse Resp BP Pulse Ox 98.6 F 80 15 113/61 94 04/07/21 08:10 04/07/21 08:10 04/07/21 08:10 04/07/21 08:10 04/07/21 08:10 Oxygen Flow Rate (L/min) 5 Oxygen Delivery Method Nasal Cannula Weight: 160 lb 11.472 oz Body Mass Index (BMI) 31.7 Intake & Output: Intake and Output for Last 24 Hours 04/06/21 04/07/21 04/08/21 03:59 03:59 03:59 Intake Total 840 / 840 1260 / 1260 520 / 520 Balance 840 / 840 1260 / 1260 520 / 520 Lab / Micro Data Result Diagrams: 04/07/21 05:45 04/07/21 05:45 Labs: Laboratory Results - last 24 hr 04/07/21 05:45: WBC 7.4, RBC 3.63 L, Hgb 10.2 L, Hct 33.7 L, MCV 92.8, MCH 28.1, MCHC 30.3 L, RDW Std Deviation 53.6 H, RDW Coeff of Lynsey 15.8 H, Plt Count 290, MPV 10.2, Immature Gran % (Auto) 0.400, Neut % (Auto) 64.9, Lymph % (Auto) 15.5 L, Franklin % (Auto) 13.8 H, Eos % (Auto) 4.9, Baso % (Auto) 0.5, Absolute Neuts (auto) 4.8, Absolute Lymphs (auto) 1.15, Nucleated RBC % 0 04/07/21 05:45: Sodium 138, Potassium 4.0, Chloride 103, Carbon Dioxide 32.0, Anion Gap 3 L, BUN 14, Creatinine 0.85, Estim Creat Clear Calc 37.84, Est GFR (MDRD) Af Amer 82, Est GFR (MDRD) Non-Af 68, BUN/Creatinine Ratio 16.4, Glucose 95, Calcium 8.4 L Micro: Microbiology 04/04/21 11:55 Blood Culture (Wb) - Anticubital Left Blood Culture - Prel iminary No growth in 48 hours. 04/04/21 11:50 Blood Culture (Wb) - Anticubital Right Blood Culture - Preliminary No growth in 48 hours. 04/05/21 00:30 Urine, Clean Catch Legionella Antigen - Final 04/05/21 00:30 Urine, Clean Catch Streptococcus pneumoniae Antigen (M - Final Physical Exam Narrative Const alert, oriented x3 and no apparent distress General Appearance: cooperative HEENT normocephalic and moist oral mucous membranes Eyes PERRL, EOMs intact bilaterally and conjunctivae normal Neck supple and no JVD Resp normal respiratory effort, no retractions and no use of accessory muscles Auscultation: diminished lung sounds; Negative for crackles, rales, rhonchi or wheezes Cardio regular rate, regular rhythm, S1 normal heart sound, S2 normal heart sound and no murmurs GI soft to palpation, non-tender and non-distended; Negative for hepatosplenomegaly Extremity General Extremity: edema; Negative for clubbing or cyanosis Skin no rashes or lesions noted Neuro no focal motor deficits and no sensory deficits noted Psych affect normal Appearance: appropriate Assessment & Plan Assessment/Plan (1) Pulmonary emboli: PLAN: 1. Acute on chronic hypoxic respiratory failure secondary to right-sided PE with severe pulmonary hypertension likely secondary to recent COVID infection February 2021 ? She was normally on 2 to 4 L of oxygen post COVID discharge now she was up to 8 L while here. ? Echo with normal EF, moderately dilated right ventricle as well as a severely enlarged right atrium. Pulmonary artery systolic pressure is 84 mmHg ? We will give a dose of Lasix today and then do an ambulatory pulse ox later in the afternoon and see if there is any improvement ? Continue with anticoagulation ? Wean oxygen as able, will do an ambulatory pulse ox when she is requiring less than 6 L nasal cannula 2. HTN ? Blood pressure is stable ? We will hold hold hydrochlorothiazide 3. Iron deficiency anemia ? Stable ? Continue with iron replacement 4. GERD ? Stable ? Continue with PPI DVT: Eliquis Charges/Coding Visit Charges Inpatient E&M: 56390 Subs Hosp L2
--- NOTE | 2021-04-07 14:51 | CASEMGMT ---
Patient was provided a list of HHC providers including quality and resource use data and consistent with the patient?s preferred geographic region, medical needs, and insurance network, but states she doesn't really think she will need HHC at discharge. Pt states she just needs someone to come clean her home and this RN CM advised her that that would be private pay, voices understanding. Pt is back to her home oxygen order for 2L at rest and 4L w/ exertion. CM to follow. SStaten YOVANI CM
[2021-04-08] VITALS (8 sets, daily range): BP systolic 128–136; BP diastolic 66–75; PULSE 73–110; RESP 16–20; TEMP 36.4–37; O2SAT 86–94
[2021-04-08] MEDS: Acetaminophen 325 MG Tablet 650 MG PO (01:45)
[2021-04-08 06:10] LABS: Anion Gap 5 (5-15); BUN 13 mg/dL (7-18); BUN/Creat Ratio 16.1 RATIO (10-20); Calcium,Total 8.5 mg/dL (8.5-10.1); Chloride 101 mmol/L (98-107); Creatinine, Serum 0.81 mg/dL (0.55-1.02); EST Glomerular Filtration Rate 72 mL/min (>60); Est Glom Filt Rate - Afr Amer 87 mL/min (>60); Estimated Creatinine Clearance 39.71 ml/min; Glucose 92 mg/dL (74-106); Potassium 3.8 mmol/L (3.5-5.1); Sodium Level 138 mmol/L (136-145)
--- NOTE | 2021-04-08 07:45 | PCM.PN.INT ---
Assessment & Plan Assessment/Plan (1) Pulmonary emboli: (2) Hypoxemia: (3) Pulmonary hypertension: PLAN: RECOMMENDATIONS: 1. We will continue to challenge with diuretics 2. Agree with anticoagulation. Transition to 10 a inhibitor prior to discharge. Monitor for clinical bleeding 3. Wean supplemental oxygen as tolerated 4. Walking oximetry prior to discharge 5. We will need outpatient PFT and a repeat echocardiogram in 6 to 8 weeks IMPRESSIONS: 1. Acute on chronic hypoxic respiratory failure secondary to pulmonary emboli/cor pulmonale Patient appears to have a baseline of 2 L nasal cannula since COVID-19, but has required up to 8 L nasal cannula to maintain saturations while in the hospital. Patient has had some improvement after initiation of anticoagulation and Lasix therapy. Clinical suspicion for hypercoagulable state secondary to COVID-19, but family history is somewhat concerning. We will have to discuss as an outpatient, but patient will require at least 3 to 6 months of anticoagulation. Patient does have elevated pulmonary artery pressures, but it is unlikely that all of this is acute. Patient does not show any signs of infarction. Clinical suspicion for elevated BNP secondary to right heart strain and may resolve with anticoagulation alone. Will increase diuretics today. Hopefully discharge tomorrow, but may need supplemental oxygen 2. Acute on chronic pulmonary hypertension/cor pulmonale Patient obviously had an elevation in pulmonary artery pressures following acute pulmonary embolism. However, pulmonary artery pressures in the 80s would be suggestive of an underlying elevated pulmonary artery pressure. Patient did recently have COVID-19 with hypoxia and this may contribute. Patient does not appear to have a secondary polycythemia on laboratory work-up. Patient should have a complete pulmonary function test as an outpatient. We will also need to have a walking oximetry as she will be at risk for significant increase in FiO2 demands with ambulation given cor pulmonale. 3. Advanced age/hypertension/obesity/GERD Complicates care, management, recovery and prognosis. Hospitalist has already verified DNR Comfort Care arrest without intubation and CODE STATUS. I believe this is appropriate. Okay to continue with baseline medications from my perspective. Subjective Subjective Patient did well overnight. Patient continues to report poor sleep that she attributes to the bed. Patient has reported some neck pain, but felt that her neck was not supported when she was in the chair yesterday. Patient denies any chest pain or palpitations. No bleeding such as epistaxis, hemoptysis, melena or hematochezia has been reported. Patient states that she lives in a trailer with her son, but he is not that helpful. Objective Data Objective Data Vital Signs: Vital Signs Temp Pulse Resp BP Pulse Ox 37.0 C 100 18 128/75 H 92 04/08/21 01:40 04/08/21 07:32 04/08/21 01:40 04/08/21 01:40 04/08/21 01:40 Oxygen Flow Rate (L/min) [ 4 AMBULATING with Oxygen #2] Oxygen Flow Rate (L/min) [ 2 AMBULATING with Oxygen #1] Oxygen Flow Rate (L/min) [At 2 REST with Oxygen] Oxygen Flow Rate (L/min) 4 Oxygen Delivery Method Nasal Cannula Weight: 74.4 kg Body Mass Index (BMI) 31.7 Intake & Output: Intake and Output for Last 24 Hours 04/06/21 04/07/21 04/08/21 23:59 23:59 23:59 Intake Total 1020 / 1260 1360 / 1360 240 / 240 Balance 1020 / 1260 1360 / 1360 240 / 240 Lab / Micro Data Result Diagrams: 04/07/21 05:45 04/08/21 04:52 Labs: Laboratory Results - last 24 hr 04/08/21 04:52: Sodium 138, Potassium 3.8, Chloride 101, Carbon Dioxide 32.0, Anion Gap 5, BUN 13, Creatinine 0.81, Estim Creat Clear Calc 39.71, Est GFR (MDRD) Af Amer 87, Est GFR (MDRD) Non-Af 72, BUN/Creatinine Ratio 16.1, Glucose 92, Calcium 8.5 Micro: Microbiology 04/04/21 11:55 Blood Culture (Wb) - Anticubital Left Blood Culture - Preliminary No growth in 48 hours. 04/04/21 11:50 Blood Culture (Wb) - Anticubital Right Blood Culture - Preliminary No growth in 48 hours. 04/05/21 00:30 Urine, Clean Catch Legionella Antigen - Final 04/05/21 00:30 Urine, Clean Catch Streptococcus pneumoniae Antigen (M - Final Physical Exam Const alert, oriented x3, no apparent distress and healthy appearing Constitutional Narrative: On nasal cannula oxygen, lying in the bed General Appearance: cooperative, well kempt and well developed Orientation / Consciousness: awake, oriented to person, oriented to place and oriented to time Nutritional Appearance: obese HEENT normocephalic and moist oral mucous membranes Eyes PERRL, EOMs intact bilaterally and conjunctivae normal Neck nuchal rigidity, supple, no JVD, thyroid normal and no carotid bruits General: trachea midline Chest inspection of chest normal Chest: symmetrical chest wall rise; Negative for crepitus Resp normal respiratory effort Auscultation: Negative for rales, rhonchi or wheezes Cardio regular rate, regular rhythm, S1 normal heart sound, S2 normal heart sound, no murmurs, no rub and no gallops GI normal to inspection, nondistended, normoactive bowel sounds, soft to palpation, non-tender and non-distended Extremity General Extremity: edema bilateral (Trace to 1+ bilateral lower extremities); Negative for clubbing or cyanosis Skin no rashes or lesions noted General Skin Exam: no breakdown Neuro oriented x3, CN's II-XII intact bilaterally, no focal motor deficits and no sensory deficits noted Sensorium / Orientation: awake and alert Speech: speech normal Psych thought process normal and affect normal Charges/Coding Visit Charges Inpatient E&M: 71319 Subs Hosp L2
[2021-04-08] MEDS: Pantoprazole Sodium 40 MG Tablet PO (08:10)
[2021-04-08] MEDS: APIXABAN 5 MG TABLET 10 MG PO (08:10)
[2021-04-08] MEDS: Calcium Carb/Vitamin D 1 TABLET Tablet PO (08:10)
[2021-04-08] MEDS: Ferrous Sulfate 325 MG Tablet PO (08:11)
[2021-04-08] MEDS: Potassium Chloride Oral Tablet 20 MEQ PO (08:11)
[2021-04-08] MEDS: Furosemide 40 MG Tablet PO (11:33)
--- NOTE | 2021-04-08 13:38 | DCINST_ITS ---
Discharge Instructions Diet Discharge Diet: No restrictions Activity Discharge Activity: Return to Normal Activity Dressing / Incision Call your doctor if you observe: Fever of 101 or Higher, Shortness of breath, Dizziness, Fainting spells, Swelling in the ankles, Chest pain and Increased palpitations (irregular heartbeat) Follow Up Care Test Results: Test results from this visit will be discussed in further detail at your follow-up appointment, if applicable. Discharge Plan Admission Admit Date/Time: 04/04/21 14:07 Attending Provider: Isaac Peter Primary Care Provider: Chapo Morfin Consulting Providers: Bharat Medina ; Bryan Sidhu ; Yolanda Carnes CLINICAL FIELD SPECIALIST Instructions Additional Instructions / Restrictions: Follow-up with your PCP to monitor your electrolytes and your renal function, as well as her blood pressure Discharge Orders/Prescriptions Prescriptions: New furosemide 40 mg Tablet 40 mg PO DAILY Qty: 30 RF: 0 Eliquis 5 mg Tablet 10 mg PO BID Qty: 60 RF: 0 Continued pantoprazole 40 mg tablet,delayed release (DR/EC) 40 mg PO DAILY RF: 0 calcium carbonate [Calcium 600] 600 mg calcium (1,500 mg) tablet 600 mg PO BID RF: 0 ferrous sulfate 325 mg (65 mg iron) tablet 325 mg PO DAILY RF: 0 loperamide 2 MG capsule 2 mg PO DAILY PRN PRN (Reason: Diarrhea) RF: 0 acetaminophen 325 MG tablet 650 mg PO Q6H PRN PRN (Reason: Pain Score 1-10/Temp > 100.7 F) RF: 0 prednisone 10 mg Tablet 10 mg PO DAILY RF: 0 Hold Instructions: Resume on 03/15/21. hydrochlorothiazide 12.5 mg capsule 12.5 mg PO DAILY RF: 0 omega-3 fatty acids Capsule 1,000 mg PO MO RF: 0 cholecalciferol (vitamin D3) [Vitamin D3] 125 mcg (5,000 unit) Tablet 125 mcg PO DAILY RF: 0 potassium chloride 20 MEQ tablet,ER particles/crystals 20 meq PO DAILY RF: 0 biotin 500 mcg Capsule 1 mg PO DAILY RF: 0 Referrals / Follow Up: Bharat Medina MD [STAFF PHYSICIAN] - Within 3 Months Chapo Morfin MD [Primary Care Provider] - Within 1 Week Disposition Disposition (needs filled in before D/C Order can be placed): Home, Self Care
--- NOTE | 2021-04-08 13:44 | DS.PCM_ITS ---
Providers Date of Admission: 04/04/21 Primary Care Physician: Dr. Chapo Morfin MD Consultations 04/04/21 18:30 Consult: Adjudication Specialist / Pulmonary Medicine Routine Consulting Provider: Pulmonary Medicine lynda [place] Reason for Consult: ACUTE COR PULMONALE, RV dilated, Right PE EMERGENT Consult: No MD Notified: Yes Date Notified: 04/05/21 Time Notified: 05:53 Method of Notification: Verbal Reason For Visit: RIGHT SIDED PE Diagnosis Discharge Diagnosis (1) Pulmonary emboli: Status: Acute Code(s): I26.99 - Other pulmonary embolism without acute cor pulmonale (2) Hypoxemia: Status: Acute Code(s): R09.02 - Hypoxemia (3) Pulmonary hypertension: Status: Acute Code(s): I27.20 - Pulmonary hypertension, unspecified Medications at Discharge Home Medications loperamide 2 mg PO DAILY PRN PRN 08/25/19 acetaminophen 650 mg PO Q6H PRN PRN tablet 06/27/20 calcium carbonate 600 mg calcium (1,500 mg) tablet 600 mg PO BID tab 07/23/20 ferrous sulfate 325 mg (65 mg iron) tablet 325 mg PO DAILY 07/23/20 pantoprazole 40 mg tablet,delayed release 40 mg PO DAILY 07/23/20 biotin 1 mg PO DAILY 03/06/21 cholecalciferol (vitamin D3) [Vitamin D3] 125 mcg PO DAILY 03/06/21 hydrochlorothiazide 12.5 mg PO DAILY 03/06/21 omega-3 fatty acids 1,000 mg PO MO 03/06/21 potassium chloride 20 meq PO DAILY 03/06/21 prednisone 10 mg PO DAILY 03/06/21 apixaban [Eliquis] 10 mg PO BID #60 tab 04/08/21 furosemide 40 mg PO DAILY #30 tab 04/08/21 Hospital Course Operations None Procedures 2-D Echocardiogram Summary of Care Provided Minutes Spent on Discharge: 39 Hospital Course: Per HPI: FANTA TREVIÑO, is a 85 F with recent hospitalization for COVID-19 with hypoxia on February 2021 where she completed dexamethasone. Patient is vaccinated with COVID-19 and had flu shot in 2020. The patient has been chronically on 2 L of oxygen after her bowel surgery about 8 months ago in 2020. She denies history of smoking or chronic lung disease. After COVID she required 4 L of oxygen. She had her production control coordinating clerk visit today and was found to be hypoxic pulse ox 80% on 4 L of oxygen in ED 73% on 4 L of oxygen. Patient denies any chest pain. Patient does not have any significant cough but gets intermittently fever/chills. She has low energy/fatigue after COVID. Complain of bilateral leg edema and is on HCTZ. Denies history of chronic heart disease/heart failure/coronary artery disease. In ED, she was found tachycardic and tachypneic With labored breathing. She had chest x-ray and CTA done which showed pulmonary emboli in right upper and lower lobe. I individually reviewed chest x-ray and CTA, Which shows bilateral pulmonary infiltrate with mosaic groundglass appearance. Twelve-lead EKG done in the ER shows normal sinus rhythm at 78 bpm, nonspecific ST-T abnormality in inferior and anterolateral leads. QTC 469 ms. Hospital Course: 1. Acute on chronic hypoxic respiratory failure secondary to right-sided PE with severe pulmonary hypertension likely secondary to recent COVID infection February 2021 ? She was normally on 2 to 4 L of oxygen post COVID discharge now she was up to 8 L while here. ? Echo with normal EF, moderately dilated right ventricle as well as a severely enlarged right atrium. Pulmonary artery systolic pressure is 84 mmHg ? We will give a dose of Lasix today and then do an ambulatory pulse ox later in the afternoon and see if there is any improvement ? Continue with anticoagulation ? Wean oxygen as able, will do an ambulatory pulse ox when she is requiring less than 6 L nasal cannula ? 04/08/2021: She is doing well today, she was able to ambulate with 6 L and was satting 92%. I discussed with her she felt comfortable going home today and she states that she did. She will need to be on Lasix 40 mg p.o. daily as well as Eliquis for another 3 days at 10 mg twice daily and then she will be down to 5 mg twice daily. She will need to follow-up with her PCP in 3 to 5 days to monitor renal function, electrolytes, and blood pressure. And I also recommended she follow-up with pulmonology as an outpatient to obtain a 6-minute walk test to see if she still continues to need oxygen or not. She does indicate an extensive family history of issues that could be related to blood clots though she has never had anything in her 85 years until she had COVID. If she continues to have any issues I do recommend following up with hematology for an opinion on continuation of anticoagulation, barring that would recommend at least 6 months of anticoagulation. I discussed with her the plan for discharge today and she expressed understanding of the risk and benefits of going home and would like to go home today. 2. HTN ? Blood pressure is stable ? We will hold hold hydrochlorothiazide 3. Iron deficiency anemia ? Stable ? Continue with iron replacement 4. GERD ? Stable ? Continue with PPI Physical Exam Narrative Const alert, oriented x3 and no apparent distress General Appearance: cooperative HEENT normocephalic and moist oral mucous membranes Eyes PERRL, EOMs intact bilaterally and conjunctivae normal Neck supple and no JVD Resp normal respiratory effort, no retractions and no use of accessory muscles Auscultation: diminished lung sounds; Negative for crackles, rales, rhonchi or wheezes Cardio regular rate, regular rhythm, S1 normal heart sound, S2 normal heart sound and no murmurs GI soft to palpation, non-tender and non-distended; Negative for hepatosplenomegaly Extremity General Extremity: edema; Negative for clubbing or cyanosis Skin no rashes or lesions noted Neuro no focal motor deficits and no sensory deficits noted Psych affect normal Appearance: appropriate Weight / BMI Weight Weight: 164 lb 0.383 oz Body Mass Index (BMI) 31.7 ABG / Lab / Microbiology Data Result Diagrams: 04/07/21 05:45 04/08/21 04:52 Laboratory: Laboratory Results - last 24 hr 04/08/21 04:52: Sodium 138, Potassium 3.8, Chloride 101, Carbon Dioxide 32.0, Anion Gap 5, BUN 13, Creatinine 0.81, Estim Creat Clear Calc 39.71, Est GFR (MDRD) Af Amer 87, Est GFR (MDRD) Non-Af 72, BUN/Creatinine Ratio 16.1, Glucose 92, Calcium 8.5 Microbiology: Microbiology 04/04/21 11:55 Blood Culture (Wb) - Anticubital Left Blood Culture - Preliminary No growth in 48 hours. 04/04/21 11:50 Blood Culture (Wb) - Anticubital Right Blood Culture - Preliminary No growth in 48 hours. 04/05/21 00:30 Urine, Clean Catch Legionella Antigen - Final 04/05/21 00:30 Urine, Clean Catch Streptococcus pneumoniae Antigen (M - Final D/C Instructions Discharge Diet: No restrictions Call your doctor if you observe: Fever of 101 or Higher, Shortness of breath, Dizziness, Fainting spells, Swelling in the ankles, Chest pain and Increased palpitations (irregular heartbeat) Meaningful Use Info Meaningful Use Diagnoses (Choose all that apply): None applicable Discharge Plan Admission Admit Date/Time: 04/04/21 14:07 Attending Provider: Isaac Peter Primary Care Provider: Chapo Morfin Consulting Providers: Bharat Medina ; Bryan Sidhu ; Yolanda Carnes ELECTRIC REFRIGERATOR SERVICER Instructions Additional Instructions / Restrictions: Follow-up with your PCP to monitor your electrolytes and your renal function, as well as her blood pressure Discharge Orders/Prescriptions Prescriptions: New furosemide 40 mg Tablet 40 mg PO DAILY Qty: 30 RF: 0 Eliquis 5 mg Tablet 10 mg PO BID Qty: 60 RF: 0 Continued pantoprazole 40 mg tablet,delayed release (DR/EC) 40 mg PO DAILY RF: 0 calcium carbonate [Calcium 600] 600 mg calcium (1,500 mg) tablet 600 mg PO BID RF: 0 ferrous sulfate 325 mg (65 mg iron) tablet 325 mg PO DAILY RF: 0 loperamide 2 MG capsule 2 mg PO DAILY PRN PRN (Reason: Diarrhea) RF: 0 acetaminophen 325 MG tablet 650 mg PO Q6H PRN PRN (Reason: Pain Score 1-10/Temp > 100.7 F) RF: 0 prednisone 10 mg Tablet 10 mg PO DAILY RF: 0 Hold Instructions: Resume on 03/15/21. hydrochlorothiazide 12.5 mg capsule 12.5 mg PO DAILY RF: 0 omega-3 fatty acids Capsule 1,000 mg PO MO RF: 0 cholecalciferol (vitamin D3) [Vitamin D3] 125 mcg (5,000 unit) Tablet 125 mcg PO DAILY RF: 0 potassium chloride 20 MEQ tablet,ER particles/crystals 20 meq PO DAILY RF: 0 biotin 500 mcg Capsule 1 mg PO DAILY RF: 0 Referrals / Follow Up: Bharat Medina MD [STAFF PHYSICIAN] - Within 3 Months Chapo Morfin MD [Primary Care Provider] - Within 1 Week Disposition Disposition (needs filled in before D/C Order can be placed): Home, Self Care Charges/Coding Visit Charges Inpatient E&M: 67609 Disch Hosp
--- NOTE | 2021-04-08 14:09 | CASEMGMT ---
Addendum entered by Karla Gan 04/08/21 14:41: New order faxed to [facility] at this time and call to Daniela at [facility] to notify, voices understanding and states they will get new concentrator to pt. Roger PINA CM Original Note: Pt declines need for HHC at this time but does qualify for increased home oxygen and new order faxed to [facility] for 4L at rest and 6L w/ exertion. Pt voices no further questions/concerns/needs. Roger PINA CM
== END 2021-04-08 15:50 | disposition home or self-care (01) | DRG 175 ==
LOC: ED 13:48 → PCU 14:18
PROVIDERS: Admitting Provider Internal Medicine; Emergency Provider Emergency Medicine; PCP Family Medicine; Visit Provider Family Medicine
DX: I26.09 Other pulmonary embolism with acute cor pulmonale (principal); J96.21 Acute and chronic respiratory failure with hypoxia; I27.20 Pulmonary hypertension, unspecified; I10 Essential (primary) hypertension; D50.9 Iron deficiency anemia, unspecified; K21.9 Gastro-esophageal reflux disease without esophagitis; K58.9 Irritable bowel syndrome, unspecified; Z66 Do not resuscitate; E66.9 Obesity, unspecified; U09.9 Post COVID-19 condition, unspecified; Z99.81 Dependence on supplemental oxygen; Z79.899 Other long term (current) drug therapy
CPT/HCPCS: 36415; 71045; 71275; 80048; 83605; 83735; 83880; 84100; 84443; 84484; 85025; 85027; 85379; 85610; 85730; 87040; 87449; 93005; 93306; 94640; 97110; 97116; 97162; 97166; 97530; 97535; 99251; 99285; Q9957; Q9967; A4216; G0463; J1940